=== PATIENT | male | born 1940 | race Hispanic/Latino ===

== ENCOUNTER 2017-09-27 06:56 | Day surgery (SDC) | payer MEDICARE, OTHER ==
[2017-09-20 13:17] VITALS: BMI 24.5
[2017-09-27 07:46] LABS: BASO # 0.01 K/mm3 (0.0-2.0); BASO % 0.1 % (0.0-3.0); EOS # 0.1 (0.0-0.7); EOS % 1.3 % (1.5-5.0); GRAN # 7.49 (1.4-6.5); GRAN % 78.6 % (50.0-68.0); HEMOGLOBIN 9.5 g/dL (14.0-18.0); LYMPH # 1.1 (1.2-3.4); LYMPH % 11.4 % (22.0-35.0); MEAN CELL VOLUME 82.3 fl (80.0-105.0); MEAN CORPUSCULAR HEMOGLOBIN 27.6 pg (25.0-35.0); MEAN CORPUSCULAR HGB CONC 33.6 g/dl (31.0-37.0); MEAN PLATELET VOLUME 9.2 fl (7.0-11.0); MONO # 0.8 (0.1-0.6); MONO % 8.6 % (1.0-6.0); RBC 3.44 10^6/uL (3.5-6.1); RED CELL DISTRIBUTION WIDTH 12.9 % (11.5-14.5); WHITE BLOOD COUNT 9.5 10^3/ul (4.5-11.0)
[2017-09-27 07:51] LABS: BLOOD UREA NITROGEN 24 mg/dL (7-21); CALCIUM 9.8 mg/dL (8.4-10.5); GFR AFRICAN-AMERICAN > 60; GFR NON-AFRICAN AMERICAN 58
[2017-09-27 07:54] LABS: INR 1.15 (0.93-1.08); PROTHROMBIN TIME 13.3 SECONDS (9.4-12.5)
[2017-09-27] MEDS ORDERED: Midazolam 2 MG/2 ML VIAL ONE (09:29)
[2017-09-27] MEDS ORDERED: Lidocaine 1% Inj (20ml) ONE (09:30)
[2017-09-27] MEDS ORDERED: Oxycodone/Acetaminophen 5/325 mg Tab PO PRN (10:37)
[2017-09-27] MEDS ORDERED: Sodium Chloride 0.45% 1,000 ML IV SCH (10:45)
[2017-09-27 12:28] VITALS: BP 131/75; PULSE 72; RESP 20; TEMP 97.9; O2SAT 97
--- NOTE | 2017-09-27 14:30 | CT ---
PROCEDURE: CT guided right upper lobe lung biopsy. HISTORY: 13 mm spiculated right upper lobe lung nodule. Evaluate for malignancy. Previous smoker. History prostate CA PHYSICIAN(S): Fito Sylvester MD. TECHNIQUE: The relative risks and indications of the procedure were explained to the patient's daughter and consent obtained. The patient was placed prone on the CT scanner and preliminary images through the upper lobes obtained. Conscious sedation and monitoring were provided throughout the procedure by a nurse. This spiculated 13 millimeter nodule in the right upper lobe posteriorly.. A right posterior oblique approach was selected and the area prepped and draped in the usual sterile fashion. 1% Xylocaine was used to anesthetize the skin and soft tissues. A in gauge guiding needle was advanced into the 13 mm right upper lobe lung nodule.. Its position was confirmed with CT. Using coaxial technique, multiple core biopsies were obtained. The postprocedure images show no evidence of large pneumothorax or significant hemorrhage. A small pneumothorax was seen and follow-up chest x-ray has been ordered. The patient is asymptomatic. IMPRESSION: 1. CT-guided right upper lobe lung biopsy as described above.
--- NOTE | 2017-09-27 14:43 | RAD ---
HISTORY: rt lung bx COMPARISON: CT-guided lung biopsy 09/27/2017. FINDINGS: LUNGS: Trace right pneumothorax is identified at the right apex correspond to minimal pneumothorax seen in CT from CT-guided lung biopsy procedure 09/27/2017 earlier in the same morning. Small lesion and post biopsy apical parenchymal changes are seen in the right upper lobe as well with the left lung clear. PLEURA: No significant pleural effusion identified, no pneumothorax apparent. CARDIOVASCULAR: Normal. OSSEOUS STRUCTURES: No significant abnormalities. VISUALIZED UPPER ABDOMEN: Normal. OTHER FINDINGS: None. IMPRESSION: Trace right apical pneumothorax. Consider follow-up radiography as clinically warranted. Patient is apparently asymptomatic. Findings and discussed with Dr. Sylvester 09/27/2017 2:35 p.m..
== END 2017-09-27 15:25 | disposition home or self-care (01) ==
LOC: SDS 06:56
PROVIDERS: ATTEND Radiology Vascular & Interventional Radiology
DX: C34.11 Malignant neoplasm of upper lobe, right bronchus or lung (principal); Z87.891 Personal history of nicotine dependence; Z85.46 Personal history of malignant neoplasm of prostate
CPT/HCPCS: 32405; 36415; 71045; 77012; 80048; 85025; 85610; 85730; 88305; J2250; J2405; J3010; J7030

== ENCOUNTER 2017-09-28 09:08 | Inpatient (IN) | payer MEDICARE ==
[2017-09-28] MEDS ORDERED: Morphine 4 mg/ml ISec IVP STA (09:23)
[2017-09-28] MEDS ORDERED: Sodium Chloride 0.9% 1,000 ML IV SCH (09:30)
--- NOTE | 2017-09-28 09:32 | ED PDOC ---
Arrival/HPI - General Chief Complaint: Shortness Of Breath Time Seen by Provider: 09/28/17 09:15 Historian: Patient, Family (daughter - translating (speaks Samoan)), Healthcare Account Manager - History of Present Illness Narrative History of Present Illness (Text): 09/28/17 09:25 Pt p/w + persistent pleuritic chest pain, right sided; + sob; pt received an elective procedure for lung biopsy yesterday performed by Dr Sylvester and repeat chest xray today indicated worsening PTX on the right side; Dr Sylvester will be expecting patient in the ED and will place a chest tube in the patient; pt states no other complaints; pt denied fever/chills/sweats, no palpitations, no abd pain, no n/v, no numbness/tingling, no urinary/bowel changes, no gross bleeding, no rashes, no fall/trauma/sick contact, no travel assistant arrived to ED for further eval/exam/mgt PCP: Dr Attila Riddle Time/Duration: 24 hours Symptom Onset: Sudden Symptom Course: Unchanged Quality: Tightness, Other (sharp pain) Severity Level: Severe Activities at Onset: Rest Context: Home, Other (deep breathing) Past Medical History - Provider Review Nursing Documentation Reviewed: Yes - Travel History Have you recently traveled outside [place] w/in the past 3 mons?: No - Past History Past History: No Previous - Infectious Disease Hx of Infectious Diseases: None - Reproductive Currently Lactating: No - Cardiac Hx Cardiac Disorders: No - Pulmonary Hx Respiratory Disorders: No - Neurological Hx Neurological Disorder: No - HEENT Hx HEENT Disorder: No - Renal Hx Renal Disorder: No - Endocrine/Metabolic Hx Endocrine Disorders: No - Hematological/Oncological Hx Blood Disorders: No - Integumentary Hx Dermatological Disorder: No - Musculoskeletal/Rheumatological Hx Musculoskeletal Disorders: No - Genitourinary/Gynecological Hx Prostate Cancer: Yes - Psychiatric Hx Psychophysiologic Disorder: No Hx Substance Use: No - Anesthesia Hx Anesthesia Reactions: No Hx Malignant Hyperthermia: No - Suicidal Assessment Feels Threatened In Home Enviroment: No Family/Social History - Physician Review Nursing Documentation Reviewed: Yes Family/Social History: No Known Family HX Smoking Status: Never Smoked Hx Alcohol Use: Yes (OCCASIONAL) Frequency of alcohol use: Socially Hx Substance Use: No Hx Substance Use Treatment: No Allergies/Home Meds Allergies/Adverse Reactions: Allergies No Known Allergies Allergy (Verified 09/28/17 09:20) Home Medications: Home Meds Medication Instructions Recorded Confirmed No Known Home Med 09/20/17 09/28/17 Review of Systems - Review of Systems Constitutional: Normal Eyes: Normal ENT: Normal Respiratory: SOB Cardiovascular: Chest Pain Gastrointestinal: Normal Genitourinary Male: Normal Musculoskeletal: Normal Skin: Normal Neurological: Normal Endocrine: Normal Hemo/Lymphatic: Normal Psychiatric: Normal Physical Exam Vital Signs Reviewed: Yes Vital Signs Temp Pulse Resp BP Pulse Ox 09/28/17 09:58 16 98 09/28/17 09:22 97.5 F L 104 H 16 149/69 97 Temperature: Afebrile Blood Pressure: Hypertensive Pulse: Tachycardic Respiratory Rate: Other (slightly tachypenic) Appearance: Positive for: Well-Appearing, Non-Toxic, Uncomfortable, Other (alert /awake, GCS = 15, cooperative, NAD, uncomfortable, resting in bed) Pain Distress: None Mental Status: Positive for: Alert and Oriented X 3 - Systems Exam Head: Present: Atraumatic, Normocephalic Pupils: Present: PERRL, Other (no nystagmus, no photophobia, sclera anicteric, visual field intact b/l) Extroacular Muscles: Present: EOMI Conjunctiva: Present: Normal Ears: Present: Normal Mouth: Present: Moist Mucous Membranes, Normal Teeth, Other (no drooling/stridor , no exudate/lesions, no dysphonia, intact dentitions) Pharnyx: Present: Normal Nose (External): Present: Atraumatic Nose (Internal): Present: Normal Inspection Neck: Present: Normal Range of Motion, Trachea Midline. No: Meningeal Signs, MIDLINE TENDERNESS Respiratory/Chest: Present: Clear to Auscultation, Respiratory Distress, Decreased Breath Sounds (noted decr breath sounds to right lung; + slight tachypenia, no w/r/r, no accessory muscle use noted). No: Accessory Muscle Use Cardiovascular: Present: Normal S1, S2, Tachycardic. No: Murmurs Abdomen: Present: Normal Bowel Sounds, Other (well nourished/thin male, no focal tenderness, no escoto's sign, no mcburney's point tenderness, no masses/ rebound/guarding/rigidity) Back: Present: Normal Inspection, Other (no midline tenderness, no step off). No: CVA Tenderness, Midline Tenderness Upper Extremity: Present: Normal Inspection, Normal ROM, NORMAL PULSES, Neurovascularly Intact, Capillary Refill < 2s. No: Deformity Lower Extremity: Present: Normal Inspection, NORMAL PULSES, Normal ROM, Neurovascularly Intact, Capillary Refill < 2 s, Other (+ ambulatory, strength 5/ 5 grossly intact in all limbs). No: Edema, Deformity Neurological: Present: GCS=15, CN II-XII Intact, Speech Normal Skin: Present: Warm, Dry, Other (slight pallor noted, cap refill < 1sec, no ulcerations, no petechiae, no rashes noted) Psychiatric: Present: Alert, Oriented x 3 Medical Decision Making ED Course and Treatment: 09/28/17 09:30 Impression: chest pain, right PTX i have consider all the differential diagnosis regarding pt's chief medical complaints/clinical findings, including but are not limited to: right PTX A/P: right PTX - labs - ekg - observe - supportive care 09/28/17 09:[address] Demetrius Riddle, who is aware and agrees with plan for patient admission. Will contact/consult Dr. Sylvester as well 09/28/17 09:33 Dr. Sylvester is contacted, made aware and will place chest tube; will f/u with patient 09/28/17 10:01 PACU is at bedside, will take patient to place a chest tube pt/family are made aware of pt's medical results agrees with admission Re-evaluation Time: 09:59 Reassessment Condition: Unchanged - Lab Interpretations I have reviewed the lab results: Yes Interpretation: Abnormal lab values (decr H/H and elevated GLUC) - RAD Interpretation Narrative RAD Interpretations (Text): 09/28/17 09:55 HISTORY: HX.OF SMALL PTX COMPARISON: 09/27/2017 TECHNIQUE: Chest PA and lateral FINDINGS: LUNGS: Expected findings/ collapse of the right lung. PLEURA: Large right pneumothorax approximately 50% of right lung volume. No evidence of tension pneumothorax. CARDIOVASCULAR: Normal. OSSEOUS STRUCTURES: No significant abnormalities. VISUALIZED UPPER ABDOMEN: Normal. OTHER FINDINGS: None. IMPRESSION: Substantial increase in right pneumothorax approximately 50% of right lung volume on the present study. Communication of results: I discussed this with individuals involved in the care and management of the patient (Marcy Birmingham) at 08:50. Study completed 08:34. Driver/Sales Workers: Radiologist - EKG Interpretation EKG Interpretation (Text): 09/28/17 09:55 NSR at 90 bpm, normal axis, no ectopy, RBBB, inverted T in leads V1, V3, non- specific st changes, ABNL EKG; no old ekg to compare with Interpreted by ED Physician: Yes Type: 12 lead EKG Comparison: No previous EKG avail. - Medication Orders Current Medication Orders: Sodium Chloride (Sodium Chloride 0.9%) 1,000 mls @ 100 mls/hr IV .Q10H KAYLA Last Admin: 09/28/17 09:33 Dose: 100 mls/hr eMAR Start Stop Document 09/28/17 09:33 OCS (Rec: 09/28/17 09:33 OCS [id number]) Intravenous Solution Start Date 09/28/17 Start Time 09:33 Discontinued Medications Morphine Sulfate (Morphine) 2 mg IVP STAT STA Stop: 09/28/17 09:24 Last Admin: 09/28/17 09:33 Dose: 2 mg MAR Pain Assessment Document 09/28/17 09:33 OCS (Rec: 09/28/17 09:34 [id number] Pain Reassessment Is this a pain reassessment? No Sleep Is patient sleeping during reassessment? No Presence of Pain Presence of Pain Yes Pain Scale Used Pain Scale Used Numeric Location Left, Right or Bilateral Right Pain Location Body Site Chest Back Description Description Constant Intensity of Pain at present 5 Aggravating Factors ADL's IVP Administration Document 09/28/17 09:33 OCS (Rec: 09/28/17 09:34 [id number]) Charges for Administration # of IVP Administrations 1 Disposition/Present on Arrival - Present on Arrival Any Indicators Present on Arrival: No History of DVT/PE: No History of Uncontrolled Diabetes: No Urinary Catheter: No History of Decub. Ulcer: No History Surgical Site Infection Following: None - Disposition Have Diagnosis and Disposition been Completed?: Yes Diagnosis: Pneumothorax, right, Lung mass, Elevated glucose level Disposition: HOSPITALIZED Disposition Time: 09:45 Patient Plan: Admission Patient Problems: Current Active Problems Problem Status Onset Pneumothorax, right Acute Lung mass Acute Condition: STABLE
[2017-09-28 09:39] LABS: BASO # 0.01 K/mm3 (0.0-2.0); BASO % 0.1 % (0.0-3.0); EOS # 0.1 (0.0-0.7); EOS % 1.2 % (1.5-5.0); GRAN # 8.19 (1.4-6.5); GRAN % 83.4 % (50.0-68.0); HEMOGLOBIN 9.3 g/dL (14.0-18.0); LYMPH % 9.7 % (22.0-35.0); MEAN CELL VOLUME 82.3 fl (80.0-105.0); MEAN CORPUSCULAR HEMOGLOBIN 27.9 pg (25.0-35.0); MEAN CORPUSCULAR HGB CONC 33.9 g/dl (31.0-37.0); MONO # 0.6 (0.1-0.6); MONO % 5.6 % (1.0-6.0); RBC 3.33 10^6/uL (3.5-6.1); WHITE BLOOD COUNT 9.8 10^3/ul (4.5-11.0)
[2017-09-28] MEDS ORDERED: Lidocaine 1% Inj (20ml) ONE (09:44)
[2017-09-28 09:46] LABS: ALBUMIN 3.3 g/dL (3.0-4.8); ALT/SGPT 22 U/L (7-56); AST/SGOT 19 U/L (17-59); BLOOD UREA NITROGEN 27 mg/dL (7-21); CALCIUM 9.7 mg/dL (8.4-10.5); GFR AFRICAN-AMERICAN > 60; GFR NON-AFRICAN AMERICAN > 60
[2017-09-28 09:51] LABS: INR 1.14 (0.93-1.08); PARTIAL THROMBOPLASTIN TIME 25.9 Seconds (25.1-36.5); PROTHROMBIN TIME 13.2 SECONDS (9.4-12.5)
[2017-09-28 09:59] LABS: TROPONIN I < 0.01 ng/mL
[2017-09-28 10:06] VITALS: BMI 23.7
[2017-09-28] MEDS: Oxycodone/Acetaminophen 5/325 mg Tab PO PRN ×2 (12:42→19:42)
--- NOTE | 2017-09-28 13:07 | CT ---
PROCEDURE: CT-guided right chest tube placement HISTORY: Recent right upper lobe lung biopsy. Enlarging right pneumothorax with shortness of breath. Needs chest tube. PHYSICIAN(S): Fito Sylvester MD. TECHNIQUE: The relative risks and indications for the procedure were explained to the patient's daughter and informed consent obtained. The patient was placed in a supine position on the CT scanner and preliminary images through the upper chest performed. This revealed a moderate to large right pneumothorax with some shift. A right anterior approach was selected and the area prepped/draped in the usual sterile fashion. Conscious sedation and monitoring were provided throughout the procedure by nurse. An 18-gauge needle was advanced into right pleural cavity and air aspirated. 0.035 guidewire was coiled in the right pleural cavity. Dilatation was performed with placement of a 10 [place] right pigtail chest tube. The chest tube was retracted against the anterior abdominal wall. The chest tube was placed to 20 cm H2O low continuous suction. The patient tolerated the procedure well. The pneumothorax was resolved on the final images. IMPRESSION: 1. CT-guided right chest tube placement.
[2017-09-28 17:46] VITALS: BP 105/60; RESP 19; TEMP 97.2; O2SAT 100
--- NOTE | 2017-09-28 20:23 | CARD ---
APPROVED REPORT EKG Measurement Heart [id number] <Conclusion> Normal sinus rhythm Right bundle branch block Abnormal ECG
[2017-09-28] MEDS ORDERED: Magnesium Hydroxide Susp 30 ml UD PO STA (20:27)
--- NOTE | 2017-09-28 21:55 | HP ---
ADMITTING HISTORY AND PHYSICAL I would like the admitting history and physical to be read as follows, if you would be so kind. HISTORY OF PRESENT ILLNESS: The patient is a 77-year-old male who was admitted to [facility] (Formerly [facility]) with a right-sided pneumothorax. The patient underwent percutaneous biopsy of a right upper lung mass, which was found on CAT scan. Postprocedure, he had a small 10% pneumothorax; however, followup chest x-ray was done this morning after yesterday's procedure and it showed a 50% pneumothorax. Therefore, the patient was admitted through the emergency room. PAST MEDICAL HISTORY: He has apparently no other past medical history except for carcinoma of the prostate, which he is receiving treatments for and responding well. SOCIAL HISTORY: He never smoked. He is a social alcohol drinker. ALLERGIES: HAS NO KNOWN MEDICAL ALLERGIES. MEDICATIONS: Could not recall what medications he was taking at home. PHYSICAL EXAMINATION: HEAD, EYES, EARS, NOSE AND THROAT: Unremarkable. NECK: Supple with no lymphadenopathy and no goiter. LUNGS: Have decreased breath sounds on the right, clear breath sounds on the left. HEART: Regular. No murmurs are appreciated. ABDOMEN: Soft and nontender. EXTREMITIES: Free of cyanosis, clubbing or edema. NEUROLOGIC: The patient is awake, alert and oriented with no focal neurological signs. LABORATORY STUDIES: Show the white blood cell count to be 9.8, hemoglobin and hematocrit are 9.3 and 27.4 respectively, platelet count is 294. Sodium is 137, potassium 3.7, blood urea nitrogen 27, creatinine 1.1, glucose is 217. So the patient was seen by Dr. Fito Sylvester earlier today. A chest tube was placed. We will follow the patient over the next 24 to 48 hours. He is to be reevaluated in the morning. Shashank Riddle MD
[2017-09-29] MEDS: Oxycodone/Acetaminophen 5/325 mg Tab PO PRN (10:24)
--- NOTE | 2017-09-29 10:35 | RAD ---
HISTORY: h20 seal ? PTX COMPARISON: September 28, 2017. FINDINGS: LUNGS: Re-expansion right lung following chest tube placement PLEURA: Near complete resolution of previously identified pneumothorax. Pigtail catheter in the right pleural space satisfactorily positioned. CARDIOVASCULAR: Normal. OSSEOUS STRUCTURES: No significant abnormalities. VISUALIZED UPPER ABDOMEN: Normal. OTHER FINDINGS: None. IMPRESSION: Status post right chest tube placement with complete re-expansion of the right lung.
--- NOTE | 2017-09-29 12:43 | RAD ---
HISTORY: chest tube on 4hrs water seal- plan removal COMPARISON: Multiple serial examinations preceding the most recent study: September 29, 2017. Time of the most recent examination: 08:05 FINDINGS: LUNGS: No active pulmonary disease. PLEURA: Stable position, configuration pigtail catheter in the right pleural space. No pneumothorax identified. CARDIOVASCULAR: No radiographic findings to suggest acute or significant cardiovascular disease. OSSEOUS STRUCTURES: No significant abnormalities. VISUALIZED UPPER ABDOMEN: Normal. OTHER FINDINGS: None. IMPRESSION: No pneumothorax. No change compared to the most recent study.
--- NOTE | 2017-09-29 17:11 | PN ---
DATE: 09/29/2017 SUBJECTIVE: The patient is a 77-year-old male. His only past medical history is positive for carcinoma of the prostate. He was found to have a right upper lobe lung mass on chest x-ray, underwent percutaneous biopsy and unfortunately suffered a right-sided pneumothorax. He was, therefore, admitted. Chest tube was placed by Dr. Fito Sylvester. When seen today, the patient is comfortable. He does complain of some right-sided rib pain. The patient states it was similar to a rib fracture he had years ago. PHYSICAL EXAMINATION: VITAL SIGNS: His temperature is 97.2 degrees Fahrenheit, blood pressure is 105/60, heart rate is 70. LUNGS: Clear. THORAX: Nontender on palpation. CERVICAL AND THORACIC SPINE: Nontender on palpation. HEART: Regular. ABDOMEN: Soft and nontender. LABORATORY DATA: Followup chest x-ray shows complete re-expansion of the right lung, the pigtail catheter is in place. ASSESSMENT AND PLAN: The patient's and daughter are at bedside today when visited. Situation was explained to them. From a medical point of view, the patient is certainly cleared for discharge, to be discussed with Dr. Sylvester as far as when the pleural catheter can be removed. Shashank Riddle MD
--- NOTE | 2017-09-29 17:41 | RAD ---
HISTORY: Status post chest tube removal COMPARISON: No prior. FINDINGS: LUNGS: No active pulmonary disease. PLEURA: No significant pleural effusion identified, no pneumothorax apparent. No pneumothorax following chest tube removal CARDIOVASCULAR: Normal. OSSEOUS STRUCTURES: No significant abnormalities. VISUALIZED UPPER ABDOMEN: Normal. OTHER FINDINGS: None. IMPRESSION: Status post chest tube removal right pleural space. No pneumothorax identified.
[2017-09-29 18:28] VITALS: PULSE 77
== END 2017-09-29 19:30 | disposition home or self-care (01) | DRG 201 ==
LOC: ED 09:08 → ERH 09:26 → 3RNO 12:11
PROVIDERS: ADMIT Internal Medicine; ATTEND Internal Medicine
PROC: 0W993ZZ Drainage of Right Pleural Cavity, Percutaneous Approach (ICD-10-PCS; principal; 2017-09-28 10:00)
DX: J95.811 Postprocedural pneumothorax (principal); Y84.8 Other medical procedures as the cause of abnormal reaction of the patient, or of later complication, without mention of misadventure at the time of the procedure; R91.8 Other nonspecific abnormal finding of lung field; Z85.46 Personal history of malignant neoplasm of prostate

== ENCOUNTER 2017-10-01 19:03 | Inpatient (IN) | payer MEDICARE, OTHER ==
[2017-10-01] MEDS ORDERED: Sodium Chloride 0.9% 500 ML IV ONE (19:20)
[2017-10-01 19:32] LABS: BASO # 0.01 K/mm3 (0.0-2.0); BASO % 0.1 % (0.0-3.0); EOS # 0.2 (0.0-0.7); EOS % 2.2 % (1.5-5.0); GRAN # 7.51 (1.4-6.5); HEMOGLOBIN 9.1 g/dL (14.0-18.0); LYMPH # 1.2 (1.2-3.4); LYMPH % 12.5 % (22.0-35.0); MEAN CELL VOLUME 83.3 fl (80.0-105.0); MEAN CORPUSCULAR HEMOGLOBIN 28.1 pg (25.0-35.0); MEAN CORPUSCULAR HGB CONC 33.7 g/dl (31.0-37.0); MONO # 0.9 (0.1-0.6); MONO % 9.2 % (1.0-6.0); RBC 3.24 10^6/uL (3.5-6.1); RED CELL DISTRIBUTION WIDTH 13.3 % (11.5-14.5); WHITE BLOOD COUNT 9.9 10^3/ul (4.5-11.0)
[2017-10-01 19:44] LABS: INR 1.2 (0.93-1.08); PARTIAL THROMBOPLASTIN TIME 25.8 Seconds (25.1-36.5); PROTHROMBIN TIME 13.7 SECONDS (9.4-12.5)
--- NOTE | 2017-10-01 19:56 | ED PDOC ---
Arrival/HPI - General Chief Complaint: Weakness/Neurological Deficit Time Seen by Provider: 10/01/17 19:14 EM Caveat: Acuity of Condition - Critical Care Critical Care Minutes: 30 minutes - History of Present Illness Narrative History of Present Illness (Text): 10/01/17 19:20 John Ospina is a 77 year old male who presents to the emergency department complaining of an acute onset of lightheadedness, shortness of breath, and palpitation while walking outside prior to arrival. History taken from daughter , who is acting as automatic developer. Daughter notes that patient was just discharged from the hospital. Patient denies any chest pain, nausea, vomiting, or any other complaints at this time. Time/Duration: Prior to Arrival Symptom Course: Unchanged Context: Walking Associated Symptoms (Text): 10/01/17 20:09 Acute onset of lightheadedness with palpitations and dizziness and near syncope. Found in rapid SVT and broken with 1 dose of adenosine Past Medical History - Provider Review Nursing Documentation Reviewed: Yes - Past History Past History: No Previous - Infectious Disease Hx of Infectious Diseases: None - Reproductive Currently Lactating: No - Cardiac Hx Cardiac Disorders: No - Pulmonary Hx Respiratory Disorders: No - Neurological Hx Neurological Disorder: No - HEENT Hx HEENT Disorder: No - Renal Hx Renal Disorder: No - Endocrine/Metabolic Hx Endocrine Disorders: No - Hematological/Oncological Hx Blood Disorders: No - Integumentary Hx Dermatological Disorder: No - Musculoskeletal/Rheumatological Hx Falls: No - Genitourinary/Gynecological Hx Prostate Cancer: Yes - Psychiatric Hx Psychophysiologic Disorder: No Hx Substance Use: No - Anesthesia Hx Anesthesia Reactions: No Hx Malignant Hyperthermia: No - Suicidal Assessment Feels Threatened In Home Enviroment: No Family/Social History - Physician Review Nursing Documentation Reviewed: Yes Family/Social History: No Known Family HX Smoking Status: Former Smoker Hx Alcohol Use: Yes (OCCASIONAL) Hx Substance Use: No Hx Substance Use Treatment: No Allergies/Home Meds Allergies/Adverse Reactions: Allergies No Known Allergies Allergy (Verified 09/28/17 09:20) Home Medications: Home Meds Medication Instructions Recorded Confirmed No Known Home Med 09/20/17 09/28/17 Review of Systems - Physician Review All systems were reviewed & negative as marked: Yes - Review of Systems Systems not reviewed;Unavailable: Acuity of Condition Constitutional: Other (Lightheadedness) Eyes: absent: Vision Changes ENT: absent: Hearing Changes Respiratory: SOB Cardiovascular: Palpitations Gastrointestinal: absent: Abdominal Pain Genitourinary Male: absent: Dysuria, Frequency Musculoskeletal: absent: Arthralgias, Back Pain Skin: absent: Rash, Pruritis Neurological: absent: Headache Endocrine: absent: Diaphoresis Hemo/Lymphatic: absent: Adenopathy Psychiatric: absent: Anxiety, Depression Physical Exam Vital Signs Reviewed: Yes Vital Signs Pulse Resp BP Pulse Ox 10/01/17 19:46 102 H 16 137/77 95 Blood Pressure: Hypotensive Pulse: Tachycardic Respiratory Rate: Normal Appearance: Positive for: Uncomfortable, Other (Pale, diaphoretic) Mental Status: Positive for: Lethargic - Systems Exam Head: Present: Atraumatic, Normocephalic Pupils: Present: PERRL Extroacular Muscles: Present: EOMI Conjunctiva: Present: Normal Mouth: Present: Moist Mucous Membranes Neck: Present: Normal Range of Motion Respiratory/Chest: Present: Decreased Breath Sounds (Lungs markedly diminished) Cardiovascular: Present: Irregular Rhythm, Tachycardic Abdomen: No: Tenderness, Distention, Peritoneal Signs Back: Present: Normal Inspection Upper Extremity: Present: Normal Inspection. No: Cyanosis, Edema Lower Extremity: Present: Normal Inspection. No: Edema Neurological: Present: GCS=15, CN II-XII Intact, Speech Normal Skin: Present: Diaphoretic, Pale Psychiatric: Present: Alert, Oriented x 3, Normal Insight, Normal Concentration Medical Decision Making ED Course and Treatment: 10/01/17 19:58 Impression: 77 year old male complaining of an acute onset of lightheadedness, shortness of breath, and palpitation while walking outside prior to arrival. Plan: -- EKG -- Chest X-ray -- Labs -- Adenosine and IV fluids -- Reassess and disposition Prior Visits: Notes and results from previous visits were reviewed. Patient was last seen in the emergency department on 09/28/17 for persistent right sided pleuritic chest pain and shortness of breath. Patient was admitted to hospitalist care for further evaluation. Progress Notes: 10/01/17 20:10 Initial EKG shows rapid SVT rate approximately 200. Patient was treated with adenosine IV push. Repeat EKG shows normal sinus rhythm rate approximately 105 with a right bundle branch block and no acute ST or T-wave changes. Consultation was obtained with Dr.E Riddle who will place on telemetry observation. 10/01/17 20:14 Dr Riddle here. - Lab Interpretations Lab Results: 10/01/17 19:20 10/01/17 19:20 Lab Results 10/01/17 19:20: Sodium 138, Potassium 4.2, Chloride 106, Carbon Dioxide 21, Anion Gap 15, BUN 20, Creatinine 1.1, Est GFR ( Amer) > 60, Est GFR (Non- Af Amer) > 60, Random Glucose 174 H, Calcium 9.4, Total Bilirubin 0.3, AST 41, ALT 39, Alkaline Phosphatase 82, Lactate Dehydrogenase 342, Total Creatine Kinase 27 L, Troponin I < 0.01, NT-Pro-B Natriuret Pep 493 H, Total Protein 6.8 , Albumin 3.5, Globulin 3.3, Albumin/Globulin Ratio 1.1 10/01/17 19:20: PT 13.7 H, INR 1.20 H, APTT 25.8 10/01/17 19:20: WBC 9.9, RBC 3.24 L, Hgb 9.1 L, Hct 27.0 L, MCV 83.3, MCH 28.1, MCHC 33.7, RDW 13.3, Plt Count 287, MPV 9.0, Gran % 76.0 H, Lymph % (Auto) 12.5 L, [place] % (Auto) 9.2 H, Eos % (Auto) 2.2, Baso % (Auto) 0.1, Gran # 7.51 H, Lymph # (Auto) 1.2, [place] # (Auto) 0.9 H, Eos # (Auto) 0.2, Baso # (Auto) 0.01 I have reviewed the lab results: Yes - RAD Interpretation Radiology Orders: 10/01/17 19:20 CHEST PORTABLE [RAD] Stat Chest 1 view patient still has a large right-sided pneumothorax. Switchboard Operator: ED Physician - Medication Orders Current Medication Orders: Discontinued Medications Adenosine (Adenosine 6 Mg/2 Ml Inj) 6 mg IVP STAT STA Stop: 10/01/17 19:21 Last Admin: 10/01/17 19:42 Dose: 6 mg IVP Administration Document 10/01/17 19:42 MS (Rec: 10/01/17 19:43 MS [facility] [id number]) Charges for Administration # of IVP Administrations 1 Sodium Chloride (Sodium Chloride 0.9%) 500 mls @ 500 mls/hr IV ONCE ONE Stop: 10/01/17 20:19 Last Admin: 10/01/17 19:43 Dose: 500 mls/hr eMAR Start Stop Document 10/01/17 19:43 MS (Rec: 10/01/17 19:44 MS [facility] [id number]) Intravenous Solution Start Date 10/01/17 Start Time 19:43 End Date 10/01/17 End time 20:43 Total Infusion Time 60 - Scribe Statement The provider has reviewed the documentation as recorded by the Ramboibpaul Borrero Provider Scribe Attestation: All medical record entries made by the Scribe were at my direction and personally dictated by me. I have reviewed the chart and agree that the record accurately reflects my personal performance of the history, physical exam, medical decision making, and the department course for this patient. I have also personally directed, reviewed, and agree with the discharge instructions and disposition. Disposition/Present on Arrival - Present on Arrival Any Indicators Present on Arrival: No History of DVT/PE: No History of Uncontrolled Diabetes: No Urinary Catheter: No History of Decub. Ulcer: No History Surgical Site Infection Following: None - Disposition Have Diagnosis and Disposition been Completed?: Yes Diagnosis: Supraventricular tachycardia, Pneumothorax, right Disposition: HOSPITALIZED Disposition Time: 20:11 Patient Plan: Observation, Telemetry Patient Problems: Current Active Problems Problem Status Onset Pneumothorax, right Acute Supraventricular tachycardia Acute Condition: IMPROVED Referrals: Shashank Riddle MD [Primary Care Provider] - Follow up with primary Forms: [employer] (Georgian)
[2017-10-01 20:02] LABS: ALB/GLOB RATIO 1.1 (1.1-1.8); ALBUMIN 3.5 g/dL (3.0-4.8); ALT/SGPT 39 U/L (7-56); AST/SGOT 41 U/L (17-59); BLOOD UREA NITROGEN 20 mg/dL (7-21); CALCIUM 9.4 mg/dL (8.4-10.5); GFR AFRICAN-AMERICAN > 60; GFR NON-AFRICAN AMERICAN > 60
[2017-10-01 20:05] LABS: B-TYPE NATRIURETIC PEPTIDE 493 pg/mL (0-450); TROPONIN I < 0.01 ng/mL
[2017-10-02 01:02] VITALS: BMI 24.1
--- NOTE | 2017-10-02 07:52 | RAD ---
HISTORY: palp COMPARISON: Portable chest radiograph 09/29/2017 5:11 p.m.. FINDINGS: LUNGS: There is a large right pneumothorax with none identified the left. No pleural effusion bilaterally. No definite infiltrate bilaterally either. Mediastinum remains midline. Cardiac size normal. No pulmonary vascular derangement appreciable. PLEURA: As above. CARDIOVASCULAR: As above. OSSEOUS STRUCTURES: No significant abnormalities. VISUALIZED UPPER ABDOMEN: Normal. OTHER FINDINGS: None. IMPRESSION: Large right pneumothorax identified. No acute infiltrate or pleural effusion bilaterally.
[2017-10-02 08:14] LABS: ALBUMIN 3.2 g/dL (3.0-4.8); ALT/SGPT 38 U/L (7-56); AST/SGOT 25 U/L (17-59); BLOOD UREA NITROGEN 16 mg/dL (7-21); CALCIUM 9.5 mg/dL (8.4-10.5); GFR AFRICAN-AMERICAN > 60; GFR NON-AFRICAN AMERICAN > 60; HDL CHOLESTEROL 42 mg/dL (29-60)
[2017-10-02 08:22] LABS: LDL CHOLESTEROL 72 mg/dL (0-129)
[2017-10-02] MEDS ORDERED: Aminophylline 25 mg/ml Inj ONE (09:55)
[2017-10-02] MEDS ORDERED: Lidocaine 1% Inj (20ml) ONE (15:52)
[2017-10-02] MEDS ORDERED: Morphine 2 mg/ml ISec IVP PRN (16:36)
[2017-10-02] MEDS ORDERED: Morphine 2 mg/2 mL syringe IVP PRN (16:50)
[2017-10-02] MEDS: Oxycodone/Acetaminophen 5/325 mg Tab PO PRN (17:35)
[2017-10-02] MEDS ORDERED: Oxycodone/Acetaminophen 5/325 mg Tab ONE (17:38)
--- NOTE | 2017-10-02 18:03 | HP ---
HISTORY OF PRESENT ILLNESS: The patient is a 77-year-old male who was recently diagnosed with a right upper lung mass. This was found on CAT scan. He underwent percutaneous biopsy and suffered a pneumothorax. He was hospitalized on 09/28/2017, had chest tube placement by Dr. Fito Sylvester. Followup x-ray showed complete resolution of the pneumothorax. On Sunday morning, the chest tube was removed and the patient was discharged to home. Earlier today, the patient was walking on [address]; it was a slow walk; it was not especially exertional. The patient had sudden onset of lightheadedness, dizziness, and near syncope. He sat down and was brought to the emergency room and was found to be in SVT; therefore, the patient is admitted. PAST MEDICAL HISTORY: His only past medical history is positive for carcinoma of the prostate for which he is receiving treatments. REVIEW OF SYSTEMS: Otherwise unremarkable. He denies any cough, any shortness of breath, breathing difficulties. SOCIAL HISTORY: He is a former smoker. Drinks alcohol only rarely socially. ALLERGIES: HE HAS NO KNOWN MEDICAL ALLERGIES. MEDICATIONS: The patient cannot remember the medications he was taking at home. PHYSICAL EXAMINATION: GENERAL: The patient is awake, alert, and oriented. HEAD, EYES, EARS, NOSE, AND THROAT: Unremarkable. NECK: Supple with no lymphadenopathy. No goiter. HEART: Regular at 102 beats per minute. His blood pressure is 137/77. LUNGS: Clear but there are decreased breath sounds on the right. ABDOMEN: Soft and nontender with no organomegaly. EXTREMITIES: Free of cyanosis, clubbing, or edema. NEUROLOGIC: The patient is awake, alert, and oriented. DIAGNOSTICS: EKG showed rapid SVT at around 200 beats per minute earlier, he was treated with IV adenosine which slowed the heart rate to about 100 beats per minute at the time of my examination. Laboratory studies showed the white blood cell count to be 9.9, hemoglobin and hematocrit are 9.1 and 27, platelet count is 287. Sodium is 138, potassium 4.2, blood urea nitrogen is 20, creatinine is 1.1. Troponins are less than 0.01. Total creatine kinase is 27. BNP is 493. A chest x-ray showed a large right-sided pneumothorax. ASSESSMENT AND PLAN: The patient is admitted with supraventricular tachycardia, recurring right-sided pneumothorax. We are asking Dr. Fito Sylvester to consult the patient. We are asking Dr. Littlejohn and Dr. Fraga to consult as cardiologists. The patient will be reevaluated in the morning. Shashank Riddle MD
--- NOTE | 2017-10-02 19:26 | CARD ---
APPROVED REPORT EKG Measurement Heart [id number] <Conclusion> Supraventricular tachycardia Incomplete right bundle branch block ST depression, consider subendocardial injury or digitalis effect Abnormal ECG
--- NOTE | 2017-10-02 20:59 | CON ---
DATE: 10/02/2017 SERVICE: Cardiology. REASON FOR THE CONSULTATION: SVT, cardiac evaluation during Holter monitor. BRIEF CLINICAL HISTORY: This is a 77-year-old male who was recently admitted here with a right-sided pneumothorax, underwent percutaneous biopsy of the right lung mass, which was found on CT scan. Postprocedure, patient had a 10% pneumothorax, requiring a chest tube. Recently discharged, came in yesterday to the ER with SVT, responded to adenosine. Patient also went to the [facility] where the patient was monitored on Holter monitor. I spoke to the daughter, Devon, telephone number was [phone], got the information from her as the patient speaks mostly Chadian and does not speak that much Uzbek, but denies any chest pain, denies any shortness of breath, denies any palpitations. PAST MEDICAL HISTORY: Significant for carcinoma of the prostate, did treatment in the past, responded well. Recently found to be lung mass biopsy and then complicated by pneumothorax, is status post chest tube, also complained of palpitations, wearing the Holter monitor. SOCIAL HISTORY: Never smoke. Socially drinks. ALLERGIES: NO KNOWN DRUG ALLERGIES. MEDICATIONS: Currently, patient denies taking any medications. REVIEW OF SYSTEMS: As per HPI. PHYSICAL EXAMINATION: VITAL SIGNS: Temperature afebrile, heart rate 83, blood pressure 145/82. HEENT: PERRLA. Extraocular muscles intact. NECK: Supple. No carotid bruit and no thyromegaly. CHEST: Clear to auscultation. HEART: S1 and S2, regular. ABDOMEN: Soft. EXTREMITIES: Clubbing and cyanosis negative. LABORATORY DATA: Blood workup as follows: WBC 9.9, hemoglobin 9.1, hematocrit 27, platelet count 287. Chemistry shows sodium , potassium 4, chloride 106, carbon dioxide 27, anion gap of 11, BUN 16, creatinine 1. EKG shows normal sinus, right bundle branch, left anterior hemiblock, post SVT conversion. Chest x-ray reviewed unofficially, official reading pending, unofficial looks like persistent right-sided pneumothorax. IMPRESSION: Recurrent supraventricular tachycardia, most likely could be secondary to recent intervention and biopsy lung mass and pneumothorax. RECOMMENDATIONS: Discussed with the daughter Devon, telephone number [phone]. Patient is in the process of getting a stress test and echo outside. So, we will schedule a stress test and echo to assess LV function and we will start low dose of beta-brenna because of SVT. Also followup chest x-ray. Get lipid profile, TSH, hemoglobin A1c. We will start low-dose of beta-brenna and if needed, we will add on DESEAN inhibitors. Further recommendation after the initial workup and hospital course, we will follow with you. I will keep him n.p.o. for the stress test. Thank you, Dr. Riddle, for providing us the opportunity in taking care of the patient. Dougie Fraga MD
--- NOTE | 2017-10-02 21:20 | CARD ---
APPROVED REPORT Protocol: LEXISCAN Test Type: Lexiscan Sestamibi Stress Test Attending Physician: Dr. Dougie Fraga Referring Physician: Dr. Demetrius Riddle Test Indications: Chest Pain Height:5 ft 1 in Weight:133lbs Medications: None Medical History: 77 y/o male with a history of shortness of breath, palpitations, SVT, prostate cancer Target HR: 141 bpm Resting ECG: NSR RBBB and LAHB Resting Heart Rate: 79 bpm Resting Blood Pressure: 144/70mmHg Submaximum (85%): 120 bpm PROCEDURE Pharmacologic stress testing was performed using 0.4mg per 5ml of regadenoson given intravenously over 7-10 seconds. Reversal agent aminophyline 100 mg, given intravenously for Other. POST EXERCISE Reason for Termination: Protocol completed Target HR: No Max HR: 94 bpm 73% of Maximum Predicted HR: 141 bpm Exercise duration: 01:01 min:sec, 0 Stage Exercise capacity: 1.0METs Max Blood Pressure: 144/70mmHg Blood Pressure response to exercise: normal resting BP - appropriate response Heart Rate response to exercise: appropriate Chest Pain: No, none Angina index: 0 Arrhythmia: No, none ST Change: No, none Deviation: 0 mm INTERPRETATION Stress EKG Conclusion: Negative for chest pain and for angina, Nuclear scan to follow. Signed by Dougie Fraga Electronically Approved: 10/02/2017 11:34:01 EXAM: Myocardial Perfusion REST/STRESS Stress Test Type: Pharmacologic Imaging Protocol Rest Spect myocardial perfusion imaging was performed in supine position 50 minutes following the injection of 10.3 mCi of Tc-99 Myoview. At peak stress, the patient was injected intravenously with 30.8mCi of Tc-99 tetrofosmin after an infusion time of 0 minutes and 10 seconds. Gated Stress Spect was performed 65 minutes after intravenous Tc-99 Myoview injection. The images were gated to evaluate regional wall motion and calculate ventricular ejection fraction.Images were reconstructed using backfilter projection method in short horizontal and verticle long axis. Spect slices were generated. LV Perfusion The quality of the study is good. The left ventricle is within normal limits in size. The right ventricle is unremarkable. The lung uptake is within normal limits. The distribution of tracer reveals normal uptake pattern throughout the LV myocardium on the stress study. The rest myocardial perfusion study shows no significant change. Wall Motion Wall motion study shows good contractility of the left ventricle. LVEF = 70%. Conclusion 1. Normal SPECT myocardial perfusion study. 2. Normal gated wall motion of the left ventricle.
[2017-10-03] MEDS: Oxycodone/Acetaminophen 5/325 mg Tab PO PRN ×4 (00:16→22:45)
--- NOTE | 2017-10-03 07:57 | RAD ---
HISTORY: rt chest tube COMPARISON: Portable chest 10/01/2017. FINDINGS: LUNGS: No active pulmonary disease. PLEURA: Trace right pleural effusion is now identified with none on the left. Prior large right pneumothorax is grossly reduced with trace residual of the right apex treated by a right pleural catheter terminating at the superior right pleural space. No left pneumothorax. CARDIOVASCULAR: Normal. OSSEOUS STRUCTURES: No significant abnormalities. VISUALIZED UPPER ABDOMEN: Normal. OTHER FINDINGS: None. IMPRESSION: Near complete resolution right pneumothorax treated by a right pleural catheter with trace pneumothorax remaining at the right apex. Minimal right pleural effusion identified. No infiltrates bilaterally.
--- NOTE | 2017-10-03 08:44 | PN ---
DATE: 10/02/2017 The patient was seen this Sunday afternoon in room 372, bed 2 with his and daughter at the bedside. He is a politeful 77-year-old man, who was recently found to have a pulmonary nodule, underwent biopsy with pneumothorax, treated with chest tube, was discharged and doing quite well. While walking on [address], suddenly felt his heart raced, short of breath, forcing him to sit down and come to the emergency room where he was found in SVT. The patient is now being seen in telemetry monitored bed. He is comfortable, in no acute distress. Chest x-ray showed pneumothorax. Case was discussed Dr. Fito Sylvester, who will be placing a chest tube later today. Case was discussed with project consultant, Dr. Fraga. He is on a beta-brenna. A stress test and echocardiogram were done and workup for probable upcoming surgery. The pathology on the biopsy is positive for malignancy; wedge resection may be the best option for him. Since we do not have the services here, he will go to a tertiary referral facility that has thoracic surgery services for wedge resection of the pulmonary nodule in an attempt to cure. This is yet to be discussed with patient and family. Demetrius Riddle MD MTDD
--- NOTE | 2017-10-03 09:10 | CT ---
PROCEDURE: CT-guided right chest tube placement HISTORY: Recent right lung biopsy. Recurrent iatrogenic pneumothorax with shortness of breath. Needs 2nd chest tube PHYSICIAN(S): Fito Sylvester MD. TECHNIQUE: The relative risks and indications for the procedure were explained to the patient and his daughter and informed consent obtained. The patient was placed in a supine position on the CT scanner and preliminary images through the chest performed. This revealed a large right pneumothorax with displacement of the trachea slightly. A right anterior approach was selected and the area prepped/draped in the usual sterile fashion. Conscious sedation and monitoring were provided throughout the procedure by nurse. An 18-gauge needle was advanced into the right pleural cavity and air aspirated. A 0.035 guidewire was coiled within the right pleural space. Sequential dilatation was performed with subsequent placement of 12 Cypriot pigtail chest tube. Tube was retracted anteriorly and placed to 20 cm H2O low suction. Completion images demonstrate resolution of the pneumothorax. IMPRESSION: 1. CT-guided right chest tube placement as described above.
--- NOTE | 2017-10-03 10:07 | CARD ---
APPROVED REPORT EXAM: Two-dimensional and M-mode echocardiogram with Doppler and color Doppler. INDICATION Chest Pain 2D DIMENSIONS Left Atrium (2D)4.0 (1.6-4.0cm)IVSd0.9 (0.7-1.1cm) LVDd4.9 (3.9-5.9cm)PWd1.0 (0.7-1.1cm) LVDs3.2 (2.5-4.0cm)FS (%) 35.3 % LVEF (%)64.4 (>50%) M-Mode DIMENSIONS Aortic Root3.80 (2.2-3.7cm)Aortic Cusp Exc.2.10 (1.5-2.0cm) Aortic Valve AoV Peak Xcmbrbwj633.0cm/Fatou Peak GR.13mmHgLVOT Peak Cshgqoyy744.0cm/s LVOT VTI22.80cmAI P 1/2 [id number] Mitral Valve MV E Dlgjjotm01.3cm/sMV A Plisuvdi38.5cm/sE/A ratio0.7 TDI Lateral E' Peak V8.68cm/sMedial E' Peak V7.02cm/sE/Lateral E'6.7 E/Medial E'8.3 Pulmonary Valve PV Peak Rjfecosv71.4cm/sPV Peak Grad.3mmHg Tricuspid Valve TR Peak Tcatbnlk659yb/sRAP OYERZPOE73krAcIC Peak Gr.37mmHg [id number] LEFT VENTRICLE The left ventricle is normal size. There is normal left ventricular wall thickness. The left ventricular function is normal.EF-55-60% There is normal LV segmental wall motion. Transmitral Doppler flow pattern is Grade III-reversible restrictive diastolic dysfunction. No left ventricle thrombus noted on this study. There is no ventricular septal defect visualized. There is no left ventricular aneurysm. There is no mass noted in the left ventricle. RIGHT VENTRICLE The right ventricle is normal size. There is normal right ventricular wall thickness. The right ventricular systolic function is normal. ATRIA The left atrium is borderline dilated. The right atrium size is normal. The interatrial septum is intact with no evidence for an atrial septal defect. AORTIC VALVE The aortic valve is thickened but opens well. There is moderate aortic regurgitation. There is no aortic valvular stenosis. There is no aortic valvular vegetation. MITRAL VALVE The mitral valve is thickened but opens well. Mitral regurgitation is moderate. There is no mitral valve stenosis. There is no evidence of mitral valve prolapse. TRICUSPID VALVE The tricuspid valve leaflets are thickened , but open well. There is mild tricuspid regurgitation.RVSP-47 mmmof Hg. There is no tricuspid valve stenosis. There is no tricuspid valve prolapse or vegetation. PULMONIC VALVE The pulmonic valve is mildly thickened. There is mild to moderate pulmonic valvular regurgitation. There is no pulmonic valvular stenosis. GREAT VESSELS The aortic root is normal in size. The ascending aorta is normal in size. The pulmonary artery is normal. The IVC is normal in size and collapses >50% with inspiration. PERICARDIAL EFFUSION There is no pericardial effusion. <Conclusion> The left ventricle is normal size. The left ventricular function is normal.EF-55-60% There is moderate aortic regurgitation. Mitral regurgitation is moderate. There is mild tricuspid regurgitation.RVSP-47 mmmof Hg. There is mild to moderate pulmonic valvular regurgitation. The IVC is normal in size and collapses >50% with inspiration. There is no pericardial effusion.
--- NOTE | 2017-10-03 14:54 | PN ---
DATE: REASON FOR THE CONSULTATION AND FOLLOWUP: SVT, cardiac evaluation, wearing 30 days Holter monitor event recorder from D. SUBJECTIVE: The patient denies any chest pain, shortness of breath or any palpitation. OBJECTIVE: GENERAL: Not in apparent distress, status post chest tube placed because of the pneumothorax. VITAL SIGNS: Temperature afebrile, heart rate 61, blood pressure 123/69. HEENT: PERRLA, intact. NECK: Supple. No carotid bruit or thyromegaly. CHEST: Clear to auscultation. HEART: S1 and S2 regular. Chest tube placed in the right side. ABDOMEN: Soft. EXTREMITIES: Clubbing and cyanosis negative. The patient had a stress test done yesterday that essentially shows normal myocardial perfusion study. History of SVT adenosine on admission, since then patient in normal sinus, started low-dose beta-brenna and since then the patient is fairly stable. No further episode of arrhythmia noted. RECOMMENDATION: Continue chest tube, continue low-dose beta-brenna, repeat EKG, continue lisinopril, continue event recorder the patient is wearing, we will follow with you. Thank you, Dr. Riddle, for providing us the opportunity in taking care of John Ospina. Dougie Fraga MD
--- NOTE | 2017-10-03 20:56 | CARD ---
APPROVED REPORT EKG Measurement Heart [id number] <Conclusion> Normal sinus rhythm Right bundle branch block Abnormal ECG
[2017-10-04] MEDS: Oxycodone/Acetaminophen 5/325 mg Tab PO PRN ×3 (06:29→21:19)
--- NOTE | 2017-10-04 08:29 | RAD ---
HISTORY: rt chest tube COMPARISON: 10/03/2017 FINDINGS: LUNGS: Right-sided pigtail chest tube unchanged in position. No evidence of pneumothorax PLEURA: No significant pleural effusion identified, no pneumothorax apparent. CARDIOVASCULAR: Normal. OSSEOUS STRUCTURES: No significant abnormalities. VISUALIZED UPPER ABDOMEN: Normal. OTHER FINDINGS: None. IMPRESSION: No evidence of pneumothorax
--- NOTE | 2017-10-04 08:36 | PN ---
DATE: 10/03/2017 SUBJECTIVE: The patient is a 72-year-old male who was recently diagnosed with right upper lobe lung mass, who underwent percutaneous biopsy complicated by a pneumothorax. He did well with tube placements and was discharged to home and 3 days post discharge was near syncopal while walking down the main [facility] of [facility]. So the patient was brought to the emergency room where he was diagnosed with supraventricular tachycardia and chest x-ray also showed recurring pneumothorax. The patient is admitted. He was seen by Dr. Fito Sylvester and a chest tube was placed. Followup chest x-ray once again shows complete resolution of the pneumothorax. He was evaluated by Dr. Littlejohn, the insurance claims supervisor, underwent stress testing which was normal and showed a 70% ejection fraction. Of note, I have not seen the official report yet in the chart; however, the word is that the biopsy of the lung mass was positive for adenocarcinoma and the pathologies now undergoing special testing. When seen today, the patient was sleeping comfortably, his was at bedside. He had no complaints. The chest was not hurting. Respirations were easy. We are continuing to follow the patient with this chest tube. Once the diagnosis of his lung mass is known, we will ask the Oncology to consult and possibly arrange for a thoracotomy for right upper lobe lung resection. Shashank Riddle MD GUNJAN
--- NOTE | 2017-10-04 13:27 | RAD ---
HISTORY: h2O seal r/o PTX COMPARISON: Earlier same day FINDINGS: LUNGS: Right pigtail chest tube remains in place. There is no pneumothorax PLEURA: No significant pleural effusion identified, no pneumothorax apparent. CARDIOVASCULAR: Normal. OSSEOUS STRUCTURES: No significant abnormalities. VISUALIZED UPPER ABDOMEN: Normal. OTHER FINDINGS: None. IMPRESSION: No pneumothorax
--- NOTE | 2017-10-04 15:43 | PN ---
DATE: REASON FOR THE CONSULTATION AND FOLLOWUP: SVT, cardiac evaluation, wearing 30 days Holter monitor event recorder from [facility], status post chest tube for pneumothorax. SUBJECTIVE: Patient denies any chest pain, shortness of breath, or any palpitation. OBJECTIVE: GENERAL: Not in apparent distress, concerned about getting out the chest tube. No further episode of arrhythmia noted. VITAL SIGNS: Temperature afebrile, heart rate 60, blood pressure 116/62. HEENT: PERRLA. Extraocular muscles intact. NECK: Supple. No carotid bruit or thyromegaly. CHEST: Clear to auscultation. HEART: S1 and S2, regular. ABDOMEN: Soft. EXTREMITIES: Clubbing and cyanosis negative. LABORATORY DATA: Blood workup as follows: WBC 9.8, hemoglobin 9.2, hematocrit 27, platelet count 287. Chemistry shows sodium 139, potassium 4, chloride 106, carbon dioxide 27, anion gap of 11. BUN 16, creatinine 1. Hemoglobin A1c is 6.9. TSH 1.74. Stress test is negative for ischemia. Normal myocardial perfusion study, ejection fraction 70%, no evidence of ischemia. Patient dated stress test on 10/02/2017. Patient also had echocardiography done on 10/02/2017, that revealed ejection fraction 55% to 60%, moderate aortic regurgitation, moderate mitral regurgitation, moderate tricuspid regurgitation, right ventricular systolic pressure 47, [id number] pulmonary insufficiency. No pericardial effusion noted. IMPRESSION: A 77-year-old male with past medical history of palpitation, admitted with supraventricular tachycardia, responded to adenosine. Patient started on p.o. Lopressor since the patient is stable, status post chest tube because of a recurrent pneumothorax. Biopsy of the lung is pending. Status post biopsy of the lung mass, developed pneumothorax. At this time, found to be still pneumothorax, a chest tube was placed. Biopsy of the lung mass is positive for adenocarcinoma, pathology doing a special testing. RECOMMENDATION: Continue beta-brenna. Should the patient need surgery, patient is cleared from Cardiology point to view to go with surgery. We discussed with the daughter. Patient cleared from Cardiology point of view to go for surgery of the tumor resectable. Dougie Fraga MD
--- NOTE | 2017-10-05 00:20 | PN ---
DATE: 10/04/2017 SUBJECTIVE: The patient was seen this afternoon in room 372, bed 1, with his present. I also spoke to his daughter on the telephone. Chest tube is in place, there is minimal air leakage, has been managed by Dr. Fito Sylvester. The patient is in good spirits, little pain. PHYSICAL EXAMINATION: Essentially unremarkable, breath sounds are good bilaterally. ASSESSMENT AND PLAN: I spoke with the patient's daughter. She is aware of diagnosis of adenocarcinoma of the lung and the need for PET scan, Oncology evaluation and possible VAT for detection of the lesion and cure. She asked that the father not be briefed in great detail about this as it would worry him while here at the hospital. She will talk to him . Hopefully the chest tube will be removed tomorrow and he may be ready for discharge to home on Sunday or Sunday when cleared by Interventional Radiology. Demetrius Riddle MD
[2017-10-05 05:58] VITALS: RESP 20; O2SAT 98
[2017-10-05] MEDS: Oxycodone/Acetaminophen 5/325 mg Tab PO PRN (06:06)
--- NOTE | 2017-10-05 09:54 | RAD ---
HISTORY: comparison COMPARISON: 10/04/2017 FINDINGS: LUNGS: Right-sided chest tube. No evidence of pneumothorax PLEURA: No significant pleural effusion identified, no pneumothorax apparent. CARDIOVASCULAR: Normal. OSSEOUS STRUCTURES: No significant abnormalities. VISUALIZED UPPER ABDOMEN: Normal. OTHER FINDINGS: None. IMPRESSION: No active disease.
[2017-10-05] MEDS ORDERED: Bisacodyl 5mg EC Tab PO ONE (10:33)
[2017-10-05] MEDS: POLYETHYLENE GLYCOL 3350 17 GM/Dose PACKET PO SCH ×2 (11:08→17:41)
--- NOTE | 2017-10-05 12:56 | RAD ---
HISTORY: s/p chest tube removal COMPARISON: Earlier same day FINDINGS: LUNGS: The chest tube has been removed. There is no evidence of recurrent pneumothorax PLEURA: No significant pleural effusion identified, no pneumothorax apparent. CARDIOVASCULAR: Normal. OSSEOUS STRUCTURES: No significant abnormalities. VISUALIZED UPPER ABDOMEN: Normal. OTHER FINDINGS: None. IMPRESSION: The chest tube has been removed. There is no evidence of recurrent pneumothorax
--- NOTE | 2017-10-05 13:02 | PN ---
DATE: 10/05/2017 REASON FOR THE CONSULTATION AND FOLLOWUP: Arrhythmia, preop evaluation for possible resection of the lung mass turned out to be adenocarcinoma, SVT on admission, pneumothorax. BRIEF CLINICAL HISTORY: Patient denies any chest pain, shortness of breath, or any palpitation. OBJECTIVE: GENERAL: Not in apparent distress. Examination as follows: VITAL SIGNS: Temperature afebrile, heart rate 60, blood pressure 120/62. HEENT: PERRLA. Extraocular muscles intact. NECK: Supple. No carotid bruit or thyromegaly. CHEST: Clear to auscultation. HEART: S1 and S2, regular. ABDOMEN: Soft. EXTREMITIES: Clubbing and cyanosis negative. LABORATORY DATA: Blood workup as follows: WBC 9.9, hemoglobin , hematocrit 27, platelet count 287. Chemistry shows sodium 130, potassium 4, chloride 106, carbon dioxide 27, anion gap of 11. BUN 16, creatinine 1. IMPRESSION: Supraventricular tachycardia, now on beta-blockers, stable, noninvasive cardiac workup is negative, stress test is negative for ischemia, patient is wearing the loop event recorder for 30 days from the [facility]; history of lung mass, status post biopsy, complicated by pneumothorax, status post chest tube; lung mass turned out to be adenocarcinoma of the lung. Preop, patient had a stress test that shows ejection fraction 70%, no evidence of ischemia dated 10/02/2017. Patient also has echocardiogram on 10/02/2017 that revealed ejection fraction 55% to 60%, moderate aortic regurgitation, moderate mitral regurgitation, moderate tricuspid regurgitation. Right ventricular systolic pressure is 47, mild to moderate pulmonary insufficiency. RECOMMENDATION: Continue low-dose Lopressor, possible removal of the chest tube. Biopsy of the lung revels adenocarcinoma. If possible, patient to be discharged and follow up outpatient for video assisted thoracoscopy. Patient is cleared from Cardiology point to view for VAT and resection of the tumor if needed. Thank you, Dr. Riddle, for providing us the opportunity in taking care of the patient John Ospina. We will follow with you. Dougie Fraga MD cc: Dr. Riddle [facility] # [id number]
[2017-10-05 17:42] VITALS: BP 106/55; PULSE 63
[2017-10-05 18:01] VITALS: TEMP 98
--- NOTE | 2017-10-06 05:47 | DS ---
HISTORY OF PRESENT ILLNESS: This is a 77-year-old man who was recently diagnosed with pulmonary nodule, came to the hospital for biopsy, which was complicated by pneumothorax. Chest tube was placed and did well and he went home. While walking on [address], he developed a sudden chest pain, buckled to his knees with rapid palpitations, shortness of breath and came to the emergency room. He was SVT with pneumothorax once again, treated in the ER to slow his heart rate and admitted. Chest tube was placed by Dr. Fito Sylvester. Serial chest x-ray showed resolution of the pneumothorax. There was no marcos to remove the tube, as this was a recurrent event. However, the patient did well. His rate was well controlled on metoprolol and lisinopril. He was followed by Cardiology as well. The chest tube was removed on , and today Sunday with normal followup chest x-ray, he was ready for discharge to home. FINAL DISCHARGE DIAGNOSES: 1. Pneumothorax. 2. Supraventricular tachycardia. 3. Adenocarcinoma of the lungs. PLAN: Lisinopril 10 mg every day and metoprolol 25 mg b.i.d. were called in to [facility]. Patient will follow up with us in the office in less than a week. I already spoke with the patient and his and his daughter about the followup need for PET CT and then possible Oncology opinion versus surgical referral for segmental resection of the lung for primary cure of the adenocarcinoma. Demetrius Riddle MD GUNJAN
== END 2017-10-05 20:59 | disposition home or self-care (01) | DRG 309 ==
LOC: ED 19:03 → ERH 21:01 → 3RSO 23:14 → OBSVTOIN 10-02 16:25
PROVIDERS: ADMIT Internal Medicine; ATTEND Internal Medicine
PROC: 0W9930Z Drainage of Right Pleural Cavity with Drainage Device, Percutaneous Approach (ICD-10-PCS; principal; 2017-10-03)
DX: I47.1 Supraventricular tachycardia (principal); J95.811 Postprocedural pneumothorax; C34.11 Malignant neoplasm of upper lobe, right bronchus or lung; I08.3 Combined rheumatic disorders of mitral, aortic and tricuspid valves; Y84.8 Other medical procedures as the cause of abnormal reaction of the patient, or of later complication, without mention of misadventure at the time of the procedure; Z85.46 Personal history of malignant neoplasm of prostate; Z87.891 Personal history of nicotine dependence

== ENCOUNTER 2017-10-06 16:45 | Observation (INO) | payer MEDICARE ==
--- NOTE | 2017-10-06 16:54 | ED PDOC ---
Arrival/HPI - General Time Seen by Provider: 10/06/17 16:46 Historian: Patient - History of Present Illness Narrative History of Present Illness (Text): 10/06/17 16:53 77 y/o male, pmh including prostate carcinoma/lung mass which biopsy complicated by the pneumothorax/modeerate aortic regurgitation/moderate mitral regurgitation/SVT but newly started on the beta brenna recently/anemia, nkda, biba c/o generalized weakness and syncope episode at home x 2 hours. Pt. is here with the daughter, Devon, stated that the patient was in the shower by himself and feel dizzy with the hot water. Pt. sat on the floor without fall, calling for the daughter Devon which the daughter came inside the bathroom with a lot of steam air and foggy mirror, holding the patient and the patient passed out for couple seconds but return back to the normal state. Pt. is here at the ER with no specific medical complaints, able to recall the whole event, no chest pain or shortness of breath, no night sweat. Old charts reviewed from the technical assistance consultant Dr. Fraga from early 09/2017 admission for SVT which newly started on the beta brenna, EF >50 percent with negative stress test for ischemia Past Medical History - Provider Review Nursing Documentation Reviewed: Yes - Past History Past History: No Previous - Infectious Disease Hx of Infectious Diseases: None - Reproductive Currently Lactating: No - Cardiac Hx Cardiac Disorders: Yes Hx Cardiac Arrhythmia: Yes Other/Comment: Patient has a remote heart monitor - Pulmonary Hx Respiratory Disorders: No Other/Comment: history of air in the lungs - Neurological Hx Neurological Disorder: No - HEENT Hx HEENT Disorder: No - Renal Hx Renal Disorder: No - Endocrine/Metabolic Hx Endocrine Disorders: No - Hematological/Oncological Hx Blood Disorders: No - Integumentary Hx Dermatological Disorder: No - Musculoskeletal/Rheumatological Hx Falls: No - Genitourinary/Gynecological Other/Comment: patient has a prostate problem - Psychiatric Hx Psychophysiologic Disorder: No Hx Substance Use: No - Anesthesia Hx Anesthesia Reactions: No Hx Malignant Hyperthermia: No - Suicidal Assessment Feels Threatened In Home Enviroment: No Family/Social History - Physician Review Nursing Documentation Reviewed: Yes Family/Social History: Unknown Family HX Smoking Status: Former Smoker Hx Alcohol Use: Yes (former smker) Hx Substance Use: No Hx Substance Use Treatment: No Allergies/Home Meds Allergies/Adverse Reactions: Allergies No Known Allergies Allergy (Verified 09/28/17 09:20) Review of Systems - Review of Systems Constitutional: Fatigue. absent: Fevers Eyes: absent: Vision Changes ENT: absent: Hearing Changes Respiratory: absent: SOB, Cough Cardiovascular: absent: Chest Pain Gastrointestinal: absent: Abdominal Pain, Nausea, Vomiting Skin: absent: Rash, Pruritis Neurological: Other (sycope). absent: Headache, Dizziness Psychiatric: absent: Anxiety, Depression, Suicidal Ideation Physical Exam Vital Signs Reviewed: Yes Vital Signs Temp Pulse Resp BP Pulse Ox 10/06/17 20:00 56 L 20 106/67 98 10/06/17 18:44 56 L 18 101/47 L 98 10/06/17 18:32 58 L 18 101/47 L 100 10/06/17 17:58 50 L 18 95/59 L 100 10/06/17 17:02 97.7 F 52 L 18 118/51 L 98 Temperature: Afebrile Blood Pressure: Hypotensive Pulse: Bradycardic Respiratory Rate: Normal Appearance: Positive for: Ill-Appearing Pain Distress: None Mental Status: Positive for: Alert and Oriented X 3 - Systems Exam Head: Present: Atraumatic, Normocephalic. No: Tenderness, Contusion, Swelling, Ecchymosis, Abrasion, Laceration, Other Pupils: Present: PERRL Extroacular Muscles: Present: EOMI Conjunctiva: Present: Normal Mouth: Present: Moist Mucous Membranes Nose (External): Present: Atraumatic. No: Abrasion, Contusion, Laceration Nose (Internal): Present: Normal Inspection, No Active Bleeding. No: Rhinorrhea , Septal Hematoma, Epistaxis Neck: Present: Normal Range of Motion, Trachea Midline. No: MIDLINE TENDERNESS , Paraspinal Tenderness, Lymphadenopathy Respiratory/Chest: Present: Clear to Auscultation, Good Air Exchange. No: Respiratory Distress, Accessory Muscle Use, Wheezes, Tachypneic, Tender to Palpation Cardiovascular: Present: Regular Rate and Rhythm, Normal S1, S2. No: Murmurs Abdomen: Present: Other (no signs of trauma). No: Tenderness, Distention, Peritoneal Signs, Rebound, Guarding Rectal: Present: Normal Rectal Tone, Other (Female Wind Projects Supervisor: THRESHING DEPARTMENT SUPERVISORKANDICE Ryan Quinolones, guaiac is negative). No: Occult Blood, Rectal Tenderness, Gross Blood, Melena, Hemorrhoids, Fissures, Nodule/Mass/Lesions Back: Present: Normal Inspection. No: CVA Tenderness, Midline Tenderness, Pain with Leg Raise Upper Extremity: Present: Normal Inspection, Normal ROM, Neurovascularly Intact. No: Cyanosis, Edema, Deformity Lower Extremity: Present: Normal Inspection, Neurovascularly Intact, Capillary Refill < 2 s. No: Edema, Tenderness, Swelling Neurological: Present: GCS=15, Motor Func Grossly Intact, Memory Normal Skin: Present: Warm, Dry, Pale. No: Rashes Psychiatric: Present: Alert, Oriented x 3, Normal Insight, Normal Concentration Medical Decision Making ED Course and Treatment: 10/06/17 17:06 -labs/cardiac enzyme/bnp/type and screen -ekg -ct head -cxr -IVF@100cc/hr -Pt. unable to perform orthostatic v/s due to he is feeling fatigue and too tired to get up. 10/06/17 18:02 -Pt. is bradycardia around low 50s to 50, BP is hypotensive from 118/51 to 95/59 , pt. appears fatigue and tire, received 500ml bolus and still remain bradyacardia and hypotensive, IVF maintenance @100/hr due to the BP and he has no cardiopulmonary complaints, atropine 0.5mg IV ordered and confirmed with Dr. Morris. -Pt. will need to have ICU evaluation for possible ICU admission. 10/06/17 18:32 -Guaiac: negative -EKG: Sinus Bradycardia @ 48 BPM, no acute St or T wave changes compared with previous ekg. -CT head No definite acute intracranial abnormality. Ischemic change in the basal ganglia is age indeterminate. -Chest xray wet read in the ER show no active disease -Labs show no acute findings except hgb 8.6 (been anemic), BUN 31 with creatine 1.5 -Rapid flu is negative -BNP is 1010 from 493 -1st set of troponin is -Pt. is bradycardia around mid 50s BPM with hypotension. -Pt. will need admission at least telemetry with ICU consult to see if he is eligable. 10/06/17 18:33 -I spoke to DR. Demetrius Riddle, discussed about the case/labs/radiology result /vital signs, agreed to admit the patient to telemetry vs. ICU -I spoke to Dr. Tierney, discussed about the case/labs/radiology result/vital signs , will come down to the ER department to have ICU consult but request the technical assistance consultant DR. Fraga to be consulted about this case. -I spoke to , discussed about the case/labs/radiology result/vital signs/ fluids and medications given in the ER, suggest dopamine 2.5mcg prn if the BP is persistently low. 10/06/17 18:40 -BP repeated in the ER with systolic 100 and HR 57 at this time, discussed with Dr. Morris and advised to hold dopamine at this time until evaluated by the ICU Dr. Tierney 10/06/17 18:47 -Dr. Tierney came down to the ER, evaluated the patient in person and discussed the case with Dr. Fraga (technical assistance consultant) which they both stated that the patient doesn' t need ICU and declined the ICU admission and advised to hold the dopamine which the patient doesn't need the dopamine at this time. -I reviewed all labs/radiology results and vital signs discussed with the family member and the patient and the ER attending Dr. Morris, they all agreed on the treatment and admission plan, Dr. Morris will put in the admission order. -Pt. currently comfortable resting on the bed with the paleness resolved, talking to the family member. - Critical Care Critical Care Minutes: 30 minutes Critical Care Time: Unstable Narrative Critical Care (Text): 10/06/17 18:36 Pt. 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 and close observation - Lab Interpretations Lab Results: 10/06/17 17:10 10/06/17 17:10 Lab Results 10/06/17 17:10: Influenza Typ A,B (EIA) Negative for flu a/b 10/06/17 17:10: Blood Type AB POSITIVE, Antibody Screen Negative, BBK History Checked No verified bt 10/06/17 17:10: WBC 8.7, RBC 3.03 L, Hgb 8.6 L, Hct 25.6 L, MCV 84.5, MCH 28.4, MCHC 33.6, RDW 13.5, Plt Count 240, MPV 9.4, Gran % 79.7 H, Lymph % (Auto) 8.2 L , Gulf % (Auto) 10.8 H, Eos % (Auto) 1.3 L, Baso % (Auto) 0.0, Gran # 6.97 H, Lymph # (Auto) 0.7 L, Gulf # (Auto) 0.9 H, Eos # (Auto) 0.1, Baso # (Auto) 0.00 10/06/17 17:10: Sodium 134, Potassium 4.3, Chloride 99, Carbon Dioxide 26, Anion Gap 14, BUN 31 H, Creatinine 1.5, Est GFR ( Amer) 55, Est GFR (Non- Af Amer) 45, Random Glucose 160 H, Calcium 9.2, Magnesium 2.0, Total Bilirubin 0.3, AST 17 D, ALT 27, Alkaline Phosphatase 58, Lactate Dehydrogenase 304 L, Total Creatine Kinase < 20 L, Troponin I < 0.01, NT-Pro-B Natriuret Pep 1010 H, Total Protein 6.3, Albumin 3.1, Globulin 3.2, Albumin/Globulin Ratio 1.0 L I have reviewed the lab results: Yes - RAD Interpretation Radiology Orders: 10/06/17 17:00 HEAD W/O CONTRAST [CT] Stat CHEST PORTABLE [RAD] Stat CT Head: Brain: There is volume loss and chronic white matter ischemic changes with compensatory ventricular dilation. Ischemic change in the basal ganglia is age indeterminate. No hemorrhage. Ventricles: See above. Bones/joints: Unremarkable. No acute fracture. Soft tissues: Unremarkable. Sinuses: Unremarkable as visualized. No acute sinusitis. Mastoid air cells: Unremarkable as visualized. No mastoid effusion. IMPRESSION: No definite acute intracranial abnormality. Ischemic change in the basal ganglia is age indeterminate. Thank you for allowing us to participate in the care of your patient. Dictated and Authenticated by: Fermín Kennedy MD 10/06/2017 5:56 PM Eastern Time ([place] & [place]) ----- Chest xray: no active disease Psych Assistant: Radiologist - EKG Interpretation EKG Interpretation (Text): 10/06/17 17:07 -EKG: Sinus Bradycardia @ 48 BPM, no acute St or T wave changes compared with previous ekg. Interpreted by ED Physician: Yes Type: 12 lead EKG Comparison: Com.w/previous EKG - Medication Orders Current Medication Orders: Aspirin (Aspirin Chewable) 81 mg PO DAILY KAYLA Metoprolol Tartrate (Lopressor) 12.5 mg PO BID KAYLA Discontinued Medications Aspirin (Aspirin) 325 mg PO STAT STA Stop: 10/06/17 18:00 Last Admin: 10/06/17 18:22 Dose: 325 mg Atropine Sulfate (Atropine) 0.5 mg IVP STAT STA Stop: 10/06/17 18:02 Last Admin: 10/06/17 18:22 Dose: 0.5 mg IVP Administration Document 10/06/17 18:22 EQ (Rec: 10/06/17 18:[address] [id number]) Charges for Administration # of IVP Administrations 1 Sodium Chloride (Sodium Chloride 0.9%) 1,000 mls @ 100 mls/hr IV .Q10H KAYLA Last Admin: 10/07/17 05:13 Dose: Sodium Chloride (Sodium Chloride 0.9%) 500 mls @ 999 mls/hr IV .Q31M STA Stop: 10/06/17 18:38 Last Admin: 10/06/17 18:20 Dose: 999 mls/hr eMAR Start Stop Document 10/06/17 18:20 EQ (Rec: 10/06/17 18:[address] [id number]) Intravenous Solution Start Date 10/06/17 Start Time 18:20 - PA / HIGHWAY CONSTRUCTION INSPECTOR / Resident Statement MD/DO has reviewed & agrees with the documentation as recorded. Disposition/Present on Arrival - Present on Arrival Any Indicators Present on Arrival: No History of DVT/PE: No History of Uncontrolled Diabetes: No Urinary Catheter: No History of Decub. Ulcer: No History Surgical Site Infection Following: None - Disposition Have Diagnosis and Disposition been Completed?: Yes Diagnosis: Syncope, Anemia, Hypotension, Dehydration Disposition: HOSPITALIZED Disposition Time: 17:15 Patient Plan: Observation, Telemetry Patient Problems: Current Active Problems Problem Status Onset Syncope Acute Anemia Acute Hypotension Acute Dehydration Acute Condition: GUARDED
[2017-10-06] MEDS: Sodium Chloride 0.9% 1,000 ML IV SCH ×2 (17:06→21:43)
[2017-10-06 17:42] LABS: EOS # 0.1 (0.0-0.7); EOS % 1.3 % (1.5-5.0); GRAN # 6.97 (1.4-6.5); GRAN % 79.7 % (50.0-68.0); HEMOGLOBIN 8.6 g/dL (14.0-18.0); LYMPH # 0.7 (1.2-3.4); LYMPH % 8.2 % (22.0-35.0); MEAN CELL VOLUME 84.5 fl (80.0-105.0); MEAN CORPUSCULAR HEMOGLOBIN 28.4 pg (25.0-35.0); MEAN CORPUSCULAR HGB CONC 33.6 g/dl (31.0-37.0); MEAN PLATELET VOLUME 9.4 fl (7.0-11.0); MONO # 0.9 (0.1-0.6); MONO % 10.8 % (1.0-6.0); RBC 3.03 10^6/uL (3.5-6.1); RED CELL DISTRIBUTION WIDTH 13.5 % (11.5-14.5); WHITE BLOOD COUNT 8.7 10^3/ul (4.5-11.0)
[2017-10-06 18:03] LABS: B-TYPE NATRIURETIC PEPTIDE 1010 pg/mL (0-450); TROPONIN I < 0.01 ng/mL
[2017-10-06] MEDS ORDERED: Sodium Chloride 0.9% 1,000 ML IV STA (18:04)
[2017-10-06] MEDS ORDERED: Sodium Chloride 0.9% 500 ML IV STA ×2 (18:07→18:08)
[2017-10-06 19:10] LABS: ALBUMIN 3.1 g/dL (3.0-4.8); ALT/SGPT 27 U/L (7-56); AST/SGOT 17 U/L (17-59); BLOOD UREA NITROGEN 31 mg/dL (7-21); CALCIUM 9.2 mg/dL (8.4-10.5); GFR AFRICAN-AMERICAN 55; GFR NON-AFRICAN AMERICAN 45
[2017-10-06 23:48] VITALS: BMI 23.3
[2017-10-07 02:18] LABS: URINE BILIRUBIN NEGATIVE (NEGATIVE); URINE BLOOD LARGE (NEGATIVE); URINE GLUCOSE (UA) NEGATIVE (NEGATIVE); URINE LEUKOCYTE ESTERASE MODERATE Leu/uL (NEGATIVE); URINE PROTEIN 100 mg/dL (<30 mg/dL); URINE UROBILINOGEN 0.2 E.U./dL (<1 E.U./dL)
[2017-10-07 02:19] LABS: URINE APPEARANCE CLOUDY (CLEAR); URINE COLOR YELLOW (YELLOW)
[2017-10-07 02:26] LABS: URINE EPITHELIAL CELLS 0 - 2 /hpf (0-5); URINE RBC 15 - 20 /hpf (0-2)
[2017-10-07 02:27] LABS: URINE BACTERIA MANY (NEG)
[2017-10-07] MEDS: Sodium Chloride 0.9% 1,000 ML IV SCH (05:13)
--- NOTE | 2017-10-07 07:35 | CT ---
PROCEDURE: CT HEAD WITHOUT CONTRAST. HISTORY: syncope COMPARISON: None available. TECHNIQUE: Axial computed tomography images were obtained through the head/brain without intravenous contrast. Radiation dose: Total exam DLP = 1032 mGy-cm. This CT exam was performed using one or more of the following dose reduction techniques: Automated exposure control, adjustment of the mA and/or kV according to patient size, and/or use of iterative reconstruction technique. FINDINGS: HEMORRHAGE: No intracranial hemorrhage. BRAIN: Scattered focal lucencies in the subcortical and periventricular white matter suggestive for chronic microvascular ischemic change. Focal hypodensity in the left basal ganglia suggestive for age-indeterminate ischemic change. Correlation with MRI may be helpful if clinically indicated. Small lacunar infarct in the left cerebellum. VENTRICLES: Volume loss with compensatory ventricular dilatation. CALVARIUM: Unremarkable. PARANASAL SINUSES: Unremarkable as visualized. No significant inflammatory changes. MASTOID AIR CELLS: Partial opacification of the left mastoid air cells. OTHER FINDINGS: None. IMPRESSION: Confluent low attenuation in the region of the left basal ganglia suggestive for age-indeterminate ischemic change. Correlation with MRI may be helpful if clinically indicated to better determine chronicity and or exclude additional etiology. Volume loss with compensatory ventricular dilatation. Small left cerebellar lacunar infarct. Chronic white matter ischemic changes. These findings were preliminarily reported by Dr. Fermín Kennedy at 5:56 p.m. on 10/06/2017 from [facility].
--- NOTE | 2017-10-07 08:47 | RAD ---
HISTORY: medical clearance COMPARISON: 10/05/2017 FINDINGS: LUNGS: No active pulmonary disease. PLEURA: No significant pleural effusion identified, no pneumothorax apparent. CARDIOVASCULAR: Normal. OSSEOUS STRUCTURES: No significant abnormalities. VISUALIZED UPPER ABDOMEN: Normal. OTHER FINDINGS: None. IMPRESSION: No active disease.
--- NOTE | 2017-10-07 14:14 | CARD ---
APPROVED REPORT EKG Measurement Heart [id number] <Conclusion> Normal sinus rhythm Incomplete right bundle branch block Borderline ECG
--- NOTE | 2017-10-07 14:25 | CARD ---
APPROVED REPORT EKG Measurement Heart [id number] NC [id number] <Conclusion> Marked sinus bradycardia Right bundle branch block Abnormal ECG
[2017-10-07] MEDS ORDERED: Magnesium Hydroxide Susp 30 ml UD PO PRN (19:56)
--- NOTE | 2017-10-08 05:18 | HP ---
CHIEF COMPLAINT: Near syncope at home, witnessed by daughter. HISTORY OF PRESENT ILLNESS: This is a 77-year-old man recently admitted with pneumothorax after percutaneous biopsy of right upper lung mass which turned out to be adenocarcinoma. The patient was released to home two days after the chest tubes were removed. He was home today, was taking a shower. The patient said it was a very hot shower. The bathroom was all steamed up. He came out of the shower, felt weak and sat on the floor, and called his daughter. When his daughter came in, the patient was pale, diaphoretic, the room was steamy and hot. He did not lose consciousness, did not lose pulse. Ambulance was called. In the ambulance, he was profoundly bradycardic as he was in the emergency room. His pressure was low, he was resuscitated with IV fluids. Heart rate remained low with low blood pressure, so atropine was given with little effect. The patient was on beta brenna because there was a history of SVT. He was stable, but bradycardic with a low pressure. He was evaluated by the hospital vp publisher development that he was stable and able to be admitted to telemetry floor. PAST MEDICAL HISTORY: Significant for the adenocarcinoma diagnosed in the right upper lung. He underwent needle biopsy under CAT scan guidance with Dr. Fito Sylvester earlier this month. That procedure was complicated by a pneumothorax. Chest tube was placed for a few days. The patient did well and was discharged to home. Walking on [place] 2 days later, he developed spontaneous pneumothorax and was readmitted with a heart rate of 160, treated in the ER, the rate slowed down, chest tube went in again, and he only went home from that admission some 2 days prior to this syncopal episode. Past medical history is only positive for carcinoma of the prostate for which he is receiving treatments and doing well. CURRENT MEDICATIONS AT HOME: Include metoprolol 25 mg b.i.d. and lisinopril 10 mg daily. ALLERGIES: HE HAS NO KNOWN ALLERGIES. SOCIAL HISTORY: He does not smoke and never did. He occasionally drinks alcohol. PHYSICAL EXAMINATION GENERAL: The patient was seen this Sunday morning in room 361, bed 1, with his daughter at the bedside. He was awake, alert, clear, in good spirits, feels better and hoping to go home. HEENT: Head and neck are unremarkable. Conjunctivae is pink. Mucous membranes are moist. NECK: Supple without masses. Thyroid is not palpable. LUNGS: Clear. HEART: Regular, not tachycardic. ABDOMEN: Soft, nontender. EXTREMITIES: Show no edema. IMPRESSION: 1. Near syncope at home in a man on beta-blockers for a history of supraventricular tachycardia, who received atropine intravenously in the emergency room on presentation. 2. Status post recent pneumothorax x2. 3. Adenocarcinoma of the lungs. 4. Prostate cancer. PLAN: Case was discussed with drum builder, Dr. Fraga; both of us are feeling that it is probably because of the atropine given and because of the continued bradycardia, the patient will be watched a little bit longer. He came in late in the evening, approximately 6 p.m., so we are not even 18 hours into observation. Therefore, we will probably keep him overnight tonight, Sunday, for this. his blood pressure run a little high, consider small doses of beta blockers if needed because of the SVT although the major contributing factors for the past episode of SVT was being pneumothorax. We will follow. Demetrius Riddle MD
[2017-10-08 06:24] VITALS: O2SAT 96
[2017-10-08 09:39] LABS: BLOOD UREA NITROGEN 23 mg/dL (7-21); CALCIUM 9.7 mg/dL (8.4-10.5); GFR AFRICAN-AMERICAN > 60; GFR NON-AFRICAN AMERICAN > 60
[2017-10-08 09:50] LABS: BASO # 0.01 K/mm3 (0.0-2.0); BASO % 0.1 % (0.0-3.0); EOS # 0.1 (0.0-0.7); EOS % 1.4 % (1.5-5.0); GRAN # 5.93 (1.4-6.5); GRAN % 80.5 % (50.0-68.0); HEMOGLOBIN 8.1 g/dL (14.0-18.0); LYMPH # 0.7 (1.2-3.4); LYMPH % 9.8 % (22.0-35.0); MEAN CELL VOLUME 84.3 fl (80.0-105.0); MEAN CORPUSCULAR HEMOGLOBIN 28.2 pg (25.0-35.0); MEAN CORPUSCULAR HGB CONC 33.5 g/dl (31.0-37.0); MEAN PLATELET VOLUME 9.5 fl (7.0-11.0); MONO # 0.6 (0.1-0.6); MONO % 8.2 % (1.0-6.0); PLATELET COUNT 238 10^3/uL (120.0-450.0); RBC 2.87 10^6/uL (3.5-6.1); RED CELL DISTRIBUTION WIDTH 13.4 % (11.5-14.5); WHITE BLOOD COUNT 7.4 10^3/ul (4.5-11.0)
--- NOTE | 2017-10-08 11:29 | CON ---
DATE: 10/07/2017 REASON FOR CONSULTATION: Followup cardiac evaluation, admitted with hypotension, bradycardia, SVT, history of pneumothorax, history of lung mass, possible adenocarcinoma. BRIEF CLINICAL HISTORY: This is a 77-year-old male with past medical history significant for prostate carcinoma, lung mass recently diagnosed, biopsy showed adenocarcinoma, complicated by pneumothorax, moderate aortic regurgitation, moderate mitral regurgitation, SVT, started on beta-brenna, was recently discharged, complained of generalized weakness, and he was taking shower, felt that he is going to pass out, brought here, found to be with hypotension, bradycardia, responded to IV fluid. Initial plan was to admit to ICU, but after the fluid, patient remained stable and moved to ICU. Denies any chest pain, shortness of breath, or any palpitations. He was getting IV fluids 100 mL an hour, wanted to discontinue IV fluid. During the night, the patient remained hemodynamically stable. PAST MEDICAL HISTORY: Past history is significant for SVT, lung mass on last admission, status post biopsy, complicated by pneumothorax, status post chest tube twice, history of palpitation, wearing an event recorder from [facility] for 30 days. Recent cardiac workup as follows: Patient had a stress test dated 10/02/2017, shows normal myocardial perfusion study, ejection fraction 70%. Patient had an echocardiography done on 10/02/2017 that revealed normal chamber size with ejection fraction of 55% to 60%, moderate aortic regurgitation, moderate mitral regurgitation, mild tricuspid regurgitation, systolic pressure 47, moderate pulmonary insufficiency. REVIEW OF SYSTEMS: As per HPI. CURRENT MEDICATIONS AT HOME: Patient was discharged on metoprolol 25 p.o. b.i.d. and lisinopril 10 mg p.o. daily because of the high blood pressure and SVT. PHYSICAL EXAMINATION: As follows: VITAL SIGNS: Temperature afebrile, heart rate 102, blood pressure . HEENT: PERRLA. Extraocular muscles intact. NECK: Supple. No carotid bruit or thyromegaly. CHEST: Clear to auscultation. HEART: S1 and S2 regular. ABDOMEN: Soft. EXTREMITIES: Clubbing and cyanosis negative. LABORATORY DATA: Blood workup as follows: WBC 8.7, hemoglobin 8.3, hematocrit 25.6, platelet count 240. Chemistry showed sodium 134, potassium chloride 98, carbon dioxide , anion gap of 14, BUN 31, creatinine 1.5. IMPRESSION: Hypotension, atrial fibrillation, acute kidney injury, near syncope, history of supraventricular tachycardia, history of adenocarcinoma, status post biopsy. RECOMMENDATIONS: Discussed with Dr. Riddle. If the patient remains stable, possibly discharge home tomorrow. Discontinue IV fluid. we will start low dose of beta brenna as long as the blood pressure goes above 120. We will follow with you. For now, we will hold lisinopril and possibly discontinue lisinopril, see if the blood pressure remains stable, start low dose at 12.5 p.o. b.i.d. Monitor and check for orthostatics. On last admission, discussed with his daughter named Alee. Dougie Fraga MD
[2017-10-08 12:17] VITALS: BP 131/65; PULSE 66; RESP 18; TEMP 97.9
--- NOTE | 2017-10-08 16:32 | PN ---
DATE: REASON FOR THE CONSULTATION AND FOLLOWUP: Near syncopal episode, possibly vasovagal. SUBJECTIVE: The patient denies any chest pain, shortness of breath, or any palpitation. OBJECTIVE: GENERAL: Not in apparent distress. VITAL SIGNS: Temperature afebrile, heart rate 66, blood pressure 131/65. HEENT: PERRLA. Extraocular muscles intact. NECK: Supple. No carotid bruit or thyromegaly. CHEST: Clear to auscultation. HEART: S1 and S2, regular. ABDOMEN: Soft. EXTREMITIES: Clubbing and cyanosis negative. LABORATORY DATA: Blood workup as follows: WBC 7.4, hemoglobin 8.3, hematocrit 24.2, platelet count 238. Chemistry shows sodium 139, potassium 4.1, chloride 104, carbon dioxide 27, anion gap of 11. BUN 23, creatinine 1.1. IMPRESSION: Status post hypotension, status post vagal. The patient was taking shower, felt that he was going to pass out. In the ER, the patient had low blood pressure, heart rate responded to IV fluid. The patient came in with elevated BUN and creatinine. Given the fluid, BUN and creatinine improved. The patient was sent home on metoprolol 25 b.i.d. as well as Vasotec which was held as the patient improved. History of lung cancer turned out to be adenocarcinoma of the mass. He is status post biopsy, status post pneumothorax. Repeat chest x-ray at this time improved. History of supraventricular tachycardia on last admission most likely secondary to pneumothorax. RECOMMENDATION: We will start low dose of beta-brenna. Discussed with daughter, Alee. Discussed with Dr. Riddle. We will hold Vasotec for now. We will discontinue telemetry. The patient is okay to be discharged on current medication that is metoprolol 12.5 p.o. b.i.d. We will follow with you. Thank you, Dr. Riddle, for providing us the opportunity in taking care of the patient. Bhavesh Lopez. Dougie Fraga MD
== END 2017-10-08 13:59 | disposition home or self-care (01) ==
LOC: ED 16:45 → ERH 18:47 → 2RNO 20:56
PROVIDERS: ADMIT Internal Medicine; ATTEND Internal Medicine
DX: R00.1 Bradycardia, unspecified (principal); C34.11 Malignant neoplasm of upper lobe, right bronchus or lung; C61 Malignant neoplasm of prostate; E86.0 Dehydration; I47.1 Supraventricular tachycardia; I95.9 Hypotension, unspecified; I08.0 Rheumatic disorders of both mitral and aortic valves; I48.91 Unspecified atrial fibrillation; D64.9 Anemia, unspecified
CPT/HCPCS: 36415; 70450; 71045; 80048; 80053; 81001; 82550; 83615; 83735; 83880; 84484; 85025; 85044; 86850; 86900; 87804; 93005; 96374; 99285; G0378; J7040

== ENCOUNTER 2017-10-16 19:16 | Observation (INO) | payer MEDICARE, OTHER ==
[2017-10-16] MEDS ORDERED: diltiaZEM IVPB 100mg in NS 100 ML IV PRN (19:53)
[2017-10-16 20:09] LABS: HEMOGLOBIN 9.6 g/dL (14.0-18.0); MEAN CELL VOLUME 84.3 fl (80.0-105.0); MEAN CORPUSCULAR HEMOGLOBIN 27.8 pg (25.0-35.0); MEAN PLATELET VOLUME 9.1 fl (7.0-11.0); RBC 3.45 10^6/uL (3.5-6.1); RED CELL DISTRIBUTION WIDTH 13.5 % (11.5-14.5); WHITE BLOOD COUNT 15.4 10^3/ul (4.5-11.0)
[2017-10-16 20:15] LABS: INR 1.18 (0.93-1.08); PARTIAL THROMBOPLASTIN TIME 26.7 Seconds (25.1-36.5); PROTHROMBIN TIME 13.5 SECONDS (9.4-12.5)
[2017-10-16 20:26] LABS: ALB/GLOB RATIO 1.2 (1.1-1.8); ALT/SGPT 49 U/L (7-56); AST/SGOT 68 U/L (17-59); BLOOD UREA NITROGEN 45 mg/dL (7-21); GFR AFRICAN-AMERICAN 59; GFR NON-AFRICAN AMERICAN 49
[2017-10-16 20:29] LABS: B-TYPE NATRIURETIC PEPTIDE 283 pg/mL (0-450); TROPONIN I < 0.01 ng/mL
[2017-10-16 20:32] LABS: CALCIUM 9.5 mg/dL (8.4-10.5)
--- NOTE | 2017-10-16 20:43 | ED PDOC ---
Arrival/HPI - General Chief Complaint: Trauma Time Seen by Provider: 10/16/17 19:25 Historian: Patient - History of Present Illness Narrative History of Present Illness (Text): 10/16/17 20:39 A 77 year old male, whose past medical history includes SVT/atrial fibrillation , lung mass, pneumothorax post biopsy, presents to the emergency department complaining of palpitations since earlier this evening. Patient notes associated shortness of breath and vague chest discomfort earlier today but currently asymptomatic. Daughter reports giving patient an extra dose of Metropolol, with no significant relief. Patient denies any fever, chills, cough , nausea, vomiting, abdominal pain, back pain, leg pain or any other complaints. Time/Duration: Other (earlier today) Symptom Course: Unchanged Activities at Onset: Light Context: Home Past Medical History - Provider Review Nursing Documentation Reviewed: Yes - Past History Past History: No Previous - Infectious Disease Hx of Infectious Diseases: None - Reproductive Currently Lactating: No - Cardiac Hx Cardiac Disorders: Yes Hx Cardiac Arrhythmia: Yes Other/Comment: Patient has a remote heart monitor - Pulmonary Hx Respiratory Disorders: No Other/Comment: history of air in the lungs - Neurological Hx Neurological Disorder: No - HEENT Hx HEENT Disorder: No - Renal Hx Renal Disorder: No - Endocrine/Metabolic Hx Endocrine Disorders: No - Hematological/Oncological Hx Blood Disorders: No - Integumentary Hx Dermatological Disorder: No - Musculoskeletal/Rheumatological Hx Falls: No - Gastrointestinal Hx Gastrointestinal Disorders: No - Genitourinary/Gynecological Other/Comment: patient has a prostate problem - Psychiatric Hx Psychophysiologic Disorder: No Hx Substance Use: No - Anesthesia Hx Anesthesia Reactions: No Hx Malignant Hyperthermia: No - Suicidal Assessment Feels Threatened In Home Enviroment: No Family/Social History - Physician Review Nursing Documentation Reviewed: Yes Family/Social History: No Known Family HX Smoking Status: Former Smoker Hx Alcohol Use: Yes (former smker) Hx Substance Use: No Hx Substance Use Treatment: No Allergies/Home Meds Allergies/Adverse Reactions: Allergies No Known Allergies Allergy (Verified 09/28/17 09:20) Home Medications: Home Meds Medication Instructions Recorded Confirmed Metoprolol Tartrate [Lopressor] 12.5 mg PO PRN 10/16/17 10/16/17 Review of Systems - Physician Review All systems were reviewed & negative as marked: Yes - Review of Systems Constitutional: absent: Fevers, Night Sweats Respiratory: SOB. absent: Cough Cardiovascular: Chest Pain (currently asymptomatic), Palpitations. absent: Calf Pain Gastrointestinal: absent: Abdominal Pain, Nausea, Vomiting Musculoskeletal: absent: Back Pain Physical Exam Vital Signs Reviewed: Yes Vital Signs Temp Pulse Resp BP Pulse Ox 10/16/17 22:09 71 18 115/61 100 10/16/17 20:13 75 18 117/61 98 10/16/17 20:10 178 H 109/78 10/16/17 19:25 98.3 F 88 20 123/69 98 Temperature: Afebrile Blood Pressure: Normal Pulse: Regular Respiratory Rate: Normal Appearance: Positive for: Well-Appearing, Non-Toxic, Comfortable Pain Distress: None Mental Status: Positive for: Alert and Oriented X 3 - Systems Exam Head: Present: Atraumatic, Normocephalic Pupils: Present: PERRL Extroacular Muscles: Present: EOMI Conjunctiva: Present: Normal Ears: Present: Normal, NORMAL TM, Normal Canal. No: Erythema, TM Bulging, Fluid , TM Perf Mouth: Present: Moist Mucous Membranes Pharnyx: Present: Normal. No: ERYTHEMA, EXUDATE, TONSILS ENLARGED Nose (Internal): Present: Normal Inspection Neck: Present: Normal Range of Motion Respiratory/Chest: Present: Clear to Auscultation, Good Air Exchange. No: Respiratory Distress, Accessory Muscle Use Cardiovascular: Present: Normal S1, S2, Tachycardic. No: Murmurs Abdomen: No: Tenderness, Distention, Peritoneal Signs Back: Present: Normal Inspection Upper Extremity: Present: Normal Inspection. No: Cyanosis, Edema Lower Extremity: Present: Normal Inspection. No: Edema Neurological: Present: GCS=15, CN II-XII Intact, Speech Normal Skin: Present: Warm, Dry, Normal Color. No: Rashes Psychiatric: Present: Alert, Oriented x 3, Normal Insight, Normal Concentration Medical Decision Making ED Course and Treatment: 10/16/17 20:39 Impression: A 77 year old male with palpitations. Patient notes shortness of breath and chest discomfort, currently asymptomatic. Plan: -- Chest xray -- EKG -- Labs -- Cardizem -- Reassess and disposition Progress Notes: EKG shows SVT/a-fib at 178 BPM with incomplete RBBB, nonspecific ST/T changes. Interpreted by me. Repeat EKG shows NSR at 79 BPM with incomplete RBBB, nonspecific ST/T changes. Interpreted by me. Chest xray read and interpreted by me, which shows no acute process. 10/16/17 20:47 Upon further questioning, family report patient had a syncopal episode earlier this afternoon. Family state patient felt dizzy and passed out briefly hitting his head. At the time, patient felt fine and they did not seek medical help. Patient began to have palpitations, shortness of breath and chest discomfort after syncopal episode. Will order head CT. 10/16/17 22:[address] Riddle, who is aware and agrees with plan. Accepts pt in to his service. Pt will go to Telemetry observation syncope, chest pain, and SVT. Requests Dr. Fraga on consult. 10/16/17 22:58 CT Head shows: Brain: Small stable hypodense chronic lacunar infarcts are identified within the left cerebellar lobe. Stable hypodense lacunar infarcts are also visualized within the basal ganglia. There are periventricular foci of hypodensity, likely representing small vessel ischemic disease in a patient this age. The acuity of the white matter disease is indeterminate. The white-cisneros differentiation is preserved demonstrating no acute territorial type infarct. No acute intracranial hemorrhage is seen. Midline shift: There is no midline shift. Ventricles: There is stable prominence of the ventricles and sulci, compatible with atrophy. Bones/joints: The calvarium demonstrates no evidence for a depressed fracture. Soft tissues: No acute abnormality. Vasculature: There is atherosclerotic calcification of the intracranial internal carotid arteries. Sinuses: There is mucosal thickening of a left posterior ethmoid air cell, with opacification of a left anterior ethmoid air cell. Mastoid air cells: Mild effusions are visualized within the left mastoid air cells. IMPRESSION: 1. No acute intracranial hemorrhage or acute territorial type infarct. 2. Small stable chronic lacunar infarcts are identified within the left cerebellar lobe. Stable hypodense lacunar infarcts are again visualized within the basal ganglia. 3. There are periventricular foci of hypodensity, likely representing small vessel ischemic disease in a patient this age. 4. Stable atrophy. 5. Mild effusions are visualized within the left mastoid air cells. 6. Incidental/non-acute findings are described above. - Lab Interpretations Lab Results: 10/16/17 19:55 10/16/17 19:55 Lab Results 10/16/17 19:55: WBC 15.4 H D, RBC 3.45 L, Hgb 9.6 L, Hct 29.1 L, MCV 84.3, MCH 27.8, MCHC 33.0, RDW 13.5, Plt Count 390, MPV 9.1 10/16/17 19:55: Sodium 137, Potassium 4.7, Chloride 105, Carbon Dioxide 19 L, Anion Gap 18, BUN 45 H, Creatinine 1.4, Est GFR ( Amer) 59, Est GFR (Non- Af Amer) 49, Random Glucose 220 H, Calcium 9.5, Total Bilirubin 0.3, AST 68 H D , ALT 49, Alkaline Phosphatase 173 H D, Lactate Dehydrogenase 473, Total Creatine Kinase 29 L, Troponin I < 0.01, NT-Pro-B Natriuret Pep 283, Total Protein 7.2, Albumin 4.0, Globulin 3.2, Albumin/Globulin Ratio 1.2 10/16/17 19:55: PT 13.5 H, INR 1.18 H, APTT 26.7 I have reviewed the lab results: Yes - RAD Interpretation Radiology Orders: 10/16/17 19:51 CHEST PORTABLE [RAD] Stat 10/16/17 20:46 HEAD W/O CONTRAST [CT] Stat Program Control Analyst: ED Physician - EKG Interpretation Interpreted by ED Physician: Yes Type: 12 lead EKG - Medication Orders Current Medication Orders: diltiaZEM IVPB 100mg in NS (Cardizem 100mg In Ns) 100 mls @ 5 mls/hr IV .Q20H PRN; Protocol; 5 MG/HR PRN Reason: TITRATE PER MD ORDER Discontinued Medications Diltiazem HCl (Cardizem) 15 mg IVP ONCE ONE Stop: 10/16/17 19:54 Last Admin: 10/16/17 20:10 Dose: 15 mg IVP Administration Document 10/16/17 20:10 AD (Rec: 10/16/17 20:10 AD [id number]) Charges for Administration # of IVP Administrations 1 AUG Pulse and Blood Pressure Document 10/16/17 20:10 AD (Rec: 10/16/17 20:10 AD [id number]) Pulse Pulse Rate (60-90 beats/min) 178 Blood Pressure Blood Pressure (100/60-150/90 mm Hg) 109/78 - Scribe Statement The provider has reviewed the documentation as recorded by the Audrey Sun Provider Audrey Attestation: All medical record entries made by the Scribe were at my direction and personally dictated by me. I have reviewed the chart and agree that the record accurately reflects my personal performance of the history, physical exam, medical decision making, and the department course for this patient. I have also personally directed, reviewed, and agree with the discharge instructions and disposition. Disposition/Present on Arrival - Present on Arrival Any Indicators Present on Arrival: No History of DVT/PE: No History of Uncontrolled Diabetes: No Urinary Catheter: No History of Decub. Ulcer: No History Surgical Site Infection Following: None - Disposition Have Diagnosis and Disposition been Completed?: Yes Diagnosis: Syncope, Supraventricular tachycardia, Chest pain Disposition: HOSPITALIZED Disposition Time: 22:19 Patient Plan: Observation Patient Problems: Current Active Problems Problem Status Onset Chest pain Acute Supraventricular tachycardia Acute Syncope Acute Condition: STABLE
--- NOTE | 2017-10-16 22:57 | CT ---
EXAM: CT Head Without Intravenous Contrast EXAM DATE/TIME: 10/16/2017 8:46 PM CLINICAL HISTORY: The patient age is 77 years old and is male; Pain; Headache; Headache not specified; Additional info: Dizzy/fall/loc Facility exam id and description: Ct heads head w/o contrast TECHNIQUE: Axial computed tomography images of the head/brain without intravenous contrast. All CT scans at this facility use one or more dose reduction techniques, viz.: automated exposure control; ma/kV adjustment per patient size (including targeted exams where dose is matched to indication; i.e. head); or iterative reconstruction technique. Coronal and sagittal reformatted images were created and reviewed. COMPARISON: CT - HEAD W/O CONTRAST 2017-10-06 17:25 FINDINGS: Brain: Small stable hypodense chronic lacunar infarcts are identified within the left cerebellar lobe. Stable hypodense lacunar infarcts are also visualized within the basal ganglia. There are periventricular foci of hypodensity, likely representing small vessel ischemic disease in a patient this age. The acuity of the white matter disease is indeterminate. The white-cisneros differentiation is preserved demonstrating no acute territorial type infarct. No acute intracranial hemorrhage is seen. Midline shift: There is no midline shift. Ventricles: There is stable prominence of the ventricles and sulci, compatible with atrophy. Bones/joints: The calvarium demonstrates no evidence for a depressed fracture. Soft tissues: No acute abnormality. Vasculature: There is atherosclerotic calcification of the intracranial internal carotid arteries. Sinuses: There is mucosal thickening of a left posterior ethmoid air cell, with opacification of a left anterior ethmoid air cell. Mastoid air cells: Mild effusions are visualized within the left mastoid air cells. IMPRESSION: 1. No acute intracranial hemorrhage or acute territorial type infarct. 2. Small stable chronic lacunar infarcts are identified within the left cerebellar lobe. Stable hypodense lacunar infarcts are again visualized within the basal ganglia. 3. There are periventricular foci of hypodensity, likely representing small vessel ischemic disease in a patient this age. 4. Stable atrophy. 5. Mild effusions are visualized within the left mastoid air cells. 6. Incidental/non-acute findings are described above.
--- NOTE | 2017-10-17 10:43 | RAD ---
HISTORY: Shortness of breath. COMPARISON: 10/06/2017 FINDINGS: LUNGS: No active pulmonary disease. PLEURA: No significant pleural effusion identified, no pneumothorax apparent. CARDIOVASCULAR: No radiographic findings to suggest acute or significant cardiovascular disease. OSSEOUS STRUCTURES: No significant abnormalities. VISUALIZED UPPER ABDOMEN: Normal. OTHER FINDINGS: None. IMPRESSION: No active disease. No significant interval change compared to the prior examination(s).
[2017-10-17] MEDS: Sodium Chloride 0.9% 1,000 ML IV SCH (11:41)
[2017-10-17 13:57] VITALS: BMI 23.8
[2017-10-17] MEDS ORDERED: Pneumococcal 23-Valent Vaccine IM ONE (13:57)
--- NOTE | 2017-10-17 21:26 | CON ---
DATE: 10/17/2017 REASON FOR CONSULTATION AND FOLLOWUP: SVT, atrial flutter, 2:1 conduction, rate of 170, converted to normal sinus. BRIEF CLINICAL HISTORY: This is a 77-year-old male with past medical history significant for recently diagnosed lung mass, turned out to be adenocarcinoma, status post biopsy leading to the pneumothorax, history of SVT, who admitted here, brought by the daughter. The patient says that he became mild short of breath and palpitation, took extra dose of metaterol, did not get better. Came to the emergency room and found to be in atrial flutter and SVT, 15 mg IV Cardizem given and the patient converted to normal sinus. Repeat EKG shows normal sinus. First EKG shows SVT, atrial flutter with 2:1 conduction. Currently, the patient is in ER,bed 19. Denies any chest pain, shortness of breath, or any palpitations, wanted to go home. PAST MEDICAL HISTORY: Significant for SVT; lung mass on last admission, status post biopsy, complicated by pneumothorax, status post chest tube; history of palpitation; and wearing an event recorder from the [facility] for 30 days, on the last admission. RECENT CARDIAC WORKUP: As follows; the patient had a stress test dated 10/02/2017, shows a normal myocardial perfusion study, ejection fraction of 70%. The patient's echocardiography done on 10/02/2017 that revealed normal chamber size with ejection fraction of 55% to 60%, moderate aortic regurgitation, moderate mitral regurgitation, mild tricuspid regurgitation, right ventricular systolic pressure of 47, moderate pulmonary insufficiency. CURRENT MEDICATIONS: The patient at home, was taking metoprolol 12.5 mg b.i.d. and they started lisinopril, but the patient became hypotensive in the last admission, so only 12.5 mg, patient is taking p.r.n. REVIEW OF SYSTEMS: As per HPI. PHYSICAL EXAMINATION: VITAL SIGNS: Temperature afebrile, heart rate 68, blood pressure 110/69. HEENT: PERRLA. Extraocular muscles intact. NECK: Supple. No carotid bruit or thyromegaly. CHEST: Clear to auscultation. HEART: S1 and S2 regular. ABDOMEN: Soft. EXTREMITIES: Clubbing and cyanosis negative. LABORATORY DATA: EKG #1 shows SVT, possible atrial flutter with 2:1 conduction. Repeat EKG after 15 mg of IV Cardizem, converted to normal sinus. No acute ST-T changes noted. Normal sinus EKG, second EKG. Blood workup as follows: WBC 15.4, hemoglobin 9. , hematocrit 29.1, platelet count 390. Chemistry shows sodium 137, potassium 4.7, chloride 105, carbon dioxide 19, anion gap of 15, BUN 45, creatinine 1.4. Troponin 0.01, negative. IMPRESSION: History of supraventricular tachycardia, prior to lung mass diagnosis. The patient was seen by the [facility] and was wearing since last admission an event recorder for 30 days. Recent stress test is normal. Recent echocardiogram, no significant structural heart disease, dated 10/02/2017 that revealed an ejection fraction of 55% to 60%, moderate aortic regurgitation, moderate mitral regurgitation, mild tricuspid regurgitation and right ventricular systolic pressure of 47, and moderate pulmonary insufficiency. A stress test negative dated 10/02/2017, ejection fraction of 70%, possible prerenal azotemia, mild dehydration. RECOMMENDATION: We will give IV fluid gentle hydration and start Cardizem p.o. first dose stat and then 30 mg every 6 hours. We will follow with you. We will add a TSH in the blood stat. We will also send blood culture because the patient had elevated WBC to rule out any occult infection. Chest x-ray looks okay, no evidence of pneumothorax, read by me. We will start gentle hydration. Thank you, Dr. Riddle, for providing us the opportunity in taking care of the patient, John Ospina. Dougie Fraga MD
--- NOTE | 2017-10-17 22:27 | CARD ---
APPROVED REPORT EKG Measurement Heart [id number] <Conclusion> Normal sinus rhythm Incomplete right bundle branch block Borderline ECG
--- NOTE | 2017-10-17 22:28 | CARD ---
APPROVED REPORT EKG Measurement Heart [id number] <Conclusion> SVT Incomplete right bundle branch block Nonspecific ST and T wave abnormality Abnormal ECG
[2017-10-18 06:13] LABS: BASO # 0.01 K/mm3 (0.0-2.0); BASO % 0.1 % (0.0-3.0); EOS # 0.1 (0.0-0.7); EOS % 0.9 % (1.5-5.0); GRAN # 9.62 (1.4-6.5); GRAN % 86.2 % (50.0-68.0); HEMOGLOBIN 8.5 g/dL (14.0-18.0); LYMPH # 0.6 (1.2-3.4); LYMPH % 5.7 % (22.0-35.0); MEAN CELL VOLUME 83.1 fl (80.0-105.0); MEAN CORPUSCULAR HEMOGLOBIN 28.2 pg (25.0-35.0); MEAN PLATELET VOLUME 9.1 fl (7.0-11.0); MONO # 0.8 (0.1-0.6); MONO % 7.1 % (1.0-6.0); RBC 3.01 10^6/uL (3.5-6.1); RED CELL DISTRIBUTION WIDTH 13.5 % (11.5-14.5); WHITE BLOOD COUNT 11.2 10^3/ul (4.5-11.0)
[2017-10-18 06:26] VITALS: O2SAT 96
[2017-10-18] MEDS: Sodium Chloride 0.9% 1,000 ML IV SCH ×2 (06:38→09:49)
[2017-10-18 07:35] LABS: ALB/GLOB RATIO 1.1 (1.1-1.8); ALBUMIN 3.2 g/dL (3.0-4.8); ALT/SGPT 38 U/L (7-56); AST/SGOT 21 U/L (17-59); BLOOD UREA NITROGEN 33 mg/dL (7-21); CALCIUM 9.1 mg/dL (8.4-10.5); GFR AFRICAN-AMERICAN > 60; GFR NON-AFRICAN AMERICAN > 60
--- NOTE | 2017-10-18 07:51 | HP ---
ADMITTING HISTORY AND PHYSICAL I would like the admitting history and physical to be read as follows, if you would be so kind. HISTORY OF PRESENT ILLNESS: The patient is a 77-year-old male who presents to the emergency room complaining of weakness and palpitations. This is the fourth hospitalization for this patient over the past month. One month ago, he was diagnosed with a newly discovered right upper lobe lung mass. He underwent percutaneous biopsy and suffered a postprocedure pneumothorax. This was treated with a chest tube. The patient did well. A few days later, he was walking on the street, became dizzy. Once again, he presented to the emergency room. He was in SVT with a recurring pneumothorax. Once again, the pneumothorax was resolved with a chest tube and the patient went home. A few days after that, after a hot shower, he was felt dizzy, presyncopal and again was admitted with severe bradycardia. The patient was found to be severely sensitive to beta-blockers. However, the patient was discharged from that hospitalization without any medications. Today, the patient again developed palpitations and shortness of breath, again presented to the emergency room, was found to be in SVT with a heart rate of 170 beats per minute and therefore is admitted. PAST MEDICAL HISTORY: His only past medical history is that for prostate cancer. We are aware of the lung mass, which was positive for adenocarcinoma of the lung. MEDICATIONS: At this time, the patient is taking no medications with this admission. ALLERGIES: HE HAS NO KNOWN MEDICAL ALLERGIES. SOCIAL HISTORY: He never did smoke, occasionally drinks alcohol. PHYSICAL EXAMINATION: VITAL SIGNS: His blood pressure is 123/69. His heart rate was 178, it is now down to 75 beats per minute. HEAD, EYES, EARS, NOSE AND THROAT: Unremarkable. LUNGS: Clear to auscultation and percussion. NECK: Supple with no lymphadenopathy. No goiter. HEART: At this time, the heart is regular. No murmurs are appreciated. ABDOMEN: Flat, soft, nontender with no organomegaly. EXTREMITIES: Free of cyanosis, clubbing or edema. LABORATORY DATA: CAT scan of the head shows lacunar infarcts. The CAT scan is to be reviewed with Radiology as the lacunar infarct left cerebellar lobe and basal ganglia. His previous CAT scan of 10/06 mentions the left cerebellar lobe lacuna, but does not mention the basal ganglia. So the question is if these are new. His white blood cell count is 15.4, hemoglobin and hematocrit are 9.6 and 29.1 respectively, platelet count is 390. Blood urea nitrogen is 45, creatinine is 1.4, nonfasting glucose is 220. Sodium is 137, potassium is 4.7. Troponins are less than 0.01. BNP is 283. The patient received diltiazem intravenously in the emergency room. So consultation is requested from Dr. Fraga, his survey researcher. The patient is currently treated with Cardizem 30 mg every 6 hours and seems to be tolerating it well. When seen today, his spirits are good. I spoke to his daughter from the bedside on the patient's cell phone. We are hopeful of a possible discharge to home in the morning, continuing Cardizem 30 mg every 6. Patient will be followed as an outpatient with plans for further treatment of his adenocarcinoma of the lung. Shashank Riddle MD
--- NOTE | 2017-10-18 08:08 | CP.PCM.PN ---
Subjective - Date & Time of Evaluation Date of Evaluation: 10/18/17 Time of Evaluation: 06:45 - Subjective Subjective: Seen and examined by me and Dr. Fraga Reason for consult and follow up: Supraventricular Tachycardia, Atrial flutter 2 :1 conduction converted to normal sinus rythm after giving Cardizem Subjective: denies chest pain, denies shortness of breath,denies palpitation, feels good Objective - Vital Signs/Intake and Output Vital Signs (last 24 hours): Temp Pulse Resp BP Pulse Ox 99 F 65 19 117/70 96 10/18/17 06:00 10/18/17 06:00 10/18/17 06:00 10/18/17 06:00 10/18/17 06:00 Intake and Output: 10/18/17 10/18/17 06:59 18:59 Intake Total 950 Output Total 500 Balance 450 - Medications Medications: Current Medications Diltiazem HCl (Cardizem) 30 mg PO Q6H KAYLA Last Admin: 10/18/17 04:16 Dose: 30 mg Sodium Chloride (Sodium Chloride 0.9%) 1,000 mls @ 50 mls/hr IV .Q20H KAYLA Stop: 10/18/17 23:59 Last Admin: 10/18/17 06:38 Dose: Not Given - Labs Labs: 10/18/17 05:15 10/18/17 05:15 PT 13.5 SECONDS (9.4-12.5) H 10/16/17 19:55 INR 1.18 (0.93-1.08) H 10/16/17 19:55 APTT 26.7 Seconds (25.1-36.5) 10/16/17 19:55 - Constitutional Appears: No Acute Distress - Head Exam Head Exam: NORMOCEPHALIC - Eye Exam Eye Exam: Normal appearance - ENT Exam ENT Exam: Mucous Membranes Moist, Normal Exam - Respiratory Exam Respiratory Exam: Clear to Ausculation Bilateral, NORMAL BREATHING PATTERN - Cardiovascular Exam Cardiovascular Exam: REGULAR RHYTHM, +S1, +S2 Additional comments: normal sinus rythm - GI/Abdominal Exam GI & Abdominal Exam: Soft, Normal Bowel Sounds - Extremities Exam Extremities Exam: Full ROM, Normal Capillary Refill - Neurological Exam Neurological Exam: Alert, Awake, Oriented x3 - Psychiatric Exam Psychiatric exam: Normal Affect, Normal Mood - Skin Skin Exam: Intact, Normal Color, Warm Assessment and Plan - Assessment and Plan (Free Text) Assessment: IMPRESSION: Came to the ER due to mild shortness of breath and palpitation. On environmental monitoring specialist showed SVT, atrial flutter at 170/min. IV cardizem given and started on oral cardizem. Converted to NSR at 60's-70's. History of lung adenocarcinoma,historyof pnuemothorax post lung biopsy history of SVT prior to lung mass diagnosis.Denies chest pain. Plan: Continue Cardizem 30 mg every 6 hours Well controlled heart, NSR 60's to 70's. Stable blood pressure Recent 10/02/17 ECHO = EF 55%-60% moderate aortic and mitral regurgitation Recent Stress test 10/02/17- negative for ischemia Patient wanted to go home. Stable cardiac status May discharge from cardiac standpoint and will follow up in the office in 1-2 weeks. Plan and treatment discussed with Dr. Fraga
--- NOTE | 2017-10-18 14:24 | CARD ---
APPROVED REPORT EKG Measurement Heart [id number] <Conclusion> Normal sinus rhythm Right bundle branch block Abnormal ECG
[2017-10-18] MEDS ORDERED: diltiaZEM 120 mg/24 Hours CD Cap PO SCH ×2 (14:30)
[2017-10-18 15:04] VITALS: BP 121/64; PULSE 65
[2017-10-18 15:26] VITALS: RESP 18; TEMP 98
--- NOTE | 2017-10-19 21:00 | DS ---
HISTORY OF PRESENT ILLNESS: This is a delightful, but unfortunate 77-year-old man who was in excellent health up until just one month ago when a solitary nodule was found on his chest x-ray. He came to the hospital for this admission because of palpitations, near syncopal episode and found to be in SVT. His story begins approximately a month ago, when after a lung biopsy of a pulmonary nodule, he developed pneumothorax and was hospitalized. Chest tube was placed and he improved, then was discharged. Two days later while walking on [address], he dropped to his knees with palpitations and shortness of breath. He was found in SVT. This was his first cardiac arrhythmia ever in his lifetime with a pneumothorax. Again treated with chest tube, the pneumothorax disappeared, SVT had been treated in the emergency room. He did well and went home. Two days later, while taking an excessively hot shower, he stepped out of the shower and went to the floor on his knees with lightheadedness. This vagal near syncope was related to heat. He was bradycardic so his medications were adjusted. He was on beta blockers and now, a week later, comes to the emergency room with palpitations and found in SVT. His rapid heart rate was corrected swiftly. He was followed by and he was admitted and seen by his squirrel man Dr. Fraga. Medications were adjusted. He seemed to respond to calcium channel blockers, beta blockers were held because of the sensitivity that he had to them in the past. His rate seemed rather well controlled on 30 mg of Cardizem every 6 hours. So today when I saw him, he was asking for discharge to home. He has already been cleared by Cardiology. A dose of Cardizem CD 120 mg was given and the patient was discharged a few hours later. I called the prescription to his local drug store for Cardizem CD 120 mg. He was instructed to discontinue the metoprolol and follow up in the office within 1 week. He will also follow up with Dr. Fraga, his squirrel man. FINAL DISCHARGE DIAGNOSES: 1. Supraventricular tachycardia. 2. Adenocarcinoma of the lung. 3. Status post recent hospitalizations for pneumothorax, post lung biopsy. Demetrius Riddle MD [facility] # [id number]
== END 2017-10-18 17:02 | disposition home or self-care (01) ==
LOC: ED 19:16 → ERH 22:16 → 2RNO 10-17 13:28
PROVIDERS: ADMIT Internal Medicine; ATTEND Internal Medicine
DX: I47.1 Supraventricular tachycardia (principal); C34.11 Malignant neoplasm of upper lobe, right bronchus or lung; I48.92 Unspecified atrial flutter; I48.91 Unspecified atrial fibrillation; I08.3 Combined rheumatic disorders of mitral, aortic and tricuspid valves; I45.89 Other specified conduction disorders; Z85.46 Personal history of malignant neoplasm of prostate; I45.10 Unspecified right bundle-branch block; R40.2412 Glasgow coma scale score 13-15, at arrival to emergency department
CPT/HCPCS: 36415; 70450; 71045; 80053; 82550; 83615; 83735; 83880; 84100; 84443; 84484; 85025; 85027; 85610; 85730; 87040; 93005; 96374; 99285; G0378; J7040

== ENCOUNTER 2017-11-22 16:39 | Inpatient (IN) | payer MEDICARE, OTHER ==
--- NOTE | 2017-11-22 18:32 | ED PDOC ---
Arrival/HPI - General Time Seen by Provider: 11/22/17 16:40 Historian: Patient - History of Present Illness Narrative History of Present Illness (Text): 11/22/17 18:29 77 year old male presents to the Emergency department status post being referred to the Emergency department by catering staff member for low hemoglobin. Patient 's hemoglobin in office today was measured to be 7.4. Patient was recently diagnosed with adenocarcinoma of the lung. Patient also complains of generalized weakness. Patient denies any fever, chills, chest pain, shortness of breath, nausea, vomiting, diarrhea, blood in urine, blood in stool, back pain , neck pain, headache, dizziness, or any other complaints. Time/Duration: 1-3 hours Symptom Onset: Gradual Symptom Course: Unchanged Activities at Onset: Rest Context: Other (referred to Emergency department from catering staff member's office today) Past Medical History - Provider Review Nursing Documentation Reviewed: Yes - Past History Past History: No Previous - Infectious Disease Hx of Infectious Diseases: None - Reproductive Currently Lactating: No - Cardiac Hx Cardiac Disorders: Yes Hx Cardiac Arrhythmia: Yes Hx Peripheral Vascular Disease: Yes Other/Comment: Patient has a remote heart monitor - Pulmonary Hx Respiratory Disorders: No (PNEUMOTHORAX-BX DONE 09-27-17-LUNG MASS) Other/Comment: history of air in the lungs - Neurological Hx Neurological Disorder: Yes Hx Dizziness: Yes (SYNCOPE 10-17-17) - HEENT Hx HEENT Disorder: No - Renal Hx Renal Disorder: No - Endocrine/Metabolic Hx Endocrine Disorders: No - Hematological/Oncological Hx Blood Disorders: Yes Hx Anemia: Yes - Integumentary Hx Dermatological Disorder: No - Musculoskeletal/Rheumatological Hx Falls: No - Gastrointestinal Hx Gastrointestinal Disorders: No - Genitourinary/Gynecological Other/Comment: patient has a prostate problem - Psychiatric Hx Psychophysiologic Disorder: No Hx Substance Use: No - Anesthesia Hx Anesthesia Reactions: No Hx Malignant Hyperthermia: No - Suicidal Assessment Feels Threatened In Home Enviroment: No Family/Social History - Physician Review Nursing Documentation Reviewed: Yes Family/Social History: Unknown Family HX Smoking Status: Former Smoker Hx Alcohol Use: No Hx Substance Use: No Hx Substance Use Treatment: No Allergies/Home Meds Allergies/Adverse Reactions: Allergies No Known Allergies Allergy (Verified 11/22/17 17:20) Home Medications: Home Meds Medication Instructions Recorded Confirmed Diclofenac Sodium [Diclofenac 100 mg PO DAILY 11/22/17 11/22/17 Sodium ER] Tamsulosin HCl [Flomax] 0.4 mg PO DAILY 11/22/17 11/22/17 diltiaZEM CD [Cardizem CD] 60 mg PO TID 11/22/17 11/22/17 Review of Systems - Physician Review All systems were reviewed & negative as marked: Yes - Review of Systems Constitutional: absent: Fevers, Night Sweats Respiratory: absent: SOB Cardiovascular: absent: Chest Pain Gastrointestinal: absent: Stool Changes, Diarrhea, Nausea, Vomiting Genitourinary Male: absent: Hematuria Musculoskeletal: Other (generalized weakness). absent: Back Pain, Neck Pain Neurological: absent: Headache, Dizziness Physical Exam Vital Signs Reviewed: Yes Vital Signs Temp Pulse Resp BP Pulse Ox 11/22/17 21:41 98.9 F 71 18 127/64 11/22/17 21:20 99.3 F 81 18 130/57 L 11/22/17 20:02 99.3 F 94 H 18 148/62 98 - Systems Exam Head: Present: Atraumatic, Normocephalic Pupils: Present: PERRL Extroacular Muscles: Present: EOMI Conjunctiva: Present: Other (pale) Mouth: Present: Moist Mucous Membranes Neck: Present: Normal Range of Motion Respiratory/Chest: Present: Clear to Auscultation, Good Air Exchange. No: Respiratory Distress, Accessory Muscle Use Cardiovascular: Present: Regular Rate and Rhythm, Normal S1, S2. No: Murmurs Abdomen: No: Tenderness, Distention, Peritoneal Signs Back: Present: Normal Inspection Upper Extremity: Present: Normal Inspection. No: Cyanosis, Edema Lower Extremity: Present: Normal Inspection. No: Edema Neurological: Present: GCS=15, CN II-XII Intact, Speech Normal Skin: Present: Warm, Dry, Normal Color. No: Rashes Psychiatric: Present: Alert, Oriented x 3, Normal Insight, Normal Concentration Medical Decision Making ED Course and Treatment: 11/22/17 18:34 Impression: 77 year old male presents to the Emergency department due to low hemoglobin levels. Plan: -- EKG -- Urine culture -- Urinalysis -- Labs -- Reassess and disposition Prior Visits: Notes and results from previous visits were reviewed. Patient was last seen in the emergency department on 10/16/17, diagnosed with Syncope, Supraventricular tachycardia, Chest pain, and was admitted to the hospital. Progress Notes: - Lab Interpretations Lab Results: 11/22/17 17:30 11/22/17 17:30 Lab Results 11/22/17 18:10: Blood Type AB POSITIVE, Antibody Screen Negative, Crossmatch See Detail, BBK History Checked Patient has bt 11/22/17 17:30: Sodium 143, Potassium 4.4, Chloride 111 H, Carbon Dioxide 20 L, Anion Gap 17, BUN 38 H, Creatinine 1.5, Est GFR ( Amer) 55, Est GFR (Non- Af Amer) 45, Random Glucose 109, Calcium 9.3, Total Bilirubin 0.3, AST 17, ALT 30, Alkaline Phosphatase 122, Lactate Dehydrogenase 341, Total Creatine Kinase 28 L, Troponin I < 0.01, Total Protein 6.8, Albumin 3.4, Globulin 3.4, Albumin/ Globulin Ratio 1.0 L 11/22/17 17:30: PT 13.9 H, INR 1.21 H, APTT 27.3 11/22/17 17:30: WBC 10.5, RBC 2.61 L, Hgb 7.3 L, Hct 21.9 L, MCV 83.9, MCH 28.0 , MCHC 33.3, RDW 14.4, Plt Count 232, MPV 10.3, Gran % 85.7 H, Lymph % (Auto) 4.7 L, [place] % (Auto) 7.8 H, Eos % (Auto) 1.7, Baso % (Auto) 0.1, Gran # 9.02 H, Lymph # (Auto) 0.5 L, [place] # (Auto) 0.8 H, Eos # (Auto) 0.2, Baso # (Auto) 0.01 , Neutrophils % (Manual) 88 H, Lymphocytes % (Manual) 5 L, Monocytes % (Manual) 6, Basophils % (Manual) 1, Platelet Evaluation Normal - EKG Interpretation EKG Interpretation (Text): 11/22/17 18:36 EKG: Ordered, reviewed, and independently interpreted the EKG. Rate : 108 BPM Rhythm : Sinus Tachycardia Interpretation : RBBB. LAD. Interpreted by ED Physician: Yes Type: 12 lead EKG - Medication Orders Current Medication Orders: Acetaminophen (Tylenol 325mg Tab) 650 mg PO Q4 PRN PRN Reason: Pain, Mild (1-3) Discontinued Medications Acetaminophen (Tylenol 325mg Tab) 650 mg PO ONCE ONE Stop: 11/22/17 20:11 Last Admin: 11/22/17 20:30 Dose: 650 mg Diphenhydramine HCl (Benadryl) 25 mg PO ONCE ONE Stop: 11/22/17 20:11 Last Admin: 11/22/17 20:31 Dose: 25 mg Hydrocortisone Sodium Succinate (Solu-Cortef) 100 mg IV ONCE ONE Stop: 11/22/17 20:11 Last Admin: 11/22/17 20:31 Dose: 100 mg eMAR Start Stop Document 11/22/17 20:31 LA (Rec: 11/22/17 20:31 LA [id number]) Intravenous Solution Start Date 11/22/17 Start Time 20:31 - Scribe Statement The provider has reviewed the documentation as recorded by the Audrey Gates Provider Scribe Attestation: All medical record entries made by the Ramboibpaul were at my direction and personally dictated by me. I have reviewed the chart and agree that the record accurately reflects my personal performance of the history, physical exam, medical decision making, and the department course for this patient. I have also personally directed, reviewed, and agree with the discharge instructions and disposition. Disposition/Present on Arrival - Present on Arrival Any Indicators Present on Arrival: No History of DVT/PE: No History of Uncontrolled Diabetes: No Urinary Catheter: No History Surgical Site Infection Following: None - Disposition Have Diagnosis and Disposition been Completed?: Yes Diagnosis: Anemia, Lung mass Disposition: HOSPITALIZED Disposition Time: 19:00 Condition: FAIR
[2017-11-22 18:44] LABS: BASO # 0.01 K/mm3 (0.0-2.0); BASO % 0.1 % (0.0-3.0); EOS # 0.2 (0.0-0.7); EOS % 1.7 % (1.5-5.0); GRAN # 9.02 (1.4-6.5); GRAN % 85.7 % (50.0-68.0); HEMOGLOBIN 7.3 g/dL (14.0-18.0); LYMPH # 0.5 (1.2-3.4); LYMPH % 4.7 % (22.0-35.0); MEAN CELL VOLUME 83.9 fl (80.0-105.0); MEAN CORPUSCULAR HGB CONC 33.3 g/dl (31.0-37.0); MEAN PLATELET VOLUME 10.3 fl (7.0-11.0); MONO # 0.8 (0.1-0.6); MONO % 7.8 % (1.0-6.0); PLATELET COUNT 232 10^3/uL (120.0-450.0); RBC 2.61 10^6/uL (3.5-6.1); RED CELL DISTRIBUTION WIDTH 14.4 % (11.5-14.5); WHITE BLOOD COUNT 10.5 10^3/ul (4.5-11.0)
[2017-11-22 18:57] LABS: ALBUMIN 3.4 g/dL (3.0-4.8); ALT/SGPT 30 U/L (7-56); AST/SGOT 17 U/L (17-59); BLOOD UREA NITROGEN 38 mg/dL (7-21); CALCIUM 9.3 mg/dL (8.4-10.5); GFR AFRICAN-AMERICAN 55; GFR NON-AFRICAN AMERICAN 45
[2017-11-22 19:06] LABS: INR 1.21 (0.93-1.08); PARTIAL THROMBOPLASTIN TIME 27.3 Seconds (25.1-36.5); PROTHROMBIN TIME 13.9 SECONDS (9.4-12.5)
[2017-11-22 19:07] LABS: TROPONIN I < 0.01 ng/mL
[2017-11-22 19:18] LABS: BASOPHIL 1 % (0.0-1.0); LYMPHOCYTE 5 % (22.0-35.0); MONOCYTE 6 % (1.0-6.0); NEUTROPHIL 88 % (50.0-70.0)
[2017-11-22 19:19] LABS: PLATELET ESTIMATE NORMAL (NORMAL)
[2017-11-22 20:35] LABS: URINE BILIRUBIN NEGATIVE (NEGATIVE); URINE BLOOD MODERATE (NEGATIVE); URINE GLUCOSE (UA) NEGATIVE (NEGATIVE); URINE LEUKOCYTE ESTERASE LARGE Leu/uL (NEGATIVE); URINE PROTEIN 100 mg/dL (<30 mg/dL); URINE UROBILINOGEN 0.2 E.U./dL (<1 E.U./dL)
[2017-11-22 20:37] LABS: URINE APPEARANCE TURBID (CLEAR); URINE COLOR YELLOW (YELLOW)
[2017-11-22 20:38] LABS: URINE BACTERIA MANY (NEG); URINE WBC TNTC /hpf (0-6)
[2017-11-22 22:27] VITALS: BMI 20.5
[2017-11-23 02:49] VITALS: TEMP 97.6
[2017-11-23 06:36] LABS: EOS % 0.1 % (1.5-5.0); GRAN # 8.86 (1.4-6.5); GRAN % 88.4 % (50.0-68.0); HEMOGLOBIN 8.9 g/dL (14.0-18.0); LYMPH # 0.6 (1.2-3.4); LYMPH % 6.2 % (22.0-35.0); MEAN CELL VOLUME 83.9 fl (80.0-105.0); MEAN CORPUSCULAR HEMOGLOBIN 28.6 pg (25.0-35.0); MEAN CORPUSCULAR HGB CONC 34.1 g/dl (31.0-37.0); MEAN PLATELET VOLUME 10.4 fl (7.0-11.0); MONO # 0.5 (0.1-0.6); MONO % 5.3 % (1.0-6.0); RBC 3.11 10^6/uL (3.5-6.1); RED CELL DISTRIBUTION WIDTH 14.1 % (11.5-14.5)
[2017-11-23 06:56] LABS: ALBUMIN 2.9 g/dL (3.0-4.8); ALT/SGPT 24 U/L (7-56); AST/SGOT 15 U/L (17-59); BLOOD UREA NITROGEN 33 mg/dL (7-21); CALCIUM 9.1 mg/dL (8.4-10.5); GFR AFRICAN-AMERICAN > 60; GFR NON-AFRICAN AMERICAN 53
--- NOTE | 2017-11-23 07:48 | CARD ---
APPROVED REPORT EKG Measurement Heart [id number] 174P [id number] <Conclusion> Sinus tachycardia Right bundle branch block Abnormal ECG
[2017-11-23 08:21] VITALS: BP 139/68; RESP 20; O2SAT 98
--- NOTE | 2017-11-23 09:41 | CON ---
DATE: 11/22/2017 This is [facility] consult on the telemetry floor. For Dr. Be, CHIEF COMPLAINT: Severe anemia, symptomatic. HISTORY OF PRESENT ILLNESS: The patient is a 77-year-old male, seen in Dr. Be's office earlier today for evaluation of recently diagnosed adenocarcinoma of the lung with the patient feeling significantly weak, accompanied by his daughter. With labs drawn at Dr. Be's office with a hemoglobin noted to be 7.4. Upon review of the patient's previous labs done on 10/18/2017, he had a hemoglobin of 8.5 at that time with a value noted in the emergency room earlier today of a hemoglobin of 7.3. For this, he will be admitted for transfusion of blood for his significant severe anemia, which is symptomatic with the patient feeling significantly weak and compromised. The patient is otherwise also reporting that he feels cold with a cough prompting him to have a regional evaluation by Dr. Riddle in 08/[address] scan showing significant change of the PET scan done afterwards showing a positive finding in the lung and the kidney. This will be reviewed. He does report hip pain for which diclofenac was recently prescribed. ALLERGIES: HE DENIES ANY ALLERGIES. MEDICATIONS: Include diltiazem 60 mg, tamsulosin 0.5 and Voltaren. PAST MEDICAL HISTORY: Significant for prostate cancer with recently diagnosed adenocarcinoma of the lung on tissue biopsy for which he had developed pneumothorax x2. He then developed rapid atrial fibrillation for which he was given medications, which developed bradycardic syndrome, and his medications were cut back. His prostate cancer was diagnosed in 2001 with radiation treatments done at that time. 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 FAMILY HISTORY AND SOCIAL HISTORY: He reports a significant smoking history of 1-1/2 packs per day for 40 years, having quit 20 years ago. Denies alcohol use. He has 1 son, 1 daughter, alive and well. Two sisters and one brother alive and well. 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 REVIEW OF SYSTEMS: Twelve-point review of systems was done, which was negative to questioning except for items mentioned in history of present illness. OBJECTIVE AND PHYSICAL EXAMINATION: VITAL SIGNS: Temperature 98.9, pulse 71, respirations 18, blood pressure 127/64 with a pulse ox 98%. HEENT: Unremarkable. NECK: Supple. HEART: Regular rate. Occasional ectopic beat. LUNGS: Clear. ABDOMEN: Soft, nontender. EXTREMITIES: +1 edema of the left foot of a chronic nature. NEUROLOGIC: Awake and alert; however, he is significantly weak with weakness to the cvicu rn and weakness to ambulation with assistance. Patient reports he is feeling cold. SKIN: Otherwise warm, dry and clear. LABORATORY DATA: Patient's labs were done. White blood cell count via the emergency room 10.5, hemoglobin 7.3, hematocrit 21.9, platelet count 232,000 with a chem metabolic panel showing a BUN of 38, otherwise normal chem metabolic panel. He had an INR today of 1.21. Urinalysis showed moderate amount of blood with large amount of leukocyte esterase. Patient did have an EKG done earlier today via the emergency room, which showed sinus tachycardia, right bundle branch block, left axis deviation. The patient did have a PET CT scan done on 10/29/2017, with PET scan reading impression small proximal 0.2 round elliptical shaped right apical nodular mass density demonstrated with no significant FDG activity; however, the left renal parenchyma demonstrates very minimal FDG activity suggesting chronic unilateral renal failure with no FDG excretion in the left renal pelvis, left ureter, which are markedly dilated consistent with longstanding obstruction. The dilatation extends to the level of the left UVJ, where there is abnormal FDG activity, asymmetrical wall thickening in the urinary bladder, more so on the left side. Evaluation reveals ____ in urine within the lumen of the bladder. There is semilunar shaped peripheral ring area in the FDG activity along the left lateral margin of the bladder of uncertain etiology, however, the possibility of a lesion at the level of the distal left ureter at the UVJ region and bladder, such as a urothelial carcinoma must be considered. Followup of Urology consultation recommended. Enlargement of prostate with focal infused FDG the left anterolateral and inferolateral margin, correlation with PSA to exclude prostate carcinoma recommended. Elliptical shaped FDG activity in the region of the thyroid gland, nonspecific. ASSESSMENT: The assessment for this patient is that of: 1. Recently diagnosed adenocarcinoma of the lungs status post biopsy with pneumothorax x2 post biopsy, supraventricular tachycardia, hypertension, hypotension with correction as per Dr. Fraga. History of prostate cancer, history of radiation treatment for that; degenerative disk disease of the hips; symptomatic anemia; left pedal edema and tremor at rest. 2. Smoking history. PLAN: After conversation with Dr. Be is to admit via the emergency room for observation and treatment of his severe anemic indices with transfusion with urologic consult with Dr. Mcdowell as per Dr. Riddle's recommendation, also consideration for a thoracic surgeon evaluation for possible resection of his adenocarcinoma with workup for his renal and bladder and prostate pathology as per scan as above. We will order for a PSA for the morning along with his repeat labs posttransfusion for his severe anemia with further workup as an outpatient as indicated as once the patient is stable. The prognosis for this patient is guarded. This is a complex patient with a comprehensive medically necessary and appropriate visit carried out in excess of 90 minutes of [id number] time with the patient's previous history gleaned, conversations held with Dr. Riddle and patient's daughter with prognosis for this patient guarded. Mike Schmitt MD
[2017-11-23 10:26] VITALS: PULSE 82
--- NOTE | 2017-11-23 14:30 | CP.PCM.CON ---
History of Present Illness - History of Present Illness History of Present Illness: Cardiothoracic Surgery Consult Note. Dr. Braden [facility] [employer] device used for [employer]. 77yo M with PMHx of Prostate CA s/p Radiation 2001, DJD, and A.Fib here for evaluation of symptomatic anemia. Patient states that he was feeling worsening fatigue over the past 4 months. He was evaluated by Dr. Be in office yesterday, found to have Hb of 7.3 and wss referred for admission. He has received 2U PRBC and responded appropriately. He has recently been diagnosed with Right apical 1.2cm adenocarcinoma as per biopsy. Biopsy complicated by pneumothorax, s/p 2 CT guided chest tube placements with improvement. He currently denies any chest pain, no Shortness of breath. No F/C. No N/V/D. No Abd pain. Recent PET scan with positive uptake in prostate, kidney and lung. Possible left kidney failure due to chronic obstructive uropathy. Oncology: Dr. Be PMHx: Prostate CA s/p radiation and resection 2001, DJD, AFib (rate controlled) PSHx: Prostate surgery Family Hx: non-contributory Social Hx: Previous 30-40 pack year tobacco use, quit 20 years ago. Occasional ETOH use (red wine). Denies illicit drugs NKDA Review of Systems - Review of Systems All systems: reviewed and no additional remarkable complaints except - Constitutional Constitutional: Fatigue, Malaise. absent: Chills, Fever - Cardiovascular Cardiovascular: absent: Chest Pain, Dyspnea - Respiratory Respiratory: absent: Cough, Dyspnea - Gastrointestinal Gastrointestinal: absent: Abdominal Pain, Diarrhea, Hematemesis, Hematochezia, Loose Stools, Melena, Nausea, Vomiting - Genitourinary Genitourinary: absent: Difficulty Urinating, Dysuria - Musculoskeletal Musculoskeletal: absent: Back Pain Past Patient History - Infectious Disease Hx of Infectious Diseases: None - Past Medical History & Family History Past Medical History?: Yes Past Family History: Reviewed and not pertinent - Past Social History Smoking Status: Former Smoker Alcohol: None Drugs: Denies - CARDIAC Hx Cardiac Disorders: Yes Hx Cardia Arrhythmia: Yes Hx Hypertension: Yes Hx Peripheral Vascular Disease: Yes - PULMONARY Hx Respiratory Disorders: Yes (PNEUMOTHORAX-BX DONE 09-27-17-LUNG MASS) Other/Comment: history of air in the lungs - NEUROLOGICAL Hx Neurological Disorder: Yes Hx Dizziness: Yes (SYNCOPE 10-17-17) - HEENT Hx HEENT Problems: Yes Hx Macular Degeneration: Yes - RENAL Hx Chronic Kidney Disease: No - ENDOCRINE/METABOLIC Hx Endocrine Disorders: No - HEMATOLOGICAL/ONCOLOGICAL Hx Blood Disorders: Yes Hx Anemia: Yes Hx Cancer: Yes (prostate) Hx Metastesis: Yes (lung) - INTEGUMENTARY Hx Dermatological Problems: No - MUSCULOSKELETAL/RHEUMATOLOGICAL Hx Falls: No - GASTROINTESTINAL Hx Gastrointestinal Disorders: No - GENITOURINARY/GYNECOLOGICAL Other/Comment: patient has a prostate problem - PSYCHIATRIC Hx Psychophysiologic Disorder: No - SURGICAL HISTORY Hx Surgeries: Yes (lung biopsy) - ANESTHESIA Hx Anesthesia Reactions: No Hx Malignant Hyperthermia: No Meds Allergies/Adverse Reactions: Allergies Allergy/AdvReac Type Severity Reaction Status Date / Time No Known Allergies Allergy Verified 11/22/17 17:20 - Medications Medications: Current Medications Acetaminophen (Tylenol 325mg Tab) 650 mg PO Q4 PRN PRN Reason: Pain, Mild (1-3) Physical Exam - Constitutional Appears: Well, Non-toxic, No Acute Distress - Head Exam Head Exam: ATRAUMATIC, NORMAL INSPECTION, NORMOCEPHALIC - Eye Exam Eye Exam: EOMI, Normal appearance - ENT Exam ENT Exam: Mucous Membranes Moist - Respiratory Exam Respiratory Exam: NORMAL BREATHING PATTERN. absent: Accessory Muscle Use, Respiratory Distress - Cardiovascular Exam Cardiovascular Exam: RRR. absent: JVD - GI/Abdominal Exam GI & Abdominal Exam: Soft. absent: Distended, Firm, Guarding, Rebound, Rigid, Tenderness - Extremities Exam Extremities exam: Positive for: normal inspection. Negative for: calf tenderness - Neurological Exam Neurological exam: Alert, Oriented x3 - Skin Skin Exam: Dry, Intact, Normal Color, Warm Results - Vital Signs Recent Vital Signs: Last Vital Signs Temp 97.6 F 11/23/17 08:20 Pulse 82 11/23/17 10:00 Resp 20 11/23/17 08:20 BP 139/68 11/23/17 08:20 Pulse Ox 98 11/23/17 08:20 - Labs Result Diagrams: 11/23/17 06:00 11/23/17 06:00 Labs: Laboratory Results - last 24 hr 11/22/17 11/23/17 11/23/17 19:50 06:00 06:00 WBC 10.0 RBC 3.11 L Hgb 8.9 L Hct 26.1 L MCV 83.9 MCH 28.6 MCHC 34.1 RDW 14.1 Plt Count 229 MPV 10.4 Gran % 88.4 H Lymph % (Auto) 6.2 L Andrew % (Auto) 5.3 Eos % (Auto) 0.1 L Baso % (Auto) 0.0 Gran # 8.86 H Lymph # (Auto) 0.6 L Andrew # (Auto) 0.5 Eos # (Auto) 0.0 Baso # (Auto) 0.00 Sodium 142 Potassium 4.0 Chloride 112 H Carbon Dioxide 19 L Anion Gap 16 BUN 33 H Creatinine 1.3 Est GFR ( Amer) > 60 Est GFR (Non-Af Amer) 53 Random Glucose 180 H Calcium 9.1 Total Bilirubin 0.6 AST 15 L ALT 24 Alkaline Phosphatase 105 Total Protein 5.9 Albumin 2.9 L Globulin 3.0 Albumin/Globulin Ratio 1.0 L Carcinoembryonic Ag Prostate Specific Ag Urine Color Yellow Urine Appearance Turbid Urine pH 6.0 Ur Specific [place] 1.015 Urine Protein 100 H Urine Glucose (UA) Negative Urine Ketones Negative Urine Blood Moderate H Urine Nitrate Negative Urine Bilirubin Negative Urine Urobilinogen 0.2 Ur Leukocyte Esterase Large H Urine RBC 2 - 5 Urine WBC Tntc Urine Bacteria Many Stool Occult Blood 11/23/17 11/23/17 06:00 14:15 WBC RBC Hgb Hct MCV MCH MCHC RDW Plt Count MPV Gran % Lymph % (Auto) Andrew % (Auto) Eos % (Auto) Baso % (Auto) Gran # Lymph # (Auto) Andrew # (Auto) Eos # (Auto) Baso # (Auto) Sodium Potassium Chloride Carbon Dioxide Anion Gap BUN Creatinine Est GFR ( Amer) Est GFR (Non-Af Amer) Random Glucose Calcium Total Bilirubin AST ALT Alkaline Phosphatase Total Protein Albumin Globulin Albumin/Globulin Ratio Carcinoembryonic Ag 1.1 Prostate Specific Ag 0.5 Urine Color Urine Appearance Urine pH Ur Specific [place] Urine Protein Urine Glucose (UA) Urine Ketones Urine Blood Urine Nitrate Urine Bilirubin Urine Urobilinogen Ur Leukocyte Esterase Urine RBC Urine WBC Urine Bacteria Stool Occult Blood Negative Assessment & Plan - Assessment and Plan (Free Text) Assessment: 77yo M with recently diagnosed right apical lung 1.2cm mass. - Biopsy 09/27/17: Lung Adenocarcinoma, acinar predominant - possible left renal failure - Anemia Plan: - May follow up with Dr. Braden in office to plan for possible surgical resection of lung mass. - Patient would need to be optimized from Urology, Renal and Hematology standpoint prior to resection - Patient may call office for appointment. - F/u Heme/Onc recs Further recs as per Dr. Asiya Guillaume PGY1 surgery pager: [phone]
--- NOTE | 2017-11-23 15:56 | CP.PCM.PN ---
Subjective - Date & Time of Evaluation Date of Evaluation: 11/23/17 Time of Evaluation: 11:00 - Subjective Subjective: Heme Onc Progress Note for Dr. Be Patient was seen and examined at bedside. Pt speaks Samoan. He offered no complaints at this time. No acute or adverse events as per nursing staff. Patient denied fever, chills, shortness of breath , chest pains, abdominal pains , nausea, vomiting, diarrhea, constipation, dysuria or active bleeding. Objective - Vital Signs/Intake and Output Vital Signs (last 24 hours): Temp Pulse Resp BP Pulse Ox 97.6 F 82 20 139/68 98 11/23/17 08:20 11/23/17 10:00 11/23/17 08:20 11/23/17 08:20 11/23/17 08:20 Intake and Output: 11/23/17 11/23/17 06:59 18:59 Intake Total 640 845 Balance 640 845 - Medications Medications: Current Medications Acetaminophen (Tylenol 325mg Tab) 650 mg PO Q4 PRN PRN Reason: Pain, Mild (1-3) - Labs Labs: 11/23/17 06:00 11/23/17 06:00 PT 13.9 SECONDS (9.4-12.5) H 11/22/17 17:30 INR 1.21 (0.93-1.08) H 11/22/17 17:30 APTT 27.3 Seconds (25.1-36.5) 11/22/17 17:30 - Constitutional Appears: No Acute Distress - Head Exam Head Exam: ATRAUMATIC, NORMAL INSPECTION, NORMOCEPHALIC - Eye Exam Eye Exam: EOMI, Normal appearance, PERRL Pupil Exam: NORMAL ACCOMODATION, PERRL - Respiratory Exam Respiratory Exam: Clear to Ausculation Bilateral, NORMAL BREATHING PATTERN - Cardiovascular Exam Cardiovascular Exam: REGULAR RHYTHM, +S1, +S2. absent: Murmur - GI/Abdominal Exam GI & Abdominal Exam: Soft, Normal Bowel Sounds. absent: Tenderness - Neurological Exam Neurological Exam: Alert, Awake, CN II-XII Intact, Normal Gait, Oriented x3 - Psychiatric Exam Psychiatric exam: Normal Affect, Normal Mood - Skin Skin Exam: Dry, Intact, Normal Color, Warm Assessment and Plan - Assessment and Plan (Free Text) Assessment: 77 M with a PMHx of lung adenocarcinoma, PVD, HTN, prostate ca s/p radiation, pneumothorax s/p lung bx, DJD, and tobacco abuse found to be symptomatically anemic with a hgb of 7.3 admitted for pRBC transfusions and evaluation by thoracic surgeon Dr. Matamoros for possible resectable lung mass. PSA. Transfuse and monitor CBC, and any signs of bleeding. PET scan reviewed.
--- NOTE | 2017-11-24 19:34 | HP ---
HISTORY OF PRESENT ILLNESS: The patient is a 77-year-old Kuwaiti-speaking male who was admitted with symptomatic anemia. The patient is known to have lung carcinoma in the right upper lobe. He was being evaluated by Dr. Be, the oncologist and was found to be anemic with a hemoglobin of 7.3; therefore, presentation to the emergency room and hospitalization was suggested. PAST MEDICAL HISTORY: The patient is only past medical history is positive for prostate carcinoma years in the past. His PSA has been normal since then. His lung mass was discovered within the past 6 months. It was biopsied and found to be adenocarcinoma. Unfortunately, in the past, his lung biopsy was complicated with pneumothorax x2. He also had bouts of tachy arrhythmias as well as magdalene arrhythmias; however, this has been stabilized and the patient had been doing well over the past several weeks. The patient denies any chest pain, nausea, vomiting, diarrhea, or melena; however, he does admit to feeling slightly lightheaded and short of breath at times. SOCIAL HISTORY: He is a former smoker and nonalcoholic drinker. ALLERGIES: HE HAS NO KNOWN MEDICAL ALLERGIES. MEDICATIONS: Included diltiazem 60 mg three times a day and tamsulosin 0.4 mg once a day. REVIEW OF SYSTEMS: Otherwise unremarkable. PHYSICAL EXAMINATION: VITAL SIGNS: Showed blood pressure is 148/62, heart rate of 94, temperature of 99.3 degrees Fahrenheit. HEAD, EYES, EARS, NOSE, AND THROAT: Unremarkable. NECK: Supple with no lymphadenopathy. LUNGS: Clear to auscultation and percussion. HEART: Regular. No murmurs appreciated. ABDOMEN: Soft, nontender with no organomegaly. EXTREMITIES: Free of cyanosis, clubbing, or edema. NEUROLOGIC: The patient is awake, alert, and oriented with no focal neurological signs. So, the patient is to be received 1 unit of packed red blood cells in transfusion. We are requesting consultation from Dr. Mcdowell as to the patient's history of prostate carcinoma and also as to a suspicious lesion of the bladder noted on PET scan, to be evaluated. We will also be asking Dr. Braden, the thoracic surgeon, to evaluate the patient in anticipation of a possible lobectomy of the right upper lung and hoping this would be a surgical cure for his adenocarcinoma of the lung. Shashank Riddle MD [facility] # [id number]
--- NOTE | 2017-11-25 03:03 | DS ---
HISTORY OF PRESENT ILLNESS: The patient is a 77-year-old Luxembourger-speaking male, who has a history of prostate carcinoma, recently diagnosed with a mass in the right upper lobe of his lung. It was biopsied and showed to be adenocarcinoma. The procedure was complicated by pneumothorax x2. The patient also had episodes of bradyarrhythmias and tachyarrhythmias since the pneumothoraces. However, the patient had been doing quite well over the past several weeks. He was being evaluated by Dr. Be, his oncologist and found to be anemic, was therefore sent to the emergency room for treatment. The patient was symptomatic of his anemia and that he was slightly short of breath and complained of weakness and lightheadedness. The hemoglobin was 7.3, hematocrit was 21.9 on admission. The patient was transfused and his hemoglobin improved to 8.9 this morning. Sodium is 143, potassium is 4.4, blood urea nitrogen is 33, creatinine 1.3. During the hospital stay, the patient was evaluated by Dr. Mcdowell, the urologist because of a suspicious lesion found near the bladder on PET scan. The patient also was evaluated by Dr. Braden, the thoracic surgeon in anticipation of a surgical cure of his lung carcinoma via lobectomy. The patient was feeling well, doing well when seen 1 day after admission. He was improved after receiving his blood transfusion. His is at bedside. His daughter was moments away coming to visit him. It was decided to discharge the patient to home to follow up as an outpatient for GI workup as to the etiology of his anemia. We will also follow up with Dr. Mcdowell as to his impression of the abnormal PET scan. DIAGNOSES ON DISCHARGE: 1. Anemia. 2. Adenocarcinoma of the right upper lobe of the lung. 3. History of prostate carcinoma. 4. Abnormal PET scan. Shashank Riddle MD
== END 2017-11-23 17:00 | disposition home or self-care (01) | DRG 812 ==
LOC: ED 16:39 → ERH 19:27 → 3RSO 21:54
PROVIDERS: ADMIT Internal Medicine; ATTEND Internal Medicine
PROC: 30233N1 Transfusion of Nonautologous Red Blood Cells into Peripheral Vein, Percutaneous Approach (ICD-10-PCS; principal; 2017-11-22)
DX: D64.9 Anemia, unspecified (principal); C34.91 Malignant neoplasm of unspecified part of right bronchus or lung; I10 Essential (primary) hypertension; H35.30 Unspecified macular degeneration; I48.91 Unspecified atrial fibrillation; I73.9 Peripheral vascular disease, unspecified; M16.0 Bilateral primary osteoarthritis of hip; Z85.46 Personal history of malignant neoplasm of prostate; Z87.891 Personal history of nicotine dependence; Z92.3 Personal history of irradiation

== ENCOUNTER 2018-01-17 14:11 | Inpatient (IN) | payer MEDICARE, OTHER ==
[2018-01-17] MEDS ORDERED: Sodium Chloride 0.9% 1,000 ML IV STA (14:27)
[2018-01-17 14:52] LABS: EOS # 0.1 (0.0-0.7); EOS % 1.2 % (1.5-5.0); GRAN # 9.28 (1.4-6.5); GRAN % 86.7 % (50.0-68.0); HEMOGLOBIN 8.9 g/dL (14.0-18.0); LYMPH # 0.7 (1.2-3.4); LYMPH % 6.6 % (22.0-35.0); MEAN CELL VOLUME 83.3 fl (80.0-105.0); MEAN CORPUSCULAR HEMOGLOBIN 28.5 pg (25.0-35.0); MEAN CORPUSCULAR HGB CONC 34.2 g/dl (31.0-37.0); MEAN PLATELET VOLUME 9.5 fl (7.0-11.0); MONO # 0.6 (0.1-0.6); MONO % 5.5 % (1.0-6.0); RBC 3.12 10^6/uL (3.5-6.1); RED CELL DISTRIBUTION WIDTH 13.8 % (11.5-14.5); WHITE BLOOD COUNT 10.7 10^3/ul (4.5-11.0)
--- NOTE | 2018-01-17 14:57 | RAD ---
Date of service: 01/17/2018 HISTORY: r/o infiltrate COMPARISON: 10/16/2017 FINDINGS: LUNGS: No active pulmonary disease. PLEURA: No significant pleural effusion identified, no pneumothorax apparent. CARDIOVASCULAR: Normal. OSSEOUS STRUCTURES: No significant abnormalities. VISUALIZED UPPER ABDOMEN: Normal. OTHER FINDINGS: None. IMPRESSION: No active disease.
--- NOTE | 2018-01-17 14:58 | ED PDOC ---
Arrival/HPI - General Chief Complaint: Weakness/Neurological Deficit Time Seen by Provider: 01/17/18 14:18 Historian: Patient, Family (Daughter ) - History of Present Illness Narrative History of Present Illness (Text): 01/17/18 14:28 77 year old Argentine speaking male, with past medical history of arthritis, SVT/ atrial fibrillation, lung mass, pneumothorax post biopsy, referred to the emergency department by Dr. Riddle, for evaluation of leaking melvin and generalized weakness since yesterday. Daughter is at bedside translating. Daughter states that patient's appetite and physical state has been gradually depreciating for the past 4 months. Daughter states his last bag insertion was on December 25 and worries that the catheter is leaking, prompting them to present to the Emergency department for evaluation. Daughter also informs that he has been having pain in the hips and calves when standing secondary to arthritis. Patient denies any hematuria, hematochezia, fever, vomiting, chills, abdominal pain, chest pain, shortness of breath or any other complaints. PMD: Dr. Riddle Time/Duration: 24 hours Symptom Onset: Gradual Symptom Course: Unchanged Context: Other (referred by PMD) Past Medical History - Provider Review Nursing Documentation Reviewed: Yes - Past History Past History: No Previous - Infectious Disease Hx of Infectious Diseases: None - Reproductive Currently Lactating: No - Cardiac Hx Cardiac Disorders: Yes Hx Cardiac Arrhythmia: Yes Hx Hypertension: Yes Hx Peripheral Vascular Disease: Yes - Pulmonary Hx Respiratory Disorders: Yes (PNEUMOTHORAX-BX DONE 09-27-17-LUNG MASS) Other/Comment: history of air in the lungs - Neurological Hx Neurological Disorder: Yes Hx Dizziness: Yes (SYNCOPE 10-17-17) - HEENT Hx HEENT Disorder: Yes Hx Macular Degeneration: Yes - Renal Hx Renal Disorder: No - Endocrine/Metabolic Hx Endocrine Disorders: No - Hematological/Oncological Hx Blood Disorders: Yes Hx Anemia: Yes Hx Cancer: Yes (prostate) Hx Metastasis: Yes (lung) - Integumentary Hx Dermatological Disorder: No - Musculoskeletal/Rheumatological Hx Falls: No - Gastrointestinal Hx Gastrointestinal Disorders: No - Genitourinary/Gynecological Other/Comment: patient has a prostate problem - Psychiatric Hx Psychophysiologic Disorder: No Hx Substance Use: No - Anesthesia Hx Anesthesia Reactions: No Hx Malignant Hyperthermia: No - Suicidal Assessment Feels Threatened In Home Enviroment: No Family/Social History - Physician Review Nursing Documentation Reviewed: Yes Family/Social History: No Known Family HX Smoking Status: Former Smoker Hx Alcohol Use: Yes (occasional) Hx Substance Use: No Hx Substance Use Treatment: No Allergies/Home Meds Allergies/Adverse Reactions: Allergies No Known Allergies Allergy (Verified 01/17/18 14:23) Home Medications: Home Meds Medication Instructions Recorded Confirmed Diclofenac Sodium [Diclofenac 100 mg PO DAILY 11/22/17 01/17/18 Sodium ER] Tamsulosin HCl [Flomax] 0.4 mg PO DAILY 11/22/17 01/17/18 [id number] CD [Cardizem CD] 60 mg PO TID 11/22/17 01/17/18 Review of Systems - Physician Review All systems were reviewed & negative as marked: Yes - Review of Systems Constitutional: Normal Eyes: Normal ENT: Normal Respiratory: Cough. absent: SOB Cardiovascular: Normal. absent: Chest Pain Gastrointestinal: Appetite Changes. absent: Abdominal Pain, Diarrhea, Nausea, Vomiting, Hematochezia Genitourinary Male: Normal. absent: Hematuria Musculoskeletal: Normal Skin: Normal Neurological: Normal. absent: Headache Endocrine: Normal Hemo/Lymphatic: Normal Psychiatric: Normal Physical Exam Vital Signs Reviewed: Yes Vital Signs Temp Pulse Resp BP Pulse Ox 01/17/18 17:58 98 F 73 18 116/59 L 100 01/17/18 16:11 76 18 102/58 L 99 01/17/18 14:19 97.6 F 82 18 139/71 98 Temperature: Afebrile Blood Pressure: Normal Pulse: Regular Respiratory Rate: Normal Appearance: Positive for: Non-Toxic, Comfortable, Cachectic Pain Distress: None Mental Status: Positive for: Alert and Oriented X 3 - Systems Exam Head: Present: Atraumatic, Normocephalic Pupils: Present: PERRL Extroacular Muscles: Present: EOMI Conjunctiva: Present: Other (Pale) Mouth: Present: Dry. No: Moist Mucous Membranes Neck: Present: Normal Range of Motion Respiratory/Chest: Present: Clear to Auscultation, Good Air Exchange. No: Respiratory Distress, Accessory Muscle Use Cardiovascular: Present: Regular Rate and Rhythm, Normal S1, S2. No: Murmurs Abdomen: No: Tenderness, Distention, Normal Bowel Sounds (hyperactive bowel sounds), Peritoneal Signs Genitourinary Male: Present: Other (Melvin in place, no discharge, no blood). No : Erythema Back: Present: Normal Inspection Upper Extremity: Present: Normal Inspection. No: Cyanosis, Edema Lower Extremity: Present: Normal Inspection. No: Edema Neurological: Present: GCS=15, CN II-XII Intact, Speech Normal Skin: Present: Warm, Dry, Pale. No: Rashes Psychiatric: Present: Alert, Oriented x 3, Normal Insight, Normal Concentration Medical Decision Making ED Course and Treatment: 01/17/18 14:28 Impression: 77 year old male referred to the emergency department by PMD for a leakey melvin and generalized weakness. Plan: --EKG --Chest CT --Abdominal CT --Pelvic CT --Urinalysis --Chest X-ray -- Reassess and disposition Prior Visits: Notes and results from previous visits were reviewed. Progress Notes: 01/17/18 16:11 EKG: Ordered, reviewed, and independently interpreted the EKG. Rate : 74 BPM Rhythm : NSR Interpretation : RBBB. Normal axis. Normal intervals. 01/17/18 16:[address] Schmitt, who is aware and agreed with Emergency department management plan to admit patient for further treatment for abnormal CT results and possible UTI. Requests Dr. Franks on consult. 01/17/18 16:[address] Riddle, who is aware and agrees with Emergency department management plan, requests administration of vanco zosyn and requests Dr. Osborn on consult. As requested by Dr. Riddle, patient will be admitted to remote Telemetry. - Lab Interpretations Lab Results: 01/17/18 14:35 01/17/18 14:35 Lab Results 01/17/18 14:50: Urine Color Yellow, Urine Appearance Cloudy, Urine pH 7.0, Ur Specific [place] 1.025, Urine Protein >=300 H, Urine Glucose (UA) Negative, Urine Ketones Negative, Urine Blood Large H, Urine Nitrate Negative, Urine Bilirubin Negative, Urine Urobilinogen 0.2, Ur Leukocyte Esterase Large H, Urine RBC 5 - 10, Urine WBC Tntc, Ur Epithelial Cells 3 - 4, Urine Bacteria Many 01/17/18 14:45: Blood Type AB POSITIVE, Antibody Screen Negative, BBK History Checked Patient has bt 01/17/18 14:35: Total T3 0.85 L, TSH 3rd Generation 2.00 01/17/18 14:35: Sodium 137, Potassium 4.3, Chloride 107, Carbon Dioxide 14 L, Anion Gap 20, BUN 57 H, Creatinine 1.7 H, Est GFR ( Amer) 47, Est GFR ( Non-Af Amer) 39, Random Glucose 164 H, Calcium 10.1, Magnesium 1.7, Total Bilirubin 0.4, AST 15 L, ALT 24, Alkaline Phosphatase 103, Lactate Dehydrogenase 301 L, Total Creatine Kinase < 20 L, Troponin I < 0.01, Total Protein 7.9, Albumin 3.6, Globulin 4.3, Albumin/Globulin Ratio 0.8 L, Amylase 65 , Lipase 67 01/17/18 14:35: PT 14.5 H, INR 1.27 H, APTT 24.4 L 01/17/18 14:35: WBC 10.7, RBC 3.12 L, Hgb 8.9 L, Hct 26.0 L, MCV 83.3, MCH 28.5 , MCHC 34.2, RDW 13.8, Plt Count 303, MPV 9.5, Gran % 86.7 H, Lymph % (Auto) 6.6 L, [place] % (Auto) 5.5, Eos % (Auto) 1.2 L, Baso % (Auto) 0.0, Gran # 9.28 H, Lymph # (Auto) 0.7 L, [place] # (Auto) 0.6, Eos # (Auto) 0.1, Baso # (Auto) 0.00 - RAD Interpretation Narrative RAD Interpretations (Text): 01/17/18 15:36 Chest X-ray reviewed by radiologist, shows: No active disease. CT CHEST WITHOUT CONTRAST reviewed by radiologist, shows: LUNGS: 12 mm nodule in the posterior right lung apex. MEDIASTINUM: Unremarkable. Normal caliber aorta and pulmonary arterial trunk. Normal size heart. LYMPH NODES: Unremarkable. PLEURA: Unremarkable. No pneumothorax. No pleural fluid. BONES: Unremarkable. OTHER FINDINGS: None. CT ABDOMEN AND PELVIS reviewed by radiologist, shows: LIVER: Unremarkable. No gross lesion or ductal dilatation. GALLBLADDER AND BILE DUCTS: Unremarkable. PANCREAS: Unremarkable. No gross lesion or ductal dilatation. SPLEEN: Unremarkable. ADRENALS: Unremarkable. No mass. KIDNEYS AND URETERS: There is left-sided hydronephrosis and hydroureter. The obstruction appears to be at the level of a left pelvic fluid collection which measures 6.3 cm AP x 5.1 cm wide by 3.5 cm in height. Small droplets of air are seen within this collection making a consistent with an abscess. This is difficult to separate from the adjacent bladder. A Melvin catheter is seen in the bladder and there is a small amount of air in the bladder. VASCULATURE: Unremarkable. No aortic aneurysm. BOWEL: Unremarkable. No obstruction. No gross mural thickening. APPENDIX: Normal appendix. PERITONEUM: Unremarkable. No free fluid. No free air. LYMPH NODES: Unremarkable. No enlarged lymph nodes. BLADDER: Unremarkable. REPRODUCTIVE: Unremarkable. BONES: No acute fracture. OTHER FINDINGS: None. IMPRESSION: Left-sided hydronephrosis and hydroureter. Left-sided pelvic fluid collection containing droplets of air. The finding is suspicious for a pelvic abscess. This collection is difficult to separate from the adjacent bladder. Clinical correlation is suggested 12 mm irregular nodule in the right upper lobe Radiology Orders: 01/17/18 14:29 CHEST,ABDOMEN, PELVIS W/O CONT [CT] Stat CHEST PORTABLE [RAD] Stat Diversional Therapist: Radiologist - EKG Interpretation Interpreted by ED Physician: Yes Type: 12 lead EKG - Medication Orders Current Medication Orders: Acetaminophen (Tylenol 325mg Tab) 650 mg PO Q4H PRN PRN Reason: Pain, Mild (1-3) Diltiazem HCl (Cardizem) 60 mg PO TID KAYLA Sodium Chloride (Sodium Chloride 0.9%) 1,000 mls @ 100 mls/hr IV .Q10H STA Stop: 01/18/18 00:26 Last Admin: 01/17/18 14:55 Dose: 100 mls/hr eMAR Start Stop Document 01/17/18 14:55 [facility] (Rec: 01/17/18 14:55 [facility] [id number]) Intravenous Solution Start Date 01/17/18 Start Time 14:55 Morphine Sulfate (Morphine) 2 mg IVP Q4H PRN PRN Reason: Pain, severe (8-10) Non-Formulary Medication (Diclofenac Sodium [Diclofenac Sodium Er]) 100 mg PO DAILY KAYLA Tamsulosin HCl (Flomax) 0.4 mg PO DAILY KAYLA Tramadol HCl (Ultram) 50 mg PO TID PRN PRN Reason: Pain, moderate (4-7) Discontinued Medications Vancomycin HCl (Vancomycin 1gm) 1 gm in 250 mls @ 167 mls/hr IVPB STAT STA PRN Reason: Protocol Stop: 01/17/18 18:30 Piperacillin Sod/Tazobactam Sod (Zosyn 3.375 In Ns 100ml) 100 mls @ 200 mls/hr IVPB STAT STA PRN Reason: Protocol Stop: 01/17/18 17:30 Last Admin: 01/17/18 17:47 Dose: 200 mls/hr eMAR Start Stop Document 01/17/18 17:47 [facility] (Rec: 01/17/18 17:48 [facility] [id number]) Intravenous Solution Start Date 01/17/18 Start Time 17:47 End Date 01/17/18 End time 18:18 Total Infusion Time 31 - Scribe Statement The provider has reviewed the documentation as recorded by the Scribe Fito Ji, [facility] All medical record entries made by the Scribe were at my direction and personally dictated by me. I have reviewed the chart and agree that the record accurately reflects my personal performance of the history, physical exam, medical decision making, and the department course for this patient. I have also personally directed, reviewed, and agree with the discharge instructions and disposition. Disposition/Present on Arrival - Present on Arrival Any Indicators Present on Arrival: Yes History of DVT/PE: No History of Uncontrolled Diabetes: No Urinary Catheter: Yes History of Decub. Ulcer: No History Surgical Site Infection Following: None - Disposition Have Diagnosis and Disposition been Completed?: Yes Diagnosis: Bladder tumor, Failure to thrive, Dehydration, Pelvic abscess Disposition: HOSPITALIZED Disposition Time: 16:30 Condition: GUARDED
[2018-01-17 15:03] LABS: INR 1.27 (0.93-1.08); PARTIAL THROMBOPLASTIN TIME 24.4 Seconds (25.1-36.5); PROTHROMBIN TIME 14.5 SECONDS (9.4-12.5)
[2018-01-17 15:05] LABS: ALB/GLOB RATIO 0.8 (1.1-1.8); ALBUMIN 3.6 g/dL (3.0-4.8); ALT/SGPT 24 U/L (7-56); AMYLASE 65 U/L (35-125); AST/SGOT 15 U/L (17-59); BLOOD UREA NITROGEN 57 mg/dL (7-21); CALCIUM 10.1 mg/dL (8.4-10.5); GFR AFRICAN-AMERICAN 47; GFR NON-AFRICAN AMERICAN 39; LIPASE 67 U/L (23-300)
[2018-01-17 15:15] LABS: TROPONIN I < 0.01 ng/mL
[2018-01-17 15:28] LABS: URINE APPEARANCE CLOUDY (CLEAR); URINE BILIRUBIN NEGATIVE (NEGATIVE); URINE BLOOD LARGE (NEGATIVE); URINE COLOR YELLOW (YELLOW); URINE GLUCOSE (UA) NEGATIVE (NEGATIVE); URINE LEUKOCYTE ESTERASE LARGE Leu/uL (NEGATIVE); URINE PROTEIN >=300 mg/dL (<30 mg/dL); URINE UROBILINOGEN 0.2 E.U./dL (<1 E.U./dL)
[2018-01-17 15:31] LABS: URINE BACTERIA MANY (NEG); URINE WBC TNTC /hpf (0-6)
[2018-01-17 15:35] LABS: T3 0.85 ng/mL (0.97-1.69)
--- NOTE | 2018-01-17 16:18 | CT ---
Date of service: 01/17/2018 PROCEDURE: CT Chest, Abdomen and Pelvis without intravenous contrast HISTORY: h/o prostate CA to bladder. increasing weakness COMPARISON: None. TECHNIQUE: Radiation dose: Total exam DLP = 339 mGy-cm. This CT exam was performed using one or more of the following dose reduction techniques: Automated exposure control, adjustment of the mA and/or kV according to patient size, and/or use of iterative reconstruction technique. FINDINGS: CT CHEST WITHOUT CONTRAST: LUNGS: 12 mm nodule in the posterior right lung apex. MEDIASTINUM: Unremarkable. Normal caliber aorta and pulmonary arterial trunk. Normal size heart. LYMPH NODES: Unremarkable. PLEURA: Unremarkable. No pneumothorax. No pleural fluid. BONES: Unremarkable. OTHER FINDINGS: None. CT ABDOMEN AND PELVIS: LIVER: Unremarkable. No gross lesion or ductal dilatation. GALLBLADDER AND BILE DUCTS: Unremarkable. PANCREAS: Unremarkable. No gross lesion or ductal dilatation. SPLEEN: Unremarkable. ADRENALS: Unremarkable. No mass. KIDNEYS AND URETERS: There is left-sided hydronephrosis and hydroureter. The obstruction appears to be at the level of a left pelvic fluid collection which measures 6.3 cm AP x 5.1 cm wide by 3.5 cm in height. Small droplets of air are seen within this collection making a consistent with an abscess. This is difficult to separate from the adjacent bladder. A Nava catheter is seen in the bladder and there is a small amount of air in the bladder. VASCULATURE: Unremarkable. No aortic aneurysm. BOWEL: Unremarkable. No obstruction. No gross mural thickening. APPENDIX: Normal appendix. PERITONEUM: Unremarkable. No free fluid. No free air. LYMPH NODES: Unremarkable. No enlarged lymph nodes. BLADDER: Unremarkable. REPRODUCTIVE: Unremarkable. BONES: No acute fracture. OTHER FINDINGS: None. IMPRESSION: Left-sided hydronephrosis and hydroureter. Left-sided pelvic fluid collection containing droplets of air. The finding is suspicious for a pelvic abscess. This collection is difficult to separate from the adjacent bladder. Clinical correlation is suggested 12 mm irregular nodule in the right upper lobe
[2018-01-17] MEDS ORDERED: Vancomycin 1gm in NS 250ml 1 GM/250 ML BAG IVPB STA (17:01)
[2018-01-17] MEDS ORDERED: Piperacillin/Tazobact 3.375 gm 100 ML IVPB STA (17:01)
--- NOTE | 2018-01-17 17:52 | CARD ---
APPROVED REPORT Date of service: 01/17/2018 EKG Measurement Heart [id number] <Conclusion> Normal sinus rhythm Right bundle branch block Abnormal ECG
[2018-01-17] MEDS ORDERED: Morphine 2 mg/ml ISec IVP PRN (21:29)
[2018-01-17 22:08] VITALS: BMI 19.7
[2018-01-17] MEDS ORDERED: Pneumococcal 23-Valent Vaccine IM ONE (22:09)
[2018-01-18 06:31] LABS: BASO # 0.01 K/mm3 (0.0-2.0); BASO % 0.1 % (0.0-3.0); EOS # 0.3 (0.0-0.7); EOS % 1.9 % (1.5-5.0); GRAN # 11.5 (1.4-6.5); GRAN % 84.9 % (50.0-68.0); HEMOGLOBIN 7.7 g/dL (14.0-18.0); LYMPH # 0.9 (1.2-3.4); LYMPH % 6.9 % (22.0-35.0); MEAN CELL VOLUME 83.7 fl (80.0-105.0); MEAN CORPUSCULAR HEMOGLOBIN 29.3 pg (25.0-35.0); MEAN PLATELET VOLUME 9.8 fl (7.0-11.0); MONO # 0.8 (0.1-0.6); MONO % 6.2 % (1.0-6.0); RBC 2.63 10^6/uL (3.5-6.1); RED CELL DISTRIBUTION WIDTH 13.9 % (11.5-14.5); WHITE BLOOD COUNT 13.5 10^3/ul (4.5-11.0)
[2018-01-18] MEDS: Meropenem IV 1 gm in NS 50 ML IVPB SCH ×2 (07:00→20:59)
[2018-01-18 07:14] LABS: ALB/GLOB RATIO 0.9 (1.1-1.8); CALCIUM 9.6 mg/dL (8.4-10.5)
--- NOTE | 2018-01-18 08:37 | CP.PCM.CON ---
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 He was in Dr. Be's office yesterday and was sent to ED given the patient was found to be anemic and given his current symptoms. The patient's daughter was called in order to provide his current and past medical history. He underwent a biospy of his bladder a week ago by a urologist that revealed . CT of the chest abdomen and pelvis show a left-sided fluid collection that contains droplets of air-findings consistent with an abscess and a 1.2 cm irregular nodule. He is being admitted for Past Patient History - Infectious Disease Hx of Infectious Diseases: None - Past Medical History & Family History Past Medical History?: Yes - Past Social History Smoking Status: Former Smoker - CARDIAC Hx Cardiac Disorders: Yes Hx Cardia Arrhythmia: Yes Hx Hypertension: Yes Hx Peripheral Vascular Disease: Yes - PULMONARY Hx Respiratory Disorders: Yes (PNEUMOTHORAX-BX DONE 09-27-17-LUNG MASS) Other/Comment: history of air in the lungs - NEUROLOGICAL Hx Neurological Disorder: Yes Hx Dizziness: Yes (SYNCOPE 10-17-17) - HEENT Hx HEENT Problems: Yes Hx Macular Degeneration: Yes - RENAL Hx Chronic Kidney Disease: No - ENDOCRINE/METABOLIC Hx Endocrine Disorders: No - HEMATOLOGICAL/ONCOLOGICAL Hx Blood Disorders: Yes Hx Anemia: Yes Hx Cancer: Yes (prostate) Hx Metastesis: Yes (lung) - INTEGUMENTARY Hx Dermatological Problems: No - MUSCULOSKELETAL/RHEUMATOLOGICAL Hx Falls: No - GASTROINTESTINAL Hx Gastrointestinal Disorders: No - GENITOURINARY/GYNECOLOGICAL Other/Comment: patient has a prostate problem - PSYCHIATRIC Hx Psychophysiologic Disorder: No Hx Substance Use: No - SURGICAL HISTORY Hx Surgeries: Yes (lung biopsy, prostate bx) - ANESTHESIA Hx Anesthesia Reactions: No Hx Malignant Hyperthermia: No Meds Allergies/Adverse Reactions: Allergies Allergy/AdvReac Type Severity Reaction Status Date / Time No Known Allergies Allergy Verified 01/17/18 14:23 - Medications Medications: Current Medications Acetaminophen (Tylenol 325mg Tab) 650 mg PO Q4H PRN PRN Reason: Pain, Mild (1-3) Diltiazem HCl (Cardizem) 60 mg PO TID KAYLA Meropenem (Merrem Iv 1 Gm Premix) 50 mls @ 100 mls/hr IVPB Q12 KAYLA PRN Reason: Protocol Last Admin: 01/18/18 07:00 Dose: 100 mls/hr Morphine Sulfate (Morphine) 2 mg IVP Q4H PRN PRN Reason: Pain, severe (8-10) Non-Formulary Medication (Diclofenac Sodium [Diclofenac Sodium Er]) 100 mg PO DAILY KAYLA Tamsulosin HCl (Flomax) 0.4 mg PO DAILY KAYLA Tramadol HCl (Ultram) 50 mg PO TID PRN PRN Reason: Pain, moderate (4-7) Last Admin: 01/17/18 23:27 Dose: 50 mg Results - Vital Signs Recent Vital Signs: Last Vital Signs Temp 99 F 01/18/18 07:36 Pulse 102 H 01/18/18 07:36 Resp 20 01/18/18 07:36 BP 111/68 01/18/18 07:36 Pulse Ox 98 01/18/18 07:36 - Labs Result Diagrams: 01/18/18 05:45 01/18/18 05:45 Labs: Laboratory Results - last 24 hr 01/18/18 01/18/18 05:45 05:45 WBC 13.5 H D RBC 2.63 L Hgb 7.7 L Hct 22.0 L MCV 83.7 MCH 29.3 MCHC 35.0 RDW 13.9 Plt Count 273 MPV 9.8 Gran % 84.9 H Lymph % (Auto) 6.9 L [place] % (Auto) 6.2 H Eos % (Auto) 1.9 Baso % (Auto) 0.1 Gran # 11.50 H Lymph # (Auto) 0.9 L [place] # (Auto) 0.8 H Eos # (Auto) 0.3 Baso # (Auto) 0.01 Sodium 138 Potassium 4.4 Chloride 110 H Carbon Dioxide 17 L Anion Gap 15 BUN 45 H Creatinine 1.6 H Est GFR ( Amer) 51 Est GFR (Non-Af Amer) 42 Random Glucose 107 Calcium 9.6 Total Bilirubin 0.4 AST 21 ALT 25 Alkaline Phosphatase 89 Total Protein 6.5 Albumin 3.0 Globulin 3.4 Albumin/Globulin Ratio 0.9 L
--- NOTE | 2018-01-18 09:25 | CON ---
DATE: 01/17/2018 This is John Ospina's consult for Dr. Be on the Oncology floor. CHIEF COMPLAINT: Severe weakness, dehydration. HISTORY OF PRESENT ILLNESS: The patient is a Ethiopian speaking 77-year-old male, seen in Dr. Be's office earlier today and brought to the emergency room due to the patient's debilitated state with the patient appearing ill. Upon evaluation, the patient's daughter who acts as [employer] assistant manager reports that the patient was transfused here in [facility] (Former[facility] on 11/22/2017 with further followup for tissue diagnosis of his known prostate CA evaluated by two different urologists with recommendations for evaluation by a third urologist with the patient known to have severe left-sided hydronephrosis, which a stent was attempted to be placed with manipulation there with no success. This documentation is on the chart to be reviewed. With this, the patient is denying nausea or vomiting; however, severe loss of appetite with physical decline with the patient appearing in moderate distress at this visit. The patient also has a Nava catheter which is leaking with the leg bag. He was also advised that there will be consideration for a surgical procedure involving removal of his bladder. For this, he was requesting a second opinion with Dr. Be and also with Dr. Franks, Urology. One is referred to the records that are now to be downloaded on to the computer. ALLERGIES: NO KNOWN ALLERGIES. MEDICATIONS: The patient's medicines include diltiazem 60, tamsulosin 0.5 daily, Voltaren and ibuprofen. PAST MEDICAL HISTORY: Significant for prostate cancer was diagnosed in 2001 with radiation treatments done, with recent biopsy of his lung which pathology report showing adenocarcinoma of the lung with pneumothorax x2 post-procedure. He had an episode of rapid atrial fibrillation at that time of which he became bradycardic with which medicines were eventually cut back and stopped. He also has severe DJD of the hips and left pedal edema with a nonintention tremor. FAMILY AND SOCIAL HISTORY: He smoked one and a half pack a day for 40 years, quit 20 years ago. Denies alcohol use. One son, one daughter, alive and well. Two sisters and one brother, alive and well. 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 REVIEW OF SYSTEMS: Twelve-point review of systems was done, which was negative to questioning except for items mentioned in history of present illness above. PHYSICAL EXAMINATION: VITAL SIGNS: Temperature 98, pulse 72, respirations 18, blood pressure 116/59, pulse ox 100%. Height 5 foot 4 inches tall, weight 115 pounds. GENERAL: He appears cachectic. HEENT: Unremarkable. Tongue is dry. Neck is supple. HEART: Regular rate. Occasional ectopic beat. LUNGS: Clear. ABDOMEN: Soft, nontender. EXTREMITIES: Faint +1 edema of the left foot of a chronic nature. GENITALIA: Has a Nava catheter with leg bag with minimal tenderness to the suprapubic area. NEUROLOGIC: Awake and alert; however, he appears quite weak with weakness to tap builder. Ambulation only with assist. SKIN: Warm and dry. LABORATORY DATA: The patient's labs were done, white blood cell count of 10.7, hemoglobin of 8.9, hematocrit of 26, platelet count 303,000, with an INR of 1.27, PTT of 24.4. Chem metabolic panel shows a BUN of 57, creatinine of 1.7. AST of 15, LDH of 301. Troponin less than 0.01. TSH of 2. His urinalysis showed large amount of blood, large amount of leukocyte esterase, protein greater than 300 mcg/dL. The patient did have an EKG done, it was read as normal sinus rhythm, right bundle branch block, abnormal EKG. His chest x-ray was done earlier today, it was read as no active disease. He had a CAT scan of his chest, abdomen and pelvis, which was done with no contrast due to his compromised kidney function, possibly due to dehydration. The impression of the CT scan was left-sided hydronephrosis and hydroureter, left-sided pelvic fluid collection containing droplets of air, the finding is suspicious for pelvic abscess; this collection is difficult to separate from the adjacent bladder. Clinical correlation is suggested. A 12 mm irregular nodule in the right upper lobe. The patient's previous testing included a PSA done on 11/23/2017 showing a value of 0.5 with a CEA value of 1.1. He was transfused on 11/22/2017 for a hemoglobin of 7.3, this is presently 8.9, that is heme concentrated. His creatinine was within normal range on 11/23/2017 of 1.3, it is now 1.7, with a BUN then of 33, and is now 57. His stool for occult blood is negative in October. ASSESSMENT: The assessment for this patient is that of hydronephrosis on the left side with hydroureter with obstruction there, possibly secondary to CA of the prostate with bladder involvement, with possible abscess after instrumentation, unsuccessful placement of a stent. Known recently diagnosed adenocarcinoma of the lung, history of pneumothorax, hypertension, severe degenerative joint disease of the hip, symptomatic anemia, chronic left pedal edema, tremor at rest, smoking history, history of pneumothorax post biopsy. PLAN: The plan for this patient after conversation with Dr. Be, Dr. Riddle, the emergency room doctor and Dr. Franks is to admit to the med-surg floor with continuation of his present medical regimen including Cardizem and Flomax, with Tramadol as a choice for his moderate pain with nonsteroidal Mobic to be considered as per Dr. Riddle and Dr. Gabriel as the patient has renal compromise at this point. The patient is also to be seen by Dr. Osborn, Infectious Disease, with antibiotics started, with low-dose morphine for severe pain as needed. We will also request evaluation by Dr. Franks for recommendations for further care with treatment for his two primary tumors of lung and prostate/bladder as per Dr. Be's recommendations. The prognosis for this patient is guarded. This is a complex patient with a comprehensive medically necessary and appropriate visit carried out in excess of 90 minutes in [id number] time with the patient, translation by his daughter from Ethiopian to Setswana, conversation held with Dr. Riddle, Dr. Franks, emergency room doctor, and Dr. Gabriel, Renal, with prognosis guarded. Mike Schmitt MD
--- NOTE | 2018-01-18 09:41 | CP.PCM.PN ---
Subjective - Date & Time of Evaluation Date of Evaluation: 01/18/18 Time of Evaluation: 08:30 - Subjective Subjective: Dalia Quinteros DO, PGY-2, IM Resident: Hematology and Oncology Progress Note for Dr. Be Patient was seen and examined at bedside. Patient is a Ecuadorean speaking male. His daughter was spoken to on speaker who acted as a inspector penetrant. The patient denies any fever, chills, nausea, vomiting, or abdominal pain. He states that his pain is well controlled and mainly in the bilateral hips. Patient will be receiving two units of PRBCs and will be pre-medicated. Chart review indicates no adverse events overnight. Objective - Vital Signs/Intake and Output Vital Signs (last 24 hours): Temp Pulse Resp BP Pulse Ox 99 F 102 H 20 111/68 98 01/18/18 07:36 01/18/18 07:36 01/18/18 07:36 01/18/18 07:36 01/18/18 07:36 Intake and Output: 01/18/18 01/18/18 06:59 18:59 Intake Total 180 Output Total 300 Balance -120 - Medications Medications: Current Medications Acetaminophen (Tylenol 325mg Tab) 650 mg PO Q4H PRN PRN Reason: Pain, Mild (1-3) Diltiazem HCl (Cardizem) 60 mg PO TID KAYLA Meropenem (Merrem Iv 1 Gm Premix) 50 mls @ 100 mls/hr IVPB Q12 KAYLA PRN Reason: Protocol Last Admin: 01/18/18 07:00 Dose: 100 mls/hr Morphine Sulfate (Morphine) 2 mg IVP Q4H PRN PRN Reason: Pain, severe (8-10) Non-Formulary Medication (Diclofenac Sodium [Diclofenac Sodium Er]) 100 mg PO DAILY KAYLA Tamsulosin HCl (Flomax) 0.4 mg PO DAILY KAYLA Tramadol HCl (Ultram) 50 mg PO TID PRN PRN Reason: Pain, moderate (4-7) Last Admin: 01/17/18 23:27 Dose: 50 mg - Labs Labs: 01/18/18 05:45 01/18/18 05:45 PT 14.5 SECONDS (9.4-12.5) H 01/17/18 14:35 INR 1.27 (0.93-1.08) H 01/17/18 14:35 APTT 24.4 Seconds (25.1-36.5) L 01/17/18 14:35 - Constitutional Appears: Well, Non-toxic - Head Exam Head Exam: ATRAUMATIC, NORMOCEPHALIC - Eye Exam Eye Exam: EOMI, Normal appearance - ENT Exam ENT Exam: Mucous Membranes Moist, Normal Oropharynx - Neck Exam Neck Exam: Normal Inspection - Respiratory Exam Respiratory Exam: Clear to Ausculation Bilateral, NORMAL BREATHING PATTERN. absent: Accessory Muscle Use - Cardiovascular Exam Cardiovascular Exam: RRR, +S1, +S2 - GI/Abdominal Exam GI & Abdominal Exam: Soft, Normal Bowel Sounds - Extremities Exam Extremities Exam: Normal Inspection. absent: Calf Tenderness - Back Exam Back Exam: NORMAL INSPECTION. absent: CVA tenderness (L), CVA tenderness (R), paraspinal tenderness - Neurological Exam Neurological Exam: Alert, Awake, Oriented x3 - Psychiatric Exam Psychiatric exam: Normal Affect, Normal Mood - Skin Skin Exam: Dry, Intact, Normal Color, Warm Assessment and Plan - Assessment and Plan (Free Text) Assessment: 77 year old Ecuadorean speaking male with a past medical history notable for atrial fibrillation, PAD, prostate cancer diagnosed in 2002 and treated with radiation therapy, recently diagnosed bladder cancer with a Nava catheter who presents with 5 weeks of gradually worsening dyspnea on exertion, generalized weakness, and malaise. He was found to have a left-sided fluid collection with air present on CT of the chest, abdomen, and pelvis and a hemoglobin of 7.7 today after being fluid resuscitated overnight. Given his symptomatic anemia we will transfuse 2 units of PRBCs along with pre-medicating him with Solucortef, Benadryl, and Acetaminophen. We will monitor the patient's response and treat along with the other consultants. Case was reviewed and discussed with attending physician, Dr. Be
--- NOTE | 2018-01-18 14:35 | CP.PCM.CON ---
History of Present Illness - History of Present Illness History of Present Illness: 77 year old male with PMH of atrial fibrillation, history of lung mass S/P biopsy, history of arthritis was just recently diagnosed with urinary bladder cancer (biopsy done late November 2017) has been using a Nava catheter for urinary incontinence. The patient is having leakage from the Nava catheter and is having generalized weakness and vague abdominal pain. He denies fever or chills , no nausea or vomiting, no chest pain, no SOB, no cough or rhinorrhea, no sore throat, no diarrhea, no hematuria, no dysuria. CT scan of the abdomen and pelvis shows pelvic abscess with left sided hydronephrosis. Infectious diseases consult is requested to further evaluate and manage. Review of Systems - Review of Systems All systems: reviewed and no additional remarkable complaints except (as per HPI ) Past Patient History - Infectious Disease Hx of Infectious Diseases: None - Past Medical History & Family History Past Medical History?: Yes - Past Social History Smoking Status: Former Smoker - CARDIAC Hx Cardiac Disorders: Yes Hx Cardia Arrhythmia: Yes Hx Hypertension: Yes Hx Peripheral Vascular Disease: Yes - PULMONARY Hx Respiratory Disorders: Yes (PNEUMOTHORAX-BX DONE 09-27-17-LUNG MASS) Other/Comment: history of air in the lungs - NEUROLOGICAL Hx Neurological Disorder: Yes Hx Dizziness: Yes (SYNCOPE 10-17-17) - HEENT Hx HEENT Problems: Yes Hx Macular Degeneration: Yes - RENAL Hx Chronic Kidney Disease: No - ENDOCRINE/METABOLIC Hx Endocrine Disorders: No - HEMATOLOGICAL/ONCOLOGICAL Hx Blood Disorders: Yes Hx Anemia: Yes Hx Cancer: Yes (prostate) Hx Metastesis: Yes (lung) - INTEGUMENTARY Hx Dermatological Problems: No - MUSCULOSKELETAL/RHEUMATOLOGICAL Hx Falls: No - GASTROINTESTINAL Hx Gastrointestinal Disorders: No - GENITOURINARY/GYNECOLOGICAL Other/Comment: patient has a prostate problem - PSYCHIATRIC Hx Psychophysiologic Disorder: No Hx Substance Use: No - SURGICAL HISTORY Hx Surgeries: Yes (lung biopsy, prostate bx) - ANESTHESIA Hx Anesthesia Reactions: No Hx Malignant Hyperthermia: No Meds Allergies/Adverse Reactions: Allergies Allergy/AdvReac Type Severity Reaction Status Date / Time No Known Allergies Allergy Verified 01/17/18 14:23 - Medications Medications: Current Medications Acetaminophen (Tylenol 325mg Tab) 650 mg PO Q4H PRN PRN Reason: Pain, Mild (1-3) Diltiazem HCl (Cardizem) 60 mg PO TID KAYLA Meropenem (Merrem Iv 1 Gm Premix) 50 mls @ 100 mls/hr IVPB Q12 KAYLA PRN Reason: Protocol Morphine Sulfate (Morphine) 2 mg IVP Q4H PRN PRN Reason: Pain, severe (8-10) Non-Formulary Medication (Diclofenac Sodium [Diclofenac Sodium Er]) 100 mg PO DAILY KAYLA Tamsulosin HCl (Flomax) 0.4 mg PO DAILY KAYLA Tramadol HCl (Ultram) 50 mg PO TID PRN PRN Reason: Pain, moderate (4-7) Last Admin: 01/17/18 23:27 Dose: 50 mg Physical Exam - Constitutional Appears: Chronically Ill - Head Exam Head Exam: NORMAL INSPECTION - ENT Exam ENT Exam: Mucous Membranes Moist - Neck Exam Neck exam: Negative for: Meningismus - Respiratory Exam Respiratory Exam: Decreased Breath Sounds - Cardiovascular Exam Cardiovascular Exam: +S1, +S2 - GI/Abdominal Exam GI & Abdominal Exam: Soft. absent: Tenderness Results - Vital Signs Recent Vital Signs: Last Vital Signs Temp 98 F 01/17/18 21:47 Pulse 73 01/17/18 21:47 Resp 18 01/17/18 21:47 BP 116/59 L 01/17/18 21:47 Pulse Ox 100 01/17/18 18:37 - Labs Result Diagrams: 01/18/18 05:45 01/18/18 05:45 Assessment & Plan - Assessment and Plan (Free Text) Plan: Assessment Severe sepsis with acute renal failure due to pelvic abscess associated with probable left sided pyelonephritis with hydronephrosis and urinary bladder cancer atrial fibrillation history of lung mass S/P biopsy history of arthritis Plan gave a dose of IV Vancomycin and started Merrem pending blood and urine cx; reviewed CT A/P will follow up plans of Urology for the drainage of the pelvic abscess patient has not started therapy yet for the bladder cancer will monitor clinically overall prognosis is guarded at best
[2018-01-18] MEDS: Dextrose 5%/0.9% NS 1,000 ML IV SCH (17:51)
--- NOTE | 2018-01-19 04:27 | CON ---
DATE: 01/18/2018 REASON FOR CONSULTATION: Acute kidney injury, Gram-negative urinary tract infection, history of bladder cancer, left hydronephrosis. HISTORY OF PRESENT ILLNESS: A 77-year-old male previously unknown to me. The patient was admitted yesterday. He was sent to the emergency room by PMD because of leaking around the Nava. The patient reported that his appetite has been decreasing and he has been failing to thrive for the past 4 months. As per the ER note, the patient reported that his Nava was inserted on 12/25. Also, he reported pain in his hips and calves. The patient has a history of bladder cancer, left hydronephrosis, left hydroureter. In the emergency room, he was found to be hypotensive. Blood pressure was 102/58, heart rate was 76. He was found to be afebrile. His blood work revealed a BUN of 57 and a creatinine of 1.7. His baseline appears to be a creatinine of between 1.1 to 1.3. He was also found to be acidotic with a CO2 of 14. Hence, consultation is requested. PAST MEDICAL AND SURGICAL HISTORY: Prostate cancer diagnosed in 2001, radiation treatments, adenocarcinoma of the lungs with pneumothorax, bladder cancer, left hydronephrosis, left hydroureter, severe DJD, and chronic kidney disease stage III. FAMILY HISTORY: Noncontributory. SOCIAL HISTORY: No smoking, no alcohol use, no IV drug abuse. ALLERGIES: NO KNOWN DRUG ALLERGIES. MEDICATIONS AT HOME: Flomax 0.4, diclofenac 100, and Cardizem CD 60 t.i.d. REVIEW OF SYSTEMS: Systems review is limited because patient speaks only Qatari, he complains of pain, he complains of being tired, he complains of being weak. PHYSICAL EXAMINATION: GENERAL: Elderly male, thinly built, lying in bed. VITAL SIGNS: Blood pressure 110/65, heart rate 58, respiratory rate 20, temperature 98.5. HEENT: Normocephalic, atraumatic, positive pallor. NECK: Supple, no JVD. LUNGS: Bilateral equal air entry, bilateral equal expansion, no rales. CARDIAC: S1 and S2 , regular rate and rhythm, no murmur, no rub. ABDOMEN: Soft, nondistended, nontender, bowel sounds present. EXTREMITIES: No lower extremity edema. INTAKE AND OUTPUT: 180/300 LABORATORY DATA: WBC 13.5, hemoglobin 7.7, hematocrit 22, and platelets 273. Sodium 138, potassium 4.4, chloride 110, CO2 of 17. BUN 45, creatinine 1.6. Glucose 107. Calcium 9.6. AST 21, ALT 25. Albumin 3, globulin 3.4. Urine culture, Gram-negative angeles. CT of the abdomen and pelvis shows pelvic abscess, left hydronephrosis, left hydroureter. CURRENT MEDICATIONS: Cardizem 60 t.i.d., Flomax 0.4, Merrem 1 g every 12 hours, morphine 2 mg, Tylenol, and tramadol 50 t.i.d. ASSESSMENT: 1. Acute kidney injury superimposed on chronic kidney disease stage III. 2. Dehydration. 3. Intraabdominal/pelvic abscess. 4. Prostate cancer with metastases. 5. Left hydronephrosis. 6. Anemia. PLAN: 1. Continue IV fluids, change to D5 normal saline at 60 mL per hour. 2. Avoid nephrotoxins. 3. antibiotics for creatinine clearance 30 to 50 mL per minute. 4. Follow up cultures. 5. Urology evaluation. Thank you for the courtesy of this consultation. We will follow this patient closely with you. Mary Gabriel MD
[2018-01-19 08:02] LABS: BASO # 0.01 K/mm3 (0.0-2.0); BASO % 0.1 % (0.0-3.0); EOS # 0.1 (0.0-0.7); EOS % 1.2 % (1.5-5.0); GRAN # 9.79 (1.4-6.5); GRAN % 81.8 % (50.0-68.0); HEMOGLOBIN 9.8 g/dL (14.0-18.0); LYMPH # 1.1 (1.2-3.4); LYMPH % 9.5 % (22.0-35.0); MEAN CELL VOLUME 82.8 fl (80.0-105.0); MEAN CORPUSCULAR HEMOGLOBIN 28.6 pg (25.0-35.0); MEAN CORPUSCULAR HGB CONC 34.5 g/dl (31.0-37.0); MEAN PLATELET VOLUME 9.7 fl (7.0-11.0); MONO # 0.9 (0.1-0.6); MONO % 7.4 % (1.0-6.0); RBC 3.43 10^6/uL (3.5-6.1); RED CELL DISTRIBUTION WIDTH 15.2 % (11.5-14.5)
[2018-01-19 08:25] LABS: ALB/GLOB RATIO 0.9 (1.1-1.8); ALBUMIN 2.9 g/dL (3.0-4.8); CALCIUM 9.1 mg/dL (8.4-10.5)
[2018-01-19] MEDS: Meropenem IV 1 gm in NS 50 ML IVPB SCH ×2 (09:21→21:30)
--- NOTE | 2018-01-19 10:13 | PN ---
DATE: 01/19/2018 SUBJECTIVE: The patient is in bed, in no acute distress, nontoxic. OBJECTIVE: VITAL SIGNS: On exam, temperature is 98, blood pressure is 128/60, respiratory rate of 18. HEENT: Examination is unremarkable. NECK: Supple. LUNGS: Have decreased breath sounds. HEART: Normal S1, S2. ABDOMEN: Soft, nontender. DATA: Laboratory examination reveals a white count of 12,000, hemoglobin of 9, platelets of 287. Coagulation is noted and chemistry reveals a BUN of 38, creatinine of 1.4, procalcitonin 0.12. Urinalysis, there is gram negative angeles in the urine. The blood cultures are negative. ASSESSMENT AND PLAN: This is a 77-year-old male with severe sepsis with acute renal failure due to pelvic abscess associated with probable left-sided pyelonephritis with hydronephrosis, urinary bladder cancer, atrial fibrillation, history of lung mass and biopsy, history of arthritis, currently on meropenem with gram-negative angeles in the urine as a source of the pyelonephritis, pending the identification sensitivity of the gram-negative angeles. Blood cultures are negative thus far. Ernst Osborn MD
[2018-01-19] MEDS: POLYETHYLENE GLYCOL 3350 17 GM/Dose PACKET PO PRN (11:59)
[2018-01-19] MEDS: Dextrose 5%/0.9% NS 1,000 ML IV SCH (12:00)
--- NOTE | 2018-01-19 12:50 | PN ---
DATE: 01/19/2018 SUBJECTIVE: The patient is currently seen lying comfortable in bed, IV fluids are infusing. His BUN and creatinine have somewhat improved with IV fluid hydration. The patient does have left-sided hydronephrosis in the setting of a pelvic abscess in the setting of metastatic prostate cancer and bladder cancer. MEDICATIONS: Medication list reviewed. The patient is on Cardizem, IV fluid hydration, Flomax, meropenem, morphine, Tylenol, and Ultram. PHYSICAL EXAMINATION: INTAKE AND OUTPUT: Intake is 1850, output is 1250. VITAL SIGNS: Blood pressure 128/62, pulse of 60. Temperature 97.9 with a respiratory rate of 20. HEENT: Shows him to be normocephalic, atraumatic. Conjunctivae are pale. Sclerae are nonicteric. NECK: Supple. No neck vein distention. CHEST: Clear to auscultation and percussion. No rales, rhonchi, or wheezing. CARDIOVASCULAR: Shows a regular rate and rhythm without murmurs, rubs, or gallops. ABDOMEN: Soft. Bowel sounds normal. Nondistended. No pelvic tenderness. No rebound, guarding, or masses. EXTREMITIES: Show no lower extremity cyanosis, clubbing, or edema. LABORATORY DATA AND IMAGING: Abdominal CT scan on admission showed left-sided hydronephrosis with hydroureter and a likely pelvic abscess. CBC: White blood cell count is 12 with a hemoglobin of 9.8 and a platelet count of 287,000. Chemistries show sodium of 140, potassium 3.9, chloride 110 with a CO2 of 18, improved. BUN is down to 38 from a high of 57. His baseline is around 20. Creatinine is down from 1.7 down to 1.4, his baseline is around 1. Calcium is 9.1. Magnesium level previously was 1.7. Liver enzymes are normal. Albumin is 2.9. Urines are positive for white blood cells, protein, and red blood cells. Microbiology. Urines are positive for gram-negative rods. Blood cultures are negative at 24 hours. ASSESSMENT: 1. Acute renal failure superimposed on chronic kidney disease, perhaps stage 1/2. This is in the setting of left-sided hydronephrosis, hydroureter with a pelvic abscess. The patient is on appropriate IV antibiotic therapy and IV fluid hydration. 2. Metabolic acidosis. CO2 level is improved with IV fluid hydration and correction of acute renal failure. I will start the patient on oral sodium bicarbonate supplements. 3. History of metastatic prostate cancer with likely bladder cancer and also history of adenocarcinoma of the lung. 4. History of anemia. Hemoglobin is actually improved at 9.8. 5. Likely urinary tract infection. The patient is on empiric antibiotic therapy. PLAN: 1. Continue IV fluid hydration. 2. Will supplement the patient with oral sodium bicarbonate supplements as CO2 level is rising from 14 to 18. 3. Urology followup pending. 4. Continued close Oncology followup. 5. ID followup in progress. 6. Agree with consult for palliative care. 7. Follow accurate I's and O's and daily labs. Crispin Keller MD
--- NOTE | 2018-01-19 18:17 | PN ---
DATE: 01/19/2018 This is [facility]'s hospital visit on the medical floor. For Dr. 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 He is also on antibiotics as per Dr. Osborn for his suspected abscess, possibly related to manipulation while placement of a renal stent was attempted without success recently with a Nava catheter that continues to leak around his penis. Except for that discomfort and his hip discomfort of chronic nature from arthritis, he is otherwise feeling better. However, he does report that he feels constipated with MiraLax to be offered for this. Otherwise, the patient is in no acute distress this visit. The patient is known to have two primary suspected neoplastic changes with hydronephrosis of the ureter with obstruction with CA of the prostate/bladder involved with abscess along with recent diagnosis of adenocarcinoma of the lungs, status post pneumothorax x2. PHYSICAL EXAMINATION: GENERAL: He appears cachectic. VITAL SIGNS: Temperature 97.9, pulse 60, respirations 20, blood pressure 120/62, pulse ox 99%. The patient's height is 5 feet 4 inches tall, weight of 115 pounds. HEENT: Tongue is dry. NECK: Supple. HEART: Regular rate. LUNGS: Clear. ABDOMEN: Soft with minimal suprapubic tenderness with a Nava in situ. EXTREMITIES: +1 edema on the left foot only as this is of chronic nature. GENITALIA: Nava in situ. SKIN: Warm and dry. NEUROLOGIC: Awake and alert this visit. LABORATORY DATA: The patient's labs were done, whit blood cell count of 12, hemoglobin of 9.8 and after 2 units of packed red blood cells were transfused, his hemoglobin was 7.7 yesterday, hematocrit of 28.9, platelet count 287,000. Chemistry metabolic panel was done showing a procalcitonin value of 0.12 with a BUN of 38; creatinine of 1.4, improved from an admission BUN of 57 and creatinine of 1.7, thanks to Dr. Gabriel and Dr. Keller's care. His urinalysis showed a large amount of blood. His blood cultures were negative with the urine culture being positive for morganii species, which is now been treated by Dr. Osborn and Dr. Moura with good effect. ASSESSMENT: For this patient is that of severe sepsis with acute renal failure secondary to pelvic abscess with left-sided hydronephrosis, questionable pyelonephritis, prostate cancer/urinary cancer, biopsy not done, history of atrial fibrillation, history of recently diagnosed adenocarcinoma of the lung, history of pneumothorax x2, hypertension, severe degenerative joint disease, symptomatic anemia, chronic left pedal edema, tremor at rest, smoking history, dehydration, acute kidney injury. PLAN: For this patient after conversation with Dr. Be, spoke with Dr. Franks and Dr. Fito Sylvester along with Dr. Osborn and Dr. Riddle. The plan is to continue his present medical regimen with IV antibiotics. Considerations for a percutaneous stent to be placed for his hydronephrosis and also to drain any abscess that is suspected on recent CT scan testing. Also, we will re-hydrate him. The patient is now status post transfusion for his symptomatic anemia, possibly secondary to hematuria with the prognosis for this patient guarded. This is a complex patient with a comprehensive medically necessary and appropriate visit carried out in excess of 30 minutes with the patient's testing reviewed with discussions held with the doctors listed as above, also family member's translation through Ivorian. The prognosis for this patient is guarded. We will monitor clinically and with labs. Also for constipation, we will be giving MiraLax on daily basis, p.r.n. constipation. Mike Schmitt MD
[2018-01-20] MEDS: Dextrose 5%/0.9% NS 1,000 ML IV SCH ×2 (01:56→20:50)
[2018-01-20] MEDS ORDERED: POLYETHYLENE GLYCOL 3350 17 GM/Dose PACKET PO STA (06:10)
[2018-01-20 06:42] LABS: MEAN CELL VOLUME 83.6 fl (80.0-105.0); MEAN CORPUSCULAR HEMOGLOBIN 28.8 pg (25.0-35.0); MEAN CORPUSCULAR HGB CONC 34.5 g/dl (31.0-37.0); MEAN PLATELET VOLUME 9.6 fl (7.0-11.0); RBC 3.47 10^6/uL (3.5-6.1); WHITE BLOOD COUNT 10.3 10^3/ul (4.5-11.0)
[2018-01-20 07:43] LABS: ALB/GLOB RATIO 0.9 (1.1-1.8); ALBUMIN 3.1 g/dL (3.0-4.8); ALT/SGPT 32 U/L (7-56); AST/SGOT 33 U/L (17-59); BLOOD UREA NITROGEN 27 mg/dL (7-21); CALCIUM 9.4 mg/dL (8.4-10.5); GFR AFRICAN-AMERICAN > 60; GFR NON-AFRICAN AMERICAN 58
[2018-01-20] MEDS: Meropenem IV 1 gm in NS 50 ML IVPB SCH ×2 (09:23→21:26)
[2018-01-20] MEDS ORDERED: Magnesium Hydroxide Susp 30 ml UD PO ONE (12:46)
[2018-01-20] MEDS: Nystatin 100,000 Units/ml Oral Susp 5 ml UD PO SCH ×3 (14:07→21:28)
--- NOTE | 2018-01-20 15:35 | PN ---
DATE: 01/20/2018 SUBJECTIVE: The patient is in bed, in no acute distress, nontoxic. PHYSICAL EXAMINATION: VITAL SIGNS: The patient was seen early this morning with a temperature of 97, blood pressure is 130/70, respiratory rate of 18, heart rate of 63. HEENT: Unremarkable. NECK: Supple. LUNGS: Have decreased breath sounds. HEART: Normal S1, S2. ABDOMINAL: Soft, nontender. LABORATORY EXAMINATION: Reveals a white count of 10,000, hemoglobin of 10, platelets of 293. Chemistries reveals a BUN of 27, creatinine of 1.2. Urinalysis is noted. Microbiology is noted. The patient has Morganella morganii in the urine. The sensitivity of this organism is sensitive to ceftriaxone, sensitive to Bactrim, ertapenem, sensitive to Cipro, cefepime. Review of orders reveals the patient to be on meropenem and the blood cultures are reported to be negative. ASSESSMENT AND PLAN: A 77-year-old male with severe sepsis with acute renal failure and pelvic abscess with associated probable left-sided pyelonephritis, hydronephrosis, urinary bladder cancer, atrial fibrillation, history of lung mass biopsy with a history of arthritis, currently with meropenem with Morganella morganii, urine as the source and pyelonephritis and pansensitive organism. We will continue the meropenem at this time and now maybe able to switch to the escalating therapy. We will follow with you. Ernst Osborn MD
--- NOTE | 2018-01-20 17:39 | PN ---
DATE: 01/20/2018 SUBJECTIVE: The patient is a 77-year-old Wallisian-speaking male, seen standing at the bedside with and daughter at the bedside also acting as translators with the patient reporting stronger after 2 units of packed red blood cells were transfused with good effect. He is also now with a Nava catheter with good urine output as yesterday's Nava was leaking, possibly due to tumor burden at the site of the balloon. The patient is known to have 2 suspected primary neoplastic changes including the prostate with mets to the bladder with abscess after recent manipulation for a stent placement with known adenocarcinoma, recently diagnosed and status post pneumothorax x2 as complications of that procedure. He also has hydronephrosis of the kidney. However, at this point, he appears in no acute distress with low back discomfort from chronic hip degenerative arthritis complaint along with possible metastatic changes there of recent onset. The patient did have a PET CT scan done on 10/29/2017 with the PET scan showing increased FDG activity of musculature adjacent to the right humeral head, but nothing specific for the sacral area. He did have abnormal FDG activity with a marked asymmetric wall thickening of the bladder on the left side with intense FDG urine within the lumen of the urinary bladder with a semilunar shaped peripheral ring along the left lateral margin of the bladder. Consideration for urothelial carcinoma with enlargement of the prostate gland. The patient's most recent PSA on 11/23/2017 was 0.5 that is in the chart with a CEA value of 1.1 from 11/23/2017. OBJECTIVE PHYSICAL EXAMINATION: VITAL SIGNS: Temperature 97.9, pulse 79, respirations 16, blood pressure 137/70, pulse ox of 100%. GENERAL: He appears cachectic. HEENT: Tongue is dry with a blackish coating. Suspected oropharyngeal candidiasis as the patient is now on antibiotics. NECK: Supple. HEART: Regular rate. Occasional ectopic beat. LUNGS: Otherwise clear. ABDOMEN: Soft. Minimal suprapubic tenderness with Nava in situ draining pink-tinged urine. EXTREMITIES: +1 edema of the left foot of chronic nature. SKIN: Warm and dry. NEUROLOGIC: Awake, alert and oriented, otherwise. LABORATORY DATA: The patient's labs were done. White blood cell count of 10.3, hemoglobin 10, status post transfusion of 2 units of packed cells 2 days prior for hemoglobin of 7.7, hematocrit of 29, platelet count of 293,000 with a chem metabolic panel showing a BUN of 27, down from 57 on admission three days prior with a creatinine now of 1.2, down from 1.7 three days prior, magnesium of 1.6, otherwise normal chem metabolic panel with a procalcitonin of 0.1 and TSH of 2. His INR 2 days prior was 1.27. We will repeat it in the morning in anticipation of procedure will be listed below. The patient's urine cultures from 01/17/2018 grew out Morganella morganii organisms, greater than 100,000 colonies for which the patient is being treated by Dr. Osborn, Infectious Disease absence management consultant with meropenem and vancomycin. ASSESSMENT: The assessment for this patient is that of severe sepsis with acute renal failure, now is improving; pelvic abscess with left-sided hydronephrosis; pyelonephritis; prostate cancer with metastasis to the bladder ?; history of atrial fibrillation; history of degenerative joint disease; recently diagnosed adenocarcinoma of the lung with probable urothelial malignancy; history of pneumothorax; hypertension; symptomatic anemia; chronic left pedal edema; dehydration; acute kidney injury, improving; oropharyngeal candidiasis. PLAN: The plan for this patient after conversation with Dr. Be and Dr. Osborn is to continue his present medical regimen. There are plans for a possible cystoscopy with stent placement tomorrow afternoon as per Dr. Franks as possible with then consideration for percutaneous nephrostomy tube placement with drainage of his abscess as per Dr. Fito Sylvester should it be indicated. The patient will continue on his present medical regimen with labs to be monitored and the patient monitored clinically. His coagulation factors will be monitored in the morning due to possible procedures later in the afternoon. The patient also complained of constipation, for which MiraLax was offered. We will also offer for Fleet Enema as the patient has used these in the past. I will attempt the enema first with consideration for further evacuation as indicated. This is a complex patient with a comprehensive medically necessary and appropriate visit carried out in excess of 45 minutes with the patient's questions answered to his satisfaction in Wallisian as per family members translating with conversations held with consultants as above including Dr. Osborn and Dr. Be with prognosis for this patient guarded. Mike MD [facility] # [id number]
--- NOTE | 2018-01-21 03:27 | CON ---
DATE: 01/18/2018 UROLOGY CONSULTATION REASON FOR CONSULTATION: Hematuria. Very complicated history, history from Dr. Be, history from the patient, history from the daughter. HISTORY OF PRESENT ILLNESS: He is a very pleasant 77-year-old gentleman, he has a history of prostate cancer treated years back. Most recently, he has had recent recurrence of some kind of poorly differentiated carcinoma . Either way, he saw another urologist recently and , urologist the question is what the tissue is, it is right at the bladder neck, whether it is prostate cancer, whether poorly differentiated bladder cancer, is yet to be determined. Urology is consulted now for a nonworking catheter. He also has hydronephrosis and the previous urologist was not able to get a stent in and the question is whether to do percutaneous treatment. In the interim, patient also seemed to have developed a lung lesion. That is not prostate cancer and not bladder cancer. This is being evaluated and treated by Dr. Be and Urology is consulted. See the plan as listed below. PAST MEDICAL AND SURGICAL HISTORY: As all listed on the chart, 77-year-old gentleman. Patient is under the care of Dr. Demetrius Riddle. MEDICATIONS: See chart. ALLERGIES: None. SOCIAL HISTORY: He lives with his . Again as mentioned, I spoke to his daughter. REVIEW OF SYSTEMS: Listed above, noncontributory. In terms of weight loss, chest pain , shortness of breath, constitutional complaints, night sweats etc, all noted. PHYSICAL EXAMINATION: GENERAL: Well-nourished male. He is currently resting comfortably in no apparent distress. VITAL SIGNS: Within normal limits. ABDOMEN: Overall soft, difficult to evaluate for distension secondary to body habitus. He does not have any real major CVA tenderness. GENITOURINARY: He has a normal phallus with discharge. Nava catheter appears to be in reasonable location. RECTAL: Deferred at this point. LABORATORY DATA: See chart. DIAGNOSES: 1. Hydronephrosis. 2. 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 3. Also primarily in the lung apparently. 4. Difficulty with the catheter working properly. At this point, we need to discuss options and consider different thoughts. From the Nava catheter standpoint, perhaps we can remove this Nava, recommended to do it on Sunday afternoon, but bring him to the OR may be Sunday and under anesthesia we will do a cystoscope. We will evacuate any clot, even do a minor TUR of the bladder neck, one is to get more tissue pathology, but the other is may be to make the catheter work well. Admitting with the Nava, regarding the hydronephrosis may be we will see an orifice perhaps after a while it will be more visible. If we can see an orifice, we will put the stent and we will do that, if we cannot then we will consider percutaneous nephrostomy tube insertion. So at this point, the plan is to; 1. Maintain his current catheter. 2. Make arrangements for Sunday for cystoscopy and then further plans will follow. The plan during the cystoscopy was cysto, evacuate clots, resect bladder neck, possibly insert a stent and then further plans will follow regarding the possibility for nephrostomy tube. Thank you for the urology consultation. Eulogio Franks MD
[2018-01-21 06:39] LABS: HEMOGLOBIN 9.1 g/dL (14.0-18.0); MEAN CORPUSCULAR HEMOGLOBIN 28.6 pg (25.0-35.0); MEAN CORPUSCULAR HGB CONC 34.1 g/dl (31.0-37.0); MEAN PLATELET VOLUME 9.4 fl (7.0-11.0); RBC 3.18 10^6/uL (3.5-6.1); RED CELL DISTRIBUTION WIDTH 14.5 % (11.5-14.5); WHITE BLOOD COUNT 9.6 10^3/ul (4.5-11.0)
--- NOTE | 2018-01-21 06:44 | CP.PCM.PN ---
Subjective - Date & Time of Evaluation Date of Evaluation: 01/21/18 Time of Evaluation: 06:44 - Subjective Subjective: Dalia Quinteros DO, PGY-2: Hematology and Oncology Progress Note for Dr. Be Patient seen and examined at bedside. His daughter was called on speaker phone in order to translate. The patient was in no acute distress. He reports feeling normal after the blood transfusion. He denies any fever, chills, nausea, vomiting, or diarrhea. He is aware that he will be going for cystocopy sometime today. He was made NPO after breakfast. Nurse overnight reports no adverse events. Objective - Vital Signs/Intake and Output Vital Signs (last 24 hours): Temp Pulse Resp BP Pulse Ox 98.5 F 69 20 140/67 100 01/20/18 23:25 01/21/18 06:00 01/20/18 23:25 01/20/18 23:25 01/20/18 23:25 Intake and Output: 01/20/18 01/21/18 18:59 06:59 Intake Total 1430 Output Total 1100 Balance 330 - Medications Medications: Current Medications Acetaminophen (Tylenol 325mg Tab) 650 mg PO Q4H PRN PRN Reason: Pain, Mild (1-3) Diltiazem HCl (Cardizem) 60 mg PO TID [facility] Last Admin: 01/20/18 17:43 Dose: 60 mg Meropenem (Merrem Iv 1 Gm Premix) 50 mls @ 100 mls/hr IVPB Q12 KAYLA PRN Reason: Protocol Last Admin: 01/20/18 21:26 Dose: 100 mls/hr Dextrose/Sodium Chloride (Dextrose 5%/0.9% Ns 1000 Ml) 1,000 mls @ 60 mls/hr IV .[id number] [facility] Last Admin: 01/20/18 20:50 Dose: 60 mls/hr Morphine Sulfate (Morphine) 2 mg IVP Q4H PRN PRN Reason: Pain, severe (8-10) Nystatin (Nystatin Oral Susp) 5 ml PO QID [facility] Last Admin: 01/20/18 21:28 Dose: 5 ml Polyethylene Glycol (Miralax) 17 gm PO DAILY PRN PRN Reason: Constipation Last Admin: 01/19/18 11:59 Dose: 17 gm Sodium Bicarbonate (Sodium Bicarbonate Tab) 650 mg PO BID [facility] Last Admin: 01/20/18 17:43 Dose: 650 mg Tamsulosin HCl (Flomax) 0.4 mg PO DAILY [facility] Last Admin: 01/20/18 09:22 Dose: 0.4 mg Tramadol HCl (Ultram) 50 mg PO TID PRN PRN Reason: Pain, moderate (4-7) Last Admin: 01/20/18 23:27 Dose: 50 mg - Labs Labs: 01/20/18 06:00 01/20/18 06:00 PT 14.5 SECONDS (9.4-12.5) H 01/17/18 14:35 INR 1.27 (0.93-1.08) H 01/17/18 14:35 APTT 24.4 Seconds (25.1-36.5) L 01/17/18 14:35 - Constitutional Appears: Well, Non-toxic - Head Exam Head Exam: ATRAUMATIC, NORMOCEPHALIC - Eye Exam Eye Exam: EOMI, Normal appearance - ENT Exam ENT Exam: Mucous Membranes Moist - Neck Exam Neck Exam: Normal Inspection - Respiratory Exam Respiratory Exam: Clear to Ausculation Bilateral, NORMAL BREATHING PATTERN. absent: Accessory Muscle Use - Cardiovascular Exam Cardiovascular Exam: RRR, +S1, +S2 - GI/Abdominal Exam GI & Abdominal Exam: Soft, Normal Bowel Sounds - Extremities Exam Extremities Exam: Normal Inspection. absent: Calf Tenderness - Back Exam Back Exam: NORMAL INSPECTION. absent: CVA tenderness (L), CVA tenderness (R) - Neurological Exam Neurological Exam: Alert, Awake, Oriented x3 - Psychiatric Exam Psychiatric exam: Normal Affect, Normal Mood - Skin Skin Exam: Dry, Intact, Normal Color, Warm Assessment and Plan - Assessment and Plan (Free Text) Assessment: 77 year old Nigerien speaking male with a past medical history notable for atrial fibrillation, PAD, prostate cancer diagnosed in 2002 and treated with radiation therapy, recently diagnosed bladder cancer with a Nava catheter who presents with 5 weeks of gradually worsening dyspnea on exertion, generalized weakness, and malaise. He was found to have a left-sided fluid collection with air present on CT of the chest, abdomen, and pelvis and a hemoglobin of 7.7 today after being fluid resuscitated on the night of admission. Given his symptomatic anemia we will transfuse 2 units of PRBCs along with pre-medicating him with Solucortef, Benadryl, and Acetaminophen. Currently, the patient has a hemoglobin of 9.1 and an INR of 1.24. He will be going for a urologic procedure today. There is a discussion of a possible nephrostomy tube. We will continue to follow the patient closely. Case was reviewed and discussed with attending physician, Dr. Be
[2018-01-21 06:54] LABS: INR 1.23 (0.93-1.08); PARTIAL THROMBOPLASTIN TIME 21.9 Seconds (25.1-36.5); PROTHROMBIN TIME 14.2 SECONDS (9.4-12.5)
[2018-01-21 07:19] LABS: ALB/GLOB RATIO 0.9 (1.1-1.8); ALBUMIN 2.7 g/dL (3.0-4.8); ALT/SGPT 35 U/L (7-56); AST/SGOT 21 U/L (17-59); BLOOD UREA NITROGEN 16 mg/dL (7-21); CALCIUM 8.8 mg/dL (8.4-10.5); GFR AFRICAN-AMERICAN > 60; GFR NON-AFRICAN AMERICAN > 60
[2018-01-21] MEDS: Meropenem IV 1 gm in NS 50 ML IVPB SCH ×2 (09:02→21:01)
[2018-01-21] MEDS: Nystatin 100,000 Units/ml Oral Susp 5 ml UD PO SCH ×4 (09:03→21:01)
--- NOTE | 2018-01-21 09:10 | PN ---
DATE: 01/18/2018 DAILY PROGRESS NOTE SUBJECTIVE: The patient is a 77-year-old male, who was admitted to the [facility] yesterday with a diagnosis of left-sided hydronephrosis and hydroureter. He is known to have a history of adenocarcinoma of the lung. A suspected mass was found at the left junction suspicious of prostate carcinoma. 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 The patient was being evaluated by his oncologist, found to be anemic and therefore presented to the emergency room. When seen today, the patient is awake, alert and oriented. He is in good spirits. He is not suffering from any pain. His lungs are clear. Heart is regular. Abdomen is soft and nontender. He has an indwelling Nava catheter draining clear yellow urine. This morning's laboratory shows his white blood cell count to be 13.5, hemoglobin is 7.7, hematocrit is 22. Sodium is 138, potassium 4.4, blood urea nitrogen is 45, creatinine 1.6. His vital signs are stable. He was found to have AB positive type blood. We are treating him with fluids. He has received blood transfusions and we are continuing to follow the patient closely along with Dr. Osborn, the Infectious Disease specialist; Dr. Be, his oncologist and Dr. Franks, the urologist. Shashank Riddle MD
--- NOTE | 2018-01-21 11:06 | PN ---
DATE: 01/19/2018 SUBJECTIVE: The patient is a 77-year-old Burmese-speaking male with a history of adenocarcinoma of the lung, which was recently diagnosed within the past 6 months. He was also seen on CAT scan to have a mass in the right pelvis near the ureterocystic junction. This is believed to be an abscess formation in that area as well. 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 The patient was admitted with anemia with hemoglobin of 7.7. Today, he was transfused 2 units of packed red blood cells. This morning's hemoglobin is 9.3 with hematocrit of 28.4. He had been receiving IV fluids and his renal functions have improved showed BUN of 38 and creatinine of 1.4. Urine cultures grew morganii species, which is sensitive to Rocephin, Bactrim, Cipro and meropenem. The patient is being treated with meropenem. When seen today, he is awake, alert and oriented, has no pain. Denies any left lower quadrant or CVA tenderness. He is eating well. We are continuing with the current regimen. The case to be discussed with the consults involved. Shashank Riddle MD
[2018-01-21] MEDS: Dextrose 5%/0.9% NS 1,000 ML IV SCH (11:54)
--- NOTE | 2018-01-21 12:29 | PN ---
DATE: 01/20/2018 SUBJECTIVE: The patient is a 77-year-old male with a history of hypertension, peptic ulcer disease, history of prostate carcinoma which was treated with radiation many years ago who was found to have adenocarcinoma of the lung. On workup, there was another mass found at the left ureterocystic junction. 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 An attempt was made to pass a stent to the left ureter; however, this failed. The patient was complaining of weakness, found to be severely anemic, was therefore admitted to [facility] for further treatment. Today, the patient received 2 units of packed red blood cells. He is being followed by Dr. Be, his oncologist; Dr. Franks, the urologist; Dr. Osborn, the Infectious Disease specialist as well as Dr. Fraga, the dietetic aide. After blood transfusions of AB positive type blood, the patient's hemoglobin is stabilized at 10 with hematocrit of 29. The hydronephrosis on the left and the hydroureter are being followed by Urology. There is consideration of passing a transcutaneous ureteral catheter to drain or to prevent the worsening of the hydronephrosis as well as draining an abscess which I believe to be in the area. When seen today, the patient is awake, alert and oriented. Family is at bedside. A relative who speaks Namibian well was acting as a first aid director for me. The patient did complain of constipation, which he had received Miralax earlier, which had not worked, so therefore dose of milk of magnesia was ordered. PHYSICAL EXAMINATION: Essentially unremarkable. We are continuing with the current regimen. Case to be discussed with Urology and we are continuing to follow the patient closely. Shashank Riddle MD
--- NOTE | 2018-01-21 14:23 | CP.PCM.PN ---
Subjective - Date & Time of Evaluation Date of Evaluation: 01/21/18 Time of Evaluation: 10:55 - Subjective Subjective: No flank pain, no abdominal pain, no nausea, no fevers. Objective - Vital Signs/Intake and Output Vital Signs (last 24 hours): Temp Pulse Resp BP Pulse Ox 98.5 F 74 18 140/71 100 01/21/18 08:10 01/21/18 10:00 01/21/18 08:10 01/21/18 09:02 01/21/18 08:10 Intake and Output: 01/21/18 01/21/18 06:59 18:59 Intake Total 1430 Output Total 1100 Balance 330 - Medications Medications: Current Medications Acetaminophen (Tylenol 325mg Tab) 650 mg PO Q4H PRN PRN Reason: Pain, Mild (1-3) Diltiazem HCl (Cardizem) 60 mg PO TID [facility] Last Admin: 01/21/18 09:02 Dose: 60 mg Meropenem (Merrem Iv 1 Gm Premix) 50 mls @ 100 mls/hr IVPB Q12 KAYLA PRN Reason: Protocol Last Admin: 01/21/18 09:02 Dose: 100 mls/hr Dextrose/Sodium Chloride (Dextrose 5%/0.9% Ns 1000 Ml) 1,000 mls @ 60 mls/hr IV .[id number] [facility] Last Admin: 01/20/18 20:50 Dose: 60 mls/hr Morphine Sulfate (Morphine) 2 mg IVP Q4H PRN PRN Reason: Pain, severe (8-10) Nystatin (Nystatin Oral Susp) 5 ml PO QID [facility] Last Admin: 01/21/18 09:03 Dose: 5 ml Polyethylene Glycol (Miralax) 17 gm PO DAILY PRN PRN Reason: Constipation Last Admin: 01/19/18 11:59 Dose: 17 gm Sodium Bicarbonate (Sodium Bicarbonate Tab) 650 mg PO BID [facility] Last Admin: 01/21/18 09:02 Dose: 650 mg Tamsulosin HCl (Flomax) 0.4 mg PO DAILY [facility] Last Admin: 01/21/18 09:02 Dose: 0.4 mg Tramadol HCl (Ultram) 50 mg PO TID PRN PRN Reason: Pain, moderate (4-7) Last Admin: 01/20/18 23:27 Dose: 50 mg - Labs Labs: 01/21/18 06:00 01/21/18 06:00 PT 14.2 SECONDS (9.4-12.5) H 01/21/18 06:00 INR 1.23 (0.93-1.08) H 01/21/18 06:00 APTT 21.9 Seconds (25.1-36.5) L 01/21/18 06:00 - Constitutional Appears: Chronically Ill - Head Exam Head Exam: NORMAL INSPECTION - Respiratory Exam Respiratory Exam: Decreased Breath Sounds - Cardiovascular Exam Cardiovascular Exam: +S1, +S2 - GI/Abdominal Exam GI & Abdominal Exam: Soft. absent: Tenderness Assessment and Plan - Assessment and Plan (Free Text) Plan: Assessment Severe sepsis with acute renal failure due to pelvic abscess associated with probable left sided pyelonephritis with hydronephrosis and urinary bladder cancer, growing Morganella in the urine atrial fibrillation history of lung mass S/P biopsy history of arthritis Plan continue Merrem day 4 pending further plans of Urology on the pelvic abscess - may be able to switch to PO antibiotics if no further plans will monitor clinically overall prognosis is guarded at best
--- NOTE | 2018-01-21 15:48 | HP ---
HISTORY OF PRESENT ILLNESS: The patient is a 77-year-old American-speaking male who was being evaluated by his oncologist. He was complaining of generalized weakness and it was suggested he present to the Emergency Room as he was found to be anemic. The patient is known to have a history of squamous cell carcinoma of the prostate, status post radiation therapy in 2002. He was diagnosed with adenocarcinoma of the lung within the past year. He is also known to have a history of hypertension and peptic ulcer disease. He suffered a syncopal episode within the past year, pneumothorax x2 post transthoracic biopsy of his lung nodule making the diagnosis of adenocarcinoma. SOCIAL HISTORY: He is a former smoker and occasionally drinks alcohol socially. ALLERGIES: He has no known medical allergies. MEDICATIONS: At the time of admission, he was taking diclofenac 100 mg daily, Flomax 0.4 mg, and diltiazem 60 mg three times a day. REVIEW OF SYSTEMS: Otherwise unremarkable. PHYSICAL EXAMINATION: VITAL SIGNS: His blood pressure is 139/71, heart rate was 82, and he was afebrile at 97.6 degrees Fahrenheit. HEAD, EYES, EARS, NOSE, AND THROAT: Unremarkable. NECK: Supple with no lymphadenopathy. No goiter. LUNGS: Clear to auscultation and percussion. HEART: Regular. No murmurs appreciated. ABDOMEN: Soft, nontender with no organomegaly. EXTREMITIES: Free of cyanosis, clubbing, or edema. NEUROLOGIC: The patient is awake, alert, and oriented with no focal neurological signs. During his more recent workup, the patient was suspected of having a mass in the area of the left ureter. An attempt was made at another facility to pass a ureteral stent; however, this had failed, the patient had an indwelling Nava catheter, which was leaky. LABORATORY DATA: Revealed the white blood cell count to be 10.7, hemoglobin and hematocrit were 8.9 and 26 respectively, platelet count was 303. Sodium was 137, potassium was 4.3, blood urea nitrogen 57, creatinine 1.7, nonfasting glucose was 164. Chest x-ray showed no active disease. EKG showed regular sinus rhythm with right bundle-branch block, which was unchanged. CAT scan showed a 12 mm mass at the right apex of the lung. He also had hydronephrosis on the left and hydroureter with what was suspected to be an abscess, possibly connected to the bladder at the left ureteral-cystic junction. So, the patient is admitted with a diagnoses of anemia, renal failure, hydronephrosis, hydroureter. Consultation from Dr. Be, his oncologist as well as Dr. Franks, the urologist is requested. We are also asking Dr. Osborn to consult concerning this possible abscess. The patient will be reevaluated in the morning. Shashank Riddle MD
[2018-01-21] MEDS ORDERED: Propofol 10 mg/ml Inj (20 ML) ONE (16:14)
[2018-01-21] MEDS ORDERED: Lactated Ringer's 1,000 ML IV SCH (16:15)
[2018-01-21] MEDS ORDERED: Iohexol 240 (50 ml) ONE (16:31)
[2018-01-21] MEDS ORDERED: Morphine 2 mg/2 mL syringe IVP PRN (16:43)
--- NOTE | 2018-01-21 18:07 | PN ---
DATE: 01/21/2018 SUBJECTIVE: The patient is seen lying in bed. is at bedside. He is awake, he is alert, he is comfortable. He denies any pain. He denies any shortness of breath. He was scheduled for a cystoscopy tomorrow. PHYSICAL EXAMINATION: GENERAL: Elderly male lying in bed. VITAL SIGNS: Blood pressure 141/65, heart rate 62, respiratory rate 18, and temperature 98.6. HEENT: Normocephalic, atraumatic, positive pallor. NECK: Supple, no JVD. LUNGS: Bilateral equal air entry, bilateral equal expansion. CARDIAC: S1 and S2, regular rate and rhythm, no murmur, no rub. ABDOMEN: Soft, nondistended, nontender, bowel sounds present. EXTREMITIES: No lower extremity edema. INTAKE AND OUTPUT: 1190/700. LABORATORY DATA: WBC 9.6, hemoglobin 9.1, hematocrit 27, and platelets 270. Sodium 139, potassium 3.9, chloride 109, CO2 of 23. BUN 16, creatinine 1. Glucose 131. Calcium 8.8, phosphorus 3, and magnesium 1.6. Urine culture, Morganella morganii. Blood culture, no growth. CURRENT MEDICATIONS: Cardizem CD 60 t.i.d., D5 normal saline at 60, Flomax 0.4, Merrem 1 g every 12 hours, MiraLax, morphine sulfate, nystatin, sodium bicarbonate 650 b.i.d., Tylenol, Ultram, and Fleet enema yesterday. ASSESSMENT: 1. Acute kidney injury, resolved. 2. Pyuria/urinary tract infection. 3. History of prostate cancer. 4. Left hydroureter/hydronephrosis. 5. Anemia. 6. Metabolic acidosis. 7. Hypertension. PLAN: 1. Continue IV fluids. 2. Continue oral bicarbonate. 3. Follow up cystoscopy result. 4. Oncology followup. 5. Continue antibiotics as per ID recommendations. 6. The patient is stable from the renal standpoint Mary Gabriel MD
[2018-01-21] MEDS: Lidocaine 5% Patch TD SCH (18:12)
[2018-01-22] MEDS: Dextrose 5%/0.9% NS 1,000 ML IV SCH (04:53)
[2018-01-22 06:40] LABS: HEMOGLOBIN 8.9 g/dL (14.0-18.0); MEAN CELL VOLUME 84.5 fl (80.0-105.0); MEAN CORPUSCULAR HEMOGLOBIN 29.4 pg (25.0-35.0); MEAN CORPUSCULAR HGB CONC 34.8 g/dl (31.0-37.0); MEAN PLATELET VOLUME 9.5 fl (7.0-11.0); RBC 3.03 10^6/uL (3.5-6.1); RED CELL DISTRIBUTION WIDTH 14.3 % (11.5-14.5); WHITE BLOOD COUNT 11.1 10^3/ul (4.5-11.0)
[2018-01-22 06:52] LABS: ALB/GLOB RATIO 0.8 (1.1-1.8); ALBUMIN 2.5 g/dL (3.0-4.8); ALT/SGPT 26 U/L (7-56); AST/SGOT 17 U/L (17-59); BLOOD UREA NITROGEN 16 mg/dL (7-21); CALCIUM 8.5 mg/dL (8.4-10.5); GFR AFRICAN-AMERICAN > 60; GFR NON-AFRICAN AMERICAN > 60
[2018-01-22] MEDS: Lidocaine 5% Patch TD SCH (09:46)
[2018-01-22] MEDS: Nystatin 100,000 Units/ml Oral Susp 5 ml UD PO SCH ×4 (09:46→21:19)
[2018-01-22] MEDS: Meropenem IV 1 gm in NS 50 ML IVPB SCH ×2 (09:46→21:18)
--- NOTE | 2018-01-22 10:37 | CP.PCM.PN ---
Subjective - Date & Time of Evaluation Date of Evaluation: 01/22/18 Time of Evaluation: 10:34 - Subjective Subjective: Dalia Quinteros DO PGY-2: Hematology and Oncology Progress Note for Dr. Be Patient was seen and examined at [facility]. Patient denies any nausea, vomiting, diarrhea, or abdominal discomfort. His daughter was on the speaker phone who acted as a spooler operator. Patient is tolerating a regular diet. Patient is aware that the biopsy of the bladder lesion was performed and urethral stent was unable to be placed. He denies any weakness, dizziness, or lightheadedness. Nurse reports no adverse events overnight. Objective - Vital Signs/Intake and Output Vital Signs (last 24 hours): Temp Pulse Resp BP Pulse Ox 99 F 71 18 118/70 97 01/22/18 07:30 01/22/18 09:46 01/22/18 07:30 01/22/18 09:46 01/22/18 07:30 Intake and Output: 01/22/18 01/22/18 06:59 18:59 Intake Total 720 Output Total 300 Balance 420 - Medications Medications: Current Medications Acetaminophen (Tylenol 325mg Tab) 650 mg PO Q4H PRN PRN Reason: Pain, Mild (1-3) Diltiazem HCl (Cardizem) 60 mg PO TID [facility] Last Admin: 01/22/18 09:46 Dose: 60 mg Meropenem (Merrem Iv 1 Gm Premix) 50 mls @ 100 mls/hr IVPB Q12 KAYLA PRN Reason: Protocol Last Admin: 01/22/18 09:46 Dose: 100 mls/hr Dextrose/Sodium Chloride (Dextrose 5%/0.9% Ns 1000 Ml) 1,000 mls @ 60 mls/hr IV .[id number] [facility] Last Admin: 01/22/18 04:53 Dose: 60 mls/hr Lidocaine (Lidoderm) 2 ea TD DAILY [facility] Last Admin: 01/22/18 09:46 Dose: 2 ea Morphine Sulfate (Morphine) 2 mg IVP Q4H PRN PRN Reason: Pain, severe (8-10) Nystatin (Nystatin Oral Susp) 5 ml PO QID [facility] Last Admin: 01/22/18 09:46 Dose: 5 ml Polyethylene Glycol (Miralax) 17 gm PO DAILY PRN PRN Reason: Constipation Last Admin: 01/19/18 11:59 Dose: 17 gm Sodium Bicarbonate (Sodium Bicarbonate Tab) 650 mg PO BID [facility] Last Admin: 01/22/18 09:46 Dose: 650 mg Tamsulosin HCl (Flomax) 0.4 mg PO DAILY [facility] Last Admin: 01/22/18 09:46 Dose: 0.4 mg Tramadol HCl (Ultram) 50 mg PO TID PRN PRN Reason: Pain, moderate (4-7) Last Admin: 01/20/18 23:27 Dose: 50 mg - Labs Labs: 01/22/18 05:45 01/22/18 05:45 PT 14.2 SECONDS (9.4-12.5) H 01/21/18 06:00 INR 1.23 (0.93-1.08) H 01/21/18 06:00 APTT 21.9 Seconds (25.1-36.5) L 01/21/18 06:00 - Constitutional Appears: Well, Non-toxic - Head Exam Head Exam: ATRAUMATIC, NORMOCEPHALIC - Eye Exam Eye Exam: EOMI, Normal appearance - ENT Exam ENT Exam: Mucous Membranes Moist - Neck Exam Neck Exam: Normal Inspection - Respiratory Exam Respiratory Exam: Clear to Ausculation Bilateral, NORMAL BREATHING PATTERN. absent: Accessory Muscle Use - GI/Abdominal Exam GI & Abdominal Exam: Soft, Normal Bowel Sounds - Exam Additional comments: melvin intact and functioning - Extremities Exam Extremities Exam: Normal Inspection. absent: Calf Tenderness - Back Exam Back Exam: NORMAL INSPECTION. absent: CVA tenderness (L), CVA tenderness (R) - Neurological Exam Neurological Exam: Alert, Awake, Oriented x3 - Psychiatric Exam Psychiatric exam: Normal Affect, Normal Mood - Skin Skin Exam: Dry, Intact, Normal Color, Warm Assessment and Plan - Assessment and Plan (Free Text) Assessment: 77 year old [place] speaking male with a past medical history notable for atrial fibrillation, PAD, prostate cancer diagnosed in 2002 and treated with radiation therapy, recently diagnosed bladder cancer with a Melvin catheter who presents with 5 weeks of gradually worsening dyspnea on exertion, generalized weakness, and malaise. He was found to have a left-sided fluid collection with air present on CT of the chest, abdomen, and pelvis and a hemoglobin of 7.7 today after being fluid resuscitated on the night of admission. Given his symptomatic anemia he was transfused 2 units of PRBCs. Infectious disease is following the patient and have him on Meropenem. Currently, the patient has a hemoglobin of 8.9 and is hemodynamically stable. Dr. Fito Sylvester is consulted for placement of nephrostomy tube in the left kidney. He is s/p biopsy of the bladder lesion. We will continue to follow the patient and treat accordingly. Case was reviewed and discussed with attending physician, Dr. Be
--- NOTE | 2018-01-22 11:27 | RAD ---
Date of service: 01/21/2018 PROCEDURE: Cystogram HISTORY: CYSTOGRAM COMPARISON: TECHNIQUE: 13.2 seconds of fluoro time. Cumulative dose 2.21 mGy. Twelve images submitted FINDINGS: Study shows a placement of a balloon tipped catheter in the bladder. There is irregular contour of the bladder wall especially on the left side. IMPRESSION: As above
--- NOTE | 2018-01-22 14:23 | PN ---
DATE: 01/21/2018 SUBJECTIVE: The patient is a 77-year-old male with a history of hypertension, peptic ulcer disease, history of prostate carcinoma which was treated with radiation about 15 years ago. He was found to have adenocarcinoma of the lung within the past year. During this workup, a mass was found in the left ureteral-cystic junction. This was biopsied at another facility and the diagnosis of a second primary squamous cell carcinoma of the prostate was made. At that time, an attempt was made to pass a stent into the left ureter; however, this failed. At home, the patient was complaining of weakness, found to be severely anemic and was admitted to [facility]. He was transfused 2 units of packed red blood cells. He is being followed by Dr. Be, Dr. Franks, Dr. Osborn, and Dr. Fraga. His H and H stabilized after transfusion of AB positive type blood, here with hydronephrosis and hydroureter on the left. Earlier today, the patient underwent cystoscopy with Dr. Franks, biopsies of the prostate and the bladder were taken. An attempt to pass a pigtail catheter into the left ureter had failed. When seen, the patient is awake, alert, and oriented. His family is at bedside. He offers no complaints. Physical exam is essentially negative. His white blood cell count is 9.6, hemoglobin and hematocrit is 9.1 and 26.7 respectively. Blood urea nitrogen is 16, creatinine is 1. Vital signs are stable. So, at this point, we will be reaching out to Dr. Fito Sylvester for possible passage of a percutaneous urostomy tube to relieve the hydronephrosis on the left. Shashank Riddle MD
--- NOTE | 2018-01-22 18:12 | OP ---
PROCEDURE DATE: 01/21/2018 UROLOGY OPERATIVE REPORT PREOPERATIVE DIAGNOSES: Hydronephrosis, bladder or prostate cancer, lung cancer, nonfunctioning Nava catheter. PROCEDURES PERFORMED: Cystoscopy, irrigation of bladder, bladder biopsy (see body of the report), insertion of a new Nava catheter, cystogram and an attempted bilateral retrograde pyelogram. COMPLICATIONS: None. BLOOD LOSS: Less than 10 mL FINDINGS: 1. Normal meatus. 2. Normal anterior urethra. 3. The verumontanum is moderate for visual occlusion. 4. The bladder neck is disrupted. There is abnormal whitish tissue apparent, the bladder mucosa itself again is abnormal, see those multiple pictures that are taken. It is like denuded tissue. 5. There is no visualization of the trigone per se. 6. Just going from the bladder neck to where the trigone is, I cannot identify any orifices per se and tried taking blind steps, see the body of the report, to see if we could do retrograde. The bladder mucosa that is denuded, we scraped a little bit and sent for further pathology. INDICATIONS: See history and physical for further details. Another finding is the Nava catheter is in reasonable location, sitting right on the pubic bone. A cystogram confirmed its positioning. Films were submitted to the radiologist to read but it is in good position and drains overall well. There were no complications. There is an irregular outline of the contrast material particularly on the patient's left side, the right side of the screen, but there is no extravasation. I think that is all secondary to abnormal bladder. Procedure itself, indications, see history and physical and consultations and multiple notes. Patient has multiple malignancies. He has a history of prostate cancer and is treated with radiation and then he was [place] for a while. 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 At that time, they were not able to put a stent. They did a biopsy and the pathology is under discussion on whether this is a prostate cancer or bladder cancer. That is my current understanding, see the plans and addendum below. The patient was also noted to have hydronephrosis. They were not able to get a stent in (I am taking a shot today, but we were not able to get a stent in either). My recommendation after discussing with Oncology, who is looking to give chemotherapy, is that the patient would benefit from nephrostomy tube insertion by IR. The patient also has been found to have a lung lesion. This is also under evaluation. The patient is here now for the above procedure. PROCEDURE IN DETAIL: After discussing of options with patient with the daughter translating and providing consent, the patient is placed on the table. Routine monitors were placed. Time-out was called. Patient is already on antibiotics. We removed the old Nava catheter. It seemed to be in a good location. His urine is actually clear, previously had some blood tinge. Either way, it has been leaking, nonfunctioning well over the weekend and apparently having difficulty with irrigation. So, we removed the Nava Catheter from the patient. Under sterile technique, we inserted the cystoscope via the urethra under direct vision. Meatus is normal. Entry is normal. On the verumontanum, we identified the prostate. It is not akutan anatomy, but it is not overly visually occlusive. We now identified the bladder neck. Then from the verumontanum to the bladder neck and prostate. We inspected carefully the bladder. We irrigated out just to see if we could clear things up, but it still stays like there is flaky denuded material. We actually scraped the surface and sent this for pathology. We also sent off for cytology just to see if we can get more tissue diagnosis. We now tried with a ureteral catheter gently to see if we can see bladder neck on the left and right side to see if I could get the orifices just to see and that if I can find one orifice, maybe see the other one by symmetry, but either way, no matter what we do, we could not. At this point, we inserted a Nava catheter. We used a coude-tip catheter for further insertion. We confirmed its positioning. We used a 22-Scottish hoping that a bigger size bore catheter will drain better with less leaking. Patient was fairly annoyed with the catheter leaking and not with the catheter positioning itself, just a constant leaking on the site. We also used a 30 mL balloon. We then performed a cystogram. There were no major abnormalities. Again, the initial in the catheter that observed is straightened. The cystogram showed some abnormalities in the mucosa, but there is no real extravasation or the like. It is just I think just abnormal bladder mucosa. Overall, the patient tolerated the procedure well without complications and brought to the Recovery Room in stable condition. My recommendation will be I will discuss with Oncology. There are a few separate issues, one is the primary, the lung lesion needs to be evaluated and treated. From Urology standpoint, I think Interventional Radiology should insert nephrostomy tubes and also from the Urology standpoint, I would leave the Nava in for now. Other options, including perhaps a radical cystectomy, need to be entertained, but first we would evaluate where the lung is in terms of its prognosis. I then discussed further plans from Urology standpoint. So further plans will follow. Patient tolerated the procedure well. The plan will be to maintain this Nava and then discuss other possibilities. Eulogio Franks MD
[2018-01-22] MEDS: Sodium Chloride 0.45% 1,000 ML IV SCH (18:26)
--- NOTE | 2018-01-23 01:37 | PN ---
DATE: 01/22/2018 SUBJECTIVE: The patient was seen this Sunday evening in room 361, bed 1 with his and daughter at the bedside. He is awake, alert, clear and comfortable. The patient's daughter speaks to him primarily in Syrian. He reports no pain. He is in good spirits. PHYSICAL EXAMINATION: HEAD AND NECK: Unremarkable. ABDOMEN: Soft and nontender. EXTREMITIES: Show no edema. IMPRESSION: 1. Pelvic abscess. 2. Primary prostate cancer. 3. Hydronephrosis. PLAN: The patient is scheduled for percutaneous nephrostomy tube placement tomorrow with possible later placement of ureteral stent from above. Demetrius Riddle MD
[2018-01-23 07:22] LABS: HEMOGLOBIN 9.1 g/dL (14.0-18.0); MEAN CELL VOLUME 84.5 fl (80.0-105.0); MEAN CORPUSCULAR HEMOGLOBIN 29.4 pg (25.0-35.0); MEAN CORPUSCULAR HGB CONC 34.7 g/dl (31.0-37.0); MEAN PLATELET VOLUME 9.6 fl (7.0-11.0); RBC 3.1 10^6/uL (3.5-6.1); RED CELL DISTRIBUTION WIDTH 14.1 % (11.5-14.5)
[2018-01-23 07:26] LABS: ALB/GLOB RATIO 0.8 (1.1-1.8); ALBUMIN 2.6 g/dL (3.0-4.8); ALT/SGPT 19 U/L (7-56); AST/SGOT 19 U/L (17-59); BLOOD UREA NITROGEN 16 mg/dL (7-21); CALCIUM 8.9 mg/dL (8.4-10.5); GFR AFRICAN-AMERICAN > 60; GFR NON-AFRICAN AMERICAN > 60
--- NOTE | 2018-01-23 07:46 | CP.PCM.PN ---
Subjective - Date & Time of Evaluation Date of Evaluation: 01/23/18 Time of Evaluation: 06:40 - Subjective Subjective: Dalia Quinteros DO PGY-2: Hematology and Oncology Progress Note for Dr. Be Patient was seen and examined at bedside. We spoke to his daughter who acts as the senior director creative services on speaker phone and informed them about the purpose of the percutaneous nephrostomy tube. The patient denied any fever, chills, nausea, vomiting, abdominal pain, or weakness. He will be going for the nephrostomy tube placement with Dr. Fito Sylvester at approximately 13:00 today. Otherwise, nurse reports no adverse events overnight. Objective - Vital Signs/Intake and Output Vital Signs (last 24 hours): Temp Pulse Resp BP Pulse Ox 98.0 F 66 20 107/61 98 01/22/18 18:00 01/23/18 05:47 01/22/18 18:00 01/22/18 18:25 01/22/18 18:00 Intake and Output: 01/23/18 01/23/18 06:59 18:59 Intake Total 720 Output Total 700 Balance 20 - Medications Medications: Current Medications Acetaminophen (Tylenol 325mg Tab) 650 mg PO Q4H PRN PRN Reason: Pain, Mild (1-3) Diltiazem HCl (Cardizem) 60 mg PO TID [facility] Last Admin: 01/22/18 18:25 Dose: Not Given Meropenem (Merrem Iv 1 Gm Premix) 50 mls @ 100 mls/hr IVPB Q12 [facility]AY[facility] PRN Reason: Protocol Last Admin: 01/22/18 21:18 Dose: 100 mls/hr Sodium Chloride (Sodium Chloride 0.45%) 1,000 mls @ 60 mls/hr IV .[id number] [facility] Stop: 01/24/18 06:00 Last Admin: 01/22/18 18:26 Dose: 60 mls/hr Lidocaine (Lidoderm) 2 ea TD DAILY [facility] Last Admin: 01/22/18 09:46 Dose: 2 ea Morphine Sulfate (Morphine) 2 mg IVP Q4H PRN PRN Reason: Pain, severe (8-10) Nystatin (Nystatin Oral Susp) 5 ml PO QID [facility] Last Admin: 01/22/18 21:19 Dose: 5 ml Polyethylene Glycol (Miralax) 17 gm PO DAILY PRN PRN Reason: Constipation Last Admin: 01/19/18 11:59 Dose: 17 gm Tamsulosin HCl (Flomax) 0.4 mg PO DAILY [facility] Last Admin: 01/22/18 09:46 Dose: 0.4 mg Tramadol HCl (Ultram) 50 mg PO TID PRN PRN Reason: Pain, moderate (4-7) Last Admin: 01/20/18 23:27 Dose: 50 mg - Labs Labs: 01/23/18 06:20 01/23/18 06:20 PT 14.2 SECONDS (9.4-12.5) H 01/21/18 06:00 INR 1.23 (0.93-1.08) H 01/21/18 06:00 APTT 21.9 Seconds (25.1-36.5) L 01/21/18 06:00 - Constitutional Appears: Well, Non-toxic - Head Exam Head Exam: ATRAUMATIC, NORMOCEPHALIC - Eye Exam Eye Exam: EOMI, Normal appearance - ENT Exam ENT Exam: Mucous Membranes Moist - Neck Exam Neck Exam: Normal Inspection - Respiratory Exam Respiratory Exam: Clear to Ausculation Bilateral, NORMAL BREATHING PATTERN. absent: Accessory Muscle Use - Cardiovascular Exam Cardiovascular Exam: RRR, +S1, +S2 - GI/Abdominal Exam GI & Abdominal Exam: Soft, Normal Bowel Sounds - Exam Exam: NORMAL INSPECTION. absent: Scrotal Swelling, Bladder Distension - Extremities Exam Extremities Exam: Normal Inspection. absent: Calf Tenderness - Back Exam Back Exam: NORMAL INSPECTION - Neurological Exam Neurological Exam: Alert, Awake, Oriented x3 - Psychiatric Exam Psychiatric exam: Normal Affect, Normal Mood - Skin Skin Exam: Dry, Intact, Normal Color, Warm Assessment and Plan - Assessment and Plan (Free Text) Assessment: 77 year old [place]ien speaking male with a past medical history notable for atrial fibrillation, PAD, prostate cancer diagnosed in 2002 and treated with radiation therapy, recently diagnosed bladder cancer with a Nava catheter who presents with 5 weeks of gradually worsening dyspnea on exertion, generalized weakness, and malaise. CT of the abdomen and pelvis showed a left-sided hydronephrosis and hydroureter. The obstruction appears to be at the level of a left pelvic fluid collection which measures 6.3 cm AP x 5.1 cm wide by 3.5 cm in height. Small droplets of air are seen within this collection making a consistent with an abscess. This is difficult to separate from the adjacent bladder. A Nava catheter is seen in the bladder and there is a small amount of air in the bladder. Patient received two units of PRBCs on admission given his hemoglobin was 7.7 and he had symptomatic anemia - exertional dyspnea, lethargy , and weakness. He underwent cystoscopy and biopsy of the exophytic bladder lesion on 01/22 with ureteral stent unable to be placed. Infectious disease is following the patient and have him on Meropenem. Currently, the patient underwent successful placement of nephrostomy tube in the left kidney. We will follow up with the pathology and discussed the treatment options for the patient. We will continue to follow the patient and treat accordingly. Case was reviewed and discussed with attending physician, Dr. Be
[2018-01-23] MEDS ORDERED: Lidocaine 2% Inj (20ml) ONE (08:23)
[2018-01-23] MEDS ORDERED: Iodixanol 320 MG/ML 100 ML BOTTLE IV ONE ×2 (08:23→08:27)
--- NOTE | 2018-01-23 08:31 | PN ---
DATE: 01/22/2018 SUBJECTIVE: The patient is currently seen ambulating in his room. He was status post cystoscopy yesterday with a retrograde study attempted, biopsy of the bladder and a cystogram. No stents were placed for his left-sided hydronephrosis. The patient's BUN and creatinine, however, are down to 16 and 1.1. MEDICATIONS: Medication list reviewed. The patient is currently on diltiazem, D5 normal saline 60 mL an hour, Flomax, Lidoderm, meropenem, MiraLax, morphine, nystatin, sodium bicarbonate tablets, Tylenol p.r.n. and Ultram. OBJECTIVE: INTAKE/OUTPUT: Intake is 14 30, output is 1100. VITAL SIGNS: Blood pressure 118/70, pulse of 64, temperature 99, respiratory rate 18 with a pulse ox of 97%. HEENT: Exam shows him to be normocephalic, atraumatic. Conjunctivae remain pale. Sclerae are nonicteric. NECK: Supple. No neck vein distention. CHEST: Clear to auscultation and percussion with no rales, rhonchi or wheezing. CARDIOVASCULAR: Shows a regular rate and rhythm without audible murmurs, rubs or gallops. ABDOMEN: Soft. Bowel sounds normal. Nondistended. No lower quadrant tenderness. No suprapubic tenderness. No rebound or guarding. EXTREMITIES: No lower extremity cyanosis, clubbing or edema. LABORATORY DATA AND IMAGING: Cystogram done on 01/21/2018 showed placement of the balloon-tip catheter in the bladder, irregular contour of the bladder wall consistent with his known diagnosis of bladder cancer. Labs: CBC today white blood cell count 11.1, slightly higher; hemoglobin slightly lower at 8.9; platelet count is 255,000. Chemistries show a normal set of electrolytes. BUN is down to 16 with a creatinine of 1.1. BUN has dropped from a high of 57 down to 16, which is at baseline levels. Creatinine has down from a high of 1.7 down to 1.1, which is at baseline levels. Calcium is 8.5. Last phosphorus was 3 with magnesium of 1.6. Liver enzymes are normal. Albumin is 2.5. 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 Blood cultures negative at [address] scan done on admission showed left-sided hydronephrosis with hydroureter and a likely pelvic abscess. ASSESSMENT: 1. Acute renal failure superimposed on chronic kidney disease, perhaps stage 1/2. The patient had left-sided hydronephrosis with hydroureter and a pelvic abscess. The patient had a return to normal of his BUN and creatinine. BUN is now 16 with a creatinine of 1.1 despite having the hydronephrosis. The patient had been seen by Urology. The patient did have a cystoscopy with retrograde pyelogram which was attempted and a biopsy of the bladder and cystogram, it appears that a stent was not placed. 2. History of metabolic acidosis. Carbon dioxide is now normal. I can discontinue oral sodium bicarbonate supplements. 3. History of metastatic prostate cancer with likely bladder cancer. Also, had history of adenocarcinoma of the lung. 4. History of anemia. Hemoglobin is actually slightly low at 8.9. Transfusions on a p.r.n. basis. 5. 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 The patient will complete a course of IV antibiotic therapy. PLAN: 1. From my standpoint, we can discontinue IV fluid hydration. 2. Discontinue oral sodium bicarbonate therapy. 3. Continue Urology followup. 4. Continue close Oncology followup. 5. Continued ID followup. 6. Continue to try and obtain accurate Is and Os. 7. Agree with evaluation for palliative care in light of his multiple malignancies. Crispin Keller MD MTDD
[2018-01-23] MEDS ORDERED: Midazolam 2 MG/2 ML VIAL ONE (09:45)
[2018-01-23] MEDS ORDERED: Oxycodone/Acetaminophen 5/325 mg Tab PO PRN (10:07)
[2018-01-23] MEDS: Lidocaine 5% Patch TD SCH (11:20)
[2018-01-23] MEDS: Nystatin 100,000 Units/ml Oral Susp 5 ml UD PO SCH ×4 (11:21→22:15)
[2018-01-23] MEDS: Meropenem IV 1 gm in NS 50 ML IVPB SCH ×2 (11:21→22:14)
--- NOTE | 2018-01-23 13:02 | VASCULAR ---
PROCEDURE: 1. Left antegrade pyelogram. 2. Left percutaneous nephrostomy tube placement. HISTORY: Bladder CA. Left hydronephrosis. Sepsis. Needs left nephrostomy tube PHYSICIAN(S): Fito Sylvester MD. TECHNIQUE: The relative risks and indications of the procedure were explained to the patient and his daughter and consent obtained. The patient was placed prone on the arteriogram table and the left back and flank prepped and draped in the usual sterile fashion. Conscious sedation and monitoring were provided throughout the procedure by a nurse. A single pass with a 21-gauge needle was performed and the left renal pelvis was entered. Clear urine was aspirated. A microbiology specimen was sent. Contrast was injected and an antegrade pyelogram performed. A second puncture site involving a left lower polecalyx was selected for tube placement. 1% Xylocaine was used to anesthetize the skin and soft tissues. An 18-gauge needle was advanced under fluoroscopy into a left lower polecalyx. A 0.035 angled guidewire was coiled within the renal pelvis. Sequential dilatation was performed with subsequent placement of a 12French nephrostomy tube. The tube was secured and placed to gravity drainage. The patient tolerated the procedure well. FINDINGS: There is severe left hydronephrosis. There is a distal left ureteral obstruction. No contrast enters the bladder. IMPRESSION: 1.Severe left hydronephrosis. Complete obstruction in the distal left ureter is noted 2. Successful placement of a 12 [place] left nephrostomy tube.
--- NOTE | 2018-01-23 13:32 | PN ---
DATE: 01/23/2018 SUBJECTIVE: The patient is in bed, in no acute distress, nontoxic. No fevers and no chills. PHYSICAL EXAMINATION: VITAL SIGNS: Temperature is 98, blood pressure is 140/60, respiratory rate of 18, heart rate of 66. HEENT: Examination of HEENT is unremarkable. NECK: Supple. LUNGS: Have decreased breath sounds. HEART: Normal S1 and S2. ABDOMEN: Soft. LABORATORY DATA: Laboratory examination reveals a white count of 10,000, hemoglobin of 9, platelets of 243. Chemistries are noted. BUN of 16, creatinine of 1, procalcitonin is 0.12. Urinalysis is noted. Microbiology reveals Morganella morganii. note is reviewed. ASSESSMENT AND PLAN: A 77-year-old male seen earlier this morning with severe sepsis, acute renal failure, pelvic abscess associated with probable left-sided pyelonephritis with Morganella morganii in the urine. Currently on meropenem, day #6, maybe able to switch to p.o. antibiotic upon discharge. The patient's Morganella morganii is sensitive to ceftriaxone, Bactrim, ertapenem, Cipro, cefepime. The patient's EKG shows a QTc of 439, allowing Cipro to be an option as outpatient at 500 mg p.o. b.i.d. x10 days. Ernst Osborn MD
--- NOTE | 2018-01-23 17:10 | PN ---
DATE: 01/23/2018 SUBJECTIVE: The patient is seen lying in bed. He is awake. He is alert. He had a left-sided percutaneous nephrostomy done earlier today. He denies any pain. Denies any shortness of breath. PHYSICAL EXAMINATION: GENERAL: Elderly male, lying in bed. VITAL SIGNS: Blood pressure 132/68, heart rate 61, respiratory rate 18, temperature 98.5. HEENT: Normocephalic, atraumatic. NECK: Supple, no JVD. LUNGS: Bilateral equal air entry, bilateral equal expansion, no rales. CARDIAC: S1 and S2, regular rate and rhythm, no murmur, no rub. ABDOMEN: Soft, nondistended, nontender, bowel sounds present. GENITOURINARY: Left-sided Urobag from the nephrostomy. EXTREMITIES: No lower extremity edema. INTAKE AND OUTPUT: 1140/1300. LABORATORY DATA: Hemoglobin 9.1, BUN 16, creatinine 1. Urine culture from 01/17/2018: Morganella Morganii. CURRENT MEDICATIONS: Cardizem 60 t.i.d., Flomax, Lidoderm, Merrem 1 g every 12, MiraLax, morphine, nystatin, Tylenol, Zofran. ASSESSMENT: 1. Acute kidney injury, combination of prerenal azotemia and obstructive uropathy, resolved. 2. Left hydronephrosis/hydroureter. Unsuccessful stent placement, retrograde. 3. Now status post percutaneous nephrostomy, postoperative day zero. 4. Prostate cancer with metastasis. 5. Resolved metabolic acidosis. PLAN: 1. Monitor urine output. 2. Avoid dehydration. 3. Push p.o. intake. 4. Urology and oncology followup. Mary Gabriel MD
[2018-01-23] MEDS: Sodium Chloride 0.45% 1,000 ML IV SCH (22:14)
--- NOTE | 2018-01-23 22:29 | PN ---
DATE: 01/22/2018 SUBJECTIVE: The patient has no fevers, no chills. No nausea, no vomiting. PHYSICAL EXAMINATION: VITAL SIGNS: Temperature is 98, blood pressure is 120/70, respiratory rate 16. HEENT: Unremarkable. NECK: Supple. LUNGS: Have decreased breath sounds. HEART: Normal S1 and S2. ABDOMEN: Soft, nontender. LABORATORY EXAMINATION: Reviewed. ASSESSMENT AND PLAN: A 77-year-old who was seen yesterday with severe sepsis, acute renal failure, pelvic abscess associated with probable left-sided pyelonephritis and Morganella morganii, on meropenem, yesterday was day #5. We will continue present course and we will follow with you. Ernst Osborn MD
[2018-01-24] MEDS: POLYETHYLENE GLYCOL 3350 17 GM/Dose PACKET PO PRN (01:38)
--- NOTE | 2018-01-24 02:10 | PN ---
DATE: 01/23/2018 SUBJECTIVE: The patient is a 77-year-old male with a history of hypertension, peptic ulcer disease, history of prostate carcinoma which was treated with radiation about 15 years ago. He was found to have adenocarcinoma of the lung within the past year. During the workup, it was felt that the patient had a left ureteral cystic junction mass. 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 At that time, an attempt was made to pass a stent into the left ureter; however, this failed. The patient was sent home and he was complaining of weakness. He was found to be severely anemic when he presented to the emergency room and was therefore admitted. To date, he was transfused 2 units of packed red blood cells. He is being followed by Dr. Be, the oncologist and director of hotel operations; Dr. Franks, the urologist; Dr. Fraga is licensed physical therapy assistant; and Dr. Osborn, Infectious Disease specialist. It was felt that there was an abscess in the area of this mass outside the bladder on the left. There was hydronephrosis and hydroureter on the left. Dr. Franks performed a cystoscopy; biopsies of the prostate and the bladder were taken. Pathology results are pending. A pigtail stent could not be placed in the ureter at that time. Earlier this morning, the patient underwent percutaneous ureterostomy placement and the patient tolerated the procedure well. When he was seen, he was in bed in his room. He has been there for about an hour post procedure. He was feeling well. Denies any pain from the urostomy tube. The patient's family as well as Dr. Be were at bedside and the case was discussed with him and the family. The patient has plans of returning to [facility] post discharge for followup with a urologist there. After discussion with the patient, his family and with Dr. Be, we will be contacting Dr. Fraga once again to evaluate the patient as far as cardiac status prior to committing to these procedures. It is noted that in 09/2017, he had a negative thallium stress test which showed an ejection fraction of 70%. At that time, he had echocardiogram which showed moderate aortic regurgitation and moderate mitral regurgitation with an ejection fraction of 55-60%. PHYSICAL EXAMINATION: GENERAL: When seen today, the patient is comfortable. He is in good spirits. He is feeling well. Physical exam is essentially unremarkable. VITAL SIGNS: Stable. LABORATORY DATA: Morning laboratory showed the hemoglobin to be 9.1, hematocrit 26.2, blood urea nitrogen is 16, creatinine is 1. ASSESSMENT AND PLAN: So at this time, we are continuing the patient's current course, and will be following him closely, expecting discharge to home within the next few days, to follow up with his oncology urologist at [facility]. Shashank Riddle MD
--- NOTE | 2018-01-24 03:15 | CON ---
DATE: 01/23/2018 SERVICE: Cardiology. REASON FOR CONSULTATION: Preop evaluation and risk stratification for possible bladder surgery. I have been asked by Dr. Shashank Riddle to evaluate for possible bladder surgery preop clearance. BRIEF CLINICAL HISTORY: This is a 77-year-old male recently admitted with right-sided pneumothorax, underwent percutaneous biopsy of the lung mass, found to be adenocarcinoma of the lung. Now found to have also bladder tumor and possibly needs bladder resection. Patient had pelvic abscess recently and undergoing today percutaneous nephrostomy tube and later on a stent placement. Cardiology consult was called for preop evaluation and risk stratification of possible bladder surgery after being transferred to the [facility] Patient denies any chest pain, shortness of breath, or any palpitation. Patient speaks [place]. Information obtained from the daughter, Harmony, telephone number [phone]. Patient is well known to us from previous admissions in September and August, when the patient underwent noninvasive workup as well. Patient denies any chest pain, shortness of breath, or any palpitation. As mentioned, discussed with the daughter, Harmony, - getting information from the patient is not that possible - resection of the bladder tumor in 3 weeks, because it looks like prostate CA with metastasis to the bladder. Recently also diagnosed with adenocarcinoma of the lung, status post abscess and percutaneous drainage for the abscess and putting in the nephrostomy tube later with stent placement in the ureter. PAST MEDICAL HISTORY: Significant for carcinoma of the prostate, history of lung mass, on admission had biopsy, complicated by pneumothorax, found to be adenocarcinoma, history of bladder tumor, prostate cancer, and history of abscess recently, requiring nephrostomy tube and later on a stent placement, possibly going for resection of bladder tumor. RECENT CARDIAC WORKUP: As follows: Patient had a stress test dated 10/02/2017, shows a normal myocardial perfusion study, ejection fraction of 70%. The patient had an echocardiography on 10/02/2017 that revealed normal chamber size, ejection fraction of 55%-60%, moderate aortic regurgitation, moderate mitral regurgitation, mild tricuspid regurgitation, right ventricular systolic pressure of 47, mild to moderate pulmonary insufficiency, mild pulmonary hypertension. MEDICATIONS AT HOME: Patient is taking Cardizem, Flomax, and diclofenac. REVIEW OF SYSTEMS: As per HPI. PHYSICAL EXAMINATION: VITAL SIGNS: Height of the patient is 5 feet 4 inches, weight of the patient is 115 pounds, body mass index 19.7 kg/m2, temperature afebrile, heart rate 75, blood pressure 102/43. HEENT: PERRLA. Extraocular muscles intact. NECK: Supple. No carotid bruit or thyromegaly. CHEST: Clear to auscultation. HEART: S1 and S2 regular. ABDOMEN: Soft. EXTREMITIES: Clubbing and cyanosis, negative. LABORATORY DATA: Blood workup as follows. WBC 10, hemoglobin , hematocrit 26.2, platelet count 243. Chemistry shows sodium , potassium 3.9, chloride 102, carbon dioxide 28, anion gap of 11, BUN 16, creatinine 1.1, total protein 5.7, albumin 2.6, albumin-globulin ratio of 0.8. EKG showed normal sinus, right bundle branch block, rate of 74. IMPRESSION: Adenocarcinoma of the prostate with metastasis to the bladder, pelvic abscess, hydroureter - status post nephrostomy tube, probably needs stent placement and later on, patient 2 to 3 weeks' time as per daughter, bladder resection at the [facility], so preoperative clearance was called for evaluation. As mentioned, patient had a stress test essentially negative in 09/2017. Also echocardiogram showed preserved left ventricular function. RECOMMENDATIONS: Recommend continued perioperative low-dose beta-brenna to prevent going into SVT. We will discuss with Dr. Riddle. So far, no absolute contraindication for surgery from the Cardiology point of view, though patient to be moderate to high risk because of underlying malignancy of lung also; but no absolute contraindication. Risk-benefit ratio is in favor of patient. We will proceed for surgery if needed. On reviewing the last chart as mentioned, the patient becomes bradycardic with beta-brenna; so we will not use the beta-brenna, we will continue Cardizem to prevent going into SVT. As mentioned, last stress test dated 10/02/2017 was essentially negative. Echo, also 10/02/2017, showed ejection fraction of 55% to 60%, moderate aortic regurgitation. We will follow with you. Patient also has a history of atrial fibrillation, reviewing the chart; admitted on 10/16/2017, and Cardizem was given and converted to normal sinus. Since patient is on Cardizem, we will not give any beta-brenna because patient became bradycardic at one point on last admission. We will follow with you. Thank you, Dr. Riddle, for providing us the opportunity in taking care of the patient, John. Dougie Fraga MD
[2018-01-24 06:39] LABS: ALB/GLOB RATIO 0.9 (1.1-1.8); ALBUMIN 2.6 g/dL (3.0-4.8); ALT/SGPT 26 U/L (7-56); AST/SGOT 18 U/L (17-59); BLOOD UREA NITROGEN 21 mg/dL (7-21); CALCIUM 8.7 mg/dL (8.4-10.5); GFR AFRICAN-AMERICAN > 60; GFR NON-AFRICAN AMERICAN > 60; HDL CHOLESTEROL 25 mg/dL (29-60)
[2018-01-24 06:40] LABS: HEMOGLOBIN 8.5 g/dL (14.0-18.0); MEAN CELL VOLUME 83.8 fl (80.0-105.0); MEAN CORPUSCULAR HEMOGLOBIN 28.6 pg (25.0-35.0); MEAN CORPUSCULAR HGB CONC 34.1 g/dl (31.0-37.0); MEAN PLATELET VOLUME 9.6 fl (7.0-11.0); RBC 2.97 10^6/uL (3.5-6.1); RED CELL DISTRIBUTION WIDTH 13.8 % (11.5-14.5)
[2018-01-24 06:45] LABS: WHITE BLOOD COUNT 13.2 10^3/ul (4.5-11.0)
[2018-01-24 06:47] LABS: LDL CHOLESTEROL 55 mg/dL (0-129)
--- NOTE | 2018-01-24 09:16 | CP.PCM.PN ---
Subjective - Date & Time of Evaluation Date of Evaluation: 01/24/18 Time of Evaluation: 07:00 - Subjective Subjective: Solomon Hernández DO, IM Resident PGY-1 Hematology/Oncology Progress Note for Dr. Be Patient was seen and examined at bedside this morning. We spoke with his daughter over the phone who acts as a top cager as he primarily speaks [place]. He is feeling well and has no new complaints. He states that the nephrostomy bags are somewhat uncomfortable. His main complaint this AM is worsening abdominal pain and discomfort from constipation. He states that the enema he previously received helped the most. He states that the miralax he has been receiving has not helped. Objective - Vital Signs/Intake and Output Vital Signs (last 24 hours): Temp Pulse Resp BP Pulse Ox 98.4 F 76 20 127/69 100 01/24/18 08:12 01/24/18 08:12 01/24/18 08:12 01/24/18 08:12 01/24/18 08:12 Intake and Output: 01/24/18 01/24/18 06:59 18:59 Intake Total 1945 Output Total 1750 Balance 195 - Medications Medications: Current Medications Acetaminophen (Tylenol 325mg Tab) 650 mg PO Q4H PRN PRN Reason: Pain, Mild (1-3) Diltiazem HCl (Cardizem) 60 mg PO TID [facility] Last Admin: 01/23/18 17:38 Dose: Not Given Meropenem (Merrem Iv 1 Gm Premix) 50 mls @ 100 mls/hr IVPB Q12 [facility] PRN Reason: Protocol Last Admin: 01/23/18 22:14 Dose: 100 mls/hr Lidocaine (Lidoderm) 2 ea TD DAILY [facility] Last Admin: 01/23/18 11:20 Dose: 2 ea Morphine Sulfate (Morphine) 2 mg IVP Q4H PRN PRN Reason: Pain, severe (8-10) Nystatin (Nystatin Oral Susp) 5 ml PO QID [facility] Last Admin: 01/23/18 22:15 Dose: 5 ml Ondansetron HCl (Zofran Inj) 4 mg IVP Q6H PRN PRN Reason: Nausea/Vomiting Oxycodone/Acetaminophen (Percocet 5/325 Mg Tab) 1 tab PO Q4H PRN PRN Reason: Pain, moderate (4-7) Stop: 01/26/18 10:08 Polyethylene Glycol (Miralax) 17 gm PO DAILY PRN PRN Reason: Constipation Last Admin: 01/24/18 01:38 Dose: 17 gm Tamsulosin HCl (Flomax) 0.4 mg PO DAILY [facility] Last Admin: 01/23/18 11:20 Dose: 0.4 mg Tramadol HCl (Ultram) 50 mg PO TID PRN PRN Reason: Pain, moderate (4-7) Last Admin: 01/20/18 23:27 Dose: 50 mg - Labs Labs: 01/24/18 05:45 01/24/18 05:45 PT 14.2 SECONDS (9.4-12.5) H 01/21/18 06:00 INR 1.23 (0.93-1.08) H 01/21/18 06:00 APTT 21.9 Seconds (25.1-36.5) L 01/21/18 06:00 - Constitutional Appears: Non-toxic, No Acute Distress - Head Exam Head Exam: ATRAUMATIC, NORMAL INSPECTION, NORMOCEPHALIC - Eye Exam Eye Exam: Normal appearance, PERRL - ENT Exam ENT Exam: Mucous Membranes Moist - Neck Exam Neck Exam: Full ROM. absent: Lymphadenopathy, Tenderness, Thyromegaly - Respiratory Exam Respiratory Exam: Clear to Ausculation Bilateral, Rales, Rhonchi, Wheezes, NORMAL BREATHING PATTERN - Cardiovascular Exam Cardiovascular Exam: REGULAR RHYTHM, RRR, +S1, +S2. absent: Gallop, Rubs, Murmur - GI/Abdominal Exam GI & Abdominal Exam: Soft, Normal Bowel Sounds. absent: Guarding, Tenderness, Organomegaly, Rebound - Back Exam Additional comments: nephrostomy tubes intact bilaterally, appear clean - Neurological Exam Neurological Exam: Alert, Awake, Oriented x3 - Psychiatric Exam Psychiatric exam: Normal Affect, Normal Mood - Skin Skin Exam: Dry, Intact, Normal Color, Warm Assessment and Plan - Assessment and Plan (Free Text) Assessment: Mr. Ospina is a 77 year old male with PMH of AFib, PAD, prostate cancer ( diagnosed in 2002, treated with radiation), who originally presented with five weeks of weakness, fatigue, and dyspnea on exertion. He was diagnosed with squamous cell carcinoma of the bladder after additional workup and cystoscopy. Plan: Patient was found to have extensive hydronephrosis on CT abdomen/pelvis. Subsequent cystoscopy provided a tissue diagnosis of squamous cell carcinoma of the bladder. Two days ago, he underwent successful placement of nephrostomy tube by Dr. Sylvester for relief of worsening hydronephrosis. Currently, he is tolerating the nephrostomy bag well and the bag is draining properly. We will order a fleet enema for relief of his worsening constipation. He is planning on following up with a urologic outbound sales specialist for additional management. Case and plan were reviewed and discussed in detail with my attending physician Dr. Haile Hernández, IM Resident PGY-1
--- NOTE | 2018-01-24 10:51 | CP.PCM.PN ---
Subjective - Date & Time of Evaluation Date of Evaluation: 01/24/18 Time of Evaluation: 06:50 - Subjective Subjective: awake,alert,no distress,denies chest pain Reason for consultation and follow up: Cardiac evaluation and pre-op stratification for bladder surgery. History of atrial fibrillation,hypertension , lung mass,prostate cancer,bladder tumor,has nephrostomy Seen and examined by me and Dr. Fraga Objective - Vital Signs/Intake and Output Vital Signs (last 24 hours): Temp Pulse Resp BP Pulse Ox 98.4 F 76 20 127/69 100 01/24/18 08:12 01/24/18 08:12 01/24/18 08:12 01/24/18 08:12 01/24/18 08:12 Intake and Output: 01/24/18 01/24/18 06:59 18:59 Intake Total 1945 Output Total 1750 Balance 195 - Medications Medications: Current Medications Acetaminophen (Tylenol 325mg Tab) 650 mg PO Q4H PRN PRN Reason: Pain, Mild (1-3) Diltiazem HCl (Cardizem) 60 mg PO TID [facility] Last Admin: 01/23/18 17:38 Dose: Not Given Meropenem (Merrem Iv 1 Gm Premix) 50 mls @ 100 mls/hr IVPB Q8 [facility] PRN Reason: Protocol Lidocaine (Lidoderm) 2 ea TD DAILY [facility] Last Admin: 01/23/18 11:20 Dose: 2 ea Morphine Sulfate (Morphine) 2 mg IVP Q4H PRN PRN Reason: Pain, severe (8-10) Nystatin (Nystatin Oral Susp) 5 ml PO QID [facility] Last Admin: 01/23/18 22:15 Dose: 5 ml Ondansetron HCl (Zofran Inj) 4 mg IVP Q6H PRN PRN Reason: Nausea/Vomiting Oxycodone/Acetaminophen (Percocet 5/325 Mg Tab) 1 tab PO Q4H PRN PRN Reason: Pain, moderate (4-7) Stop: 01/26/18 10:08 Polyethylene Glycol (Miralax) 17 gm PO DAILY PRN PRN Reason: Constipation Last Admin: 01/24/18 01:38 Dose: 17 gm Tamsulosin HCl (Flomax) 0.4 mg PO DAILY [facility] Last Admin: 01/23/18 11:20 Dose: 0.4 mg Tramadol HCl (Ultram) 50 mg PO TID PRN PRN Reason: Pain, moderate (4-7) Last Admin: 01/20/18 23:27 Dose: 50 mg - Labs Labs: 01/24/18 05:45 01/24/18 05:45 PT 14.2 SECONDS (9.4-12.5) H 01/21/18 06:00 INR 1.23 (0.93-1.08) H 01/21/18 06:00 APTT 21.9 Seconds (25.1-36.5) L 01/21/18 06:00 - Constitutional Appears: No Acute Distress - Eye Exam Eye Exam: Normal appearance - ENT Exam ENT Exam: Mucous Membranes Moist - Cardiovascular Exam Cardiovascular Exam: REGULAR RHYTHM, +S1, +S2 Additional comments: NSR 60's - GI/Abdominal Exam GI & Abdominal Exam: Soft, Normal Bowel Sounds - Exam Additional comments: melvin catheter,nephrostomy catheter - Extremities Exam Extremities Exam: Normal Capillary Refill - Neurological Exam Neurological Exam: Alert, Awake, Oriented x3 - Psychiatric Exam Psychiatric exam: Normal Affect - Skin Skin Exam: Dry, Intact, Warm Assessment and Plan - Assessment and Plan (Free Text) Assessment: A 77 year old male who speaks [place] brought by daughter to the ER due to leaking nephrostomy tube. History of atrial fibrillation, lung mass,prostate cancer,bladder tumor,has nephrostomy.arthritis, pneumothorax post lung biopsy, hypertension,anemia,peptic ulcer disease,former smoker. Stress test last 09/2017 - normal result, no evidence of ischemia. ECHO 09/2017 essentially normal with LVEF of 60%.On Cardizem for history of atrial fibrillation, now Normal sinus rhythm. Plan: Cleared for bladder surgery from cardiac stand point Moderate to high risk for surgery Continue Cardizem No betablocker as patient goes into bradycardia On Cardizem 60 mg TID,Flomax 0.4 mg daily, Continue current treatment Continue current medications Will follow up Plan and treatment discussed with Dr. Fraga
--- NOTE | 2018-01-24 12:05 | CP.PCM.PN ---
Subjective - Date & Time of Evaluation Date of Evaluation: 01/24/18 Time of Evaluation: 09:45 - Subjective Subjective: No flank pain, no nausea, no diarrhea, no abdominal pain, no fevers. Objective - Vital Signs/Intake and Output Vital Signs (last 24 hours): Temp Pulse Resp BP Pulse Ox 98.4 F 76 20 127/69 100 01/24/18 08:12 01/24/18 08:12 01/24/18 08:12 01/24/18 08:12 01/24/18 08:12 Intake and Output: 01/24/18 01/24/18 06:59 18:59 Intake Total 1945 Output Total 1750 Balance 195 - Medications Medications: Current Medications Acetaminophen (Tylenol 325mg Tab) 650 mg PO Q4H PRN PRN Reason: Pain, Mild (1-3) Diltiazem HCl (Cardizem) 60 mg PO TID [facility] Last Admin: 01/23/18 17:38 Dose: Not Given Meropenem (Merrem Iv 1 Gm Premix) 50 mls @ 100 mls/hr IVPB Q12 [facility] PRN Reason: Protocol Last Admin: 01/23/18 22:14 Dose: 100 mls/hr Lidocaine (Lidoderm) 2 ea TD DAILY [facility] Last Admin: 01/23/18 11:20 Dose: 2 ea Morphine Sulfate (Morphine) 2 mg IVP Q4H PRN PRN Reason: Pain, severe (8-10) Nystatin (Nystatin Oral Susp) 5 ml PO QID [facility] Last Admin: 01/23/18 22:15 Dose: 5 ml Ondansetron HCl (Zofran Inj) 4 mg IVP Q6H PRN PRN Reason: Nausea/Vomiting Oxycodone/Acetaminophen (Percocet 5/325 Mg Tab) 1 tab PO Q4H PRN PRN Reason: Pain, moderate (4-7) Stop: 01/26/18 10:08 Polyethylene Glycol (Miralax) 17 gm PO DAILY PRN PRN Reason: Constipation Last Admin: 01/24/18 01:38 Dose: 17 gm Tamsulosin HCl (Flomax) 0.4 mg PO DAILY [facility] Last Admin: 01/23/18 11:20 Dose: 0.4 mg Tramadol HCl (Ultram) 50 mg PO TID PRN PRN Reason: Pain, moderate (4-7) Last Admin: 01/20/18 23:27 Dose: 50 mg - Labs Labs: 01/24/18 05:45 01/24/18 05:45 PT 14.2 SECONDS (9.4-12.5) H 01/21/18 06:00 INR 1.23 (0.93-1.08) H 01/21/18 06:00 APTT 21.9 Seconds (25.1-36.5) L 01/21/18 06:00 - Constitutional Appears: Non-toxic, Chronically Ill - Head Exam Head Exam: NORMAL INSPECTION - Respiratory Exam Respiratory Exam: Decreased Breath Sounds - Cardiovascular Exam Cardiovascular Exam: +S1, +S2 - GI/Abdominal Exam GI & Abdominal Exam: Soft. absent: Tenderness Assessment and Plan - Assessment and Plan (Free Text) Plan: Assessment Severe sepsis with acute renal failure due to pelvic abscess associated with probable left sided pyelonephritis with hydronephrosis and urinary bladder cancer, growing Morganella in the urine, clinically improving atrial fibrillation history of lung mass S/P biopsy history of arthritis Plan continue Merrem day 7 - should complete 10-14 days of antibiotics - follow up further plans of Urology - may be able to switch to PO antibiotics if no further plans will continue to monitor clinically overall prognosis is guarded at best
[2018-01-24] MEDS: Meropenem IV 1 gm in NS 50 ML IVPB SCH ×2 (13:35→21:26)
[2018-01-24] MEDS: Lidocaine 5% Patch TD SCH (13:35)
[2018-01-24] MEDS: Nystatin 100,000 Units/ml Oral Susp 5 ml UD PO SCH ×3 (13:35→21:25)
--- NOTE | 2018-01-24 18:27 | PN ---
DATE: 01/24/2018 SUBJECTIVE: The patient is seen lying in bed. He is comfortable. PHYSICAL EXAMINATION: GENERAL: Elderly male lying in bed. VITAL SIGNS: Blood pressure 127/69, heart rate 76, respiratory rate 20, temperature 98.4. HEENT: Normocephalic, atraumatic, positive pallor. NECK: Supple, no JVD. LUNGS: Bilateral equal air entry, bilateral equal expansion. CARDIAC: S1 and S2, regular rate and rhythm, no murmur, no rub. ABDOMEN: Soft, nondistended, nontender, bowel sounds present. EXTREMITIES: No extremity edema. INTAKE AND OUTPUT: 1945/1750. LABORATORY DATA: WBC 13, hemoglobin 8.5, hematocrit 25, platelets 146. Sodium 133, potassium 4.4, chloride 99, CO2 27, BUN 21, creatinine 1, glucose 137, calcium 8.7, phosphorus 2.3, magnesium 1.8, A1c 6.6, AST 18, ALT 26, albumin 2.6. Urine culture no growth. MEDICATIONS: Cardizem 60 b.i.d., Flomax, Lidoderm, Merrem 1 g every 8, MiraLax, morphine, nystatin, Tylenol, Zofran. ASSESSMENT: 1. Resolved acute kidney injury, obstructive uropathy and prerenal azotemia. 2. Resolving sepsis. 3. Status post left percutaneous cystostomy, postop day #1. 4. Prostate cancer with metastases. 5. Pelvic abscess. 6. Morganella urinary tract infection/pyelonephritis. PLAN: 1. Continue antibiotics as per ID recommendations. 2. Push p.o. fluids. 3. Monitor electrolytes. 4. Management of cancer as per Oncology team Mary Gabriel MD
[2018-01-24] MEDS: Sodium Chloride 0.45% 1,000 ML IV SCH (20:28)
[2018-01-25] MEDS: Meropenem IV 1 gm in NS 50 ML IVPB SCH ×3 (05:30→21:57)
--- NOTE | 2018-01-25 07:04 | CP.PCM.PN ---
Subjective - Date & Time of Evaluation Date of Evaluation: 01/25/18 Time of Evaluation: 06:00 - Subjective Subjective: Watching TV,awake,alert,no distress,denies chest pain Reason for consultation and follow up: Cardiac evaluation and pre-op stratification for bladder surgery. History of atrial fibrillation,hypertension , lung mass,prostate cancer,bladder tumor,has nephrostomy Seen and examined by me and Dr. Fraga Objective - Vital Signs/Intake and Output Vital Signs (last 24 hours): Temp Pulse Resp BP Pulse Ox 98.0 F 65 20 151/68 H 99 01/25/18 06:00 01/25/18 06:00 01/25/18 06:00 01/25/18 06:00 01/25/18 06:00 Intake and Output: 01/25/18 01/25/18 06:59 18:59 Intake Total 3165 Output Total 1500 Balance 1665 - Medications Medications: Current Medications Acetaminophen (Tylenol 325mg Tab) 650 mg PO Q4H PRN PRN Reason: Pain, Mild (1-3) Diltiazem HCl (Cardizem) 60 mg PO TID [facility] Last Admin: 01/24/18 17:47 Dose: 60 mg Meropenem (Merrem Iv 1 Gm Premix) 50 mls @ 100 mls/hr IVPB Q8 [facility] PRN Reason: Protocol Last Admin: 01/25/18 05:30 Dose: 100 mls/hr Lidocaine (Lidoderm) 2 ea TD DAILY [facility] Last Admin: 01/24/18 13:35 Dose: 2 ea Morphine Sulfate (Morphine) 2 mg IVP Q4H PRN PRN Reason: Pain, severe (8-10) Nystatin (Nystatin Oral Susp) 5 ml PO QID [facility] Last Admin: 01/24/18 21:25 Dose: 5 ml Ondansetron HCl (Zofran Inj) 4 mg IVP Q6H PRN PRN Reason: Nausea/Vomiting Oxycodone/Acetaminophen (Percocet 5/325 Mg Tab) 1 tab PO Q4H PRN PRN Reason: Pain, moderate (4-7) Stop: 01/26/18 10:08 Polyethylene Glycol (Miralax) 17 gm PO DAILY PRN PRN Reason: Constipation Last Admin: 01/24/18 01:38 Dose: 17 gm Tamsulosin HCl (Flomax) 0.4 mg PO DAILY [facility] Last Admin: 01/24/18 13:35 Dose: 0.4 mg Tramadol HCl (Ultram) 50 mg PO TID PRN PRN Reason: Pain, moderate (4-7) Last Admin: 01/25/18 00:01 Dose: 50 mg - Labs Labs: 01/24/18 05:45 01/24/18 05:45 PT 14.2 SECONDS (9.4-12.5) H 01/21/18 06:00 INR 1.23 (0.93-1.08) H 01/21/18 06:00 APTT 21.9 Seconds (25.1-36.5) L 01/21/18 06:00 - Constitutional Appears: No Acute Distress - Head Exam Head Exam: NORMOCEPHALIC - Eye Exam Eye Exam: Normal appearance - Respiratory Exam Respiratory Exam: Clear to Ausculation Bilateral, NORMAL BREATHING PATTERN - Cardiovascular Exam Cardiovascular Exam: +S1, +S2 Additional comments: Telemetry-NSR 60's - GI/Abdominal Exam GI & Abdominal Exam: Soft, Normal Bowel Sounds - Exam Additional comments: Nava catheter left nephrostomy tube to drain bag - Extremities Exam Extremities Exam: Normal Capillary Refill - Neurological Exam Neurological Exam: Alert, Awake, Oriented x3 - Psychiatric Exam Psychiatric exam: Normal Affect, Normal Mood - Skin Skin Exam: Dry, Warm Assessment and Plan - Assessment and Plan (Free Text) Assessment: A 77 year old male who speaks Togolese brought by daughter to the ER due to leaking nephrostomy tube. History of atrial fibrillation, lung mass,prostate cancer,bladder tumor,has nephrostomy.arthritis, pneumothorax post lung biopsy, hypertension,anemia,peptic ulcer disease,former smoker. Stress test last 09/2017 - normal result, no evidence of ischemia. ECHO 09/2017 essentially normal with LVEF of 60%.On Cardizem for history of atrial fibrillation, now Normal sinus rhythm. Plan: Remained on NSR- telemetry Continue Cardizem No distress, comfortable Cleared for bladder surgery from cardiac stand point Moderate to high risk for surgery On Cardizem 60 mg TID,Flomax 0.4 mg daily, Continue current treatment Continue current medications Will follow up Plan and treatment discussed with Dr. Fraga
--- NOTE | 2018-01-25 07:51 | CP.PCM.PN ---
Subjective - Date & Time of Evaluation Date of Evaluation: 01/25/18 Time of Evaluation: 07:15 - Subjective Subjective: Dalia Quinteros DO, PGY-2: Hematology and Oncology Progress Note for Dr. eB Patient was seen and examined at bedside. He reports passing a bowel movement after getting his enema. He reports pain in his bilateral hip and gluteal region that responded well to Lidocaine patches. This time however, for his pain he would like to try the lidocaine gel. During the entirety of the encounter with the patient, his daughter, Ashlie, acted as the approver on speaker phone. He also requested for a PRN enema for constipation. He also reports being unable to sleep secondary to his pain. Objective - Vital Signs/Intake and Output Vital Signs (last 24 hours): Temp Pulse Resp BP Pulse Ox 98.0 F 65 20 151/68 H 99 01/25/18 06:00 01/25/18 06:00 01/25/18 06:00 01/25/18 06:00 01/25/18 06:00 Intake and Output: 01/25/18 01/25/18 06:59 18:59 Intake Total 3165 Output Total 1500 Balance 1665 - Medications Medications: Current Medications Acetaminophen (Tylenol 325mg Tab) 650 mg PO Q4H PRN PRN Reason: Pain, Mild (1-3) Diltiazem HCl (Cardizem) 60 mg PO TID [facility] Last Admin: 01/24/18 17:47 Dose: 60 mg Meropenem (Merrem Iv 1 Gm Premix) 50 mls @ 100 mls/hr IVPB Q8 [facility] PRN Reason: Protocol Last Admin: 01/25/18 05:30 Dose: 100 mls/hr Lidocaine (Lidoderm) 2 ea TD DAILY [facility] Last Admin: 01/24/18 13:35 Dose: 2 ea Lidocaine (Lidocaine 5%) 0 gm TOP TID [facility] Morphine Sulfate (Morphine) 2 mg IVP Q4H PRN PRN Reason: Pain, severe (8-10) Nystatin (Nystatin Oral Susp) 5 ml PO QID [facility] Last Admin: 01/24/18 21:25 Dose: 5 ml Ondansetron HCl (Zofran Inj) 4 mg IVP Q6H PRN PRN Reason: Nausea/Vomiting Oxycodone/Acetaminophen (Percocet 5/325 Mg Tab) 1 tab PO Q4H PRN PRN Reason: Pain, moderate (4-7) Stop: 01/26/18 10:08 Polyethylene Glycol (Miralax) 17 gm PO DAILY PRN PRN Reason: Constipation Last Admin: 01/24/18 01:38 Dose: 17 gm Tamsulosin HCl (Flomax) 0.4 mg PO DAILY [facility] Last Admin: 01/24/18 13:35 Dose: 0.4 mg Tramadol HCl (Ultram) 50 mg PO TID PRN PRN Reason: Pain, moderate (4-7) Last Admin: 01/25/18 00:01 Dose: 50 mg - Labs Labs: 01/24/18 05:45 01/24/18 05:45 PT 14.2 SECONDS (9.4-12.5) H 01/21/18 06:00 INR 1.23 (0.93-1.08) H 01/21/18 06:00 APTT 21.9 Seconds (25.1-36.5) L 01/21/18 06:00 - Constitutional Appears: Well, Non-toxic - Head Exam Head Exam: ATRAUMATIC, NORMOCEPHALIC - Eye Exam Eye Exam: EOMI, Normal appearance - ENT Exam ENT Exam: Mucous Membranes Moist - Neck Exam Neck Exam: Normal Inspection - Respiratory Exam Respiratory Exam: Clear to Ausculation Bilateral, NORMAL BREATHING PATTERN. absent: Accessory Muscle Use - Cardiovascular Exam Cardiovascular Exam: RRR, +S1, +S2 - GI/Abdominal Exam GI & Abdominal Exam: Soft, Normal Bowel Sounds - Exam Exam: NORMAL INSPECTION. absent: Scrotal Swelling - Extremities Exam Extremities Exam: Normal Inspection. absent: Calf Tenderness - Back Exam Back Exam: NORMAL INSPECTION - Neurological Exam Neurological Exam: Alert, Awake - Psychiatric Exam Psychiatric exam: Normal Affect, Normal Mood - Skin Skin Exam: Dry, Intact, Normal Color, Warm Assessment and Plan - Assessment and Plan (Free Text) Assessment: 77 year old [place]ayan speaking male with a past medical history notable for atrial fibrillation, PAD, prostate cancer diagnosed in 2002 and treated with radiation therapy, recently diagnosed bladder cancer with a Nava catheter who presents with 5 weeks of gradually worsening dyspnea on exertion, generalized weakness, and malaise. CT of the abdomen and pelvis showed a left-sided hydronephrosis and hydroureter. The obstruction appears to be at the level of a left pelvic fluid collection which measures 6.3 cm AP x 5.1 cm wide by 3.5 cm in height. Small droplets of air are seen within this collection making a consistent with an abscess. This is difficult to separate from the adjacent bladder. A Nava catheter is seen in the bladder and there is a small amount of air in the bladder. Patient received two units of PRBCs on admission given his hemoglobin was 7.7 and he had symptomatic anemia - exertional dyspnea, lethargy , and weakness. He underwent cystoscopy and biopsy of the exophytic bladder lesion on 01/22 with ureteral stent unable to be placed. Infectious disease is following the patient and have him on Meropenem with urine cultures growing Morganella Morgani species. Currently, the patient underwent successful placement of nephrostomy tube in the left kidney. The pathology showed squamous cell cancer of the bladder. The plan is for the patient to see a surgical oncologist. Treatment options were discussed with the patient and his daughter. We will continue to follow the patient and treat accordingly. We added lidocaine 5% gel to be applied to the bilateral hips and buttocks. Case was reviewed and discussed with attending physician, Dr. Be
--- NOTE | 2018-01-25 09:04 | PN ---
DATE: 01/24/2018 DAILY PROGRESS NOTE SUBJECTIVE: The patient was seen this morning in room 361, bed 2. He is awake, alert, comfortable, in good spirits. Nephrostomy tube is draining on the left side. I spoke with his fire prevention inspector, Dr. Fraga today. The patient is scheduled to go to a tertiary referral center for additional prostate surgery/biopsy/drainage of the abscess that may occur seen as tomorrow. Demetrius Riddle MD
[2018-01-25] MEDS: Lidocaine 5% Oint(35 gm) TOP SCH ×3 (09:44→17:11)
[2018-01-25] MEDS: Nystatin 100,000 Units/ml Oral Susp 5 ml UD PO SCH ×4 (09:45→21:58)
[2018-01-25] MEDS: Lidocaine 5% Patch TD SCH (09:45)
--- NOTE | 2018-01-25 10:49 | PN ---
DATE: 01/25/2018 SUBJECTIVE: The patient is seen sitting in bed. He is awake, he is alert, he is comfortable. PHYSICAL EXAMINATION: GENERAL: Elderly male, sitting in bed. VITAL SIGNS: Blood pressure 151/68, heart rate 65, respiratory rate 20, temperature 98. HEENT: Normocephalic, atraumatic, positive pallor. NECK: Supple, no JVD. LUNGS: Bilateral equal air entry, bilateral equal expansion. CARDIAC: S1 and S2, regular rate and rhythm, no murmur, no rub. ABDOMEN: Soft, nondistended, nontender, bowel sounds present. EXTREMITIES: No lower extremity edema. INTAKE AND OUTPUT: 3165/1500. LABORATORY DATA: WBC 13, hemoglobin 8.5, hematocrit 25, platelets 246. No chemistry today. CURRENT MEDICATIONS: Cardizem, Flomax, Merrem 1 g every 8, MiraLax, morphine, nystatin, Tylenol, Ultram, Zofran. ASSESSMENT: 1. Resolved acute kidney injury. 2. Pelvic abscess, pyelonephritis. 3. Obstructive uropathy, status post left percutaneous nephrostomy. 4. Prostate cancer. 5. Hypertension. PLAN: 1. The patient is stable from the renal standpoint, he is urinating a lot. 2. Electrolytes are within normal limits. 3. Continue antibiotics as per ID recommendations. 4. Discharge planning. Mary Gabriel MD
--- NOTE | 2018-01-25 14:54 | CP.PCM.PN ---
Subjective - Date & Time of Evaluation Date of Evaluation: 01/25/18 Time of Evaluation: 11:35 - Subjective Subjective: Comfortable, no abdominal pain, no fevers. Objective - Vital Signs/Intake and Output Vital Signs (last 24 hours): Temp Pulse Resp BP Pulse Ox 98.0 F 65 20 151/68 H 99 01/25/18 06:00 01/25/18 09:43 01/25/18 06:00 01/25/18 09:43 01/25/18 06:00 Intake and Output: 01/25/18 01/25/18 06:59 18:59 Intake Total 3165 Output Total 1500 Balance 1665 - Medications Medications: Current Medications Acetaminophen (Tylenol 325mg Tab) 650 mg PO Q4H PRN PRN Reason: Pain, Mild (1-3) Diltiazem HCl (Cardizem) 60 mg PO TID [facility] Last Admin: 01/25/18 09:43 Dose: 60 mg Meropenem (Merrem Iv 1 Gm Premix) 50 mls @ 100 mls/hr IVPB Q8 [facility] PRN Reason: Protocol Last Admin: 01/25/18 05:30 Dose: 100 mls/hr Lidocaine (Lidoderm) 2 ea TD DAILY [facility] Last Admin: 01/25/18 09:45 Dose: 2 ea Lidocaine (Lidocaine 5%) 0 gm TOP TID [facility] Last Admin: 01/25/18 09:44 Dose: 1 applic Morphine Sulfate (Morphine) 2 mg IVP Q4H PRN PRN Reason: Pain, severe (8-10) Nystatin (Nystatin Oral Susp) 5 ml PO QID [facility] Last Admin: 01/25/18 09:45 Dose: 5 ml Ondansetron HCl (Zofran Inj) 4 mg IVP Q6H PRN PRN Reason: Nausea/Vomiting Oxycodone/Acetaminophen (Percocet 5/325 Mg Tab) 1 tab PO Q4H PRN PRN Reason: Pain, moderate (4-7) Stop: 01/26/18 10:08 Polyethylene Glycol (Miralax) 17 gm PO DAILY PRN PRN Reason: Constipation Last Admin: 01/24/18 01:38 Dose: 17 gm Tamsulosin HCl (Flomax) 0.4 mg PO DAILY [facility] Last Admin: 01/25/18 09:44 Dose: 0.4 mg Tramadol HCl (Ultram) 50 mg PO TID PRN PRN Reason: Pain, moderate (4-7) Last Admin: 01/25/18 00:01 Dose: 50 mg - Labs Labs: 01/24/18 05:45 01/24/18 05:45 PT 14.2 SECONDS (9.4-12.5) H 01/21/18 06:00 INR 1.23 (0.93-1.08) H 01/21/18 06:00 APTT 21.9 Seconds (25.1-36.5) L 01/21/18 06:00 - Constitutional Appears: Chronically Ill - Head Exam Head Exam: NORMAL INSPECTION - Respiratory Exam Respiratory Exam: Decreased Breath Sounds - Cardiovascular Exam Cardiovascular Exam: +S1, +S2 - GI/Abdominal Exam GI & Abdominal Exam: Soft. 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
[2018-01-26] MEDS: Meropenem IV 1 gm in NS 50 ML IVPB SCH ×3 (05:12→22:00)
--- NOTE | 2018-01-26 07:28 | CP.PCM.PN ---
Subjective - Date & Time of Evaluation Date of Evaluation: 01/26/18 Time of Evaluation: 07:05 - Subjective Subjective: Awake,alert,no distress,denies chest pain.pleasant, playing games with his phone Reason for consultation and follow up: Cardiac evaluation and pre-op stratification for bladder surgery. History of atrial fibrillation,hypertension , lung mass,prostate cancer,bladder tumor,has nephrostomy Seen and examined by me and Dr. Littlejohn Objective - Vital Signs/Intake and Output Vital Signs (last 24 hours): Temp Pulse Resp BP Pulse Ox 97.9 F 58 L 20 110/62 98 01/25/18 17:22 01/25/18 18:00 01/25/18 17:22 01/25/18 17:22 01/25/18 17:22 Intake and Output: 01/26/18 01/26/18 06:59 18:59 Output Total 600 Balance -600 - Medications Medications: Current Medications Acetaminophen (Tylenol 325mg Tab) 650 mg PO Q4H PRN PRN Reason: Pain, Mild (1-3) Diltiazem HCl (Cardizem) [address] [facility] Last Admin: 01/25/18 17:10 Dose: 60 mg Meropenem (Merrem Iv 1 Gm Premix) 50 mls @ 100 mls/hr IVPB Q8 [facility] PRN Reason: Protocol Last Admin: 01/26/18 05:12 Dose: 100 mls/hr Lidocaine (Lidoderm) [address] [facility] Last Admin: 01/25/18 09:45 Dose: 2 ea Lidocaine (Lidocaine 5%) [address] [facility] Last Admin: 01/25/18 17:11 Dose: 1 applic Nystatin (Nystatin Oral Susp) [address] [facility] Last Admin: 01/25/18 21:58 Dose: 5 ml Ondansetron HCl (Zofran Inj) 4 mg IVP Q6H PRN PRN Reason: Nausea/Vomiting Oxycodone/Acetaminophen (Percocet 5/325 Mg Tab) 1 tab PO Q4H PRN PRN Reason: Pain, moderate (4-7) Stop: 01/26/18 10:08 Last Admin: 01/25/18 22:01 Dose: 1 tab Polyethylene Glycol (Miralax) 17 gm PO DAILY PRN PRN Reason: Constipation Last Admin: 01/24/18 01:38 Dose: 17 gm Tamsulosin HCl (Flomax) 0.4 mg PO DAILY [facility] Last Admin: 01/25/18 09:44 Dose: 0.4 mg Tramadol HCl (Ultram) 50 mg PO TID PRN PRN Reason: Pain, moderate (4-7) Last Admin: 01/25/18 00:01 Dose: 50 mg - Labs Labs: 01/24/18 05:45 01/24/18 05:45 PT 14.2 SECONDS (9.4-12.5) H 01/21/18 06:00 INR 1.23 (0.93-1.08) H 01/21/18 06:00 APTT 21.9 Seconds (25.1-36.5) L 01/21/18 06:00 - Constitutional Appears: No Acute Distress - Eye Exam Eye Exam: Normal appearance - ENT Exam ENT Exam: Mucous Membranes Moist - Respiratory Exam Respiratory Exam: Decreased Breath Sounds, NORMAL BREATHING PATTERN - Cardiovascular Exam Cardiovascular Exam: +S1, +S2 - GI/Abdominal Exam GI & Abdominal Exam: Hyperactive Bowel Sounds, Normal Bowel Sounds - Exam Additional comments: melvin catheter left nephrostomy tube/drain - Extremities Exam Extremities Exam: Normal Capillary Refill - Neurological Exam Neurological Exam: Alert, Awake, Oriented x3 - Psychiatric Exam Psychiatric exam: Normal Affect - Skin Skin Exam: Intact, Warm Assessment and Plan - Assessment and Plan (Free Text) Assessment: A 77 year old male who speaks Icelandic brought by daughter to the ER due to leaking nephrostomy tube. History of atrial fibrillation, lung mass,prostate cancer,bladder tumor,has nephrostomy.arthritis, pneumothorax post lung biopsy, hypertension,anemia,peptic ulcer disease,former smoker. Stress test last 09/2017 - normal result, no evidence of ischemia. ECHO 09/2017 essentially normal with LVEF of 60%.On Cardizem for history of atrial fibrillation, now Normal sinus rhythm. Plan: No distress, comfortable Cardiac status stable Controlled blood pressure Heart rate NSR 60's On Cardizem 60 mg TID, Flomax 0.4 mg daily Will decrease Cardizem 30 mg TID For possible bladder surgery Continue current treatment Continue current medications Will follow up Plan and treatment discussed with Dr. Littlejohn
[2018-01-26] MEDS: Nystatin 100,000 Units/ml Oral Susp 5 ml UD PO SCH ×4 (09:43→22:05)
[2018-01-26] MEDS: Lidocaine 5% Patch TD SCH (09:43)
[2018-01-26] MEDS: Lidocaine 5% Oint(35 gm) TOP SCH ×3 (09:45→17:20)
--- NOTE | 2018-01-26 12:10 | PN ---
DATE: 01/26/2018 SUBJECTIVE: The patient is seen earlier in 361, bed 1. No fevers, no chills. Uneventful night. PHYSICAL EXAMINATION VITAL SIGNS: Temperature is 98, blood pressure is 109/60, respiratory rate of 18. HEENT: Unremarkable. NECK: Supple. LUNGS: Have decreased breath sounds. HEART: Normal S1 and S2. ABDOMEN: Soft. LABORATORY DATA: Reveals a white count of 13,200 and hemoglobin is 8.5. Chemistries are noted. Urinalysis is noted. Microbiology reveals Morganella morganii and species morganii. ASSESSMENT AND PLAN: A 77 years old with severe sepsis, acute renal failure due to pelvic abscess associated with probable left-sided pyelonephritis and hydronephrosis, urinary bladder cancer with Morganella morganii in the urine, which is improving. The patient with atrial fibrillation and lung mass status post biopsy and arthritis, today is day #9 of meropenem, would complete 10-14 days and the patient for a possible transfer after tertiary facility for drainage of the pelvic abscess. We will follow with you. Review of orders reveals the meropenem to be . Ernst Osborn MD
[2018-01-26] MEDS: POLYETHYLENE GLYCOL 3350 17 GM/Dose PACKET PO PRN (17:20)
--- NOTE | 2018-01-26 18:10 | PN ---
DATE: 01/26/2018 SUBJECTIVE: The patient is seen lying in bed. He is awake, he is alert, he is comfortable. PHYSICAL EXAMINATION: GENERAL: Elderly male lying in bed. VITAL SIGNS: Blood pressure 118/71, heart rate 18, and respiratory rate 97.8. HEENT: Normocephalic, atraumatic, positive pallor. NECK: Supple, no JVD. LUNGS: Bilateral equal air entry, bilateral equal expansion. CARDIAC: S1 and S2, regular rate and rhythm, no murmur, no rub. ABDOMEN: Soft, nondistended, nontender, bowel sounds present, left percutaneous nephrostomy. EXTREMITIES: No lower extremity edema. INTAKE AND OUTPUT: Not charted. LABORATORY DATA: No new labs. MEDICATIONS: List reviewed. ASSESSMENT: 1. Acute kidney injury, resolved. 2. Pelvic abscess. 3. Left hydronephrosis, status post left percutaneous nephrostomy. 4. Prostate cancer. 5. Hypertension. PLAN: 1. Continue current management. 2. Continue antibiotics as per ID recommendations. 3. Discharge planning. Mary Gabriel MD
[2018-01-27] MEDS: Meropenem IV 1 gm in NS 50 ML IVPB SCH ×3 (05:42→21:02)
[2018-01-27 06:56] LABS: ALB/GLOB RATIO 0.9 (1.1-1.8); ALT/SGPT 28 U/L (7-56); AST/SGOT 24 U/L (17-59); BLOOD UREA NITROGEN 21 mg/dL (7-21); CALCIUM 9.2 mg/dL (8.4-10.5); GFR AFRICAN-AMERICAN > 60; GFR NON-AFRICAN AMERICAN > 60
[2018-01-27 07:06] LABS: BASO # 0.01 K/mm3 (0.0-2.0); BASO % 0.1 % (0.0-3.0); EOS # 0.2 (0.0-0.7); GRAN # 5.74 (1.4-6.5); GRAN % 77.3 % (50.0-68.0); HEMOGLOBIN 9.7 g/dL (14.0-18.0); LYMPH # 0.9 (1.2-3.4); LYMPH % 11.7 % (22.0-35.0); MEAN CELL VOLUME 85.6 fl (80.0-105.0); MEAN CORPUSCULAR HEMOGLOBIN 28.4 pg (25.0-35.0); MEAN CORPUSCULAR HGB CONC 33.2 g/dl (31.0-37.0); MEAN PLATELET VOLUME 9.7 fl (7.0-11.0); MONO # 0.7 (0.1-0.6); MONO % 8.9 % (1.0-6.0); RBC 3.41 10^6/uL (3.5-6.1); RED CELL DISTRIBUTION WIDTH 13.6 % (11.5-14.5); WHITE BLOOD COUNT 7.4 10^3/ul (4.5-11.0)
--- NOTE | 2018-01-27 08:32 | CP.PCM.PN ---
Subjective - Date & Time of Evaluation Date of Evaluation: 01/27/18 Time of Evaluation: 06:35 - Subjective Subjective: Awake,alert,no distress,denies chest pain Reason for consultation and follow up: Cardiac evaluation and pre-op stratification for bladder surgery. History of atrial fibrillation,hypertension , lung mass,prostate cancer,bladder tumor,has nephrostomy Seen and examined by me and Dr. Littlejohn Objective - Vital Signs/Intake and Output Vital Signs (last 24 hours): Temp Pulse Resp BP Pulse Ox 98.1 F 76 20 115/62 97 01/27/18 07:55 01/27/18 07:55 01/27/18 07:55 01/27/18 07:55 01/27/18 07:55 Intake and Output: 01/27/18 01/27/18 06:59 18:59 Intake Total 520 Output Total 1700 Balance -1180 - Medications Medications: Current Medications Acetaminophen (Tylenol 325mg Tab) 650 mg PO Q4H PRN PRN Reason: Pain, Mild (1-3) Diltiazem HCl (Cardizem) 30 mg PO TID [facility] Last Admin: 01/26/18 17:19 Dose: 30 mg Meropenem (Merrem Iv 1 Gm Premix) 50 mls @ 100 mls/hr IVPB Q8 [facility] PRN Reason: Protocol Last Admin: 01/27/18 05:42 Dose: 100 mls/hr Lidocaine (Lidoderm) 2 ea TD DAILY [facility] Last Admin: 01/26/18 09:43 Dose: 2 ea Lidocaine (Lidocaine 5%) 0 gm TOP TID [facility] Last Admin: 01/26/18 17:20 Dose: 1 applic Nystatin (Nystatin Oral Susp) 5 ml PO QID [facility] Last Admin: 01/26/18 22:05 Dose: 5 ml Ondansetron HCl (Zofran Inj) 4 mg IVP Q6H PRN PRN Reason: Nausea/Vomiting Polyethylene Glycol (Miralax) 17 gm PO DAILY PRN PRN Reason: Constipation Last Admin: 01/26/18 17:20 Dose: 17 gm Tamsulosin HCl (Flomax) 0.4 mg PO DAILY [facility] Last Admin: 01/26/18 09:43 Dose: 0.4 mg Tramadol HCl (Ultram) 50 mg PO TID PRN PRN Reason: Pain, moderate (4-7) Last Admin: 01/25/18 00:01 Dose: 50 mg - Labs Labs: 01/27/18 05:30 01/27/18 05:30 PT 14.2 SECONDS (9.4-12.5) H 01/21/18 06:00 INR 1.23 (0.93-1.08) H 01/21/18 06:00 APTT 21.9 Seconds (25.1-36.5) L 01/21/18 06:00 - Constitutional Appears: No Acute Distress - Eye Exam Eye Exam: Normal appearance - ENT Exam ENT Exam: Mucous Membranes Moist - Respiratory Exam Respiratory Exam: Decreased Breath Sounds, NORMAL BREATHING PATTERN - Cardiovascular Exam Cardiovascular Exam: +S1, +S2 - GI/Abdominal Exam GI & Abdominal Exam: Soft, Normal Bowel Sounds - Exam Additional comments: left nephrostomy tube/bag melvin catheter - Extremities Exam Extremities Exam: Normal Capillary Refill - Neurological Exam Neurological Exam: Alert, Awake, Oriented x3 - Psychiatric Exam Psychiatric exam: Normal Affect - Skin Skin Exam: Dry, Warm Assessment and Plan - Assessment and Plan (Free Text) Assessment: A 77 year old male who speaks Mozambican brought by daughter to the ER due to leaking nephrostomy tube. History of atrial fibrillation, lung mass,prostate cancer,bladder tumor,has nephrostomy.arthritis, pneumothorax post lung biopsy, hypertension,anemia,peptic ulcer disease,former smoker. Stress test last 09/2017 - normal result, no evidence of ischemia. ECHO 09/2017 essentially normal with LVEF of 60%.On Cardizem for history of atrial fibrillation, now Normal sinus rhythm. Plan: Cardiac status stable Controlled blood pressure Heart rate NSR 70's On Cardizem 30 mg TID, Flomax 0.4 mg daily Continue antibiotics per ID For possible bladder surgery Continue current treatment Continue current medications Will follow up Plan and treatment discussed with Dr. Littlejohn
[2018-01-27] MEDS: Lidocaine 5% Oint(35 gm) TOP SCH ×3 (09:28→17:46)
[2018-01-27] MEDS: Lidocaine 5% Patch TD SCH (09:28)
[2018-01-27] MEDS: Nystatin 100,000 Units/ml Oral Susp 5 ml UD PO SCH ×4 (09:28→21:02)
[2018-01-27] MEDS: POLYETHYLENE GLYCOL 3350 17 GM/Dose PACKET PO PRN (09:29)
--- NOTE | 2018-01-27 13:46 | PN ---
DATE: 01/27/2018 SUBJECTIVE: The patient is seen earlier today in room 361, bed 1. No fevers, no chills. The patient is well. PHYSICAL EXAMINATION VITAL SIGNS: Temperature is 98, blood pressure is 115/60, respiratory rate of 16. HEENT: Unremarkable. NECK: Supple. LUNGS: Have decreased breath sounds. HEART: Normal S1 and S2. ABDOMEN: Soft, nontender. No organomegaly. LABORATORY DATA: Reveals a white count of 7.4, hemoglobin of 9, platelets of 276. BUN of 21, creatinine of 1.1. Urinalysis is noted. Microbiology reveals urine cultures positive. ASSESSMENT AND PLAN: A 77-year-old with severe sepsis, acute renal failure due to pelvic abscess associated with probable left-sided pyelonephritis and hydronephrosis, with bladder cancer, Morganella morganii in the urine and atrial fibrillation status post lung biopsy and today is day #10 of meropenem, would complete 10-14 days and review of the orders reveals the meropenem to be active. Ernst Osborn MD
--- NOTE | 2018-01-27 20:00 | PN ---
DATE: 01/27/2018 LOCATION: Patient is in room 361, bed 1. PROBLEMS: This is a 77-year-old male was admitted from our office via the emergency room with signs and symptoms of anemia, progressively worsening left hydronephrosis and signs and symptoms of developing pelvic abscess next to the bladder post instrumentation and cystoscopy and attempted to stent placement on the left side at another institution outside. Patient since admission has had several procedures done, he had cystoscopy, biopsy and cystogram. 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 There is an area of fluid collection without fluid level adjacent to the bladder on that side consistent with either infection or tumor perforation. Patient has hydronephrosis on the left side which could not be drained with a stent internally on cystoscopy. Patient done a percutaneous nephrostomy in the left side which was sent for analysis and cytology and the catheter has been draining clear fluid. Patient also has an indwelling Nava catheter with a leg bag as well. Patient is currently on IV antibiotics, which will be continued for period of 14 days, today is day #10. Subjectively, the patient is awake, alert and oriented in no acute distress. Vital signs are stable. No history of nausea, vomiting, fever, chills. Patient is able to eat better than before even though his appetite is decreased. He has lost weight. PHYSICAL EXAMINATION: GENERAL: The patient is examined in bed. The patient to be in no acute distress. VITAL SIGNS: Stable. T-max is 98.4, pulse is 76, respirations 20, blood pressure 115/62, pulse ox is 97% on room air. HEENT: Head: Normocephalic, atraumatic. Conjunctivae pale. Sclerae is anicteric. Pupils are equally reactive to light and accommodation. Examination of the oropharynx reveals no oropharyngeal lesions. NECK: Supple. There is no adenopathy. No jugular venous distention noted. LUNGS: Clear to percussion and auscultation with decreased breath sounds in the bases. CARDIOVASCULAR: Reveals PMI within the fifth intercostal space, inside the midclavicular line. S1 and S2 are normal. No gallops or murmurs are heard. ABDOMEN: Soft, nontender. Liver and spleen not palpable. No rebound, rigidity or guarding is noted. Patient has a nephrostomy catheter on the left side. Nava catheter with leg bag. EXTREMITIES: Reveals no cyanosis, clubbing or edema of both the upper and lower extremities. NEUROLOGIC: Reveals higher functions to be normal. No focal deficits are noted. GENITOURINARY: Deferred. RECTAL: Deferred. SKIN: Reveals skin to be warm and dry without any skin lesions. LABORATORY DATA: Revealed a white count of 7.4, hemoglobin 9.7, hematocrit 29.2, platelet count 276,000. Sodium is 136, K is 4.1, chloride is 99, CO2 is 29, BUN is 21, creatinine 1.1. Blood sugar is 159. CURRENT MEDICATIONS: Reviewed. They are unchanged. He is on Tylenol 650 every 4 hours p.r.n., diltiazem 30 mg p.o. t.i.d., meropenem 1 g IV every 8 hours. He is on lidocaine ointment and lidocaine patches for topical use for pain at the site where is his nephrostomy which is significantly improved. He is on nystatin oral suspension 5 mL q.i.d., Zofran 4 mg IV every 6 hours p.r.n., MiraLax 17 g p.o. daily, Flomax 0.4 mg daily and is on Ultram 50 mg p.o. t.i.d. p.r.n. for pain. PLAN: Patient is going to continue the IV antibiotics for now for a total of 14 days. Patient has two separate diagnoses of carcinoma of the lung, left upper lobe which has adenocarcinoma and now he has a separate tumor which appears to be localized through the bladder and appears to be a squamous cell carcinoma independent of the lung primary. Patient's family has been investigated looking into seeing a supervisor wood crew who had a urological oncology background and patient is going to be assessed by urologic oncologist for possible bladder surgery whether resection with an ileal conduit or creation of a new bladder. Patient's family has already made the appointment and I have instructed the patient to keep through with the appointment, told him and also gave the name of Dr. Gomez who is a urologic oncologist at [facility] as well. Patient had an echo on 10/01/2017 showing essentially normal with LVEF of 60%. Patient is on Cardizem for atrial fibrillation, now in sinus rhythm. We will continue current IV antibiotics. I have spoken in detail with the patient's family about our treatment and plan. We will continue to monitor the blood work and make appropriate recommendations. Plan will be to assess the patient for bladder surgery, which is feasible. If not, the patient may be assessed for additional radiation. Family is aware of all the possibilities for this patient's multiple comorbid medical issues. Tried to be fair and objective while being patient centered in decision making process and not offering anything that may not be appropriate for the patient. Time spent with the patient is greater than 45 minutes, out of which more than 50% of the time is spent in [id number] contact. Please make a note, this was medically necessary and appropriate visit for this patient with multiple comorbid medical issues. Nazia Be MD
--- NOTE | 2018-01-28 05:33 | PN ---
DATE: 01/26/2018 LOCATION: Patient is in room 361, bed 1. PROBLEMS: This is a 77-year-old male who was admitted from our office via the emergency room with symptomatic anemia, left hydronephrosis what appears to be evolving left pelvic abscess, status post instrumentation at another institution, [facility] where he had been seen by the urologist for progressive worsening left hydronephrosis,had a cystoscopy and biopsy of the left bladder lesion, which was consistent with high-grade squamous cell carcinoma, attempted placement of the left ureteral stent that was unsuccessful. Patient was then seen by us in the office with an indwelling Nava that was leaking along with anemia and patient was advised admission. Since admission, patient has had placement of the Nava again after cystoscopy and biopsy done by Dr. Franks who was also unsuccessful in turn in placing a stent, but biopsy was done for reconfirmation. Patient's CAT scan was reviewed and there was a suggestion of an accumulation of fluid level on the left side outside the bladder consistent with tumor perforation or post instrumentation that was very concerning for developing abscess along with left hydronephrosis. Patient had placement of percutaneous nephrostomy tube. Cultures have been sent. Patient is on broad-spectrum antibiotics and overall, the patient has been improving. He has been complaining of significant pain on the side of the nephrostomy and improved dramatically with the use of lidocaine topically. Subjectively, patient is seen lying in bed. He is awake, alert, and comfortable. Appetite is reasonable and overall feels better. PHYSICAL EXAMINATION: VITAL SIGNS: Patient's vital signs are stable. Blood pressure is 118/71, heart rate is 18, respiratory rate is within normal limit, T-max is 98.4. HEENT: Head is normocephalic and atraumatic. Temporal muscle wasting is noted. Conjunctivae pale. Sclerae are anicteric. Pupils are equally reactive to light and accommodation. Examination of the oropharynx reveals tongue to be moist. No ulcerations are noted. NECK: Supple. There is no adenopathy. No jugular venous distention. LUNGS: Reveal it to be clear to percussion and auscultation. HEART: Reveals PMI to be in the fifth intercostal space, inside the midclavicular line. S1 and S2 are normal. No gallop or murmur is heard. ABDOMEN: Soft and nondistended. No rebound, rigidity, or guarding is noted. Bowel sounds are present. Patient has a left-sided percutaneous nephrostomy, site appears to be intact. Previous noted pain is better after using lidocaine ointment gel. EXTREMITIES: Reveal no cyanosis, clubbing, or edema. Examination of the lower extremities reveal no cyanosis, clubbing, or edema. GENITOURINARY AND RECTAL: Deferred. Patient has an indwelling Nava catheter as well. NEUROLOGIC: Reveals higher functions to be normal. No focal deficits are noted. LABORATORY DATA: Reviewed and appeared to be stable. No new labs have been requested. MEDICATIONS: Reviewed. ASSESSMENT, NOTES AND PLAN: This is a 77-year-old male who was admitted with anemia and signs and symptoms of pelvic abscess for which he is on currently broad-spectrum antibiotics, being followed by Renal and followed by ID as well. Acute kidney injury, which he had appeared to be improved; left hydronephrosis is still improving with status post percutaneous nephrostomy; history of prostate cancer; history of hypertension. Biopsy from the bladder that was done recently is again consistent with high-grade tumor, but final path is still pending. A long discussion again with the patient's family. 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 My discussion with the family was that once he is stabilized after completing the antibiotics, I would like to let him be discharged and followed and seen by the Urologic Oncology at [facility] and the patient's family has already made an appointment for him to be seen. Apparently, by weighing the pros and cons to see if the patient is a candidate for local surgery in the form of resection of the bladder and create of an artificial bladder and ileal conduit, given the fact that patient has multiple comorbid issues, he will be best served in a tertiary center. Patient's case was reviewed in the Tumor Board, the feeling was this was locally advanced bladder carcinoma, probably a new primary and nothing to do with the prostate cancer. Since this is squamous epithelium, suspect that prior workup had not shown any distant or local regional disease, patient may be amendable for surgical excision if it is feasible allowing other factors such as comorbid cardiac issues as well. Patient may need to be seen by Cardiology prior to any planned procedures. I have discussed all of these findings with the patient's daughter who seems to be well aware of her dad's situation. All questions asked by the family were explained in great detail. Time spent with the family was again greater than 80 minutes. Please make a note, this is a comprehensive medically necessary and appropriate visit for this patient with multiple comorbid medical issues. Nazia Be MD
[2018-01-28] MEDS: Meropenem IV 1 gm in NS 50 ML IVPB SCH ×2 (06:23→15:12)
--- NOTE | 2018-01-28 06:33 | CP.PCM.PN ---
Subjective - Date & Time of Evaluation Date of Evaluation: 01/28/18 Time of Evaluation: 06:00 - Subjective Subjective: Watching TV,awake,alert,no distress,denies chest pain Reason for consultation and follow up: Cardiac evaluation and pre-op stratification for bladder surgery. History of atrial fibrillation,hypertension , lung mass,prostate cancer,bladder tumor,has nephrostomy Seen and examined by me and Dr. Fraga Objective - Vital Signs/Intake and Output Vital Signs (last 24 hours): Temp Pulse Resp BP Pulse Ox 98.3 F 84 19 116/68 95 01/27/18 17:10 01/28/18 02:00 01/27/18 17:10 01/27/18 17:46 01/27/18 17:10 Intake and Output: 01/27/18 01/28/18 18:59 06:59 Output Total 825 Balance -825 - Medications Medications: Current Medications Acetaminophen (Tylenol 325mg Tab) 650 mg PO Q4H PRN PRN Reason: Pain, Mild (1-3) Diltiazem HCl (Cardizem) 30 mg PO TID [facility] Last Admin: 01/27/18 17:46 Dose: 30 mg Meropenem (Merrem Iv 1 Gm Premix) 50 mls @ 100 mls/hr IVPB Q8 [facility] PRN Reason: Protocol Last Admin: 01/28/18 06:23 Dose: 100 mls/hr Lidocaine (Lidoderm) 2 ea TD DAILY [facility] Last Admin: 01/27/18 09:28 Dose: 2 ea Lidocaine (Lidocaine 5%) 0 gm TOP TID [facility] Last Admin: 01/27/18 17:46 Dose: 1 applic Nystatin (Nystatin Oral Susp) 5 ml PO QID [facility] Last Admin: 01/27/18 21:02 Dose: 5 ml Ondansetron HCl (Zofran Inj) 4 mg IVP Q6H PRN PRN Reason: Nausea/Vomiting Polyethylene Glycol (Miralax) 17 gm PO DAILY PRN PRN Reason: Constipation Last Admin: 01/27/18 09:29 Dose: 17 gm Tamsulosin HCl (Flomax) 0.4 mg PO DAILY [facility] Last Admin: 01/27/18 09:28 Dose: 0.4 mg Tramadol HCl (Ultram) 50 mg PO TID PRN PRN Reason: Pain, moderate (4-7) Last Admin: 01/25/18 00:01 Dose: 50 mg - Labs Labs: 01/27/18 05:30 01/27/18 05:30 PT 14.2 SECONDS (9.4-12.5) H 01/21/18 06:00 INR 1.23 (0.93-1.08) H 01/21/18 06:00 APTT 21.9 Seconds (25.1-36.5) L 01/21/18 06:00 - Constitutional Appears: No Acute Distress - Eye Exam Eye Exam: Normal appearance - ENT Exam ENT Exam: Mucous Membranes Moist - Respiratory Exam Respiratory Exam: Decreased Breath Sounds, Clear to Ausculation Bilateral, NORMAL BREATHING PATTERN - Cardiovascular Exam Cardiovascular Exam: REGULAR RHYTHM, +S1, +S2 - GI/Abdominal Exam GI & Abdominal Exam: Soft, Normal Bowel Sounds - Exam Additional comments: left nephrostomy tube Nava catheter - Extremities Exam Extremities Exam: Normal Capillary Refill - Neurological Exam Neurological Exam: Alert, Awake, Oriented x3 - Psychiatric Exam Psychiatric exam: Normal Affect - Skin Skin Exam: Dry, Warm Assessment and Plan - Assessment and Plan (Free Text) Assessment: A 77 year old male who speaks Kenyan brought by daughter to the ER due to leaking nephrostomy tube. History of atrial fibrillation, lung mass,prostate cancer,bladder tumor,has nephrostomy.arthritis, pneumothorax post lung biopsy, hypertension,anemia,peptic ulcer disease,former smoker. Stress test last 09/2017 - normal result, no evidence of ischemia. ECHO 09/2017 essentially normal with LVEF of 60%.On Cardizem for history of atrial fibrillation, now Normal sinus rhythm. Urine culture positive for Morganii, ID on consult, on IV antibiotics. Plan: Continue IV antibiotics to complete 10-14 days per ID Cardiac status stable Controlled blood pressure Maintained on NSR 70's On Cardizem 30 mg TID, Flomax 0.4 mg daily Followed up by Dr. Be (Oncology) Referred to Dr. Gomez ([facility]) out patient, for possible bladder surgery Continue current treatment Continue current medications Will follow up Plan and treatment discussed with Dr. Littlejohn
[2018-01-28 07:58] VITALS: RESP 20; TEMP 98.2; O2SAT 99
--- NOTE | 2018-01-28 08:38 | PN ---
DATE: 01/27/2018 SUBJECTIVE: The patient is seen lying in bed. She is awake, she is alert, she is comfortable. PHYSICAL EXAMINATION: GENERAL: Elderly male sitting in bed. VITAL SIGNS: Blood pressure 115/62, heart rate 76, respiratory rate 18, temperature 98.1. HEENT: Normocephalic, atraumatic. NECK: Supple, no JVD. LUNGS: Bilateral equal entry, bilateral equal expansion. CARDIAC: S1, S2. Regular rate and rhythm. No murmur, no rub. ABDOMEN: Soft, nondistended, nontender. Positive left nephrostomy. EXTREMITIES: No lower extremity edema. LABORATORY DATA: WBC 7.4, hemoglobin 9.7, hematocrit 29, platelets 276. Sodium 136, potassium 4.1, chloride 99, CO2 29, BUN 21, creatine 1.1. Glucose 159. CURRENT MEDICATIONS: List reviewed. ASSESSMENT AND PLAN: 1. Resolved acute kidney injury. 2. Left hydronephrosis, status post percutaneous nephrostomy. 3. Prostate cancer. 4. Pelvic abscess. 5. Dementia. PLAN: 1. Continue antibiotics. 2. Push p.o. fluids. 3. Avoid nephrotoxins. 4. Stable from the Renal Mary Gabriel MD
--- NOTE | 2018-01-28 08:48 | PN ---
DATE: 01/25/2018 SUBJECTIVE: The patient is a 77-year-old male who has a history of lung carcinoma, which was diagnosed within the last 3 months. He had an abnormal PET scan showing a lesion at the upper left bladder near the ureterocystic junction. 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 The patient was admitted to [facility] on 01/17/2018. He underwent cystoscopy by Dr. Franks and biopsies of the bladder and prostate were taken. Once again the stent could not be placed and finally a percutaneous urostomy tube was placed and is draining well. The patient's urine grew morganii species and the patient is currently being treated with that as per Infectious Disease specialist Dr. Pleitez. The patient should receive 10 to 14 days of antibiotics. Today is day 8 out of 10 to 14 days on Merrem and we are continuing with the current regimen. The patient so far is comfortable. He has no complaints and we will continue to follow the patient closely. Shashank Riddle MD
[2018-01-28] MEDS: Lidocaine 5% Oint(35 gm) TOP SCH ×2 (10:15→15:11)
[2018-01-28] MEDS: Lidocaine 5% Patch TD SCH (10:52)
[2018-01-28] MEDS: Nystatin 100,000 Units/ml Oral Susp 5 ml UD PO SCH ×2 (10:54→15:20)
--- NOTE | 2018-01-28 15:17 | PN ---
DATE: 01/28/2018 SUBJECTIVE: The patient is seen sitting in bed. He is awake, he is alert, he is comfortable. PHYSICAL EXAMINATION GENERAL: Elderly male sitting in bed. VITAL SIGNS: Blood pressure 119/67, heart rate 76, respiratory rate 20, temperature 98.2. HEENT: Normocephalic, atraumatic, positive pallor. NECK: Supple, no JVD. LUNGS: Bilateral equal air entry, bilateral equal expansion. CARDIAC: S1 and S2. Regular rate and rhythm. No murmur, no rub. ABDOMEN: Soft, nondistended, nontender, positive left PCN. INTAKE AND OUTPUT: 1375 and negative. LABORATORY DATA: No new chemistry or CBC. CURRENT MEDICATIONS: Cardizem 30 t.i.d., Flomax, lidocaine, Lidoderm, Merrem, MiraLax, Tylenol, Ultram, Zofran. ASSESSMENT: 1. Resolved acute kidney injury. 2. Left hydronephrosis, status post percutaneous nephrostomy. 3. Prostate cancer. 4. Pelvic abscess. 5. Dementia. PLAN: 1. Continue antibiotics as per ID recommendations. 2. Push p.o. fluids. 3. Avoid nephrotoxins. 4. The patient is stable from the renal standpoint. Mary Gabriel MD
[2018-01-28 15:21] VITALS: BP 123/66; PULSE 75
--- NOTE | 2018-01-28 16:07 | CP.PCM.PN ---
Subjective - Date & Time of Evaluation Date of Evaluation: 01/28/18 Time of Evaluation: 12:20 - Subjective Subjective: No fevers, not in distress. Objective - Vital Signs/Intake and Output Vital Signs (last 24 hours): Temp Pulse Resp BP Pulse Ox 98.2 F 76 20 119/67 99 01/28/18 07:57 01/28/18 10:52 01/28/18 07:57 01/28/18 10:52 01/28/18 07:57 Intake and Output: 01/28/18 01/28/18 06:59 18:59 Intake Total 0 Output Total 1375 Balance -1375 - Medications Medications: Current Medications Acetaminophen (Tylenol 325mg Tab) 650 mg PO Q4H PRN PRN Reason: Pain, Mild (1-3) Diltiazem HCl (Cardizem) 30 mg PO TID [facility] Last Admin: 01/28/18 10:52 Dose: 30 mg Meropenem (Merrem Iv 1 Gm Premix) 50 mls @ 100 mls/hr IVPB Q8 KAYLA PRN Reason: Protocol Last Admin: 01/28/18 06:23 Dose: 100 mls/hr Lidocaine (Lidoderm) 2 ea TD DAILY [facility] Last Admin: 01/28/18 10:52 Dose: 2 ea Lidocaine (Lidocaine 5%) 0 gm TOP TID [facility] Last Admin: 01/27/18 17:46 Dose: 1 applic Nystatin (Nystatin Oral Susp) 5 ml PO QID [facility] Last Admin: 01/28/18 10:54 Dose: 5 ml Ondansetron HCl (Zofran Inj) 4 mg IVP Q6H PRN PRN Reason: Nausea/Vomiting Polyethylene Glycol (Miralax) 17 gm PO DAILY PRN PRN Reason: Constipation Last Admin: 01/27/18 09:29 Dose: 17 gm Tamsulosin HCl (Flomax) 0.4 mg PO DAILY [facility] Last Admin: 01/28/18 10:52 Dose: 0.4 mg Tramadol HCl (Ultram) 50 mg PO TID PRN PRN Reason: Pain, moderate (4-7) Last Admin: 01/25/18 00:01 Dose: 50 mg - Labs Labs: 01/27/18 05:30 01/27/18 05:30 PT 14.2 SECONDS (9.4-12.5) H 01/21/18 06:00 INR 1.23 (0.93-1.08) H 01/21/18 06:00 APTT 21.9 Seconds (25.1-36.5) L 01/21/18 06:00 - Constitutional Appears: Chronically Ill - Head Exam Head Exam: NORMAL INSPECTION - Respiratory Exam Respiratory Exam: Decreased Breath Sounds - Cardiovascular Exam Cardiovascular Exam: +S1, +S2 - GI/Abdominal Exam GI & Abdominal Exam: Soft. absent: Tenderness Assessment and Plan - Assessment and Plan (Free Text) Plan: Assessment Severe sepsis with acute renal failure due to pelvic abscess associated with probable left sided pyelonephritis with hydronephrosis and urinary bladder cancer, growing Morganella in the urine, clinically improving atrial fibrillation history of lung mass S/P biopsy history of arthritis Plan continue Merrem day 11 - should complete 10-14 days of antibiotics - patient is supposed to be transferred to a tertiary facility for drainage of the pelvic abscess will continue to monitor clinically while the patient is in the hospital overall prognosis is guarded at best
--- NOTE | 2018-01-28 16:34 | PCM.URO ---
Urology Progress Note - Objective Lab Studies: Reviewed (ok for discharge from a gu standpoint) Intake & Output: Intake & Output 01/27/18 01/28/18 01/28/18 18:59 06:59 18:59 Intake Total 0 Output Total 1375 Balance -1375 Intake: Oral 0 Output: Urine 1375 Urethral (Nava) 1375 Other: # Voids Urine, Voided 0 Vital Signs: Vital Signs - 24 hr 01/27/18 01/27/18 01/27/18 17:10 17:46 18:00 Temperature 98.3 F Pulse Rate 81 81 41 L Respiratory 19 Rate Blood Pressure 116/68 116/68 O2 Sat by Pulse 95 Oximetry 01/28/18 01/28/18 01/28/18 02:00 07:57 10:52 Temperature 98.2 F Pulse Rate 84 76 76 Respiratory 20 Rate Blood Pressure 119/67 119/67 O2 Sat by Pulse 99 Oximetry 01/28/18 15:19 Temperature Pulse Rate 75 Respiratory Rate Blood Pressure 123/66 O2 Sat by Pulse Oximetry
--- NOTE | 2018-01-28 16:53 | CP.PCM.PN ---
Subjective - Date & Time of Evaluation Date of Evaluation: 01/28/18 Time of Evaluation: 14:00 - Subjective Subjective: Chloé Shoemaker, PGY2, Heme-Onc Progress Note for Dr Be: Patient seen and examined at bedside. No acute events overnight. Denies fevers, chills, nausea, vomiting, leg swelling, abdominal pain. Objective - Vital Signs/Intake and Output Vital Signs (last 24 hours): Temp Pulse Resp BP Pulse Ox 98.2 F 75 20 123/66 99 01/28/18 07:57 01/28/18 15:19 01/28/18 07:57 01/28/18 15:19 01/28/18 07:57 Intake and Output: 01/28/18 01/28/18 06:59 18:59 Intake Total 0 Output Total 1375 Balance -1375 - Medications Medications: Current Medications Acetaminophen (Tylenol 325mg Tab) 650 mg PO Q4H PRN PRN Reason: Pain, Mild (1-3) Diltiazem HCl (Cardizem) 30 mg PO TID [facility] Last Admin: 01/28/18 15:19 Dose: 30 mg Meropenem (Merrem Iv 1 Gm Premix) 50 mls @ 100 mls/hr IVPB Q8 KAYLA PRN Reason: Protocol Last Admin: 01/28/18 15:12 Dose: Not Given Lidocaine (Lidoderm) 2 ea TD DAILY [facility] Last Admin: 01/28/18 10:52 Dose: 2 ea Lidocaine (Lidocaine 5%) 0 gm TOP TID [facility] Last Admin: 01/28/18 15:11 Dose: Not Given Nystatin (Nystatin Oral Susp) 5 ml PO QID [facility] Last Admin: 01/28/18 15:20 Dose: 5 ml Ondansetron HCl (Zofran Inj) 4 mg IVP Q6H PRN PRN Reason: Nausea/Vomiting Polyethylene Glycol (Miralax) 17 gm PO DAILY PRN PRN Reason: Constipation Last Admin: 01/27/18 09:29 Dose: 17 gm Tamsulosin HCl (Flomax) 0.4 mg PO DAILY [facility] Last Admin: 01/28/18 10:52 Dose: 0.4 mg Tramadol HCl (Ultram) 50 mg PO TID PRN PRN Reason: Pain, moderate (4-7) Last Admin: 01/25/18 00:01 Dose: 50 mg - Labs Labs: 01/27/18 05:30 01/27/18 05:30 PT 14.2 SECONDS (9.4-12.5) H 01/21/18 06:00 INR 1.23 (0.93-1.08) H 01/21/18 06:00 APTT 21.9 Seconds (25.1-36.5) L 01/21/18 06:00 - Constitutional Appears: Non-toxic, No Acute Distress - Head Exam Head Exam: ATRAUMATIC, NORMOCEPHALIC - Eye Exam Eye Exam: EOMI, PERRL. absent: Conjunctival injection, Nystagmus, Scleral icterus Pupil Exam: NORMAL ACCOMODATION, PERRL. absent: Irregular, Miosis, Mydriatic, Unequal - ENT Exam ENT Exam: Mucous Membranes Moist - Neck Exam Neck Exam: Full ROM, Normal Inspection. absent: Lymphadenopathy, Meningismus - Respiratory Exam Respiratory Exam: Clear to Ausculation Bilateral, NORMAL BREATHING PATTERN. absent: Rales, Rhonchi, Wheezes, Respiratory Distress - Cardiovascular Exam Cardiovascular Exam: REGULAR RHYTHM, +S1, +S2. absent: Murmur - GI/Abdominal Exam GI & Abdominal Exam: Soft, Normal Bowel Sounds Additional comments: left nephrostomy tube in place - Extremities Exam Extremities Exam: Full ROM, Normal Inspection - Back Exam Back Exam: NORMAL INSPECTION - Neurological Exam Neurological Exam: Alert, Awake, Oriented x3 - Psychiatric Exam Psychiatric exam: Normal Affect, Normal Mood - Skin Skin Exam: Dry, Normal Color, Warm Assessment and Plan - Assessment and Plan (Free Text) Assessment: 77 year old Libyan speaking male with PMH atrial fibrillation, PAD, prostate cancer diagnosed in 2002 and treated with radiation therapy, recently diagnosed bladder cancer with a Nava catheter, admitted for severe sepsis, renal failure , found to have left sided hydronephrosis 2/2 bladder squamous cell carcinoma and abscess near bladder. Patient also treated with appropriate IV antibiotics for Morganella UTI. Also underwent percutaneous nephrostomy tube placement per Urology. Patient discharged today. Patient will follow up with outpatient urologist at [facility] for an ileal conduit or neobladder surgery. Patient given scripts for tramadol, amitizia, lidocaine gel and patch. Case was reviewed and discussed with attending physician, Dr. Be
== END 2018-01-28 18:04 | disposition home or self-care (01) | DRG 853 ==
LOC: ED 14:11 → ERH 17:07 → 3RNO 18:32
PROVIDERS: ADMIT Internal Medicine; ATTEND Internal Medicine
PROC: BT101ZZ Fluoroscopy of Bladder using Low Osmolar Contrast (ICD-10-PCS; 2018-01-21)
PROC: 0TBB8ZX Excision of Bladder, Via Natural or Artificial Opening Endoscopic, Diagnostic (ICD-10-PCS; principal; 2018-01-21 16:45)
PROC: 0T9430Z Drainage of Left Kidney Pelvis with Drainage Device, Percutaneous Approach (ICD-10-PCS; 2018-01-23)
DX: A41.9 Sepsis, unspecified organism (principal); K65.1 Peritoneal abscess; N17.9 Acute kidney failure, unspecified; N13.6 Pyonephrosis; C34.90 Malignant neoplasm of unspecified part of unspecified bronchus or lung; C79.11 Secondary malignant neoplasm of bladder; E87.2 Acidosis; J93.9 Pneumothorax, unspecified; I12.9 Hypertensive chronic kidney disease with stage 1 through stage 4 chronic kidney disease, or unspecified chronic kidney disease; N18.3 Chronic kidney disease, stage 3 (moderate); R62.7 Adult failure to thrive; R65.20 Severe sepsis without septic shock; D64.9 Anemia, unspecified; E86.0 Dehydration; F03.90 Unspecified dementia, unspecified severity, without behavioral disturbance, psychotic disturbance, mood disturbance, and anxiety; H35.30 Unspecified macular degeneration; I08.3 Combined rheumatic disorders of mitral, aortic and tricuspid valves; I27.20 Pulmonary hypertension, unspecified; I48.91 Unspecified atrial fibrillation; I73.9 Peripheral vascular disease, unspecified; K59.00 Constipation, unspecified; M16.0 Bilateral primary osteoarthritis of hip; T83.031A Leakage of indwelling urethral catheter, initial encounter; B96.89 Other specified bacterial agents as the cause of diseases classified elsewhere; Z85.46 Personal history of malignant neoplasm of prostate; Z87.11 Personal history of peptic ulcer disease; Z87.891 Personal history of nicotine dependence; Z92.3 Personal history of irradiation; Z93.6 Other artificial openings of urinary tract status

== ENCOUNTER 2018-03-19 19:04 | Emergency (ER) | payer MEDICARE, OTHER ==
[2018-03-19 19:30] VITALS: BP 150/69; RESP 18; TEMP 98.3; BMI 20.1
--- NOTE | 2018-03-19 19:59 | ED PDOC ---
Arrival/HPI - General Chief Complaint: Male Genitourinary Time Seen by Provider: 03/19/18 19:22 Historian: Patient - History of Present Illness Narrative History of Present Illness (Text): 03/19/18 19:56 A 77 year old male, whose past medical history includes bladder cancer, lung cancer, and in-dwelling melvin catheter, presents to the emergency department for melvin catheter replacement. Patient reports catheter was dislodged and repositioned and is now clogged. Patient denies any fever, chills, abdominal pain, chest pain, shortness of breath, nausea, vomiting, diarrhea, urinary symptoms, hematuria, back pain, neck pain, headache, dizziness, or any other complaints. Time/Duration: Other (earlier today) Symptom Onset: Gradual Activities at Onset: Light Context: Home Past Medical History - Provider Review Nursing Documentation Reviewed: Yes - Past History Past History: No Previous - Infectious Disease Hx of Infectious Diseases: None - Reproductive Currently Lactating: No - Cardiac Hx Cardiac Disorders: Yes Hx Cardiac Arrhythmia: Yes Hx Hypertension: Yes Hx Peripheral Vascular Disease: Yes - Pulmonary Hx Respiratory Disorders: Yes (PNEUMOTHORAX-BX DONE 09-27-17-LUNG MASS) - Neurological Hx Neurological Disorder: Yes Hx Dizziness: Yes (SYNCOPE 10-17-17) - HEENT Hx Macular Degeneration: Yes - Renal Hx Renal Disorder: No - Endocrine/Metabolic Hx Endocrine Disorders: No - Hematological/Oncological Hx Anemia: Yes Hx Cancer: Yes (prostate) Hx Metastasis: Yes (lung) - Integumentary Hx Dermatological Disorder: No - Musculoskeletal/Rheumatological Hx Falls: No - Gastrointestinal Hx Gastrointestinal Disorders: No - Genitourinary/Gynecological Hx Prostate Problems: Yes - Psychiatric Hx Psychophysiologic Disorder: No Hx Substance Use: No - Anesthesia Hx Anesthesia: Yes Hx Anesthesia Reactions: No Hx Malignant Hyperthermia: No - Suicidal Assessment Feels Threatened In Home Enviroment: No Family/Social History - Physician Review Nursing Documentation Reviewed: Yes Family/Social History: Unknown Family HX Smoking Status: Former Smoker Hx Alcohol Use: Yes (occasional) Hx Substance Use: No Hx Substance Use Treatment: No Allergies/Home Meds Allergies/Adverse Reactions: Allergies No Known Allergies Allergy (Verified 01/17/18 14:23) Home Medications: Home Meds Medication Instructions Recorded Confirmed Diclofenac Sodium [Diclofenac 100 mg PO DAILY 11/22/17 03/19/18 Sodium ER] Review of Systems - Physician Review All systems were reviewed & negative as marked: Yes - Review of Systems Constitutional: absent: Fevers, Night Sweats Respiratory: absent: SOB Cardiovascular: absent: Chest Pain Gastrointestinal: absent: Abdominal Pain, Diarrhea, Nausea, Vomiting Genitourinary Male: Other (+melvin catheter replacement). absent: Hematuria Musculoskeletal: absent: Back Pain, Neck Pain Neurological: absent: Headache, Dizziness Physical Exam Vital Signs Reviewed: Yes Vital Signs Temp Pulse Resp BP Pulse Ox 03/19/18 19:05 98.3 F 86 18 150/69 97 Temperature: Afebrile Blood Pressure: Normal Pulse: Regular Respiratory Rate: Normal Appearance: Positive for: Well-Appearing, Non-Toxic, Comfortable Pain Distress: None Mental Status: Positive for: Alert and Oriented X 3 - Systems Exam Head: Present: Atraumatic, Normocephalic Pupils: Present: PERRL Extroacular Muscles: Present: EOMI Conjunctiva: Present: Normal Mouth: Present: Moist Mucous Membranes Neck: Present: Normal Range of Motion Respiratory/Chest: Present: Clear to Auscultation, Good Air Exchange. No: Respiratory Distress, Accessory Muscle Use Cardiovascular: Present: Regular Rate and Rhythm, Normal S1, S2. No: Murmurs Abdomen: No: Tenderness, Distention, Peritoneal Signs Genitourinary Male: Present: Other (+melvin catheter in place; not draining). No : Normal External Genitalia, Circumcised Penis, Lesions, Penile Discharge, Testicle Tenderness, Penile Swelling, Masses, Erythema, Hernias, Testicle Swelling, Prostate Tenderness, Prostate Enlargement Back: Present: Normal Inspection Upper Extremity: Present: Normal Inspection. No: Cyanosis, Edema Lower Extremity: Present: Normal Inspection. No: Edema Neurological: Present: GCS=15, CN II-XII Intact, Speech Normal Skin: Present: Warm, Dry, Normal Color. No: Rashes Psychiatric: Present: Alert, Oriented x 3, Normal Insight, Normal Concentration Medical Decision Making ED Course and Treatment: 03/19/18 20:02 Impression: 77 year old male presenting to the emergency department for melvin catheter replacement. Plan: -- Melvin catheter insertion -- Reassess and disposition Prior Visits: Notes and results from previous visits were reviewed. Progress Notes: 03/19/18 20:23 Melvin catheter was replaced Size 16 without difficulty/draining. - Scribe Statement The provider has reviewed the documentation as recorded by the Scribe Hillary Adair All medical record entries made by the Audrey were at my direction and personally dictated by me. I have reviewed the chart and agree that the record accurately reflects my personal performance of the history, physical exam, medical decision making, and the department course for this patient. I have also personally directed, reviewed, and agree with the discharge instructions and disposition. Disposition/Present on Arrival - Present on Arrival Any Indicators Present on Arrival: No History of DVT/PE: No History of Uncontrolled Diabetes: No Urinary Catheter: Yes History of Decub. Ulcer: No History Surgical Site Infection Following: None - Disposition Have Diagnosis and Disposition been Completed?: Yes Diagnosis: Encounter for Melvin catheter replacement Disposition: HOME/ ROUTINE Disposition Time: 20:22 Patient Plan: Discharge Condition: STABLE Additional Instructions: Follow up with your doctor as needed Referrals: Demetrius Riddle MD [Primary Care Provider] - Follow up with primary Forms: [employer] (Kiswahili)
[2018-03-19 20:39] VITALS: PULSE 88; O2SAT 99
== END 2018-03-19 20:38 | disposition home or self-care (01) ==
LOC: ED 19:04
DX: Z46.6 Encounter for fitting and adjustment of urinary device (principal)

== ENCOUNTER 2018-04-27 20:27 | Inpatient (IN) | payer MEDICARE, OTHER ==
[2018-04-27 20:57] LABS: EOS # 0.3 (0.0-0.7); EOS % 1.5 % (1.5-5.0); GRAN # 14.54 (1.4-6.5); HEMOGLOBIN 9.8 g/dL (14.0-18.0); LYMPH # 1.2 (1.2-3.4); LYMPH % 6.8 % (22.0-35.0); MEAN CELL VOLUME 93.5 fl (80.0-105.0); MEAN CORPUSCULAR HEMOGLOBIN 30.4 pg (25.0-35.0); MEAN CORPUSCULAR HGB CONC 32.6 g/dl (31.0-37.0); MEAN PLATELET VOLUME 9.9 fl (7.0-11.0); MONO # 1.2 (0.1-0.6); MONO % 6.7 % (1.0-6.0); RBC 3.22 10^6/uL (3.5-6.1); RED CELL DISTRIBUTION WIDTH 13.4 % (11.5-14.5); VENOUS BLOOD GAS BASE EXCESS -1.5 mmol/L (0.0-2.0); VENOUS BLOOD GAS PO2 24 mm/Hg (30-55); VENOUS BLOOD PH 7.35 (7.32-7.43); WHITE BLOOD COUNT 17.1 10^3/uL (4.5-11.0)
--- NOTE | 2018-04-27 20:57 | ED PDOC ---
Arrival/HPI - General Chief Complaint: Dizziness/Lightheaded Time Seen by Provider: 04/27/18 20:35 Historian: Patient - Critical Care Critical Care Minutes: 30 minutes - History of Present Illness Narrative History of Present Illness (Text): 04/27/18 20:54 77 y/o M w/ h/o includes bladder cancer on immunotherapy, s/p L sided nephrostomy tube presenting to the ED complaining of dizziness & hypotension. The patient states he had a near syncopal episode at home but denies any head trauma or LOC. Patient felt dizzy and fell but was able to crawl to phone and call his daughter. When patient's daughter arrived 40 minutes later, the patient's blood pressure was 80/40 when measures. Patient states he's experiencing palpitations and SOB. Patient denies any fever, chills, cough, abdominal pain, chest pain, n/v/d, or any other complaints. *Patient speaks only [place] with daughter used as a gamma operator for this encounter* PMD: Dr. Klein Oncology: Dr. Fisher Urology: Dr. Attila Franks Time/Duration: Prior to Arrival Symptom Onset: Gradual Symptom Course: Unchanged Activities at Onset: Rest Context: Home Past Medical History - Provider Review Nursing Documentation Reviewed: Yes - Travel History Have you recently traveled outside [place] w/in the past 3 mons?: No - Past History Past History: No Previous - Infectious Disease Hx of Infectious Diseases: None - Reproductive Currently Lactating: No - Cardiac Hx Cardiac Disorders: Yes Hx Cardiac Arrhythmia: Yes Hx Hypertension: Yes Hx Peripheral Vascular Disease: Yes - Pulmonary Hx Respiratory Disorders: Yes (PNEUMOTHORAX-BX DONE 09-27-17-LUNG MASS) - Neurological Hx Neurological Disorder: Yes Hx Dizziness: Yes (SYNCOPE 10-17-17) - HEENT Hx Macular Degeneration: Yes - Renal Hx Renal Disorder: No - Endocrine/Metabolic Hx Endocrine Disorders: No - Hematological/Oncological Hx Anemia: Yes Hx Cancer: Yes (prostate) Hx Metastasis: Yes (lung) - Integumentary Hx Dermatological Disorder: No - Musculoskeletal/Rheumatological Hx Falls: No - Gastrointestinal Hx Gastrointestinal Disorders: No - Genitourinary/Gynecological Hx Prostate Problems: Yes - Psychiatric Hx Psychophysiologic Disorder: No Hx Substance Use: No - Anesthesia Hx Anesthesia: Yes Hx Anesthesia Reactions: No Hx Malignant Hyperthermia: No - Suicidal Assessment Feels Threatened In Home Enviroment: No Family/Social History - Physician Review Nursing Documentation Reviewed: Yes Family/Social History: Unknown Family HX Smoking Status: Former Smoker Hx Alcohol Use: Yes (occasional) Hx Substance Use: No Hx Substance Use Treatment: No Allergies/Home Meds Allergies/Adverse Reactions: Allergies No Known Allergies Allergy (Verified 04/27/18 20:35) Home Medications: Home Meds Medication Instructions Recorded Confirmed RX: Diclofenac Sodium [Diclofenac 100 mg PO DAILY 11/22/17 04/27/18 Sodium ER] Levocetirizine Dihydrochloride 5 mg PO DAILY 04/12/18 04/27/18 [Xyzal] RX: diltiaZEM [Cardizem] 60 mg PO TID 04/12/18 04/27/18 Tramadol HCl [Ultram] 50 mg PO Q8H PRN 04/12/18 04/27/18 Review of Systems - Physician Review All systems were reviewed & negative as marked: Yes - Review of Systems Constitutional: Normal Eyes: Normal ENT: Normal Respiratory: SOB. absent: Cough Cardiovascular: Palpitations. absent: Chest Pain Gastrointestinal: Normal. absent: Abdominal Pain, Diarrhea, Nausea, Vomiting Genitourinary Male: Normal. absent: Frequency, Hematuria Musculoskeletal: Normal. absent: Back Pain, Neck Pain Skin: Normal. absent: Rash Neurological: Normal. absent: Headache, Dizziness Endocrine: Normal Hemo/Lymphatic: Normal Psychiatric: Normal Physical Exam Temperature: Afebrile Blood Pressure: Hypotensive Pulse: Tachycardic Respiratory Rate: Normal Appearance: Positive for: Uncomfortable, Cachectic Mental Status: Positive for: Alert and Oriented X 3 - Systems Exam Head: Present: Atraumatic, Normocephalic Pupils: Present: PERRL Extroacular Muscles: Present: EOMI Conjunctiva: Present: Normal Mouth: Present: Dry Neck: Present: Normal Range of Motion Respiratory/Chest: Present: Clear to Auscultation, Decreased Breath Sounds. No: Respiratory Distress, Accessory Muscle Use Cardiovascular: Present: Regular Rate and Rhythm, Normal S1, S2, Tachycardic. No: Murmurs Abdomen: No: Tenderness, Distention, Peritoneal Signs Genitourinary Male: Present: Other (melvin with cloudy yellow urine) Back: Present: Other (left sided nephrostomy tube with yellow discharge noted surrounding entry site) Upper Extremity: Present: Normal Inspection. No: Cyanosis, Edema Lower Extremity: Present: Normal Inspection. No: Edema Neurological: Present: GCS=15, CN II-XII Intact, Speech Normal Skin: Present: Warm, Dry, Other (Grade 1 sacral ulcer). 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 Differential Diagnosis Includes But Is Not Limited To: --Sepsis secondary to UTI --PNA --CVA/TIA Plan: --Labs --IVF --Zosyn --Vancomycin --Adenosine --Tylenol --Reassess and disposition Progress Notes: 04/27/18 21:04 Patient noted to be SVT at 196 bpm. 6 adenizone given, heart rate now at 115 bpm. Leukocytosis of 17.5 noted with shift and elevated lactate. Code SEPSIS called. Zosyn & Vancomycin ordered with additional fluids. Rectal temperture 99.1 with PO Tylenol ordered. 04/27/18 21:[address] Rubalcava(covering for Dr. Fisher) who is aware of patient and would like an update when more labs have been performed. Call placed to ICU. 04/27/18 21:[address] Holley(filter machine operator) and requests medical nurse to be notified of patient's clinical condition. compensation vice president called. 04/27/18 21:[address] Riddle who is aware and agrees with the plan. Accepts patient into his service. = - RAD Interpretation Radiology Orders: 04/27/18 20:48 CHEST PORTABLE [RAD] Stat - EKG Interpretation EKG Interpretation (Text): 04/27/18 20:46 EKG shows consistent with SVT at 196 BPM with incomplete RBBB. QRS Narrow. Interpreted by me. 04/27/18 20:52 EKG shows Sinus Tachycardia at 117 BPM with incomplete RBBB. Interpreted by me. Interpreted by ED Physician: Yes Type: 12 lead EKG - Medication Orders Current Medication Orders: Adenosine (Adenosine 6 Mg/2 Ml Inj) 6 mg IVP STAT STA Stop: 04/27/18 20:47 Adenosine (Adenosine 6 Mg/2 Ml Inj) 12 mg IVP STAT STA Stop: 04/27/18 20:50 - Scribe Statement The provider has reviewed the documentation as recorded by the Scribe Rachel Guillory All medical record entries made by the Scribe were at my direction and personally dictated by me. I have reviewed the chart and agree that the record accurately reflects my personal performance of the history, physical exam, medical decision making, and the department course for this patient. I have also personally directed, reviewed, and agree with the discharge instructions and disposition. Disposition/Present on Arrival - Present on Arrival Any Indicators Present on Arrival: Yes History of DVT/PE: No History of Uncontrolled Diabetes: No Urinary Catheter: Yes History Surgical Site Infection Following: None - Disposition Have Diagnosis and Disposition been Completed?: Yes Diagnosis: Sepsis Disposition: HOSPITALIZED Disposition Time: 21:20 Patient Plan: Admission Condition: GUARDED
[2018-04-27] MEDS ORDERED: Piperacill/Tazo 4.5gm in NS 4.5 GM/100 ML BAG IVPB STA (21:06)
[2018-04-27] MEDS ORDERED: Sodium Chloride 0.9% 1,000 ML IV STA (21:09)
[2018-04-27] MEDS ORDERED: Vancomycin 1gm in NS 250ml 1 GM/250 ML BAG IVPB STA (21:09)
[2018-04-27 21:16] LABS: ALB/GLOB RATIO 0.9 (1.1-1.8); ALBUMIN 2.9 g/dL (3.0-4.8); ALT/SGPT 31 U/L (7-56); AST/SGOT 17 U/L (17-59); BLOOD UREA NITROGEN 40 mg/dL (7-21); GFR NON-AFRICAN AMERICAN 53; INR 1.36; PARTIAL THROMBOPLASTIN TIME 26.1 Seconds (25.1-36.5); PROTHROMBIN TIME 15.6 SECONDS (9.4-12.5)
[2018-04-27] MEDS ORDERED: Iohexol 350 MG/100 ML VIAL ONE (21:35)
[2018-04-27 21:43] LABS: B-TYPE NATRIURETIC PEPTIDE 1470 pg/mL (0-450)
[2018-04-27 22:04] LABS: TROPONIN I < 0.01 ng/mL
[2018-04-27 22:32] LABS: URINE BILIRUBIN NEGATIVE (NEGATIVE); URINE BLOOD LARGE (NEGATIVE); URINE GLUCOSE (UA) >=1000 mg/dL (NEGATIVE); URINE LEUKOCYTE ESTERASE MODERATE Leu/uL (NEGATIVE); URINE PROTEIN >=300 mg/dL (<30 mg/dL)
[2018-04-27 22:33] LABS: URINE APPEARANCE CLOUDY (CLEAR); URINE COLOR YELLOW (YELLOW)
[2018-04-27] MEDS ORDERED: Vitamins A & D Oint UD Foilpak TOP PRN (22:35)
[2018-04-27] MEDS: Sodium Chloride 0.9% 1,000 ML IV SCH (22:35)
[2018-04-27 22:39] LABS: URINE BACTERIA LARGE (NEG); URINE WBC TNTC /hpf (0-6)
[2018-04-27] MEDS ORDERED: Sodium Chloride 0.9% 1,000 ML IV SCH (22:45)
--- NOTE | 2018-04-27 22:54 | CP.PCM.CON ---
<Wallace Leone - Last Filed: 04/28/18 03:32> History of Present Illness - History of Present Illness History of Present Illness: ICU Consultation CC: Septic shock HPI: Mr. Ospina is a 77 year old male with a past medical history significant for metasynchronous NSCLC, lung adenocarcinoma, PVD, HTN, prostate cancer s/p radiation, pneumothorax s/p lung biopsy, DJD, tobacco abuse, unresectable bladder cancer s/p chronic indwelling melvin catheter placement and percutaneous nephrostomy tube placement who presents with two hours of generalized weakness and chest discomfort. Patient reports that he felt well all day until earlier this evening when, after eating some soup, suddenly became weak and started experiencing a non-specific non-radiating substernal chest pain. Patient told his daughter that it felt as if his "heart was turning around in his chest". He denies ever having experienced this before. He denies any alleviating/aggravating factors. He also describes an associated generalized weakness with accompanying dizziness that lasted approximately 90 minutes and was self limited. During this time, patient reports that he called his daughter and, after she had arrived, discovered that his BP was 80/40. Patient denies any further complaints at this time including recent travel, sick contacts, fevers, chills, headache, changes in his vision, dysphagia, palpitations, leg swelling, SOB, cough, wheezing, abdominal pain, N/V/D/C, changes in urine output, skin changes or any numbness/tingling of any extremity. Of note, patient was found to be in SVT at rate of 196 beats/min for which he was given Adenosine. A code sepsis was also called on the patient while in the ED as he was found to have leukocytosis of 17.5 and elevated lactate. PMH: As stated above PSH: Prostate surgery Family History: Non-Contributory Social History: Previous 30-40 pack year tobacco use, quit 20 years ago; Occasional ETOH use; Denies illicit drug use Allergies: NKDA Home Medications: As per AUG PMD: Dr. Klein Oncology: Dr. Fisher Urology: Dr. Elizabeth Franks Review of Systems - Review of Systems Review of Systems: As stated in HPI, otherwise negative Past Patient History - Infectious Disease Hx of Infectious Diseases: None - Past Medical History & Family History Past Medical History?: Yes - Past Social History Smoking Status: Former Smoker - CARDIAC Hx Cardiac Disorders: Yes Hx Cardia Arrhythmia: Yes Hx Hypertension: Yes Hx Peripheral Vascular Disease: Yes - PULMONARY Hx Respiratory Disorders: Yes (PNEUMOTHORAX-BX DONE 09-27-17-LUNG MASS) - NEUROLOGICAL Hx Neurological Disorder: Yes Hx Dizziness: Yes (SYNCOPE 10-17-17) - HEENT Hx Macular Degeneration: Yes - RENAL Hx Chronic Kidney Disease: No - ENDOCRINE/METABOLIC Hx Endocrine Disorders: No - HEMATOLOGICAL/ONCOLOGICAL Hx Anemia: Yes Hx Cancer: Yes (prostate) Hx Metastesis: Yes (lung) - INTEGUMENTARY Hx Dermatological Problems: No - MUSCULOSKELETAL/RHEUMATOLOGICAL Hx Falls: No - GASTROINTESTINAL Hx Gastrointestinal Disorders: No - GENITOURINARY/GYNECOLOGICAL Hx Prostate Problems: Yes - PSYCHIATRIC Hx Psychophysiologic Disorder: No Hx Substance Use: No - SURGICAL HISTORY Hx Surgeries: No - ANESTHESIA Hx Anesthesia: Yes Hx Anesthesia Reactions: No Hx Malignant Hyperthermia: No Meds Allergies/Adverse Reactions: Allergies Allergy/AdvReac Type Severity Reaction Status Date / Time No Known Allergies Allergy Verified 04/27/18 20:35 - Medications Medications: Current Medications Acetaminophen (Tylenol 325mg Tab) 650 mg PO Q6H PRN PRN Reason: Fever >100.4 F Heparin Sodium (Porcine) (Heparin) 5,000 units SC Q8 [facility]; Protocol Sodium Chloride (Sodium Chloride 0.9%) 1,000 mls @ 75 mls/hr IV .[id number] [facility] Last Admin: 04/27/18 22:35 Dose: 75 mls/hr Vancomycin HCl (Vancomycin 750 Mg In Ns) 750 mg in 250 mls @ 167 mls/hr IVPB Q12 [facility]; Protocol Piperacillin Sod/Tazobactam Sod (Zosyn 4.5 Gm In Ns 100ml) 4.5 gm in 100 mls @ 25 mls/hr IVPB Q8 [facility]; Protocol Stop: 04/28/18 17:59 Vitamin A (Vitamin A & D Oint Ud Foilpak) 1 ea TOP Q2 PRN PRN Reason: Dry LIPS Physical Exam - Constitutional Appears: No Acute Distress - Head Exam Head Exam: ATRAUMATIC, NORMOCEPHALIC - Eye Exam Eye Exam: EOMI, Normal appearance - ENT Exam ENT Exam: Mucous Membranes Dry - Neck Exam Neck exam: Positive for: Full Rom - Respiratory Exam Respiratory Exam: Clear to Auscultation Bilateral, NORMAL BREATHING PATTERN. absent: Accessory Muscle Use, Rales, Rhonchi, Wheezes, Respiratory Distress - Cardiovascular Exam Cardiovascular Exam: REGULAR RHYTHM, RRR, +S1, +S2. absent: Bradycardia, Tachycardia - GI/Abdominal Exam GI & Abdominal Exam: Normal Bowel Sounds, Soft. absent: Tenderness - Exam Additional comments: melvin with cloudy yellow urine - Extremities Exam Extremities exam: Positive for: full ROM, normal capillary refill, normal i nspection, pedal pulses present. Negative for: calf tenderness, joint swelling, pedal edema, tenderness - Back Exam Back exam: absent: CVA tenderness (L), CVA tenderness (R) Additional comments: left sided nephrostomy tube with yellow discharge noted surrounding entry site - Neurological Exam Neurological exam: Alert, Oriented x3 - Psychiatric Exam Psychiatric exam: Normal Affect, Normal Mood - Skin Skin Exam: Dry, Warm Results - Vital Signs Recent Vital Signs: Last Vital Signs Temp 99.1 F 04/27/18 21:45 Pulse 94 H 04/27/18 22:29 Resp 19 04/27/18 22:29 BP 98/70 L 04/27/18 22:29 Pulse Ox 98 04/27/18 22:29 - Labs Result Diagrams: 04/28/18 02:45 04/28/18 02:45 Labs: Laboratory Results - last 24 hr 04/27/18 04/27/18 04/27/18 20:45 20:45 20:45 WBC 17.1 H D RBC 3.22 L Hgb 9.8 L Hct 30.1 L MCV 93.5 D MCH 30.4 MCHC 32.6 RDW 13.4 Plt Count 313 MPV 9.9 Gran % 85.0 H Lymph % (Auto) 6.8 L [place] % (Auto) 6.7 H Eos % (Auto) 1.5 Baso % (Auto) 0.0 Gran # 14.54 H Lymph # (Auto) 1.2 [place] # (Auto) 1.2 H Eos # (Auto) 0.3 Baso # (Auto) 0.00 PT INR APTT D-Dimer, Quantitative pO2 24 L VBG pH 7.35 VBG pCO2 44.0 VBG HCO3 24.3 VBG Total CO2 25.7 VBG O2 Sat (Calc) 42.2 VBG Base Excess -1.5 L VBG Potassium 4.4 Sodium 135.0 136 Chloride 103.0 103 Glucose 225 H Lactate 2.6 H FiO2 21.0 Potassium 4.6 Carbon Dioxide 23 Anion Gap 14 BUN 40 H Creatinine 1.3 Est GFR ( Amer) > 60 Est GFR (Non-Af Amer) 53 Random Glucose 211 H Calcium 9.0 Magnesium 1.9 Total Bilirubin 0.7 AST 17 ALT 31 Alkaline Phosphatase 135 H Lactate Dehydrogenase 337 Total Creatine Kinase < 20 L Troponin I < 0.01 NT-Pro-B Natriuret Pep 1470 H Total Protein 6.3 Albumin 2.9 L Globulin 3.4 Albumin/Globulin Ratio 0.9 L Venous Blood Potassium 4.4 Urine Color Urine Appearance Urine pH Ur Specific [place] Urine Protein Urine Glucose (UA) Urine Ketones Urine Blood Urine Nitrate Urine Bilirubin Urine Urobilinogen Ur Leukocyte Esterase Urine RBC Urine WBC Ur Epithelial Cells Urine Bacteria 04/27/18 04/27/18 20:45 22:15 WBC RBC Hgb Hct MCV MCH MCHC RDW Plt Count MPV Gran % Lymph % (Auto) [place] % (Auto) Eos % (Auto) Baso % (Auto) Gran # Lymph # (Auto) [place] # (Auto) Eos # (Auto) Baso # (Auto) PT 15.6 H INR 1.36 APTT 26.1 D-Dimer, Quantitative 971 H pO2 VBG pH VBG pCO2 VBG HCO3 VBG Total CO2 VBG O2 Sat (Calc) VBG Base Excess VBG Potassium Sodium Chloride Glucose Lactate FiO2 Potassium Carbon Dioxide Anion Gap BUN Creatinine Est GFR ( Amer) Est GFR (Non-Af Amer) Random Glucose Calcium Magnesium Total Bilirubin AST ALT Alkaline Phosphatase Lactate Dehydrogenase Total Creatine Kinase Troponin I NT-Pro-B Natriuret Pep Total Protein Albumin Globulin Albumin/Globulin Ratio Venous Blood Potassium Urine Color Yellow Urine Appearance Cloudy Urine pH 7.0 Ur Specific [place] 1.025 Urine Protein >=300 H Urine Glucose (UA) >=1000 Urine Ketones Negative Urine Blood Large H Urine Nitrate Positive H Urine Bilirubin Negative Urine Urobilinogen 2.0 H Ur Leukocyte Esterase Moderate H Urine RBC 2 - 5 Urine WBC Tntc Ur Epithelial Cells 1 - 3 Urine Bacteria Large Assessment & Plan - Assessment and Plan (Free Text) Assessment: 77 year old male with a past medical history significant for metasynchronous NSCLC, lung adenocarcinoma, PVD, HTN, prostate cancer s/p radiation, pneumothorax s/p lung biopsy, DJD, tobacco abuse, unresectable bladder cancer s/p chronic indwelling melvin catheter placement and percutaneous nephrostomy tube placement who presents with two hours of generalized weakness and chest discomfort. Of note, patient was found to be in SVT at rate of 196 beats/min for which he was given Adenosine. A code sepsis was also called on the patient while in the ED as he was found to have leukocytosis of 17.5 and elevated lactate. Plan: 1. Chest Pain r/o ACS -Noted episode of SVT; Resolved after adenosine administration -Chest X-Ray pending official radiologist interpretation -Repeat EKG showed sinus tachycardia at 117 BPM with incomplete RBBB -Serial Q6H troponins pending -Cardiology consulted, all recommendations appreciated 2. Dizziness -CT Head pending official radiologist interpretation; Preliminary reading showing no acute intracranial abnormality -Moderate fall and aspiration precautions -Neurology consulted, all recommendations appreciated 3. Sepsis secondary to UTI -Chronic indwelling melvin noted -UA findings noted -Started on Vancomycin and Zosyn (renal dosage adjustments as necessary) -Normal Saline at 75mls/hr -Tylenol PRN for fever -Blood, urine and wound cultures pending -ID and Urology consulted, all recommendations appreciated 4. Elevated D-Dimer -CT Chest (PE protocol) pending official radiologist interpretation; Preliminary reading showing no PE -Bilateral LE Venous Dopppler US pending 5. Hyperglycemia -No previous history of diabetes -SSI-Low and Accuchecks ACHS -A1c pending 6. History of Multiple Malignancies -Heme/Onc consulted, all recommendations appreciated GI Prophylaxis: Protonix DVT Prophylaxis: Heparin Diet: Regular Code Status: Full code Patient seen and case discussed with attending, Dr. Holley. Wallace Leone PGY2 - Date & Time Date: 04/27/18 Time: 22:54 <Olivier Holley - Last Filed: 04/30/18 13:18> Meds - Medications Medications: Current Medications Acetaminophen (Tylenol 325mg Tab) 650 mg PO Q6H PRN PRN Reason: Fever >100.4 F Last Admin: 04/29/18 23:09 Dose: 650 mg Amoxicillin/Clavulanate Potassium (Augmentin 875 Mg-125 Mg Tab) 1 tab PO Q12 KAYLA; Protocol Stop: 05/07/18 12:46 Apixaban (Eliquis) 10 mg PO BID [facility]; Protocol Stop: 05/06/18 18:00 Apixaban (Eliquis) 5 mg PO BID [facility]; Protocol Diltiazem HCl (Cardizem) 60 mg PO TID [facility] Last Admin: 04/30/18 09:41 Dose: 60 mg Sodium Chloride (Sodium Chloride 0.9%) 1,000 mls @ 75 mls/hr IV .[id number] [facility] Last Admin: 04/29/18 21:49 Dose: 75 mls/hr Insulin Human Regular (Humulin R Low) 0 units SC ACHS [facility]; Protocol Last Admin: 04/30/18 07:30 Dose: Not Given Pantoprazole Sodium (Protonix Ec Tab) 40 mg PO 0600 [facility] Last Admin: 04/30/18 05:36 Dose: 40 mg Sodium Phosphate (Fleet Enema) 135 ml RC DAILY PRN PRN Reason: Constipation Tamsulosin HCl (Flomax) 0.4 mg PO DAILY [facility] Last Admin: 04/30/18 09:41 Dose: 0.4 mg Vitamin A (Vitamin A & D Oint Ud Foilpak) 1 ea TOP Q2 PRN PRN Reason: Dry LIPS Results - Vital Signs Recent Vital Signs: Last Vital Signs Temp 98.4 F 04/30/18 06:00 Pulse 104 H 04/30/18 09:41 Resp 20 04/30/18 06:00 BP 169/81 H 04/30/18 09:41 Pulse Ox 100 04/30/18 06:00 - Labs Result Diagrams: 04/30/18 06:30 04/30/18 06:30 Labs: Laboratory Results - last 24 hr 04/29/18 04/29/18 04/29/18 11:22 16:02 21:56 WBC RBC Hgb Hct MCV MCH MCHC RDW Plt Count MPV Gran % Lymph % (Auto) [place] % (Auto) Eos % (Auto) Baso % (Auto) Gran # Lymph # (Auto) [place] # (Auto) Eos # (Auto) Baso # (Auto) APTT Sodium Potassium Chloride Carbon Dioxide Anion Gap BUN Creatinine Est GFR ( Amer) Est GFR (Non-Af Amer) POC Glucose (mg/dL) 203 H 118 H 170 H Random Glucose Hemoglobin A1c Calcium Phosphorus Magnesium Total Bilirubin AST ALT Alkaline Phosphatase Total Protein Albumin Globulin Albumin/Globulin Ratio Triglycerides Cholesterol LDL Cholesterol Direct HDL Cholesterol TSH 3rd Generation 04/30/18 04/30/18 04/30/18 06:30 06:30 06:30 WBC 8.2 RBC 2.72 L Hgb 8.2 L Hct 25.1 L MCV 92.3 MCH 30.1 MCHC 32.7 RDW 13.3 Plt Count 235 MPV 9.5 Gran % 82.8 H Lymph % (Auto) 7.2 L [place] % (Auto) 8.4 H Eos % (Auto) 1.6 Baso % (Auto) 0.0 Gran # 6.83 H Lymph # (Auto) 0.6 L [place] # (Auto) 0.7 H Eos # (Auto) 0.1 Baso # (Auto) 0.00 APTT 28.5 Sodium 138 Potassium 3.9 Chloride 112 H Carbon Dioxide 21 Anion Gap 9 L BUN 24 H Creatinine 1.2 Est GFR ( Amer) > 60 Est GFR (Non-Af Amer) 58 POC Glucose (mg/dL) Random Glucose 92 Hemoglobin A1c Calcium 8.3 L Phosphorus 3.3 Magnesium 1.8 Total Bilirubin 0.7 AST 16 L ALT 29 Alkaline Phosphatase 84 Total Protein 5.1 L Albumin 2.2 L Globulin 3.0 Albumin/Globulin Ratio 0.7 L Triglycerides 64 Cholesterol 91 L LDL Cholesterol Direct 70 HDL Cholesterol 22 L TSH 3rd Generation 04/30/18 04/30/18 04/30/18 06:30 06:30 07:17 WBC RBC Hgb Hct MCV MCH MCHC RDW Plt Count MPV Gran % Lymph % (Auto) [place] % (Auto) Eos % (Auto) Baso % (Auto) Gran # Lymph # (Auto) [place] # (Auto) Eos # (Auto) Baso # (Auto) APTT Sodium Potassium Chloride Carbon Dioxide Anion Gap BUN Creatinine Est GFR ( Amer) Est GFR (Non-Af Amer) POC Glucose (mg/dL) 107 Random Glucose Hemoglobin A1c 6.8 H Calcium Phosphorus Magnesium Total Bilirubin AST ALT Alkaline Phosphatase Total Protein Albumin Globulin Albumin/Globulin Ratio Triglycerides Cholesterol LDL Cholesterol Direct HDL Cholesterol TSH 3rd Generation 0.79 Attending/Attestation - Attestation I have personally seen and examined this patient.: Yes I have fully participated in the care of the patient.: Yes I have reviewed all pertinent clinical information: Yes
[2018-04-28] LABS: VENOUS BLOOD GAS BASE EXCESS -4.4 mmol/L (0.0-2.0); VENOUS BLOOD GAS PO2 31 mm/Hg (30-55); VENOUS BLOOD PH 7.34 (7.32-7.43)
[2018-04-28 00:35] VITALS: BMI 19.7
[2018-04-28 02:51] LABS: EOS # 0.1 (0.0-0.7); EOS % 1.2 % (1.5-5.0); GRAN # 8.75 (1.4-6.5); GRAN % 86.9 % (50.0-68.0); LYMPH # 0.7 (1.2-3.4); MEAN CORPUSCULAR HEMOGLOBIN 30.7 pg (25.0-35.0); MEAN CORPUSCULAR HGB CONC 32.3 g/dl (31.0-37.0); MEAN PLATELET VOLUME 9.4 fl (7.0-11.0); MONO # 0.5 (0.1-0.6); MONO % 4.9 % (1.0-6.0); RBC 2.61 10^6/uL (3.5-6.1); RED CELL DISTRIBUTION WIDTH 13.6 % (11.5-14.5); WHITE BLOOD COUNT 10.1 10^3/uL (4.5-11.0)
[2018-04-28 03:26] LABS: ALB/GLOB RATIO 0.8 (1.1-1.8); ALBUMIN 2.1 g/dL (3.0-4.8); ALT/SGPT 29 U/L (7-56); AST/SGOT 13 U/L (17-59); BLOOD UREA NITROGEN 36 mg/dL (7-21); GFR NON-AFRICAN AMERICAN > 60
[2018-04-28] MEDS ORDERED: Insulin Regular 1 UNITS/0.01 ML ML SC ONE (04:29)
[2018-04-28] MEDS: Pantoprazole 40 mg EC Tab PO SCH (05:23)
[2018-04-28] MEDS ORDERED: Piperacill/Tazo 4.5gm in NS 4.5 GM/100 ML BAG IVPB SCH (06:00)
--- NOTE | 2018-04-28 06:32 | PCM.SEPTIC ---
Sepsis Progress Note - Reassessment Type Date of Evaluation: 04/28/18 Time of Evaluation: 03:00 Reassessment Type: Non-invasive reassessment - Non Invasive Reassessment Were the most recent vital sign reviewed: Yes Vital Sign (Latest): Temp Pulse Resp BP Pulse Ox 97.8 F 70 12 124/53 L 97 04/28/18 04:00 04/28/18 04:30 04/28/18 04:30 04/28/18 04:01 04/28/18 04:30 Cardiovascular: Yes: Regular Rate, Rhythm. No: Murmur, Irregularly Irregular Respiratory: No: Rales, Rhonchi, Respiratory Distress Capillary Refill: Normal (Less than 2 sec) Pulses: Normal Radial, Normal Dorsalis Pedis, Normal Posterior Tibialis Skin: Normal Color, Warm, Dry <Edwin Sun - Last Filed: 04/28/18 06:30> - Non Invasive Reassessment Vital Sign (Latest): Temp Pulse Resp BP Pulse Ox 98.4 F 104 H 20 169/81 H 100 04/30/18 06:00 04/30/18 09:41 04/30/18 06:00 04/30/18 09:41 04/30/18 06:00 <Olivier Holley - Last Filed: 04/30/18 13:21> Attending/Attestation - Attestation I have personally seen and examined this patient.: Yes I have fully participated in the care of the patient.: Yes I have reviewed all pertinent clinical information, including history, physical exam and plan: Yes <Olivier Holley - Last Filed: 04/30/18 13:21>
--- NOTE | 2018-04-28 09:44 | CARD ---
APPROVED REPORT Date of service: 04/27/2018 EKG Measurement Heart [id number] <Conclusion> Supraventricular tachycardia at 196 BPM, new RBBB
--- NOTE | 2018-04-28 09:47 | CARD ---
APPROVED REPORT Date of service: 04/27/2018 EKG Measurement Heart [id number] <Conclusion> Sinus tachycardia, new Right bundle branch block
--- NOTE | 2018-04-28 09:58 | CT ---
Date of service: 04/27/2018 PROCEDURE: CT HEAD WITHOUT CONTRAST. HISTORY: Headache COMPARISON: 10/16/2017. TECHNIQUE: Axial computed tomography images were obtained through the head/brain without intravenous contrast. Radiation dose: Total exam DLP = 981.26 mGy-cm. This CT exam was performed using one or more of the following dose reduction techniques: Automated exposure control, adjustment of the mA and/or kV according to patient size, and/or use of iterative reconstruction technique. FINDINGS: HEMORRHAGE: No intracranial hemorrhage. BRAIN: There are mild chronic microangiopathic changes. There is no mass, mass effect or abnormal extra-axial fluid collection. There is no territorial infarction. The midline sagittal structures are normal. VENTRICLES: There is mild age-related global parenchymal volume loss and proportionate enlargement of the ventricles and cortical sulci. CALVARIUM: There is no calvarial fracture or extracranial soft tissue swelling. PARANASAL SINUSES: Predominantly clear. MASTOID AIR CELLS: The right mastoid air cells are clear. There is a small left mastoid effusion. OTHER FINDINGS: None. IMPRESSION: No acute intracranial abnormality. No significant interval change. A preliminary report was provided by [facility].
[2018-04-28] MEDS: Insulin Reg-LOW-Coverage SC SCH ×4 (10:01→22:14)
--- NOTE | 2018-04-28 10:04 | RAD ---
Date of service: 04/27/2018 HISTORY: sob COMPARISON: 01/17/2018 FINDINGS: LUNGS: The lungs are well inflated and clear. PLEURA: No pleural effusions or pneumothorax. CARDIOVASCULAR: The heart is normal in size. No aortic atherosclerotic calcification present. OSSEOUS STRUCTURES: Within normal limits for the patient's age. VISUALIZED UPPER ABDOMEN: Normal. OTHER FINDINGS: None. IMPRESSION: No active pulmonary disease.
[2018-04-28] MEDS: Vancomycin 750mg 750 MG/250 ML BAG IVPB SCH ×2 (10:16→21:40)
[2018-04-28] MEDS: Meropenem IV 1 gm in NS 1 GM/50 ML BAG IVPB SCH ×2 (10:17→21:40)
--- NOTE | 2018-04-28 12:06 | CT ---
Date of service: 04/27/2018 PROCEDURE: CT Chest with contrast (Pulmonary Angiogram) HISTORY: W/ increased HR elevated D-dimer COMPARISON: None available. TECHNIQUE: Axial computed tomography images were obtained of the chest in the pulmonary arterial phase of enhancement. Coronal and sagittal reformatted images were created and reviewed. Intravenous contrast dose: Radiation dose: Total exam DLP = 258.91 mGy-cm. This CT exam was performed using one or more of the following dose reduction techniques: Automated exposure control, adjustment of the mA and/or kV according to patient size, and/or use of iterative reconstruction technique. FINDINGS: There is a multinodular thyroid gland with enlarged left thyroid lobe. PULMONARY ARTERIES: No CT evidence for acute for pulmonary embolism. AORTA: No acute findings. No thoracic aortic aneurysm. There are aortic atherosclerotic calcification present. No mural plaques. LUNGS: The lungs are well inflated. There is a 10 x 11 mm spiculated nodule in the right posterior apex. There is scattered centrilobular emphysema in the lungs. There is dependent atelectasis in the lung bases and biapical pleural parenchymal scarring.. No endobronchial lesions. PLEURAL SPACES: No effusion or pneumothorax. HEART: No cardiomegaly. No significant pericardial effusion. LYMPH NODES: There are enlarged right paratracheal, pretracheal, precarinal and subcarinal lymph nodes, the largest right pretracheal lymph node measures 10 mm in short axis. There is mild right hilar lymphadenopathy. BONES, CHEST WALL: Within normal limits for the patient's age. No fracture or destructive lesion OTHER FINDINGS: Unremarkable. IMPRESSION: No evidence for acute pulmonary embolism. 10 x 11 mm spiculated nodule in the right posterior apex. Histopathologic correlation/correlation with PET-CT is recommended for definitive evaluation and to exclude malignancy. Mediastinal lymphadenopathy as described above, the largest right pretracheal lymph node measures 10 mm. This may be reactive however metastatic nodes are consideration given suspicious right apical pulmonary nodule. A preliminary report was provided by [employer].
[2018-04-28] MEDS: Sodium Chloride 0.9% 1,000 ML IV SCH (13:14)
--- NOTE | 2018-04-28 15:02 | PN ---
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 SUBJECTIVE: The patient is resting in bed comfortably. No complaints of increased shortness of breath, cough, wheezing, chest congestion. No diarrhea at this time. The patient initially presented with near syncopal episode and hypotension and increased D-dimer but pulmonary embolus evaluation was negative. He does carry a diagnosis of bladder CA. PHYSICAL EXAMINATION: VITAL SIGNS: The patient's temperature is 97.8, his pulse is 71, respirations of 15, and BP is 107/41. SKIN: Warm and dry. HEENT: Head atraumatic, normocephalic. Eyes reactive to light. Ears, nose and throat seem to be within normal limits. NECK: Supple. No JVD. No thyroid enlargement. No lymph nodes. HEART: Has regular rate and rhythm. Normal S1, S2. LUNGS: Reveal good breath sounds bilaterally. GASTROINTESTINAL: Decreased bowel sounds. No organomegaly noted. GENITALIA: Deferred. RECTAL: Deferred. MUSCULOSKELETAL: No joint deformities. EXTREMITIES: Reveal no edema. NEUROLOGICAL: He is grossly intact. LABORATORY DATA: As far as laboratories are concerned, his white count is 10.1, hemoglobin is 8, hematocrit is 24.8 with platelets of 201,000. His sodium is 137, potassium 4.4, chloride 109, CO2 of 22 with a BUN of 36, creatinine of 1.1 and a glucose of 330. As far as his chest x-ray, no active disease and CT of the chest is pending. IMPRESSION: This patient has presented with sepsis with hypotension, possible urinary tract infection. He had a near-syncopal episode with dizziness and noted in the ER to have a supraventricular tachycardia. The patient has anemia and is noted to have an increased D-dimer, but preliminary report shows that CT of the head showed no acute intracranial abnormalities and CT of the chest final report is pending but from what was turned over there was no pulmonary embolus. The patient has history of lung cancer, bladder cancer, prostate cancer and has a history of hypertension as well as past history of pneumothorax. PLAN: As far as our plan, we will continue to observe closely. Hematology and Oncology has been consulted. The patient is getting heparin subcu at this time and meropenem as well as Protonix and IV fluids. He continues to get vancomycin as well as vitamins. We will continue to treat aggressively along with the other consultants and the primary care doctor. Nnamdi Tierney MD
--- NOTE | 2018-04-28 15:36 | CON ---
DATE: 04/28/2018 CHIEF COMPLAINT: Dizziness. HISTORY OF PRESENT ILLNESS: This is a 77-year-old male with past medical history of metastatic non-small cell lung cancer, lung edema and carcinoma, PVD, hypertension, status post radiation, pneumothorax, status post lung biopsy, , tobacco use, unresectable bladder cancer, status post chronic indwelling Nava catheter, placement of nephrostomy tube who presented for generalized weakness and dizziness and was found to have low systolic blood pressure that has been discovered by the daughter when the EMS arrived of 80/40 and had low systolic and diastolic blood pressure in the ER. He is currently in the ICU because he was found to have been in SVT. I have given a dose of adenosine and code chest was called due to hypotension as well as leukocytosis on 12/16/2017 and elevated lactate. Apparently, he is following simple commands, occasional mild . He does have hypoglycemia, blood sugar noted to be 30, as well as having A1c hemoglobin of 6.8, he is deconditioned, moves all extremities. There is no evidence of diabetic peripheral neuropathy on neuro exam: CAT scan of the head shows no acute intracranial abnormality. PAST MEDICAL HISTORY: As noted above. PAST SURGICAL HISTORY: Prostate surgery. FAMILY HISTORY: Noncontributory. SOCIAL HISTORY: Previous 15-[id number] smoker, quit 10 years ago. Occasional EtOH use. No illicit drug use. ALLERGIES: NO KNOWN DRUG ALLERGIES. MEDICATIONS: Reviewed by nurses' reconciliation sheet. REVIEW OF SYSTEMS: Fourteen-point review of systems is negative except as per the HPI. FAMILY HISTORY: Noncontributory. LABORATORY DATA: Sodium is 137, potassium 4.4, chloride 109, carbon dioxide 22, BUN 36, creatinine 1.1, random glucose 230, A1c is 6.8. PHYSICAL EXAMINATION: VITAL SIGNS: The patient is afebrile. Pulse rate of 70, blood pressure 107/41, respiratory rate 16, oxygen saturation 90% on room air. GENERAL: The patient is lying in bed. HEENT: Atraumatic, normocephalic. PERRLA. Extraocular muscles intact. NECK: Supple. No JVD. No adenopathy noted. LUNGS: Clear to auscultation. No adventitious sounds. HEART: S1 and S2, normal rate and rhythm. No murmurs, rubs, or gallops. ABDOMEN: Soft, nontender, and nondistended. Bowel sounds are present. EXTREMITIES: No clubbing. No cyanosis. Peripheral pulses 2+ felt bilaterally. NEUROLOGIC: The patient is alert and oriented to person, place, and year. Recall after 5 minutes is 0/2. Poor attention span. Slow thought process. Cranial nerves II through XII intact. Motor exam: Deconditioned. Increased tone throughout. No pronator drift seen. Sensory: Decreased light touch and pinprick up to the calves bilaterally. Decreased vibration of the toes. DTRs are 2+ throughout at both knees and ankles. Coordination: [id number]-ul-[id number] intact. No dysmetria noted. IMPRESSION: Dizziness is multifactorial secondary to underlying sepsis as well as supraventricular tachycardia with transient cerebral hypoperfusion to the brain, superimposed on hyperglycemia. He also has urinary tract infection, which is part of the sepsis. PLAN: At this time recommend: 1. Keep blood sugars between 140 and 180. 2. Continue antibiotics for underlying sepsis, urinary tract infection. 3. Monitor electrolytes and correct accordingly. 4. Avoid any sedative meds. 5. Delirium precautions. 6. PT/OT evaluation. Thank you for the consult. Galen Pozo MD (Delete this signature block when dictator is a preceptor.) cc: MD Amauri (Delete if not dictated.)
--- NOTE | 2018-04-28 17:55 | CON ---
DATE OF CONSULTATION: 04/28/2018 The patient is seen earlier today in ICU, Bed #6. CHIEF COMPLAINT: Dizziness times several days. HISTORY OF PRESENT ILLNESS: This is a 77-year-old male with a history of urinary bladder cancer with lung metastasis, who has recent hospitalization and urinary tract infection, who is admitted through the emergency room because of dizziness and he is on immunotherapy. Past medical history is significant for anemia and urinary bladder cancer with mets to the lungs, although Dr. Riddle's note says that the patient has urinary bladder cancer and has lung cancer also and history of prostate cancer also. He had a biopsy of the lung mass, which showed adenocarcinoma of the lung, complicated by pneumothorax. Dr. Be's consultation from 03/09/2018 states that the patient has adenocarcinoma of the lung based on the lung biopsy, peripheral vascular disease, hypertension, prostate cancer with radiation. The patient also with a left nephrostomy tube. 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 The patient also has left ureteral stent with attempt that one time was unsuccessful. PAST MEDICAL HISTORY: Significant for adenocarcinoma of the lung based on the lung biopsy complicated with a pneumothorax, prostate cancer, urinary bladder cancer. PAST SURGICAL HISTORY: Significant for left-sided nephrostomy tube. MEDICATIONS AT HOME: Reviewed and include immunotherapy, Cardizem, Ultram and tramadol. ALLERGIES: THE PATIENT HAS NO KNOWN ALLERGIES. REVIEW OF SYSTEMS: No fevers, no chills, and no chest pain. There is mild shortness of breath. No abdominal pain, diarrhea or constipation. No headaches or blurred vision. No nausea or vomiting at this time. A 12-point review of systems is performed. PHYSICAL EXAMINATION: The patient is in bed with a temperature of 97, T-max is 99.9, pulse rate of 73, respiratory rate of a pulse up to 24 and 22, blood pressure is 107/40 and lowest with 96/53. Examination of HEENT is unremarkable. Neck is supple. Lungs have decreased breath sounds. Heart exam is normal S1 and S2. Abdominal examination is soft and nontender. No organomegaly. No rebound or guarding or masses. LABORATORY EXAMINATION: The patient's white count is 17,100, hemoglobin of 9, and platelets of 313. BUN of 36 and creatinine of 1.1. Urinalysis is noted, wbc's too numerous to count, large bacteria. The patient had a CAT scan of the chest and the results are not available. Chest x-ray results are also not available. ER doctor's note is reviewed. Dr. Leone's note is reviewed. ASSESSMENT AND PLAN: This is a 77-year-old male with adenocarcinoma of the lung, urinary bladder cancer, prostate cancer, history of pneumothorax, history of macular degeneration, hypertension and peripheral vascular disease, who is now admitted with dizziness, found to have dyspnea and leukocytosis and positive urinalysis. #1 is sepsis with urine as the source. We will treat the patient with vancomycin and meropenem. Must also rule out healthcare-associated pneumonia, pending blood culture, urine culture, sputum culture and procalcitonin. We will adjust the meropenem based on the renal insufficiency. Urine and blood cultures are pending. MRSA screen has been placed and we will make further recommendations upon the availability of results. Ernst Osborn MD
--- NOTE | 2018-04-29 00:47 | CON ---
DATE: 04/28/2018 This is [facility] consult in the intensive care unit. For Dr. Be. SUBJECTIVE: The patient is a 77-year-old male, known to suffer from significant symptomatic anemic indices for which he was transfused almost on a monthly basis recently with a recent diagnosis of adenocarcinoma of the lung and prostate cancer with history of pelvic abscess next to the bladder secondary to instrumentation? at a different institution. 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 At present, he is being evaluated for a near-syncopal episode at home without loss of consciousness or head trauma, but dizziness. The patient speaks Dutch with a daughter acting as a gm. The patient also was evaluated by urologist in the past in anticipation of a reevaluation of his urinary pathology so that the patient's quality of life may be enhanced if possible. At present, except for weakness, the patient is in no acute distress. ALLERGIES: NO KNOWN ALLERGIES. MEDICATIONS: Include diltiazem 60 mg once a day, tamsulosin 0.5 mg once a day, Voltaren which was since discontinued in favor of Tylenol or tramadol, and Xyzal p.r.n. PAST MEDICAL HISTORY: As above. Prostate cancer; recently diagnosed adenocarcinoma of the lung, which the patient unfortunately developed pneumothorax x2 on tissue diagnosis; rapid atrial fibrillation, treated, and then developed bradycardic syndrome, medications cut back; DJD of the hip; pedal edema; non-Intention tremor; chronic indwelling Nava catheter. FAMILY HISTORY AND SOCIAL HISTORY: He reports significant history of 40 years of one and a half packs per day, quit 20 years prior. Denies alcohol use. One son and one daughter, alive and well. Two sisters and one brother, alive and well. 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 REVIEW OF SYSTEMS: Twelve-point review of systems was done, which was essentially negative to questioning except for items mentioned in the history of present illness as above. OBJECTIVE/PHYSICAL EXAMINATION: VITAL SIGNS: Temperature 97.8, pulse 71, respirations 15, blood pressure 107/41, pulse ox 98%. HEENT: Unremarkable. NECK: Supple. HEART: Regular rate, occasional ectopic beat. LUNGS: Clear. ABDOMEN: Soft, nontender with the Nava in situ with left side nephrostomy tube. EXTREMITIES: No edema. SKIN: Questionable sacral ulcer. Skin is otherwise warm and dry. NEUROLOGIC: Awake, alert, and oriented. LABORATORY DATA: The patient's labs were done. White blood cell count of 17.1 on admission, 10.1 today; hemoglobin 9.8 on admission, 8.0 today; hematocrit 30.1 on admission, 24.8 today; platelet count of 201,000 today. INR of 1.36. D-dimer of 971. Chem metabolic panel shows a BUN of 36 with creatinine of 1.1 today, non-fasting glucose of 330, hemoglobin A1c was 6.8 with AST of 13; otherwise normal chem panel. Urinalysis showed large amount of blood, positive nitrite, moderate leukocyte esterase, protein greater than 300. The patient had an EKG done yesterday, read as supraventricular tachycardia with right bundle branch block and repeat EKG was then done showing sinus tachycardia and right bundle branch block. A chest x-ray was done yesterday; it was read as no active pulmonary disease. CT of the chest was done yesterday; it was read as CT angiogram, no evidence of acute pulmonary embolism, 10 x 11 mm spiculated nodule at right posterior apex, mediastinal lymphadenopathy, metastatic nodes are considered. CAT scan of the head was done yesterday; it was read as no acute intracranial abnormality. The patient had a sepsis evaluation and antibiotics were begun. ASSESSMENT: For this patient is that of supraventricular tachycardia; adenocarcinoma of the lung, status post biopsy, status post pneumothorax; history of prostate cancer, chronic indwelling Nava, nephrostomy tube; history of atrial fibrillation; cachexia; malignancy; sepsis secondary to urinary tract infection. PLAN: The plan for this patient is to continue his present medical regimen, intensive care unit, on antibiotics as per Dr. Osborn, search engine optimization consultant doctor; see crm consultant. Dr. Galen Pozo is also asked to see the patient as is Dr. Franks, Urology. With this, the patient continues on subcutaneous heparin, antibiotics including meropenem and Zosyn with vancomycin also, now being given in favor of Zosyn as per Dr. Osborn. We will check a Doppler ultrasound of the lower extremities. The patient is a complex patient with comprehensive medically necessary and appropriate visit carried out in excess of 60 minutes with the patient's questions answered to his satisfaction as per the daughter translating on telephone. For his anemic indices, we will type and cross for 2 units of packed red blood cells with repeat labs in the morning, to be transfused as indicated. Prognosis for this patient is guarded. Mike Schmitt MD
[2018-04-29] MEDS: Sodium Chloride 0.9% 1,000 ML IV SCH ×2 (03:15→21:49)
[2018-04-29] MEDS: Pantoprazole 40 mg EC Tab PO SCH (05:21)
[2018-04-29 07:17] LABS: EOS # 0.1 (0.0-0.7); EOS % 1.3 % (1.5-5.0); GRAN # 7.69 (1.4-6.5); GRAN % 83.7 % (50.0-68.0); HEMOGLOBIN 8.4 g/dL (14.0-18.0); LYMPH # 0.6 (1.2-3.4); MEAN CELL VOLUME 93.2 fl (80.0-105.0); MEAN CORPUSCULAR HEMOGLOBIN 30.1 pg (25.0-35.0); MEAN CORPUSCULAR HGB CONC 32.3 g/dl (31.0-37.0); MEAN PLATELET VOLUME 9.6 fl (7.0-11.0); MONO # 0.7 (0.1-0.6); RBC 2.79 10^6/uL (3.5-6.1); RED CELL DISTRIBUTION WIDTH 13.3 % (11.5-14.5); WHITE BLOOD COUNT 9.2 10^3/uL (4.5-11.0)
[2018-04-29 07:29] LABS: BLOOD UREA NITROGEN 24 mg/dL (7-21); GFR NON-AFRICAN AMERICAN > 60
[2018-04-29 07:30] LABS: ALBUMIN 2.3 g/dL (3.0-4.8); CALCIUM 8.3 mg/dL (8.4-10.5)
[2018-04-29 07:31] LABS: ALB/GLOB RATIO 0.8 (1.1-1.8); ALT/SGPT 28 U/L (7-56); AST/SGOT 16 U/L (17-59)
--- NOTE | 2018-04-29 09:55 | CARD ---
APPROVED REPORT Date of service: 04/27/2018 EKG Measurement Heart [id number] <Conclusion> Supraventricular tachycardia [id number] No change from earlier ECG
[2018-04-29] MEDS: Insulin Reg-LOW-Coverage SC SCH ×3 (09:58→22:04)
[2018-04-29] MEDS: Vancomycin 750mg 750 MG/250 ML BAG IVPB SCH ×2 (10:24→21:43)
[2018-04-29] MEDS: Meropenem IV 1 gm in NS 1 GM/50 ML BAG IVPB SCH ×2 (10:24→21:42)
--- NOTE | 2018-04-29 11:41 | US ---
HISTORY: Leg pain and swelling. Evaluate for DVT PHYSICIAN(S): Fito Sylvester MD. TECHNIQUE: Duplex sonography and color-flow Doppler with graded compression were used to evaluate the deep venous systems of both lower extremities. FINDINGS: There is extensive acute, hypoechoic occlusive thrombus noted in the visualized left external iliac vein, left common femoral vein, and left femoral vein. Interestingly, the left popliteal and visualized tibial veins are patent. There is no sonographic evidence for deep venous thrombosis in the visualized segments of the right lower extremity. IMPRESSION: Extensive left iliofemoral DVT. The superior extent of the thrombus is not delineated. The patient may benefit from a CT scan of the chest abdomen pelvis with IV contrast to evaluate for pulmonary embolism and possible involvement of the IVC and left iliac veins
[2018-04-29] MEDS: Enoxaparin 60 mg Syringe SC SCH (12:10)
--- NOTE | 2018-04-29 12:26 | CP.CCUPN ---
<Edvin Bhat - Last Filed: 04/29/18 13:11> CCU Subjective - Physician Review Subjective (Free Text): CRITICAL CARE PROGRESS NOTE FOR DR. SYLIVA Bhat PGY-1 Pt seen and examined at bedside this am. Pt complains that he has been c onstipated. He also reports subjective chills. Pt underwent LE u/s revealing L iliofemoral DVT. Pt started on therapeutic lovenox. Other ROS are negative CCU Objective - Vital Signs / Intake & Output Vital Signs (Last 4 hours): Vital Signs Temp 04/29/18 11:31 99.1 F 04/29/18 10:31 100.1 F H Intake and Output (Last 8hrs): Intake & Output 04/28/18 04/29/18 04/29/18 22:59 06:59 14:59 Intake Total 1445 Output Total 1300 Balance 145 Weight 112 lb 12.8 oz Intake: IV 1165 Left Antecubital 1165 Oral 280 Output: Drainage 300 L flank 300 Urine 1000 Urethral (Melvin) 1000 Other: # Bowel Movements 0 - Physical Exam Head: Positive for: Atraumatic, Normocephalic Pupils: Positive for: PERRL Extroacular Muscles: Positive for: EOMI Conjunctiva: Positive for: Normal Mouth: Positive for: Dry Neck: Positive for: Normal Range of Motion Respiratory/Chest: Positive for: Clear to Auscultation, Decreased Breath Sounds. Negative for: Respiratory Distress, Accessory Muscle Use Cardiovascular: Positive for: Regular Rate and Rhythm, Normal S1, S2, Tachycardic. Negative for: Murmurs Abdomen: Negative for: Tenderness, Distention, Peritoneal Signs Genitourinary Male: Positive for: Other (melvin with cloudy yellow urine) Back: Positive for: Other (left sided nephrostomy tube with yellow discharge noted surrounding entry site) Upper Extremity: Positive for: Normal Inspection. Negative for: Cyanosis, Edema Lower Extremity: Positive for: Normal Inspection. Negative for: Edema Neurological: Positive for: GCS=15, CN II-XII Intact, Speech Normal Skin: Positive for: Warm, Dry, Other (Grade 1 sacral ulcer). Negative for: Rashes Psychiatric: Positive for: Alert, Oriented x 3, Normal Insight, Normal Concentration - Medications Active Medications: Active Medications Generic Name Dose Route Start Last Admin Trade Name Freq PRN Reason Stop Dose Admin Acetaminophen 650 mg 04/27/18 22:35 04/29/18 10:31 Tylenol 325mg Tab PO 650 mg Q6H PRN Administration Fever >100.4 F Enoxaparin Sodium 50 mg 04/29/18 11:45 04/29/18 12:10 Lovenox SC 50 mg Q12H KAYLA Administration Protocol Sodium Chloride 1,000 mls @ 75 mls/hr 04/27/18 22:45 04/29/18 03:15 Sodium Chloride 0.9% IV 75 mls/hr .[id number] KAYLA Administration Vancomycin HCl 750 mg in 250 mls @ 167 mls/hr 04/28/18 10:00 04/29/18 10:24 Vancomycin 750 Mg In Ns IVPB 167 mls/hr Q12 KAYLA Administration Protocol Meropenem 1 gm in 50 mls @ 100 mls/hr 04/28/18 10:00 04/29/18 10:24 Merrem Iv 1 Gm Premix IVPB 05/07/18 10:01 100 mls/hr Q12 KAYLA Administration Protocol Insulin Human Regular 0 units 04/28/18 07:30 04/29/18 12:11 Humulin R Low SC 2 units ACHS KAYLA Administration Protocol Pantoprazole Sodium 40 mg 04/28/18 06:00 04/29/18 05:21 Protonix Ec Tab PO 40 mg 0600 KAYLA Administration Sodium Phosphate 135 ml 04/29/18 00:05 Fleet Enema RC DAILY PRN Constipation Tamsulosin HCl 0.4 mg 04/29/18 12:00 04/29/18 12:11 Flomax PO 0.4 mg DAILY KAYLA Administration Vitamin A 1 ea 04/27/18 22:35 Vitamin A & D Oint Ud Foilpak TOP Q2 PRN Dry LIPS - Patient Studies Lab Studies: Microbiology Studies 04/27/18 23:30 MRSA Culture (Admit) - Final Nose MRSA NOT DETECTED 04/27/18 22:15 Urine Culture - Final Urine,Melvin No Growth (<1,000 CFU/ML) 04/27/18 20:55 Wound Culture - Preliminary Catheter Site NO GROWTH AFTER 24 HOURS 04/27/18 22:00 Blood Culture - Preliminary Blood-Venous NO GROWTH AFTER 24 HOURS 04/27/18 20:45 Blood Culture - Preliminary Blood-Venous NO GROWTH AFTER 24 HOURS Lab Studies 04/29/18 04/29/18 04/29/18 Range/Units 07:51 05:40 05:40 WBC (4.5-11.0) 10^3/uL RBC (3.5-6.1) 10^6/uL Hgb (14.0-18.0) g/dL Hct (42.0-52.0) % MCV (80.0-105.0) fl MCH (25.0-35.0) pg MCHC (31.0-37.0) g/dl RDW (11.5-14.5) % Plt Count (120.0-450.0) 10^3/uL MPV (7.0-11.0) fl Gran % (50.0-68.0) % Lymph % (Auto) (22.0-35.0) % [place] % (Auto) (1.0-6.0) % Eos % (Auto) (1.5-5.0) % Baso % (Auto) (0.0-3.0) % Gran # (1.4-6.5) Lymph # (Auto) (1.2-3.4) [place] # (Auto) (0.1-0.6) Eos # (Auto) (0.0-0.7) Baso # (Auto) (0.0-2.0) K/mm3 APTT 29.2 (25.1-36.5) Seconds Sodium 137 (132-148) mmol/L Potassium 3.9 (3.6-5.0) mmol/L Chloride 110 H (98-107) mmol/L Carbon Dioxide 23 (21-33) mmol/L Anion Gap 8 L (10-20) BUN 24 H (7-21) mg/dL Creatinine 1.1 (0.8-1.5) mg/dl Est GFR ( Amer) > 60 Est GFR (Non-Af Amer) > 60 POC Glucose (mg/dL) 73 (65-110) mg/dL Random Glucose 93 (70-110) mg/dL Calcium 8.3 L (8.4-10.5) mg/dL Phosphorus 2.9 (2.5-4.5) mg/dL Magnesium 1.8 (1.7-2.2) mg/dL Total Bilirubin 0.8 (0.2-1.3) mg/dL AST 16 L D (17-59) U/L ALT 28 (7-56) U/L Alkaline Phosphatase 91 (38-126) U/L Troponin I ng/mL Total Protein 5.1 L (5.8-8.3) g/dL Albumin 2.3 L (3.0-4.8) g/dL Globulin 2.8 gm/dL Albumin/Globulin Ratio 0.8 L (1.1-1.8) Procalcitonin (0.19-0.49) NG/ML Blood Type Antibody Screen Crossmatch BBK History Checked 04/29/18 04/29/18 04/28/18 Range/Units 05:40 00:49 23:51 WBC 9.2 (4.5-11.0) 10^3/uL RBC 2.79 L (3.5-6.1) 10^6/uL Hgb 8.4 L (14.0-18.0) g/dL Hct 26.0 L (42.0-52.0) % MCV 93.2 (80.0-105.0) fl MCH 30.1 (25.0-35.0) pg MCHC 32.3 (31.0-37.0) g/dl RDW 13.3 (11.5-14.5) % Plt Count 241 (120.0-450.0) 10^3/uL MPV 9.6 (7.0-11.0) fl Gran % 83.7 H (50.0-68.0) % Lymph % (Auto) 7.0 L (22.0-35.0) % [place] % (Auto) 8.0 H (1.0-6.0) % Eos % (Auto) 1.3 L (1.5-5.0) % Baso % (Auto) 0.0 (0.0-3.0) % Gran # 7.69 H (1.4-6.5) Lymph # (Auto) 0.6 L (1.2-3.4) [place] # (Auto) 0.7 H (0.1-0.6) Eos # (Auto) 0.1 (0.0-0.7) Baso # (Auto) 0.00 (0.0-2.0) K/mm3 APTT (25.1-36.5) Seconds Sodium (132-148) mmol/L Potassium (3.6-5.0) mmol/L Chloride (98-107) mmol/L Carbon Dioxide (21-33) mmol/L Anion Gap (10-20) BUN (7-21) mg/dL Creatinine (0.8-1.5) mg/dl Est GFR ( Amer) Est GFR (Non-Af Amer) POC Glucose (mg/dL) 86 (65-110) mg/dL Random Glucose (70-110) mg/dL Calcium (8.4-10.5) mg/dL Phosphorus (2.5-4.5) mg/dL Magnesium (1.7-2.2) mg/dL Total Bilirubin (0.2-1.3) mg/dL AST (17-59) U/L ALT (7-56) U/L Alkaline Phosphatase (38-126) U/L Troponin I ng/mL Total Protein (5.8-8.3) g/dL Albumin (3.0-4.8) g/dL Globulin gm/dL Albumin/Globulin Ratio (1.1-1.8) Procalcitonin (0.19-0.49) NG/ML Blood Type AB POSITIVE Antibody Screen Negative Crossmatch See Detail BBK History Checked Patient has bt 04/28/18 04/28/18 04/28/18 Range/Units 22:11 16:01 14:45 WBC (4.5-11.0) 10^3/uL RBC (3.5-6.1) 10^6/uL Hgb (14.0-18.0) g/dL Hct (42.0-52.0) % MCV (80.0-105.0) fl MCH (25.0-35.0) pg MCHC (31.0-37.0) g/dl RDW (11.5-14.5) % Plt Count (120.0-450.0) 10^3/uL MPV (7.0-11.0) fl Gran % (50.0-68.0) % Lymph % (Auto) (22.0-35.0) % [place] % (Auto) (1.0-6.0) % Eos % (Auto) (1.5-5.0) % Baso % (Auto) (0.0-3.0) % Gran # (1.4-6.5) Lymph # (Auto) (1.2-3.4) [place] # (Auto) (0.1-0.6) Eos # (Auto) (0.0-0.7) Baso # (Auto) (0.0-2.0) K/mm3 APTT (25.1-36.5) Seconds Sodium (132-148) mmol/L Potassium (3.6-5.0) mmol/L Chloride (98-107) mmol/L Carbon Dioxide (21-33) mmol/L Anion Gap (10-20) BUN (7-21) mg/dL Creatinine (0.8-1.5) mg/dl Est GFR ( Amer) Est GFR (Non-Af Amer) POC Glucose (mg/dL) 84 277 H (65-110) mg/dL Random Glucose (70-110) mg/dL Calcium (8.4-10.5) mg/dL Phosphorus (2.5-4.5) mg/dL Magnesium (1.7-2.2) mg/dL Total Bilirubin (0.2-1.3) mg/dL AST (17-59) U/L ALT (7-56) U/L Alkaline Phosphatase (38-126) U/L Troponin I < 0.01 ng/mL Total Protein (5.8-8.3) g/dL Albumin (3.0-4.8) g/dL Globulin gm/dL Albumin/Globulin Ratio (1.1-1.8) Procalcitonin (0.19-0.49) NG/ML Blood Type Antibody Screen Crossmatch BBK History Checked 04/28/18 04/28/18 Range/Units 09:56 08:45 WBC (4.5-11.0) 10^3/uL RBC (3.5-6.1) 10^6/uL Hgb (14.0-18.0) g/dL Hct (42.0-52.0) % MCV (80.0-105.0) fl MCH (25.0-35.0) pg MCHC (31.0-37.0) g/dl RDW (11.5-14.5) % Plt Count (120.0-450.0) 10^3/uL MPV (7.0-11.0) fl Gran % (50.0-68.0) % Lymph % (Auto) (22.0-35.0) % [place] % (Auto) (1.0-6.0) % Eos % (Auto) (1.5-5.0) % Baso % (Auto) (0.0-3.0) % Gran # (1.4-6.5) Lymph # (Auto) (1.2-3.4) [place] # (Auto) (0.1-0.6) Eos # (Auto) (0.0-0.7) Baso # (Auto) (0.0-2.0) K/mm3 APTT (25.1-36.5) Seconds Sodium (132-148) mmol/L Potassium (3.6-5.0) mmol/L Chloride (98-107) mmol/L Carbon Dioxide (21-33) mmol/L Anion Gap (10-20) BUN (7-21) mg/dL Creatinine (0.8-1.5) mg/dl Est GFR ( Amer) Est GFR (Non-Af Amer) POC Glucose (mg/dL) 171 H (65-110) mg/dL Random Glucose (70-110) mg/dL Calcium (8.4-10.5) mg/dL Phosphorus (2.5-4.5) mg/dL Magnesium (1.7-2.2) mg/dL Total Bilirubin (0.2-1.3) mg/dL AST (17-59) U/L ALT (7-56) U/L Alkaline Phosphatase (38-126) U/L Troponin I ng/mL Total Protein (5.8-8.3) g/dL Albumin (3.0-4.8) g/dL Globulin gm/dL Albumin/Globulin Ratio (1.1-1.8) Procalcitonin 0.21 (0.19-0.49) NG/ML Blood Type Antibody Screen Crossmatch BBK History Checked Laboratory Results - last 24 hr 04/28/18 04/28/18 04/28/18 08:45 09:56 14:45 WBC RBC Hgb Hct MCV MCH MCHC RDW Plt Count MPV Gran % Lymph % (Auto) [place] % (Auto) Eos % (Auto) Baso % (Auto) Gran # Lymph # (Auto) [place] # (Auto) Eos # (Auto) Baso # (Auto) APTT Sodium Potassium Chloride Carbon Dioxide Anion Gap BUN Creatinine Est GFR ( Amer) Est GFR (Non-Af Amer) POC Glucose (mg/dL) 171 H Random Glucose Calcium Phosphorus Magnesium Total Bilirubin AST ALT Alkaline Phosphatase Troponin I < 0.01 Total Protein Albumin Globulin Albumin/Globulin Ratio Procalcitonin 0.21 Blood Type Antibody Screen Crossmatch BBK History Checked 04/28/18 04/28/18 04/28/18 16:01 22:11 23:51 WBC RBC Hgb Hct MCV MCH MCHC RDW Plt Count MPV Gran % Lymph % (Auto) [place] % (Auto) Eos % (Auto) Baso % (Auto) Gran # Lymph # (Auto) [place] # (Auto) Eos # (Auto) Baso # (Auto) APTT Sodium Potassium Chloride Carbon Dioxide Anion Gap BUN Creatinine Est GFR ( Amer) Est GFR (Non-Af Amer) POC Glucose (mg/dL) 277 H 84 86 Random Glucose Calcium Phosphorus Magnesium Total Bilirubin AST ALT Alkaline Phosphatase Troponin I Total Protein Albumin Globulin Albumin/Globulin Ratio Procalcitonin Blood Type Antibody Screen Crossmatch BBK History Checked 04/29/18 04/29/18 04/29/18 00:49 05:40 05:40 WBC 9.2 RBC 2.79 L Hgb 8.4 L Hct 26.0 L MCV 93.2 MCH 30.1 MCHC 32.3 RDW 13.3 Plt Count 241 MPV 9.6 Gran % 83.7 H Lymph % (Auto) 7.0 L [place] % (Auto) 8.0 H Eos % (Auto) 1.3 L Baso % (Auto) 0.0 Gran # 7.69 H Lymph # (Auto) 0.6 L [place] # (Auto) 0.7 H Eos # (Auto) 0.1 Baso # (Auto) 0.00 APTT Sodium 137 Potassium 3.9 Chloride 110 H Carbon Dioxide 23 Anion Gap 8 L BUN 24 H Creatinine 1.1 Est GFR ( Amer) > 60 Est GFR (Non-Af Amer) > 60 POC Glucose (mg/dL) Random Glucose 93 Calcium 8.3 L Phosphorus 2.9 Magnesium 1.8 Total Bilirubin 0.8 AST 16 L D ALT 28 Alkaline Phosphatase 91 Troponin I Total Protein 5.1 L Albumin 2.3 L Globulin 2.8 Albumin/Globulin Ratio 0.8 L Procalcitonin Blood Type AB POSITIVE Antibody Screen Negative Crossmatch See Detail BBK History Checked Patient has bt 04/29/18 04/29/18 05:40 07:51 WBC RBC Hgb Hct MCV MCH MCHC RDW Plt Count MPV Gran % Lymph % (Auto) [place] % (Auto) Eos % (Auto) Baso % (Auto) Gran # Lymph # (Auto) [place] # (Auto) Eos # (Auto) Baso # (Auto) APTT 29.2 Sodium Potassium Chloride Carbon Dioxide Anion Gap BUN Creatinine Est GFR ( Amer) Est GFR (Non-Af Amer) POC Glucose (mg/dL) 73 Random Glucose Calcium Phosphorus Magnesium Total Bilirubin AST ALT Alkaline Phosphatase Troponin I Total Protein Albumin Globulin Albumin/Globulin Ratio Procalcitonin Blood Type Antibody Screen Crossmatch BBK History Checked EKG/Cardiology Studies: Cardiology / EKG Studies 04/28/18 20:50 EKG [ELECTROCARDIOGRAM] Stat Comment: Reason For Exam: HYPOTENSION Fingerstick Blood Sugar Results: 201 Review of Systems - Review of Systems Review of Systems: as per HPI Critical Care Progress Note - Nutrition Nutrition: Nutrition Category Date Time Status Regular Diet [DIET] Diets 04/28/18 Breakfast Ordered Assessment/Plan - Assessment and Plan (Free Text) Assessment: 77 year old male with a past medical history significant for metasynchronous NSCLC, lung adenocarcinoma, PVD, HTN, prostate cancer s/p radiation, pneumothorax s/p lung biopsy, DJD, tobacco abuse, unresectable bladder cancer s/p chronic indwelling melvin catheter placement and percutaneous nephrostomy tube placement who presents with two hours of generalized weakness and chest discomfort. Of note, patient was found to be in SVT at rate of 196 beats/min for which he was given Adenosine. A code sepsis was also called on the patient while in the ED as he was found to have leukocytosis of 17.5 and elevated lactate. He was found to have a UTI on u/a. He was started on vancomycin and meropenem. Plan: Neuro: GCS 15 AxO x 3 No FND Cardiovascular: Tachycardic RR R/o ACS troponin x 3 (-) EKG: Sinus tachycardia, chronic RBBB DVT RLE revealed extensive ileofemoral DVT Obtain CTA chest/abdomen/pelvis to r/o involvement of IVC, L iliac veins and PE Pulm: Elevated D-dimer Chest CT with contrast: No evidence of PE. 10 x 11mm spiculated nodule in R posterior apex. Mediastinal lymphadenopathy present (see official report) Obtain CTA chest/abdomen/pelvis to r/o involvement of IVC, L iliac veins and PE LE u/s reveals iliofemoral DVT. Start therapeutic lovenox 50mg SC q 12h Saturating well on RA GI: Constipation Water enema : U/A shows + nitrates/ moderate leukocyte esterase Treat with vancomycin/meropenem PAULINA NS @ 75mls/hr Heme: D-dimer elevated H/H, plts, coags stable ID: Leukocytosis U/a positive for leuk esterase/nitrate treat with vanc/meropenem. Adjust renally f/u blood/urine/sputum cultures f/u ID recs DVT/GI: Lovenox 50q12/protonix Case seen, examined and discussed with attending physician, Dr. Nguyễn <Bud Nguyễn - Last Filed: 04/29/18 13:41> CCU Objective - Vital Signs / Intake & Output Vital Signs (Last 4 hours): Vital Signs Temp 04/29/18 11:31 99.1 F 04/29/18 10:31 100.1 F H Intake and Output (Last 8hrs): Intake & Output 04/28/18 04/29/18 04/29/18 22:59 06:59 14:59 Intake Total 1445 Output Total 1300 Balance 145 Weight 112 lb 12.8 oz Intake: IV 1165 Left Antecubital 1165 Oral 280 Output: Drainage 300 L flank 300 Urine 1000 Urethral (Melvin) 1000 Other: # Bowel Movements 0 - Medications Active Medications: Active Medications Generic Name Dose Route Start Last Admin Trade Name Freq PRN Reason Stop Dose Admin Acetaminophen 650 mg 04/27/18 22:35 04/29/18 10:31 Tylenol 325mg Tab PO 650 mg Q6H PRN Administration Fever >100.4 F Enoxaparin Sodium 50 mg 04/29/18 11:45 04/29/18 12:10 Lovenox SC 50 mg Q12H KAYLA Administration Protocol Sodium Chloride 1,000 mls @ 75 mls/hr 04/27/18 22:45 04/29/18 03:15 Sodium Chloride 0.9% IV 75 mls/hr .[id number] KAYLA Administration Vancomycin HCl 750 mg in 250 mls @ 167 mls/hr 04/28/18 10:00 04/29/18 10:24 Vancomycin 750 Mg In Ns IVPB 167 mls/hr Q12 KAYLA Administration Protocol Meropenem 1 gm in 50 mls @ 100 mls/hr 04/28/18 10:00 04/29/18 10:24 Merrem Iv 1 Gm Premix IVPB 05/07/18 10:01 100 mls/hr Q12 KAYLA Administration Protocol Insulin Human Regular 0 units 04/28/18 07:30 04/29/18 12:11 Humulin R Low SC 2 units ACHS KAYLA Administration Protocol Pantoprazole Sodium 40 mg 04/28/18 06:00 04/29/18 05:21 Protonix Ec Tab PO 40 mg 0600 KAYLA Administration Sodium Phosphate 135 ml 04/29/18 00:05 Fleet Enema RC DAILY PRN Constipation Tamsulosin HCl 0.4 mg 04/29/18 12:00 04/29/18 12:11 Flomax PO 0.4 mg DAILY KAYLA Administration Vitamin A 1 ea 04/27/18 22:35 Vitamin A & D Oint Ud Foilpak TOP Q2 PRN Dry LIPS - Patient Studies Lab Studies: Microbiology Studies 04/27/18 23:30 MRSA Culture (Admit) - Final Nose MRSA NOT DETECTED 04/27/18 22:15 Urine Culture - Final Urine,Melvin No Growth (<1,000 CFU/ML) 04/27/18 20:55 Wound Culture - Preliminary Catheter Site NO GROWTH AFTER 24 HOURS 04/27/18 22:00 Blood Culture - Preliminary Blood-Venous NO GROWTH AFTER 24 HOURS 04/27/18 20:45 Blood Culture - Preliminary Blood-Venous NO GROWTH AFTER 24 HOURS Lab Studies 04/29/18 04/29/18 04/29/18 Range/Units 07:51 05:40 05:40 WBC (4.5-11.0) 10^3/uL RBC (3.5-6.1) 10^6/uL Hgb (14.0-18.0) g/dL Hct (42.0-52.0) % MCV (80.0-105.0) fl MCH (25.0-35.0) pg MCHC (31.0-37.0) g/dl RDW (11.5-14.5) % Plt Count (120.0-450.0) 10^3/uL MPV (7.0-11.0) fl Gran % (50.0-68.0) % Lymph % (Auto) (22.0-35.0) % [place] % (Auto) (1.0-6.0) % Eos % (Auto) (1.5-5.0) % Baso % (Auto) (0.0-3.0) % Gran # (1.4-6.5) Lymph # (Auto) (1.2-3.4) [place] # (Auto) (0.1-0.6) Eos # (Auto) (0.0-0.7) Baso # (Auto) (0.0-2.0) K/mm3 APTT 29.2 (25.1-36.5) Seconds Sodium 137 (132-148) mmol/L Potassium 3.9 (3.6-5.0) mmol/L Chloride 110 H (98-107) mmol/L Carbon Dioxide 23 (21-33) mmol/L Anion Gap 8 L (10-20) BUN 24 H (7-21) mg/dL Creatinine 1.1 (0.8-1.5) mg/dl Est GFR ( Amer) > 60 Est GFR (Non-Af Amer) > 60 POC Glucose (mg/dL) 73 (65-110) mg/dL Random Glucose 93 (70-110) mg/dL Calcium 8.3 L (8.4-10.5) mg/dL Phosphorus 2.9 (2.5-4.5) mg/dL Magnesium 1.8 (1.7-2.2) mg/dL Total Bilirubin 0.8 (0.2-1.3) mg/dL AST 16 L D (17-59) U/L ALT 28 (7-56) U/L Alkaline Phosphatase 91 (38-126) U/L Troponin I ng/mL Total Protein 5.1 L (5.8-8.3) g/dL Albumin 2.3 L (3.0-4.8) g/dL Globulin 2.8 gm/dL Albumin/Globulin Ratio 0.8 L (1.1-1.8) Procalcitonin (0.19-0.49) NG/ML Blood Type Antibody Screen Crossmatch BBK History Checked 04/29/18 04/29/18 04/28/18 Range/Units 05:40 00:49 23:51 WBC 9.2 (4.5-11.0) 10^3/uL RBC 2.79 L (3.5-6.1) 10^6/uL Hgb 8.4 L (14.0-18.0) g/dL Hct 26.0 L (42.0-52.0) % MCV 93.2 (80.0-105.0) fl MCH 30.1 (25.0-35.0) pg MCHC 32.3 (31.0-37.0) g/dl RDW 13.3 (11.5-14.5) % Plt Count 241 (120.0-450.0) 10^3/uL MPV 9.6 (7.0-11.0) fl Gran % 83.7 H (50.0-68.0) % Lymph % (Auto) 7.0 L (22.0-35.0) % [place] % (Auto) 8.0 H (1.0-6.0) % Eos % (Auto) 1.3 L (1.5-5.0) % Baso % (Auto) 0.0 (0.0-3.0) % Gran # 7.69 H (1.4-6.5) Lymph # (Auto) 0.6 L (1.2-3.4) [place] # (Auto) 0.7 H (0.1-0.6) Eos # (Auto) 0.1 (0.0-0.7) Baso # (Auto) 0.00 (0.0-2.0) K/mm3 APTT (25.1-36.5) Seconds Sodium (132-148) mmol/L Potassium (3.6-5.0) mmol/L Chloride (98-107) mmol/L Carbon Dioxide (21-33) mmol/L Anion Gap (10-20) BUN (7-21) mg/dL Creatinine (0.8-1.5) mg/dl Est GFR ( Amer) Est GFR (Non-Af Amer) POC Glucose (mg/dL) 86 (65-110) mg/dL Random Glucose (70-110) mg/dL Calcium (8.4-10.5) mg/dL Phosphorus (2.5-4.5) mg/dL Magnesium (1.7-2.2) mg/dL Total Bilirubin (0.2-1.3) mg/dL AST (17-59) U/L ALT (7-56) U/L Alkaline Phosphatase (38-126) U/L Troponin I ng/mL Total Protein (5.8-8.3) g/dL Albumin (3.0-4.8) g/dL Globulin gm/dL Albumin/Globulin Ratio (1.1-1.8) Procalcitonin (0.19-0.49) NG/ML Blood Type AB POSITIVE Antibody Screen Negative Crossmatch See Detail BBK History Checked Patient has bt 04/28/18 04/28/18 04/28/18 Range/Units 22:11 16:01 14:45 WBC (4.5-11.0) 10^3/uL RBC (3.5-6.1) 10^6/uL Hgb (14.0-18.0) g/dL Hct (42.0-52.0) % MCV (80.0-105.0) fl MCH (25.0-35.0) pg MCHC (31.0-37.0) g/dl RDW (11.5-14.5) % Plt Count (120.0-450.0) 10^3/uL MPV (7.0-11.0) fl Gran % (50.0-68.0) % Lymph % (Auto) (22.0-35.0) % [place] % (Auto) (1.0-6.0) % Eos % (Auto) (1.5-5.0) % Baso % (Auto) (0.0-3.0) % Gran # (1.4-6.5) Lymph # (Auto) (1.2-3.4) [place] # (Auto) (0.1-0.6) Eos # (Auto) (0.0-0.7) Baso # (Auto) (0.0-2.0) K/mm3 APTT (25.1-36.5) Seconds Sodium (132-148) mmol/L Potassium (3.6-5.0) mmol/L Chloride (98-107) mmol/L Carbon Dioxide (21-33) mmol/L Anion Gap (10-20) BUN (7-21) mg/dL Creatinine (0.8-1.5) mg/dl Est GFR ( Amer) Est GFR (Non-Af Amer) POC Glucose (mg/dL) 84 277 H (65-110) mg/dL Random Glucose (70-110) mg/dL Calcium (8.4-10.5) mg/dL Phosphorus (2.5-4.5) mg/dL Magnesium (1.7-2.2) mg/dL Total Bilirubin (0.2-1.3) mg/dL AST (17-59) U/L ALT (7-56) U/L Alkaline Phosphatase (38-126) U/L Troponin I < 0.01 ng/mL Total Protein (5.8-8.3) g/dL Albumin (3.0-4.8) g/dL Globulin gm/dL Albumin/Globulin Ratio (1.1-1.8) Procalcitonin (0.19-0.49) NG/ML Blood Type Antibody Screen Crossmatch BBK History Checked 04/28/18 04/28/18 Range/Units 09:56 08:45 WBC (4.5-11.0) 10^3/uL RBC (3.5-6.1) 10^6/uL Hgb (14.0-18.0) g/dL Hct (42.0-52.0) % MCV (80.0-105.0) fl MCH (25.0-35.0) pg MCHC (31.0-37.0) g/dl RDW (11.5-14.5) % Plt Count (120.0-450.0) 10^3/uL MPV (7.0-11.0) fl Gran % (50.0-68.0) % Lymph % (Auto) (22.0-35.0) % [place] % (Auto) (1.0-6.0) % Eos % (Auto) (1.5-5.0) % Baso % (Auto) (0.0-3.0) % Gran # (1.4-6.5) Lymph # (Auto) (1.2-3.4) [place] # (Auto) (0.1-0.6) Eos # (Auto) (0.0-0.7) Baso # (Auto) (0.0-2.0) K/mm3 APTT (25.1-36.5) Seconds Sodium (132-148) mmol/L Potassium (3.6-5.0) mmol/L Chloride (98-107) mmol/L Carbon Dioxide (21-33) mmol/L Anion Gap (10-20) BUN (7-21) mg/dL Creatinine (0.8-1.5) mg/dl Est GFR ( Amer) Est GFR (Non-Af Amer) POC Glucose (mg/dL) 171 H (65-110) mg/dL Random Glucose (70-110) mg/dL Calcium (8.4-10.5) mg/dL Phosphorus (2.5-4.5) mg/dL Magnesium (1.7-2.2) mg/dL Total Bilirubin (0.2-1.3) mg/dL AST (17-59) U/L ALT (7-56) U/L Alkaline Phosphatase (38-126) U/L Troponin I ng/mL Total Protein (5.8-8.3) g/dL Albumin (3.0-4.8) g/dL Globulin gm/dL Albumin/Globulin Ratio (1.1-1.8) Procalcitonin 0.21 (0.19-0.49) NG/ML Blood Type Antibody Screen Crossmatch BBK History Checked Laboratory Results - last 24 hr 04/28/18 04/28/18 04/28/18 08:45 09:56 14:45 WBC RBC Hgb Hct MCV MCH MCHC RDW Plt Count MPV Gran % Lymph % (Auto) [place] % (Auto) Eos % (Auto) Baso % (Auto) Gran # Lymph # (Auto) [place] # (Auto) Eos # (Auto) Baso # (Auto) APTT Sodium Potassium Chloride Carbon Dioxide Anion Gap BUN Creatinine Est GFR ( Amer) Est GFR (Non-Af Amer) POC Glucose (mg/dL) 171 H Random Glucose Calcium Phosphorus Magnesium Total Bilirubin AST ALT Alkaline Phosphatase Troponin I < 0.01 Total Protein Albumin Globulin Albumin/Globulin Ratio Procalcitonin 0.21 Blood Type Antibody Screen Crossmatch BBK History Checked 04/28/18 04/28/18 04/28/18 16:01 22:11 23:51 WBC RBC Hgb Hct MCV MCH MCHC RDW Plt Count MPV Gran % Lymph % (Auto) [place] % (Auto) Eos % (Auto) Baso % (Auto) Gran # Lymph # (Auto) [place] # (Auto) Eos # (Auto) Baso # (Auto) APTT Sodium Potassium Chloride Carbon Dioxide Anion Gap BUN Creatinine Est GFR ( Amer) Est GFR (Non-Af Amer) POC Glucose (mg/dL) 277 H 84 86 Random Glucose Calcium Phosphorus Magnesium Total Bilirubin AST ALT Alkaline Phosphatase Troponin I Total Protein Albumin Globulin Albumin/Globulin Ratio Procalcitonin Blood Type Antibody Screen Crossmatch BBK History Checked 04/29/18 04/29/18 04/29/18 00:49 05:40 05:40 WBC 9.2 RBC 2.79 L Hgb 8.4 L Hct 26.0 L MCV 93.2 MCH 30.1 MCHC 32.3 RDW 13.3 Plt Count 241 MPV 9.6 Gran % 83.7 H Lymph % (Auto) 7.0 L [place] % (Auto) 8.0 H Eos % (Auto) 1.3 L Baso % (Auto) 0.0 Gran # 7.69 H Lymph # (Auto) 0.6 L [place] # (Auto) 0.7 H Eos # (Auto) 0.1 Baso # (Auto) 0.00 APTT Sodium 137 Potassium 3.9 Chloride 110 H Carbon Dioxide 23 Anion Gap 8 L BUN 24 H Creatinine 1.1 Est GFR ( Amer) > 60 Est GFR (Non-Af Amer) > 60 POC Glucose (mg/dL) Random Glucose 93 Calcium 8.3 L Phosphorus 2.9 Magnesium 1.8 Total Bilirubin 0.8 AST 16 L D ALT 28 Alkaline Phosphatase 91 Troponin I Total Protein 5.1 L Albumin 2.3 L Globulin 2.8 Albumin/Globulin Ratio 0.8 L Procalcitonin Blood Type AB POSITIVE Antibody Screen Negative Crossmatch See Detail BBK History Checked Patient has bt 04/29/18 04/29/18 05:40 07:51 WBC RBC Hgb Hct MCV MCH MCHC RDW Plt Count MPV Gran % Lymph % (Auto) [place] % (Auto) Eos % (Auto) Baso % (Auto) Gran # Lymph # (Auto) [place] # (Auto) Eos # (Auto) Baso # (Auto) APTT 29.2 Sodium Potassium Chloride Carbon Dioxide Anion Gap BUN Creatinine Est GFR ( Amer) Est GFR (Non-Af Amer) POC Glucose (mg/dL) 73 Random Glucose Calcium Phosphorus Magnesium Total Bilirubin AST ALT Alkaline Phosphatase Troponin I Total Protein Albumin Globulin Albumin/Globulin Ratio Procalcitonin Blood Type Antibody Screen Crossmatch BBK History Checked EKG/Cardiology Studies: Cardiology / EKG Studies 04/28/18 20:50 EKG [ELECTROCARDIOGRAM] Stat Comment: Reason For Exam: HYPOTENSION Critical Care Progress Note - Nutrition Nutrition: Nutrition Category Date Time Status Regular Diet [DIET] Diets 04/28/18 Breakfast Ordered Assessment/Plan - Assessment and Plan (Free Text) Plan: Patient seen and examined, on rounds, with resident agree with note with following additions/exceptions: Patient is 77yo male with a past medical history significant for metasynchronous NSCLC, lung adenocarcinoma, PVD, HTN, prostate cancer s/p radiation, pneumothorax s/p lung biopsy, DJD, tobacco abuse, unresectable bladder cancer s/p chronic indwelling melvin catheter placement and percutaneous nephrostomy tube placement admitted with SVT, Urosepsis, dehydration Currently afebrile, BP stable, comfortable in NAD, doing well, OOB to chair, HR 90s, sinus lab,s imaging, chart reviewed Severe sepsis UTI NSCLC PVD HTN DVT Bladder CA Recommend: - supp o2 as needed, duonebs PRN, IS, OOB to chair - Broad spectrum abx as per ID - follow up Cultures, UCx, BCx, Procal - BP control - IVF - Start Lvoenox for DVT - Fs control - GI ppx - DVT ppx - STABLE, transfer to telemetry
--- NOTE | 2018-04-29 13:05 | PN ---
DATE: 04/29/2018 SUBJECTIVE: The patient seen in bed, in no acute distress, nontoxic. Seen earlier today in room 128, bed 6. PHYSICAL EXAMINATION: VITAL SIGNS: Temperature of 98, blood pressure is 150/60, respiratory rate 18, heart rate is 85. HEENT: Unremarkable. NECK: Supple. LUNGS: Have decreased breath sounds. HEART: Normal S1 and S2. ABDOMINAL: Soft and nontender. LABORATORY EXAMINATION: Revealed a white count of 17,000 and white count has come down to 9000, hemoglobin is 8. Chemistries revealed BUN of 24, creatinine of 1.1. Urinalysis is noted. Microbiology reveals blood culture have no growth. ASSESSMENT AND PLAN: A 77-year-old male with adenocarcinoma of the lung with urinary bladder cancer, prostate cancer, history of pneumothorax, macular degeneration, hypertension, peripheral vascular disease, admitted with dizziness, and found to have leukocytosis. 1. The patient has sepsis with urinary source, currently on vancomycin and meropenem. Must also rule out health care-associated pneumonia. 2. Vancomycin and meropenem. The patient's CAT scan of the chest with no evidence of pulmonary emboli and atelectasis, no infiltrates are noted, and the patient's procalcitonin is 0.21. I am waiting for urine cultures. We will follow closely with you. Ernst Osborn MD
--- NOTE | 2018-04-29 14:40 | CP.PCM.PN ---
Subjective - Date & Time of Evaluation Date of Evaluation: 04/29/18 Time of Evaluation: 14:36 - Subjective Subjective: Hematology/Oncology Progress Note (Dr. Be's Service) Patient seen and assessed at bedside in ICU. No acute events noted overnight. Patient denies any complaints at this time including fevers, chills, headache, chest pain, SOB, abdominal pain, N/V/D/C, changes in urine output, skin changes or any numbness/tingling of any extremity. Objective - Vital Signs/Intake and Output Vital Signs (last 24 hours): Temp Pulse Resp BP Pulse Ox 99.1 F 96 H 18 136/58 L 99 04/29/18 11:31 04/29/18 14:19 04/29/18 06:20 04/29/18 14:19 04/29/18 06:20 Intake and Output: 04/29/18 04/29/18 06:59 18:59 Intake Total 1445 Output Total 1300 Balance 145 - Medications Medications: Current Medications Acetaminophen (Tylenol 325mg Tab) 650 mg PO Q6H PRN PRN Reason: Fever >100.4 F Last Admin: 04/29/18 10:31 Dose: 650 mg Diltiazem HCl (Cardizem) 60 mg PO TID KAYLA Last Admin: 04/29/18 14:20 Dose: Not Given Enoxaparin Sodium (Lovenox) 50 mg SC Q12H KAYLA; Protocol Last Admin: 04/29/18 12:10 Dose: 50 mg Sodium Chloride (Sodium Chloride 0.9%) 1,000 mls @ 75 mls/hr IV .[id number] KAYLA Last Admin: 04/29/18 03:15 Dose: 75 mls/hr Vancomycin HCl (Vancomycin 750 Mg In Ns) 750 mg in 250 mls @ 167 mls/hr IVPB Q12 KAYLA; Protocol Last Admin: 04/29/18 10:24 Dose: 167 mls/hr Meropenem (Merrem Iv 1 Gm Premix) 1 gm in 50 mls @ 100 mls/hr IVPB Q12 KAYLA; Protocol Stop: 05/07/18 10:01 Last Admin: 04/29/18 10:24 Dose: 100 mls/hr Insulin Human Regular (Humulin R Low) 0 units SC ACHS KAYLA; Protocol Last Admin: 04/29/18 12:11 Dose: 2 units Pantoprazole Sodium (Protonix Ec Tab) 40 mg PO 0600 [facility] Last Admin: 04/29/18 05:21 Dose: 40 mg Sodium Phosphate (Fleet Enema) 135 ml RC DAILY PRN PRN Reason: Constipation Tamsulosin HCl (Flomax) 0.4 mg PO DAILY [facility] Last Admin: 04/29/18 12:11 Dose: 0.4 mg Vitamin A (Vitamin A & D Oint Ud Foilpak) 1 ea TOP Q2 PRN PRN Reason: Dry LIPS - Labs Labs: 04/29/18 05:40 04/29/18 05:40 PT 15.6 SECONDS (9.4-12.5) H 04/27/18 20:45 INR 1.36 04/27/18 20:45 APTT 29.2 Seconds (25.1-36.5) 04/29/18 05:40 - Constitutional Appears: Non-toxic, No Acute Distress - Head Exam Head Exam: ATRAUMATIC, NORMOCEPHALIC - Eye Exam Eye Exam: EOMI - ENT Exam ENT Exam: Mucous Membranes Moist - Neck Exam Neck Exam: Full ROM - Respiratory Exam Respiratory Exam: Decreased Breath Sounds (Diffusely; Some component of poor inspiratory effort), NORMAL BREATHING PATTERN. absent: Clear to Ausculation Bilateral, Rales, Rhonchi, Wheezes, Respiratory Distress - Cardiovascular Exam Cardiovascular Exam: Tachycardia, REGULAR RHYTHM, +S1, +S2 - GI/Abdominal Exam GI & Abdominal Exam: Soft, Normal Bowel Sounds. absent: Tenderness - Exam Additional comments: Melvin catheter with cloudy yellow urine - Extremities Exam Extremities Exam: absent: Calf Tenderness - Back Exam Additional comments: Left sided nephrostomy tube with yellow discharge noted surrounding entry site; Grade I SDU - Neurological Exam Neurological Exam: Alert, Awake - Psychiatric Exam Psychiatric exam: Normal Affect, Normal Mood - Skin Skin Exam: Dry, Warm Assessment and Plan - Assessment and Plan (Free Text) Assessment: 77 year old male with a past medical history significant for metasynchronous NSCLC, lung adenocarcinoma, PVD, HTN, prostate cancer s/p radiation, pneumothorax s/p lung biopsy, DJD, tobacco abuse, unresectable bladder cancer s/p chronic indwelling melvin catheter placement and percutaneous nephrostomy tub e placement who presents with two hours of generalized weakness and chest discomfort. Patient was found to have an elevated d-dimer on admission and CT angio of the chest showed no PE. However, venous doppler US of the lower extremities found an extensive left iliofemoral DVT with the superior extent not visualized. A CT chest, abdomen and pelvis is ordered the extent of the thrombus superiorly. Patient was started on therapeutic lovenox. Plan: -Bilateral Lower Extremity Venous Doppler US findings noted; Extensive left IF DVT with superior extent not visualized -CT chest, abdomen and pelvis with IV contrast pending -CTA Chest negative for PE -Started on therapeutic Lovenox 50mg BID -H/H noted to be 8.4/26.0; Will hold transfusion of pRBC's for now -Continue to monitor with daily CBC's -Further recommendations as per Dr. Be Patient seen and case discussed with attending, Dr. Be. Wallace Leone PGY2
[2018-04-30] MEDS: Enoxaparin 60 mg Syringe SC SCH (03:23)
[2018-04-30] MEDS: Pantoprazole 40 mg EC Tab PO SCH (05:36)
--- NOTE | 2018-04-30 06:57 | CARD ---
APPROVED REPORT Date of service: 04/27/2018 EKG Measurement Heart [id number] <Conclusion> Sinus tachycardia, new Right bundle branch block
--- NOTE | 2018-04-30 06:59 | CARD ---
APPROVED REPORT Date of service: 04/27/2018 EKG Measurement Heart [id number] <Conclusion> RSR PVCs IRBBB STTW changes
[2018-04-30 07:11] LABS: EOS # 0.1 (0.0-0.7); EOS % 1.6 % (1.5-5.0); GRAN # 6.83 (1.4-6.5); GRAN % 82.8 % (50.0-68.0); HEMOGLOBIN 8.2 g/dL (14.0-18.0); LYMPH # 0.6 (1.2-3.4); LYMPH % 7.2 % (22.0-35.0); MEAN CELL VOLUME 92.3 fl (80.0-105.0); MEAN CORPUSCULAR HEMOGLOBIN 30.1 pg (25.0-35.0); MEAN CORPUSCULAR HGB CONC 32.7 g/dl (31.0-37.0); MEAN PLATELET VOLUME 9.5 fl (7.0-11.0); MONO # 0.7 (0.1-0.6); MONO % 8.4 % (1.0-6.0); RBC 2.72 10^6/uL (3.5-6.1); RED CELL DISTRIBUTION WIDTH 13.3 % (11.5-14.5); WHITE BLOOD COUNT 8.2 10^3/uL (4.5-11.0)
[2018-04-30 07:29] LABS: LDL CHOLESTEROL 70 mg/dL (0-129)
[2018-04-30] MEDS: Insulin Reg-LOW-Coverage SC SCH ×4 (07:30→22:00)
[2018-04-30 07:40] LABS: ALB/GLOB RATIO 0.7 (1.1-1.8); ALBUMIN 2.2 g/dL (3.0-4.8); ALT/SGPT 29 U/L (7-56); AST/SGOT 16 U/L (17-59); BLOOD UREA NITROGEN 24 mg/dL (7-21); CALCIUM 8.3 mg/dL (8.4-10.5); GFR NON-AFRICAN AMERICAN 58; HDL CHOLESTEROL 22 mg/dL (29-60)
--- NOTE | 2018-04-30 08:26 | CON ---
DATE: 04/29/2018 CONSULT SERVICE: Cardiology. REASON FOR THE CONSULTATION: SVT, cardiac evaluation. BRIEF CLINICAL HISTORY: A 77-year-old with past medical history significant for lung adenocarcinoma, hypertension, PAD, prostate CA, status post radiation, chemotherapy, status post lung biopsy, unresectable bladder cancer, indwelling Nava catheter, status post nephrostomy tube placement, admitted here with chest discomfort, found to be in SVT. Also had sepsis and altered mental status. Denies any chest pain, shortness of breath, or any palpitation. The patient was found to be in SVT at the rate of 196, was given adenosine, and Code Sepsis was called in ER. The patient had a leukocytosis 17,000 with elevated lactate level on admission. PAST MEDICAL HISTORY: Significant for right-sided pneumothorax, status post percutaneous biopsy of the lung, found to be adenocarcinoma in the past; history of prostate CA; history of lung mass, as mentioned status post biopsy, complicated by pneumothorax, found to be adenocarcinoma; history of bladder tumor; history of prostate cancer; history of abscess requiring instantly nephrostomy tube and later on stent placement, possibly going for bladder resection. Recent cardiac workup as follows. The patient had a stress test dated 10/02/2017 that shows normal myocardial perfusion study. Ejection 70%. The patient had echocardiogram on 10/02/2017 that revealed normal chambers and ejection fraction 55 to 60%, moderate aortic regurgitation, moderate mitral regurgitation, mild tricuspid regurgitation, and a systolic pressure of 47. Mild to moderate pulmonary insufficiency, mild pulmonary hypertension. History of SVT in the past, currently the patient is on, at home, 60 mg of Cardizem three times a day, tramadol, tamsulosin, levothyroxine, acetaminophen, and diclofenac 100 mg daily. ALLERGIES: NO KNOWN DRUG ALLERGY. REVIEW OF SYSTEMS: As per HPI. PHYSICAL EXAMINATION VITAL SIGNS: Temperature 100, heart rate 86, blood pressure 164/69. HEENT: PERRLA. Extraocular muscles intact. NECK: Supple. No thyromegaly. CHEST: Clear to auscultation. CARDIOPULMONARY: S1, S2 regular. ABDOMEN: Soft. EXTREMITIES: Clubbing, cyanosis negative. LABORATORY DATA: Blood workup as follows. WBC 9.8, hemoglobin 8.4, hematocrit 26, platelet count 241. Chemistry shows sodium 137, potassium 3.9, chloride 110, carbon dioxide 23, anion gap of 8, BUN 23, creatinine 1.1. Total protein 5.1, albumin 2.3, albumin-globulin ratio is 0.8. IMPRESSION: A 77-year-old male with a past medical history significant for supraventricular tachycardia, history of lung cancer, status post biopsy, status post pneumothorax, prostate cancer, bladder cancer, who was admitted with dizziness, headache, found to be septic, increased lactate level, hypotension, supraventricular tachycardia. Given adenosine, converted to normal sinus. Code Sepsis was activated. Elevated WBC. Status post left nephrostomy tube. RECOMMENDATION: Broad-spectrum antibiotic. We will resume Cardizem p.o., continue Lovenox, continue IV fluid, continue broad-spectrum antibiotic. History of SVT in the past we will follow with you. Thank you Dr. Riddle for providing an opportunity in taking care of the patient. We will follow with you. Dougie Fraga MD
--- NOTE | 2018-04-30 09:37 | CT ---
Date of service: 04/30/2018 PROCEDURE: CT Chest with contrast (Pulmonary Angiogram) HISTORY: r/o PE, DVT of L iliac, IVC COMPARISON: CT 04/27/2018 TECHNIQUE: Axial computed tomography images were obtained of the chest in the pulmonary arterial phase of enhancement. Coronal and sagittal reformatted images were created and reviewed. Intravenous contrast dose: 150 cc of Omni 350 Radiation dose: Total exam DLP = 247.79 mGy-cm. This CT exam was performed using one or more of the following dose reduction techniques: Automated exposure control, adjustment of the mA and/or kV according to patient size, and/or use of iterative reconstruction technique. FINDINGS: PULMONARY ARTERIES: Unremarkable. No pulmonary embolism. AORTA: No acute findings. No thoracic aortic aneurysm. Aortic calcifications LUNGS: As reported previously there is an 11 mm spiculated nodule in the right lung apex. Further evaluation is recommended to rule out malignancy PLEURAL SPACES: Unremarkable. No effusion or pneumothorax. HEART: Unremarkable. No cardiomegaly. No significant pericardial effusion. LYMPH NODES: Mildly enlarged mediastinal lymph nodes. There are some calcified left hilar nodes. BONES, CHEST WALL: Unremarkable. No fracture or destructive lesion OTHER FINDINGS: Unremarkable. IMPRESSION: No evidence of pulmonary embolus. 11 mm spiculated nodule right lung apex
[2018-04-30] MEDS: Meropenem IV 1 gm in NS 1 GM/50 ML BAG IVPB SCH (09:43)
[2018-04-30] MEDS: Vancomycin 750mg 750 MG/250 ML BAG IVPB SCH (09:43)
--- NOTE | 2018-04-30 11:26 | CT ---
Date of service: 04/30/2018 PROCEDURE: CT Abdomen and Pelvis with contrast HISTORY: DVT L ILIAC,IVC COMPARISON: 01/17/2018 CT TECHNIQUE: Contrast dose: Radiation dose: Total exam DLP = 482.74 mGy-cm. This CT exam was performed using one or more of the following dose reduction techniques: Automated exposure control, adjustment of the mA and/or kV according to patient size, and/or use of iterative reconstruction technique. FINDINGS: LOWER THORAX: Small pleural effusions LIVER: Unremarkable. No gross lesion or ductal dilatation. GALLBLADDER AND BILE DUCTS: Unremarkable. PANCREAS: Unremarkable. No gross lesion or ductal dilatation. SPLEEN: Unremarkable. ADRENALS: Unremarkable. No mass. KIDNEYS AND URETERS: There is new severe right-sided hydronephrosis and hydroureter. There is no evidence of an obstructing stone. There is severe thickening of the urinary bladder. There is a nephrostomy catheter in the left renal pelvis with no evidence of hydronephrosis. VASCULATURE: There is thrombosis of the left common femoral and left iliac vein. The right iliac is unremarkable and there is no clot in the IVC. Aortic calcifications are seen BOWEL: Unremarkable. No obstruction. No gross mural thickening. APPENDIX: Normal appendix. PERITONEUM: Unremarkable. No free fluid. No free air. LYMPH NODES: Unremarkable. No enlarged lymph nodes. BLADDER: The bladder is distended and there is mural thickening throughout the bladder most consistent with cystitis. The bladder also has an abnormal shape with a left posterior diverticulum. The urethra is dilated. A balloon tip catheter can be seen suboptimally positioned within the penile urethra. Sagittal image 63 series 602. REPRODUCTIVE: Unremarkable. BONES: No acute fracture. OTHER FINDINGS: None. IMPRESSION: The bladder is distended and there is mural thickening throughout the bladder most consistent with cystitis. The bladder also has an abnormal shape with a left posterior diverticulum. The urethra is dilated. A balloon tip catheter can be seen suboptimally positioned within the penile urethra. There is new severe right-sided hydronephrosis and hydroureter. There is no evidence of an obstructing stone. There is severe thickening of the urinary bladder. There is a nephrostomy catheter in the left renal pelvis with no evidence of hydronephrosis.
--- NOTE | 2018-04-30 11:41 | PN ---
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 For this, the patient had received a urostomy tube in his last admission. The patient was admitted with weakness, palpitations, found to be in SVT, and found also to be septic. He is being followed by Dr. Fraga, his coremaker machine; Dr. Osborn, the infectious disease specialist; Dr. Pozo, his neurologist; Dr. Be, his oncologist. He has a urinary tract infection with exudates from the urostomy tube. His SVT was treated and had been stable since admission. He is currently being treated with vancomycin and meropenem. He was found to have AB positive type blood. Today's laboratory shows his hemoglobin and hematocrit to be 8.4 and 26. His white blood cell count is down to 9.2 this morning. The patient is awake, alert, and oriented. He speaks Wallisian, but phoned his daughter to speak with me by phone. He was doing well. He complained of pain and swelling in the left lower extremity, was found to have positive DVT of the internal femoral artery, internal femoral vein. A CAT scan of the chest, abdomen, and pelvis has been ordered with intravenous contrast to further evaluate this. His lungs were clear anteriorly. Heart is regular. Abdomen is soft and nontender. This morning, laboratory showed the sodium to be 137, potassium 4.4, blood urea nitrogen 36, creatinine 1.1. His blood pressure is 107/41. His heart rate is 71 beats per minute. BNP was elevated. We are continuing with vancomycin and meropenem for his sepsis. He is now receiving Lovenox for his DVT. We are continuing to follow the patient closely. Shashank Riddle MD MTDD
--- NOTE | 2018-04-30 11:44 | HP ---
HISTORY OF PRESENT ILLNESS: The patient is a 77-year-old male who presents to the emergency room complaining of dizziness and hypotension. He had a near syncopal episode at home, but he denies any trauma or loss of consciousness. He was able to crawl to the phone and call for his daughter who arrived and brought the patient to the emergency room. She measured his blood pressure which was 80/40 at that time. The patient was also complaining of palpitations and shortness of breath. He denies any fevers, chills or shakes. The patient is known to have a past medical history positive for adenocarcinoma of the lung. He also was found to have carcinoma of the prostate, which involved the exterior wall of the bladder. For this, he received a percutaneous stent during his previous hospitalization. He apparently is scheduled, according to the patient's daughter, for surgery in early May at [facility] for placement of a ureteral stent and removal of the percutaneous set. The patient also has a past medical history for coronary artery disease, status post angioplasty and anemia. The patient did suffer pneumothoraces x2 post percutaneous biopsy of the lung mass. This, however, has completely resolved. REVIEW OF SYSTEMS: Otherwise unremarkable. ALLERGIES: HE HAS NO KNOWN MEDICAL ALLERGIES. SOCIAL HISTORY: He is a former smoker. Occasionally drinks alcohol. He is . MEDICATIONS: At the time of admission included diclofenac 100 mg daily, Xyzal 5 mg daily, tramadol 50 mg every 8 hours as needed and Cardizem 60 mg 3 times a day. PHYSICAL EXAMINATION: Examination of the head, eyes, ears, nose and throat is unremarkable. NECK: Supple with no lymphadenopathy. No goiter. LUNGS: Clear to auscultation. Breath sounds were quiet, distant. CARDIOVASCULAR: Heart sounds were present. The patient was extremely tachycardic. ABDOMEN: Nontender. No organomegaly was appreciated. There was cloudy yellow urine from a Nava catheter. There was also yellow discharge noted around the left nephrostomy site. NEUROLOGICAL: The patient was awake, alert and oriented with no focal neurological signs. The patient was found to be in SVT and 196 beats per minute. This was treated with adenosine, which the patient responded to quite nicely. ADMITTING LABORATORIES: Show the white blood cell count to be 17.1, hemoglobin and hematocrit of 9.8 and 30.1, platelet count was 313. PT/INR was 1.36. Serum chemistries showed his sodium 137, potassium 4.4, chloride was 109, blood urea nitrogen is 36 and creatinine is 1.1. His glucose was markedly elevated at 330. The urinalysis was positive for UTI with large amount of blood, positive nitrites, moderate amount of leukocyte esterase and white blood cell counts were too numerous to count. So the patient is admitted with sepsis and was started on antibiotics. Dr. Osborn is called for Infectious Disease consultation. The patient is admitted to the Intensive Care Unit, Dr. Fraga is his emergency veterinary assistant. The patient will be followed closely and reevaluated in the morning. Shashank Riddle MD MTDD
[2018-04-30] MEDS: Amoxicillin-Clav 875-125 mg Tab PO SCH ×2 (13:25→22:22)
--- NOTE | 2018-04-30 17:32 | CP.PCM.PN ---
Subjective - Date & Time of Evaluation Date of Evaluation: 04/30/18 Time of Evaluation: 09:00 - Subjective Subjective: Hematology/Oncology Progress Note (Dr. Be's Service) Patient seen and assessed at bedside. Patient was found to have DVT and was st arted on Eliquis. Patient will have further imaging studies today and he is aware of this. Patient denies any complaints at this time including fevers, chills, headache, chest pain, SOB, abdominal pain, N/V/D/C, changes in urine output, skin changes or any numbness/tingling of any extremity. Objective - Vital Signs/Intake and Output Vital Signs (last 24 hours): Temp Pulse Resp BP Pulse Ox 98.4 F 82 18 131/62 100 04/30/18 17:18 04/30/18 17:18 04/30/18 17:18 04/30/18 17:18 04/30/18 06:00 Intake and Output: 04/30/18 04/30/18 06:59 18:59 Intake Total 1350 Output Total 1675 Balance -325 - Medications Medications: Current Medications Acetaminophen (Tylenol 325mg Tab) 650 mg PO Q6H PRN PRN Reason: Fever >100.4 F Last Admin: 04/29/18 23:09 Dose: 650 mg Amoxicillin/Clavulanate Potassium (Augmentin 875 Mg-125 Mg Tab) 1 tab PO Q12 KAYLA; Protocol Stop: 05/07/18 12:46 Last Admin: 04/30/18 13:25 Dose: 1 tab Apixaban (Eliquis) 10 mg PO BID [facility]; Protocol Stop: 05/06/18 18:00 Apixaban (Eliquis) 5 mg PO BID [facility]; Protocol Diltiazem HCl (Cardizem) 60 mg PO TID [facility] Last Admin: 04/30/18 13:26 Dose: 60 mg Sodium Chloride (Sodium Chloride 0.9%) 1,000 mls @ 75 mls/hr IV .[id number] [facility] Last Admin: 04/29/18 21:49 Dose: 75 mls/hr Insulin Human Regular (Humulin R Low) 0 units SC ACHS [facility]; Protocol Last Admin: 04/30/18 13:00 Dose: 2 units Pantoprazole Sodium (Protonix Ec Tab) 40 mg PO 0600 [facility] Last Admin: 04/30/18 05:36 Dose: 40 mg Sodium Phosphate (Fleet Enema) 135 ml RC DAILY PRN PRN Reason: Constipation Tamsulosin HCl (Flomax) 0.4 mg PO DAILY [facility] Last Admin: 04/30/18 09:41 Dose: 0.4 mg Vitamin A (Vitamin A & D Oint Ud Foilpak) 1 ea TOP Q2 PRN PRN Reason: Dry LIPS - Labs Labs: 04/30/18 06:30 04/30/18 06:30 PT 15.6 SECONDS (9.4-12.5) H 04/27/18 20:45 INR 1.36 04/27/18 20:45 APTT 28.5 Seconds (25.1-36.5) 04/30/18 06:30 - Additional Findings Additional findings: - Constitutional Appears: Non-toxic, No Acute Distress - Head Exam Head Exam: ATRAUMATIC, NORMOCEPHALIC - Eye Exam Eye Exam: EOMI - ENT Exam ENT Exam: Mucous Membranes Moist - Neck Exam Neck Exam: Full ROM - Respiratory Exam Respiratory Exam: Clear to Ausculation Bilateral, NORMAL BREATHING PATTERN. absent: Rales, Rhonchi, Wheezes, Respiratory Distress, Decreased Breath Sounds - Cardiovascular Exam Cardiovascular Exam: Tachycardia, REGULAR RHYTHM, +S1, +S2 - GI/Abdominal Exam GI & Abdominal Exam: Soft, Normal Bowel Sounds. absent: Tenderness - Exam Additional comments: Melvin catheter with clear yellow urine - Extremities Exam Extremities Exam: absent: Calf Tenderness - Back Exam Additional comments: Left sided nephrostomy tube with no discharge noted surrounding entry site; Grade I SDU - Neurological Exam Neurological Exam: Alert, Awake - Psychiatric Exam Psychiatric exam: Normal Affect, Normal Mood - Skin Skin Exam: Dry, Warm Assessment and Plan - Assessment and Plan (Free Text) Assessment: 77 year old male with a past medical history significant for metasynchronous NSCLC, lung adenocarcinoma, PVD, HTN, prostate cancer s/p radiation, pneumothorax s/p lung biopsy, DJD, tobacco abuse, unresectable bladder cancer s/p chronic indwelling melvin catheter placement and percutaneous nephrostomy tube placement who presents with two hours of generalized weakness and chest discomfort. Patient was found to have an elevated d-dimer on admission and CT angio of the chest showed no PE. However, venous doppler US of the lower extremities found an extensive left iliofemoral DVT with the superior extent not visualized. A CT chest, abdomen and pelvis is ordered the extent of the thrombus superiorly. Patient was started on Eliquis. Plan: -Bilateral Lower Extremity Venous Doppler US findings noted; Extensive left IF DVT with superior extent not visualized -CT chest, abdomen and pelvis with IV contrast pending -CTA Chest negative for PE -Started on therapeutic Eliquis BID -H/H noted to be 8.2/25.1 -Continue to monitor with daily CBC's -Further recommendations as per Dr. Be Patient seen and case discussed with attending, Dr. Be. Wallace Leone PGY2
--- NOTE | 2018-04-30 18:18 | PN ---
DATE: 04/30/2018 SUBJECTIVE: The patient is in bed, in no acute distress. PHYSICAL EXAMINATION: VITAL SIGNS: Temperature is 98, blood pressure is 160/80, respiratory rate of 18. HEENT: Unremarkable. NECK: Supple. LUNGS: Have decreased breath sounds. HEART: Normal S1 and S2. ABDOMEN: Soft, nontender. LABORATORY DATA: Laboratory examination reveals the patient's white count is 8.2, hemoglobin of 8.2, platelets of 235. Chemistries reveals a BUN of 24, creatinine of 1.2 and urinalysis is noted and microbiology reveals the nasal MRSA screen is negative. Urine cultures negative. The catheter site culture is negative and blood cultures are negative and review of orders reveals the patient to be on meropenem and vancomycin. The patient had a CAT scan of the abdomen and pelvis, which reveals small pleural effusions and the bladder is distended. Urinary bladder is just a mural thickening consistent with cystitis and there is a new right-sided hydronephrosis and hydroureter and had a CAT scan of the chest also. No evidence of pulmonary emboli in the lungs or nodule is seen and no infiltrates. Microbiology reveals cultures negative. ASSESSMENT and PLAN: This is a 77-year-old male seen earlier today with a history of adenocarcinoma of the lung with urinary bladder cancer, prostate cancer, history of pneumothorax after a lung biopsy, macular degeneration, hypertension, peripheral vascular disease, admitted with dizziness, was found to have leukocytosis. Sepsis with urine as the source and CAT scan of chest is negative for pneumonia and no infiltrates noted with a procalcitonin 0.21 and urine cultures negative and the white count has normalized to 8.2. We will discontinue the meropenem. Discontinue the vancomycin and complete with p.o. Augmentin 875 b.i.d. x7-10 days. Ernst Osborn MD
--- NOTE | 2018-04-30 21:26 | PN ---
DATE: 04/30/2018 The patient is male. The patient is 77. REASON FOR CONSULTATION: Follow up SVT, cardiac evaluation. SUBJECTIVE: The patient denies any chest pain, shortness of breath, or any palpitations. This morning, the patient was in sinus tachycardia when he was in the bathroom. Admitted with SVT. Denies any chest pain, shortness of breath, or any palpitations. OBJECTIVE: GENERAL: Not in apparent distress. VITAL SIGNS: Temperature afebrile, heart rate 80, blood pressure 148/65. HEENT: PERRLA. Extraocular muscles intact. NECK: Supple. No carotid bruits or thyromegaly. CHEST: Clear to auscultation. HEART: S1 and S2 regular. ABDOMEN: Soft. EXTREMITIES: Clubbing and cyanosis negative. LABORATORY DATA: Blood workup as follows: WBC 8.2, hemoglobin 8.2, hematocrit 25.1, platelet count 235. Chemistries show sodium 130, potassium 3.9, chloride 101, carbon dioxide 21, anion gap of 9, BUN 24, and creatinine 1.2. Total protein 5.1, albumin 2.2, albumin-globulin ratio is 0.7. IMPRESSION: Severe protein-calorie malnutrition which was present on admission, anemia, history of supraventricular tachycardia in the past, history of adenocarcinoma of the lung, status post biopsy, status post pneumothorax in the past, history of prostate cancer, bladder cancer, admitted with dizziness, headache, found to be septic, increased lactate level, increased white blood cell. Supraventricular tachycardia, responded to adenosine, converted to normal sinus. Code sepsis was activated and now the patient is transferred to telemetry, history of ureteral obstruction, status post left nephrostomy tube. RECOMMENDATIONS: Continue broad-spectrum antibiotics. Resume back Cardizem 60 mg t.i.d. The patient is sensitive to beta-brenna, continue. Now the patient is in normal sinus. We will decrease the dose of Lovenox to 40 mg once a day from tomorrow. Monitor electrolytes. Continue hydration. Last echo on 10/02/2017 revealed normal chambers and ejection fraction 50%, moderate aortic regurgitation, moderate mitral regurgitation, mild tricuspid regurgitation, RV systolic pressure 47. We will follow with you. Thank you, Dr. Riddle, for providing us the opportunity in taking care of the patient, John Ospina. Dougie Fraga MD [facility] # [id number]
[2018-05-01] MEDS: Pantoprazole 40 mg EC Tab PO SCH (06:47)
[2018-05-01] MEDS: Sodium Chloride 0.9% 1,000 ML IV SCH ×2 (06:55→06:56)
--- NOTE | 2018-05-01 08:25 | PN ---
DATE: 05/01/2018 SUBJECTIVE: The patient is in bed in no acute distress, nontoxic. No fevers and chills. No nausea, no vomiting. PHYSICAL EXAMINATION: VITAL SIGNS: On exam, temperature is 98, T-max this morning is 100.4; blood pressure is 143/60; respiratory rate 20. HEENT: Examination of HEENT is unremarkable. NECK: Supple. LUNGS: Have decreased breath sounds. HEART: Normal S1, S2. ABDOMEN: Soft, nontender. LABORATORY EXAMINATION: Review of orders reveals the patient is now on p.o. Augmentin and laboratory examination reveals a white count is 8.2 and chemistries are noted. ASSESSMENT AND PLAN: A 77-year-old male seen earlier with a history of adenocarcinoma of the lung, urinary bladder cancer, prostate cancer, history of pneumothorax after a lung biopsy, history of macular degeneration, hypertension, peripheral vascular disease, admitted with dizziness, found to have leukocytosis, urine as the source. CAT scan of the chest negative for pneumonia, no infiltrates noted and the patient was on meropenem and vancomycin which was discontinued and switched to p.o. Augmentin, now has a new fever of 100.4 which he has been afebrile and since source of the new fever is not clear, we will order blood cultures, urine cultures, sputum cultures and methicillin-resistant Staphylococcus aureus screen, procalcitonin and a chest x-ray. If there is any diarrhea reported at all, we will order a Clostridium difficile. We will discontinue the Augmentin at this time and review the laboratories and this morning CBC and chemistries not ordered. We will order a new CBC and chemistries. We will make further recommendations and antibiotics based on the chest x-ray and we will order a portable x-ray and we will make further recommendations. We will hold off on antibiotics for now pending initial workup. Ernst Osborn MD
[2018-05-01] MEDS: Insulin Reg-LOW-Coverage SC SCH ×4 (08:30→21:33)
[2018-05-01 08:53] LABS: MEAN CELL VOLUME 91.4 fl (80.0-105.0); MEAN CORPUSCULAR HEMOGLOBIN 29.9 pg (25.0-35.0); MEAN CORPUSCULAR HGB CONC 32.7 g/dl (31.0-37.0); RBC 2.68 10^6/uL (3.5-6.1); RED CELL DISTRIBUTION WIDTH 13.3 % (11.5-14.5)
[2018-05-01 08:56] LABS: ALB/GLOB RATIO 0.8 (1.1-1.8); ALBUMIN 2.3 g/dL (3.0-4.8); ALT/SGPT 26 U/L (7-56); AST/SGOT 13 U/L (17-59); BLOOD UREA NITROGEN 20 mg/dL (7-21); CALCIUM 8.5 mg/dL (8.4-10.5); GFR NON-AFRICAN AMERICAN > 60
[2018-05-01] MEDS ORDERED: Potassium Chloride 20 mEq ER Tab PO ONE (09:33)
--- NOTE | 2018-05-01 11:07 | RAD ---
Date of service: 05/01/2018 PROCEDURE: CHEST RADIOGRAPH, 1 VIEW HISTORY: fever COMPARISON: 04/27/2018 FINDINGS: LUNGS: Clear. PLEURA: No pneumothorax or pleural fluid seen. CARDIOVASCULAR: No radiographic findings to suggest acute or significant cardiovascular disease. Atherosclerotic calcifications identified primarily aortic arch. OSSEOUS STRUCTURES: No significant abnormalities. VISUALIZED UPPER ABDOMEN: Normal. OTHER FINDINGS: None. IMPRESSION: No active disease.No significant interval change compared to the prior examination(s).
[2018-05-01] MEDS ORDERED: oxyCODONE 5 mg Immediate Release Tab PO PRN (14:26)
--- NOTE | 2018-05-01 14:31 | CP.PCM.PN ---
Subjective - Date & Time of Evaluation Date of Evaluation: 05/01/18 Time of Evaluation: 14:28 - Subjective Subjective: Hematology/Oncology Progress Note (Dr. Be's Service) Patient seen and assessed at bedside. No acute events overnight noted. Patient endorses that he has intermittent chronic left leg pain that he takes medications for at home. Patient denies any complaints at this time including fevers, chills, headache, chest pain, SOB, abdominal pain, N/V/D/C, changes in urine output, skin changes or any numbness/tingling of any extremity. Objective - Vital Signs/Intake and Output Vital Signs (last 24 hours): Temp Pulse Resp BP Pulse Ox 97.7 F 73 18 125/58 L 98 05/01/18 12:00 05/01/18 13:04 05/01/18 12:00 05/01/18 13:04 05/01/18 05:52 Intake and Output: 05/01/18 05/01/18 06:59 18:59 Intake Total 2280 Output Total 2100 Balance 180 - Medications Medications: Current Medications Acetaminophen (Tylenol 325mg Tab) 650 mg PO Q6H PRN PRN Reason: Fever >100.4 F Last Admin: 05/01/18 06:51 Dose: 650 mg Apixaban (Eliquis) 10 mg PO BID [facility]; Protocol Stop: 05/06/18 18:00 Last Admin: 05/01/18 09:29 Dose: 10 mg Apixaban (Eliquis) 5 mg PO BID [facility]; Protocol Diltiazem HCl (Cardizem) 60 mg PO TID [facility] Last Admin: 05/01/18 13:04 Dose: 60 mg Sodium Chloride (Sodium Chloride 0.9%) 1,000 mls @ 75 mls/hr IV .[id number] [facility] Last Admin: 05/01/18 06:56 Dose: Not Given Insulin Human Regular (Humulin R Low) 0 units SC ACHS [facility]; Protocol Last Admin: 05/01/18 12:35 Dose: 2 units Metoprolol Tartrate (Lopressor) 12.5 mg PO BID [facility] Last Admin: 05/01/18 09:38 Dose: 12.5 mg Oxycodone HCl (Oxycodone Immediate Release Tab) 5 mg PO Q6H PRN PRN Reason: Pain, moderate (4-7) Pantoprazole Sodium (Protonix Ec Tab) 40 mg PO 0600 [facility] Last Admin: 05/01/18 06:47 Dose: 40 mg Sodium Phosphate (Fleet Enema) 135 ml RC DAILY PRN PRN Reason: Constipation Tamsulosin HCl (Flomax) 0.4 mg PO DAILY [facility] Last Admin: 05/01/18 09:28 Dose: 0.4 mg Vitamin A (Vitamin A & D Oint Ud Foilpak) 1 ea TOP Q2 PRN PRN Reason: Dry LIPS - Labs Labs: 05/01/18 08:40 05/01/18 08:40 PT 15.6 SECONDS (9.4-12.5) H 04/27/18 20:45 INR 1.36 04/27/18 20:45 APTT 28.5 Seconds (25.1-36.5) 04/30/18 06:30 - Additional Findings Additional findings: - Constitutional Appears: Non-toxic, No Acute Distress - Head Exam Head Exam: ATRAUMATIC, NORMOCEPHALIC - Eye Exam Eye Exam: EOMI - ENT Exam ENT Exam: Mucous Membranes Moist - Neck Exam Neck Exam: Full ROM - Respiratory Exam Respiratory Exam: Clear to Ausculation Bilateral, NORMAL BREATHING PATTERN. absent: Rales, Rhonchi, Wheezes, Respiratory Distress, Decreased Breath Sounds - Cardiovascular Exam Cardiovascular Exam: Tachycardia, REGULAR RHYTHM, +S1, +S2 - GI/Abdominal Exam GI & Abdominal Exam: Soft, Normal Bowel Sounds. absent: Tenderness - Exam Additional comments: Melvin catheter with clear yellow urine - Extremities Exam Extremities Exam: absent: Calf Tenderness - Back Exam Additional comments: Left sided nephrostomy tube with no discharge noted surrounding entry site; Grade I SDU - Neurological Exam Neurological Exam: Alert, Awake Assessment and Plan - Assessment and Plan (Free Text) Assessment: 77 year old male with a past medical history significant for metasynchronous NSCLC, lung adenocarcinoma, PVD, HTN, prostate cancer s/p radiation, pneumothorax s/p lung biopsy, DJD, tobacco abuse, unresectable bladder cancer s/p chronic indwelling melvin catheter placement and percutaneous nephrostomy tube placement who presents with two hours of generalized weakness and chest discomfort. Patient was found to have an elevated d-dimer on admission and CT angio of the chest showed no PE. However, venous doppler US of the lower extremities found an extensive left iliofemoral DVT with the superior extent not visualized. A CT chest, abdomen and pelvis showed that the thrombus superiorly did not extend further into the IVC or right sided pelvic vasculature. Patient is on Eliquis. He will be transfused one unit of pRBC's today as his hemoglobin is 8.0 today. Plan: -Bilateral Lower Extremity Venous Doppler US findings noted; Extensive left IF DVT with superior extent not visualized -CT chest, abdomen and pelvis with IV contrast showed no extent of the thrombus into the IVC or right sided pelvic vasculature -CTA Chest negative for PE -Continue Eliquis 10mg BID -H/H noted to be 8.0/24.5 -Will transfuse one unit of pRBC's with pre-medications as ordered -Continue to monitor with daily CBC's -Will start patient on Oxycodone 5mg Q6 PRN for his chronic leg pain -Further recommendations as per Dr. Be Patient seen and case discussed with attending, Dr. Be. Wallace Leone PGY2
[2018-05-01 15:00] LABS: PH,URINE 6.5 (4.7-8.0); URINE BILIRUBIN NEGATIVE (NEGATIVE); URINE BLOOD LARGE (NEGATIVE); URINE GLUCOSE (UA) 100 mg/dL (NEGATIVE); URINE LEUKOCYTE ESTERASE LARGE Leu/uL (NEGATIVE); URINE PROTEIN 100 mg/dL (<30 mg/dL); URINE UROBILINOGEN 0.2 E.U./dL (<1 E.U./dL)
[2018-05-01 15:02] LABS: URINE APPEARANCE TURBID (CLEAR); URINE COLOR LIGHT YELLOW (YELLOW)
[2018-05-01 15:12] LABS: URINE BACTERIA LARGE (NEG); URINE RBC TNTC /hpf (0-2); URINE WBC TNTC /hpf (0-6)
--- NOTE | 2018-05-01 17:05 | PN ---
DATE: 05/01/2018 REASON FOR CONSULTATION AND FOLLOWUP: SVT, cardiac evaluation, sepsis. SUBJECTIVE: The patient denies any chest pain, shortness of breath, or any palpitations. No further episode of arrhythmia noted in last 24 hours. Mild sinus tachycardia. Heart rate 100 to 110. PHYSICAL EXAMINATION: GENERAL: Not in apparent distress. Lying flat in the bed. VITAL SIGNS: Temperature 100.4, heart rate 79, blood pressure 143/65. HEENT: PERRLA. Extraocular muscles intact. NECK: Supple. No carotid bruits or thyromegaly. CHEST: Clear to auscultation. HEART: S1 and S2 regular. ABDOMEN: Soft. EXTREMITIES: Clubbing and cyanosis negative. LABORATORY DATA: Blood workup as follows: WBC 9, hemoglobin 8, hematocrit 24.5, platelet count 240. Chemistry shows sodium 133, potassium 3.8, chloride 113, carbon dioxide 19, anion gap of 8, BUN 20, and creatinine 1.1. Total protein 5.2, albumin 2, albumin-globulin ratio is 0.8. IMPRESSION: A 77-year-old male with past medical history significant for adenocarcinoma of the lung, bladder cancer, prostate cancer, history of pneumothorax in the past after the lung biopsy, macular degeneration, hypertension, admitted with fever, sepsis, supraventricular tachycardia, anemia, admitted with dizziness, headache, found to be septic and in supraventricular tachycardia. Code sepsis was activated. Now, the patient is transferred to [facility]-surg floor. History of obstruction to the ureter, status post left nephrostomy tube. Last echocardiogram on 10/02/2017 shows normal chamber size, ejection fraction 50%, moderate aortic regurgitation, moderate mitral regurgitation, mild tricuspid regurgitation, right ventricular pressure 47. Rate is well controlled now. Continue broad-spectrum antibiotics. Continue Cardizem 60 three times a day. History of extensive deep venous thrombosis, pulmonary embolism. So, we started Eliquis 10 mg b.i.d. for one week followed by 5 mg daily. So far, the heart rate is well controlled on the Cardizem as needed. We can add low-dose beta brenna. As mentioned, ultrasound duplex scan showed very extensive iliofemoral deep venous thrombosis of the left side. CAT scan was negative for pulmonary embolism. Eliquis started 10 mg b.i.d. for one week followed by 5 mg, orders written and we will also add on very low dose of beta brenna because the heart rate when the patient goes to the bathroom goes to 110. So, we will start with 12.5 b.i.d. and monitor for any bradycardia events. Continue antibiotics. We will follow. Supplement electrolytes if needed. Increase nutritional support. We will put some Glucerna pudding for [id number] protein-calorie malnutrition, which was present on admission but was moderate. Actually, dietary supplement started by Dr. Demetrius Riddle, so we will cancel my order. Thank you, Dr. Riddle, for providing us the opportunity in taking care of the patient, John Ospina. Dougie Fraga MD
[2018-05-01] MEDS ORDERED: Lidocaine 2% Inj (20ml) ONE (17:23)
[2018-05-01] MEDS ORDERED: Iodixanol 320 MG/ML 200 ML BOTTLE IV ONE (17:24)
[2018-05-01] MEDS ORDERED: Iodixanol 320 mg/ml 150 ml Bottle IV ONE (17:24)
[2018-05-01] MEDS ORDERED: Midazolam 2 MG/2 ML VIAL ONE (18:31)
[2018-05-01] MEDS ORDERED: Sodium Chloride 0.45% 1,000 ML IV SCH (19:00)
--- NOTE | 2018-05-01 19:43 | VASCULAR ---
PROCEDURE: IVC Filter placement HISTORY: Lung carcinoma. Prostate CA. Left lower extremity DVT. Needs IVC filter before pelvic surgery. PHYSICIAN(S): Fito Sylvester MD. TECHNIQUE: The relative risks and indications of the procedure were explained to the patient and his daughter and consent obtained. The patient was placed supine on the arteriogram table the right groin prepped and draped usual sterile fashion. Conscious sedation and monitoring were provided throughout the procedure by a nurse. Under ultrasound guidance the right common femoral vein was punctured with a micropuncture set. A 5 Nepali sheath was placed. The guidewire and flush catheter were advanced over the IVC bifurcation and placed in the left iliac venous system. A PA DSA IVC gram was performed with emphasis on the renal veins. Exchange was made for a support wire placed in the right atrium. The 7 Nepali sheath was advanced to the level of the renal veins. Next a retrievable filter was deployed in the infrarenal IVC at the level of L3. A post deployment cavagram was performed through the introducer sheath. The sheath was removed and hemostasis obtained. Patient tolerated the procedure well. FINDINGS: The visualized iliac veins and IVC are normal. No evidence of IVC thrombus or anomaly is seen. The renal veins are easily identified. The retrievable filter was deployed and is in good position at the level of L3. IMPRESSION: 1. No evidence of IVC anomaly or thrombus. 2. Successful deployment of a retrievable filter in the infrarenal IVC at the level of L3.
[2018-05-02] MEDS: Pantoprazole 40 mg EC Tab PO SCH (06:07)
[2018-05-02 06:47] LABS: ALB/GLOB RATIO 0.8 (1.1-1.8); ALBUMIN 2.1 g/dL (3.0-4.8); ALT/SGPT 24 U/L (7-56); AST/SGOT 14 U/L (17-59); BLOOD UREA NITROGEN 20 mg/dL (7-21); CALCIUM 8.3 mg/dL (8.4-10.5); GFR NON-AFRICAN AMERICAN > 60
[2018-05-02 07:02] LABS: BASO # 0.01 K/mm3 (0.0-2.0); BASO % 0.1 % (0.0-3.0); EOS # 0.1 (0.0-0.7); EOS % 0.7 % (1.5-5.0); GRAN # 5.42 (1.4-6.5); GRAN % 79.1 % (50.0-68.0); HEMOGLOBIN 8.9 g/dL (14.0-18.0); LYMPH # 0.8 (1.2-3.4); LYMPH % 11.4 % (22.0-35.0); MEAN CELL VOLUME 91.3 fl (80.0-105.0); MEAN CORPUSCULAR HEMOGLOBIN 29.9 pg (25.0-35.0); MEAN CORPUSCULAR HGB CONC 32.7 g/dl (31.0-37.0); MEAN PLATELET VOLUME 9.6 fl (7.0-11.0); MONO # 0.6 (0.1-0.6); MONO % 8.7 % (1.0-6.0); RBC 2.98 10^6/uL (3.5-6.1); RED CELL DISTRIBUTION WIDTH 13.5 % (11.5-14.5); WHITE BLOOD COUNT 6.9 10^3/uL (4.5-11.0)
[2018-05-02] MEDS: Insulin Reg-LOW-Coverage SC SCH ×4 (08:56→18:05)
--- NOTE | 2018-05-02 09:08 | CP.PCM.PN ---
Subjective - Date & Time of Evaluation Date of Evaluation: 05/02/18 Time of Evaluation: 06:45 - Subjective Subjective: Awake, alert, no distress Reason for consultation and follow up: Cardiac evaluation of SVT, admitted for sepsis, history of bladder cancer Seen and examined by me and Dr. Fraga Objective - Vital Signs/Intake and Output Vital Signs (last 24 hours): Temp Pulse Resp BP Pulse Ox 97.9 F 70 20 148/65 98 05/02/18 06:00 05/02/18 06:00 05/02/18 06:00 05/02/18 06:00 05/02/18 06:00 Intake and Output: 05/02/18 05/02/18 06:59 18:59 Intake Total 1295 Output Total 1100 Balance 195 - Medications Medications: Current Medications Acetaminophen (Tylenol 325mg Tab) 650 mg PO Q6H PRN PRN Reason: Fever >100.4 F Last Admin: 05/01/18 06:51 Dose: 650 mg Apixaban (Eliquis) 10 mg PO BID [facility]; Protocol Stop: 05/06/18 18:00 Last Admin: 05/01/18 17:16 Dose: 10 mg Apixaban (Eliquis) 5 mg PO BID [facility]; Protocol Diltiazem HCl (Cardizem) 60 mg PO TID [facility]PL[facility] Last Admin: 05/01/18 17:16 Dose: 60 mg Insulin Human Regular (Humulin R Low) 0 units SC [facility] REPLACED BY [facility]; Protocol Last Admin: 05/02/18 08:58 Dose: 1 units Metoprolol Tartrate (Lopressor) 12.5 mg PO BID [facility]PL[facility]ED BY [facility] Last Admin: 05/01/18 17:16 Dose: 12.5 mg Oxycodone HCl (Oxycodone Immediate Release Tab) 5 mg PO Q6H PRN PRN Reason: Pain, moderate (4-7) Pantoprazole Sodium (Protonix Ec Tab) 40 mg PO 0600 REPLACED BY [facility] Last Admin: 05/02/18 06:07 Dose: 40 mg Sodium Phosphate (Fleet Enema) 135 ml RC DAILY PRN PRN Reason: Constipation Tamsulosin HCl (Flomax) 0.4 mg PO DAILY [facility]PLACED [facility] Last Admin: 05/01/18 09:28 Dose: 0.4 mg Vitamin A (Vitamin A & D Oint Ud Foilpak) 1 ea TOP Q2 PRN PRN Reason: Dry LIPS - Labs Labs: 05/02/18 06:00 05/02/18 06:00 PT 15.6 SECONDS (9.4-12.5) H 04/27/18 20:45 INR 1.36 04/27/18 20:45 APTT 28.5 Seconds (25.1-36.5) 04/30/18 06:30 - Constitutional Appears: Non-toxic, No Acute Distress - Eye Exam Eye Exam: Normal appearance Pupil Exam: NORMAL ACCOMODATION - ENT Exam ENT Exam: Mucous Membranes Moist - Respiratory Exam Respiratory Exam: Decreased Breath Sounds, Clear to Ausculation Bilateral, NORMAL BREATHING PATTERN - Cardiovascular Exam Cardiovascular Exam: REGULAR RHYTHM, +S1, +S2 Additional comments: telemetry NSR 70's - GI/Abdominal Exam GI & Abdominal Exam: Soft, Normal Bowel Sounds - Exam Additional comments: melvin catheter Left nephrostomy tube - Extremities Exam Extremities Exam: Full ROM, Normal Capillary Refill Additional comments: right groin no bleeding - Neurological Exam Neurological Exam: Alert, Awake, Oriented x3 - Psychiatric Exam Psychiatric exam: Normal Affect, Normal Mood - Skin Skin Exam: Dry, Normal Color, Warm Assessment and Plan - Assessment and Plan (Free Text) Assessment: A 77 year old male who was brought to the ER due to dizziness and near syncope. He felt dizzy and fell but no loss of consciousness, He was able to call daughter. History of bladder cancer, lung cancer, prostate cancer,macular degeneration, hypertension,obstruction of ureter requiring nephrostomy tube. Admitted for sepsis and he had supraventricular tachycardia rate of 190's. Adenosine was given and converted to normal sinus rhythm. Cardizem started. US of lower extremities showed extensive left iliofemoral DVT. Telemetry shows NSR with occasional APC's and PVC's. Controlled heart rate, on cardizem. Plan: Denies shortness of breath,denies chest pain No distress Post IVC filter insertion yesterday by Dr. Sylvester (DVT) Right groin no bleeding Started on Eliquis for DVT Post transfusion of 1 unit PRBC yesterday for low H/H Repeat today 8.03/28.2 Controlled heart rate Controlled blood pressure On Eliquis 10 mg BID,Cardizem 60 mg TID,Lopressor 12.5 mg BID, Flomax 0.4 mg daily Continue current treatment Continue current medications Chart reviewed Will follow up Plan and treatment discussed with Dr. Fraga
--- NOTE | 2018-05-02 12:53 | PN ---
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 The patient received a urostomy tube his last admission to stabilize the left hydronephrosis. On the 04/27/2018 he was admitted with weakness and palpitations, found to be in SVT and septic. He was followed during the hospital stay with Dr. Fraga, his supervisor malt house, Dr. Osborn, the infectious disease specialist, Dr. Pozo, his neurologist and Dr. Be, his oncologist. There were exudates from the urostomy tube on admission. SVT was treated in the emergency room with adenosine and the patient did well. He was treated during the hospital stay with vancomycin and meropenem and his white blood cell count normalized.. When seen today, he is on the telemetry floor. He is awake, alert and oriented, voices no complaints. Once again, he telephoned his daughter to act as a development coach, the patient speaks only [place]. PHYSICAL EXAMINATION: LUNGS: Clear. HEART: Regular. ABDOMEN: Soft and nontender. LABORATORY DATA: To date, blood cultures were negative. Yesterday's blood work showed the white cell count to be down to 8.2, hemoglobin and hematocrit was 8.2 and 39.3. It has been decided to transfuse 1 unit of packed red blood cells for the patient. Serum chemistries are normal. The blood pressure is 143/65 and heart rate is 79. Telemetry shows regular sinus rhythm at 73 beats per minute. ASSESSMENT AND PLAN: His intravenous meropenem and vancomycin have been discontinued and he is changed to oral Augmentin for 7 to 10-day course. We will continue to follow the patient closely. He apparently has an appointment with a urologist in [facility] for May 11 or where they will attempt to remove the urostomy tube and replace it with a ureteral stent. We will continue to follow the patient closely. Shashank Riddle MD [facility] # [id number] [place]
[2018-05-02] MEDS ORDERED: Potassium Chloride 20 mEq ER Tab PO STA (15:14)
[2018-05-02] MEDS ORDERED: Magnesium Oxide 400 mg Tab UD PO STA (15:14)
--- NOTE | 2018-05-02 16:37 | CP.PCM.PN ---
Subjective - Date & Time of Evaluation Date of Evaluation: 05/02/18 Time of Evaluation: 16:34 - Subjective Subjective: Hematology/Oncology Progress Note (Dr. Be's Service) Patient seen and assessed at bedside. No acute events overnight noted. Patient had IVC filter placed yesterday evening without complications. Patient denies any complaints at this time including fevers, chills, headache, chest pain, SOB, abdominal pain, N/V/D/C, changes in urine output, skin changes or any numbness/tingling of any extremity. Objective - Vital Signs/Intake and Output Vital Signs (last 24 hours): Temp Pulse Resp BP Pulse Ox 98.4 F 74 18 133/62 98 05/02/18 15:15 05/02/18 15:15 05/02/18 15:15 05/02/18 15:15 05/02/18 06:00 Intake and Output: 05/02/18 05/02/18 06:59 18:59 Intake Total 1295 25 Output Total 1100 Balance 195 25 - Medications Medications: Current Medications Acetaminophen (Tylenol 325mg Tab) 650 mg PO Q6H PRN PRN Reason: Fever >100.4 F Last Admin: 05/01/18 06:51 Dose: 650 mg Acetaminophen (Tylenol 325mg Tab) 650 mg PO Q8 [facility] Stop: 05/02/18 22:01 Last Admin: 05/02/18 14:53 Dose: 650 mg Apixaban (Eliquis) 10 mg PO BID [facility]; Protocol Stop: 05/06/18 18:00 Last Admin: 05/02/18 11:34 Dose: 10 mg Apixaban (Eliquis) 5 mg PO BID [facility]; Protocol Diltiazem HCl (Cardizem) 60 mg PO TID [facility] Last Admin: 05/02/18 14:53 Dose: 60 mg Diphenhydramine HCl (Benadryl) 50 mg PO Q8 PRN PRN Reason: Other Last Admin: 05/02/18 14:53 Dose: 50 mg Hydrocortisone Sodium Succinate (Solu-Cortef) 50 mg IVP Q8 PRN PRN Reason: Other Last Admin: 05/02/18 14:54 Dose: 50 mg Insulin Human Regular (Humulin R Low) 0 units SC ACHS [facility]; Protocol Last Admin: 05/02/18 12:24 Dose: Not Given Magnesium Oxide (Mag-Ox) 400 mg PO BID [facility] Stop: 05/03/18 23:59 Metoprolol Tartrate (Lopressor) 12.5 mg PO BID [facility] Last Admin: 05/02/18 11:35 Dose: 12.5 mg Oxycodone HCl (Oxycodone Immediate Release Tab) 5 mg PO Q6H PRN PRN Reason: Pain, moderate (4-7) Pantoprazole Sodium (Protonix Ec Tab) 40 mg PO 0600 [facility] Last Admin: 05/02/18 06:07 Dose: 40 mg Sodium Phosphate (Fleet Enema) 135 ml RC DAILY PRN PRN Reason: Constipation Tamsulosin HCl (Flomax) 0.4 mg PO DAILY [facility] Last Admin: 05/02/18 11:34 Dose: 0.4 mg Vitamin A (Vitamin A & D Oint Ud Foilpak) 1 ea TOP Q2 PRN PRN Reason: Dry LIPS - Labs Labs: 05/02/18 06:00 05/02/18 06:00 PT 15.6 SECONDS (9.4-12.5) H 04/27/18 20:45 INR 1.36 04/27/18 20:45 APTT 28.5 Seconds (25.1-36.5) 04/30/18 06:30 - Additional Findings Additional findings: - Constitutional Appears: Non-toxic, No Acute Distress - Head Exam Head Exam: ATRAUMATIC, NORMOCEPHALIC - Eye Exam Eye Exam: EOMI - ENT Exam ENT Exam: Mucous Membranes Moist - Neck Exam Neck Exam: Full ROM - Respiratory Exam Respiratory Exam: Clear to Ausculation Bilateral, NORMAL BREATHING PATTERN. absent: Rales, Rhonchi, Wheezes, Respiratory Distress, Decreased Breath Sounds - Cardiovascular Exam Cardiovascular Exam: REGULAR RHYTHM, +S1, +S2 - GI/Abdominal Exam GI & Abdominal Exam: Soft, Normal Bowel Sounds. absent: Tenderness - Exam Additional comments: Melvin catheter with clear yellow urine - Extremities Exam Extremities Exam: absent: Calf Tenderness Additional comments: Right groin catheter insertion site soft, non-tender, and without any hematoma or echymosis - Back Exam Additional comments: Left sided nephrostomy tube with no discharge noted surrounding entry site; Grade I SDU - Neurological Exam Neurological Exam: Alert, Awake Assessment and Plan - Assessment and Plan (Free Text) Assessment: 77 year old male with a past medical history significant for metasynchronous NSCLC, lung adenocarcinoma, PVD, HTN, prostate cancer s/p radiation, pneumothorax s/p lung biopsy, DJD, tobacco abuse, unresectable bladder cancer s/p chronic indwelling melvin catheter placement and percutaneous nephrostomy tube placement who presents with two hours of generalized weakness and chest discomfort. Patient was found to have an elevated d-dimer on admission and CT angio of the chest showed no PE. However, venous doppler US of the lower extremities found an extensive left iliofemoral DVT with the superior extent not visualized. A CT chest, abdomen and pelvis showed that the thrombus superiorly d id not extend further into the IVC or right sided pelvic vasculature. Patient is on Eliquis and had IVC filter placed without complications. He will be transfused one more unit of pRBC's today as his hemoglobin is 8.9 today and we would ideally like this to be around 10.0. Plan: -Bilateral Lower Extremity Venous Doppler US findings noted; Extensive left IF DVT with superior extent not visualized -CT chest, abdomen and pelvis with IV contrast showed no extent of the thrombus into the IVC or right sided pelvic vasculature -CTA Chest negative for PE -Continue Eliquis 10mg BID -H/H noted to be 8.9/27.2 -S/p one unit of pRBC's -Will transfuse one more unit of pRBC's with pre-medications as ordered -Continue to monitor with daily CBC's -Continue Oxycodone 5mg Q6 PRN for his chronic leg pain -IVC filter placed by IR -Further recommendations as per Dr. Be Patient seen and case discussed with attending, Dr. Be. Wallace Leone PGY2
--- NOTE | 2018-05-02 17:43 | PN ---
DATE: 05/02/2018 SUBJECTIVE: The patient is in bed, in no acute distress PHYSICAL EXAMINATION: VITAL SIGNS: Temperature is 98, blood pressure is 130/50, respiratory rate 20, heart rate of 70. HEENT: Unremarkable. NECK: Supple. LUNGS: Have decreased breath sounds. HEART: Normal S1 and S2. ABDOMEN: Soft, nontender. LABORATORY DATA: Reveals the patient's white count of 6.9, hemoglobin of 8. Chemistries reveals BUN of 20, creatinine of 1. The LFTs are essentially unremarkable and procalcitonin is 0.12 from yesterday and 0.21 from prior to that. Microbiology reveals the blood cultures are negative. Urine cultures are negative. The repeat cultures from yesterday are no growth at 24 hours and urine cultures also no growth. The patient also had a chest x-ray yesterday with the lungs are clear and Dr. Fito Sylvester's vascular intervention from yesterday is reviewed. Successful deployment of the retrievable filter and infrarenal IVC at the level of L3. No evidence of IVC thrombus. Review of orders reveals the patient to be off of antibiotics. He is on Solu-Cortef. ASSESSMENT/PLAN Is a 77-year-old male who has a history of adenocarcinoma of the lung, urinary bladder cancer, prostate cancer, history of pneumothorax after a lung biopsy, history of macular degeneration, hypertension, peripheral vascular ease, admitted with dizziness, found to have leukocytosis, urine is the source. CAT scan of the chest negative for pneumonia and the patient had a fever of 100.4 yesterday with questionable infiltration of the IV site in his left arm. Thus far, all cultures are negative. Currently off of antibiotics and afebrile with a normal white count appears to be no evidence of infection at this time. We will follow closely with you. Ernst Osborn MD
[2018-05-02] MEDS: Magnesium Oxide 400 mg Tab UD PO SCH (19:15)
--- NOTE | 2018-05-02 21:53 | PN ---
DATE: 05/02/2018 SUBJECTIVE: Patient was seen on this morning in room 275 bed 1, resting comfortably in bed. Admitted with sepsis, puss from nephrostomy tube. He has been treated with antibiotics per infectious disease. Antibiotics now on hold, pending following his temperature chart and isolation of cultures. PHYSICAL EXAMINATION GENERAL: Patient is awake, awake, and clear. In good spirits. LUNGS: Shows good aeration right and left. HEART: Regular, not tachycardic. ABDOMEN: Soft. EXTREMITIES: Left leg has +2 soft edema compared to the right. Venous Doppler showed DVT on that leg. IVC filter was placed yesterday and the patient is on Eliquis. IMPRESSION: 1. Sepsis. 2. Urinary tract infection. 3. Pyelonephritis with infected nephrostomy tube. 4. Lung cancer. 5. Prostate/ureteral cancer. 6. Deep venous thrombosis. 7. Status post recent inferior vena cava filter placement. PLAN: Initially I was planning on sending the patient home today as he was on p.o. antibiotics, but in view of the ID's note and request, we will continue to hold antibiotics. Monitor fevers. Await repeat cultures and discuss with him in the morning. In the meantime, we will get the patient out of bed, order physical therapy, arrange for visiting nurse after discharge, and followup. Demetrius Riddle MD [facility]
[2018-05-03 00:03] LABS: PH,URINE 6.5 (4.7-8.0); URINE BILIRUBIN NEGATIVE (NEGATIVE); URINE BLOOD LARGE (NEGATIVE); URINE GLUCOSE (UA) 250 mg/dL (NEGATIVE); URINE LEUKOCYTE ESTERASE LARGE Leu/uL (NEGATIVE); URINE PROTEIN 30 mg/dL (<30 mg/dL); URINE UROBILINOGEN 0.2 E.U./dL (<1 E.U./dL)
[2018-05-03 00:04] LABS: URINE APPEARANCE SL CLOUDY (CLEAR); URINE COLOR YELLOW (YELLOW)
[2018-05-03 00:15] LABS: URINE BACTERIA MOD (NEG); URINE EPITHELIAL CELLS 0 - 2 /hpf (0-5); URINE WBC TNTC /hpf (0-6)
--- NOTE | 2018-05-03 06:43 | CP.PCM.PN ---
Subjective - Date & Time of Evaluation Date of Evaluation: 05/03/18 Time of Evaluation: 06:10 - Subjective Subjective: No distress, awake, alert, Reason for consultation and follow up: Cardiac evaluation of SVT, admitted for sepsis, history of bladder cancer Seen and examined by me and Dr. Fraga Objective - Vital Signs/Intake and Output Vital Signs (last 24 hours): Temp Pulse Resp BP Pulse Ox 97.8 F 57 L 20 117/62 98 05/02/18 23:24 05/02/18 23:24 05/02/18 23:24 05/02/18 23:24 05/02/18 23:24 Intake and Output: 05/02/18 05/03/18 18:59 06:59 Intake Total 525 Output Total 800 Balance 525 -800 - Medications Medications: Current Medications Acetaminophen (Tylenol 325mg Tab) 650 mg PO Q6H PRN PRN Reason: Fever >100.4 F Last Admin: 05/01/18 06:51 Dose: 650 mg Apixaban (Eliquis) 10 mg PO BID [facility]; Protocol Stop: 05/06/18 18:00 Last Admin: 05/02/18 19:15 Dose: 10 mg Apixaban (Eliquis) 5 mg PO BID [facility]; Protocol Diltiazem HCl (Cardizem) 60 mg PO TID [facility] Last Admin: 05/02/18 19:15 Dose: 60 mg Diphenhydramine HCl (Benadryl) 50 mg PO Q8 PRN PRN Reason: Other Last Admin: 05/02/18 14:53 Dose: 50 mg Hydrocortisone Sodium Succinate (Solu-Cortef) 50 mg IVP Q8 PRN PRN Reason: Other Last Admin: 05/02/18 14:54 Dose: 50 mg Insulin Human Regular (Humulin R Low) 0 units SC [facility]; Protocol Last Admin: 05/02/18 18:05 Dose: Not Given Magnesium Oxide (Mag-Ox) 400 mg PO BID [facility] Stop: 05/03/18 23:59 Last Admin: 05/02/18 19:15 Dose: 400 mg Metoprolol Tartrate (Lopressor) 12.5 mg PO BID [facility] Last Admin: 05/02/18 19:15 Dose: 12.5 mg Oxycodone HCl (Oxycodone Immediate Release Tab) 5 mg PO Q6H PRN PRN Reason: Pain, moderate (4-7) Last Admin: 05/03/18 00:14 Dose: 5 mg Pantoprazole Sodium (Protonix Ec Tab) 40 mg PO 0600 [facility] Last Admin: 05/02/18 06:07 Dose: 40 mg Sodium Phosphate (Fleet Enema) 135 ml RC DAILY PRN PRN Reason: Constipation Tamsulosin HCl (Flomax) 0.4 mg PO DAILY [facility] Last Admin: 05/02/18 11:34 Dose: 0.4 mg Vitamin A (Vitamin A & D Oint Ud Foilpak) 1 ea TOP Q2 PRN PRN Reason: Dry LIPS - Labs Labs: 05/02/18 06:00 05/02/18 06:00 PT 15.6 SECONDS (9.4-12.5) H 04/27/18 20:45 INR 1.36 04/27/18 20:45 APTT 28.5 Seconds (25.1-36.5) 04/30/18 06:30 - Constitutional Appears: Non-toxic, No Acute Distress - Head Exam Head Exam: NORMAL INSPECTION, NORMOCEPHALIC - Eye Exam Eye Exam: Normal appearance Pupil Exam: NORMAL ACCOMODATION - ENT Exam ENT Exam: Mucous Membranes Moist - Cardiovascular Exam Cardiovascular Exam: +S1, +S2 Additional comments: No JVD - GI/Abdominal Exam GI & Abdominal Exam: Soft, Normal Bowel Sounds - Exam Additional comments: melvin catheter Nephrostomy tube - Extremities Exam Extremities Exam: Full ROM, Normal Capillary Refill - Neurological Exam Neurological Exam: Alert, Awake, Oriented x3 - Psychiatric Exam Psychiatric exam: Normal Affect, Normal Mood - Skin Skin Exam: Dry, Normal Color, Warm Assessment and Plan - Assessment and Plan (Free Text) Assessment: A 77 year old male who was brought to the ER due to dizziness and near syncope. He felt dizzy and fell but no loss of consciousness, He was able to call daughter. History of bladder cancer, lung cancer, prostate cancer,macular degeneration, hypertension,obstruction of ureter requiring nephrostomy tube. Admitted for sepsis and he had supraventricular tachycardia rate of 190's. Adenosine was given and converted to normal sinus rhythm. Cardizem started. US of lower extremities showed extensive left iliofemoral DVT. Post IVC filter done by Dr. Sylvester.transfused 1 unit PRBC for low H/H.Telemetry shows NSR with occasional APC's and PVC's. Controlled heart rate, on cardizem.Cardiac status stable. off telemetry. Transferred to 5th floor. Plan: No distress Denies shortness of breath,denies chest pain Cardiac status stable Controlled heart rate Controlled blood pressure Off telemetry On Eliquis 10 mg BID,Cardizem 60 mg TID,Lopressor 12.5 mg BID, Flomax 0.4 mg daily, Eliquis 10 mg BID till 05/06/18 then decrease to 5 mg BID Continue current treatment Continue current medications Chart reviewed Discharge planning Will follow up Plan and treatment discussed with Dr. Fraga
[2018-05-03 07:20] LABS: EOS # 0.1 (0.0-0.7); EOS % 1.6 % (1.5-5.0); GRAN # 5.37 (1.4-6.5); GRAN % 72.7 % (50.0-68.0); HEMOGLOBIN 10.5 g/dL (14.0-18.0); LYMPH % 13.6 % (22.0-35.0); MEAN CELL VOLUME 89.1 fl (80.0-105.0); MEAN CORPUSCULAR HGB CONC 33.7 g/dl (31.0-37.0); MEAN PLATELET VOLUME 9.5 fl (7.0-11.0); MONO # 0.9 (0.1-0.6); MONO % 12.1 % (1.0-6.0); RBC 3.5 10^6/uL (3.5-6.1); RED CELL DISTRIBUTION WIDTH 14.4 % (11.5-14.5); WHITE BLOOD COUNT 7.4 10^3/uL (4.5-11.0)
[2018-05-03 07:30] LABS: ALB/GLOB RATIO 0.8 (1.1-1.8); ALBUMIN 2.4 g/dL (3.0-4.8); ALT/SGPT 23 U/L (7-56); AST/SGOT 14 U/L (17-59); BLOOD UREA NITROGEN 21 mg/dL (7-21); CALCIUM 8.7 mg/dL (8.4-10.5); GFR NON-AFRICAN AMERICAN > 60
[2018-05-03] MEDS: Insulin Reg-LOW-Coverage SC SCH ×3 (08:09→16:56)
[2018-05-03 08:32] VITALS: RESP 18; TEMP 98.1; O2SAT 100
--- NOTE | 2018-05-03 09:49 | PN ---
DATE: 05/02/2018 REASON FOR CONSULTATION AND FOLLOWUP: Cardiac evaluation, SVT, admitted with sepsis, and history of bladder cancer. This note is in addition to dictated by nurse practitioner. The patient is lying comfortable, no further episode of arrhythmia noted. RECOMMENDATIONS: The patient has extensive history of DVT, so suggest continue Eliquis 10 mg b.i.d. for 1 week followed by 5 mg b.i.d., continue Lopressor, and continue Cardizem 60 three times a day. We will discontinue telemetry. is stable. We will supplement potassium and magnesium. As mentioned, 10 mg of Eliquis till 05/06/2018 and 5 mg . We will give 400 mg of magnesium oxide stat followed by 400 p.o. b.i.d. for 3 doses. We will follow mag level tomorrow. Thank you Dr. Riddle for providing us the opportunity in taking care of patient, John Ospina. We will follow with you. Dougie Fraga MD
[2018-05-03] MEDS: Magnesium Oxide 400 mg Tab UD PO SCH ×2 (09:56→17:01)
[2018-05-03 09:58] VITALS: PULSE 79
[2018-05-03] MEDS ORDERED: Benzocaine/Menthol (Cepacol) Lozenge MT PRN (14:22)
--- NOTE | 2018-05-03 14:42 | PN ---
DATE: 05/03/2018 SUBJECTIVE: The patient is in bed, in no acute distress, nontoxic. PHYSICAL EXAMINATION: VITAL SIGNS: On exam, temperature is 98, blood pressure is 160/60, respiratory rate of 18. HEENT: Examination of HEENT is unremarkable. NECK: Supple. LUNGS: Have decreased breath sounds. HEART: Normal S1, S2. ABDOMEN: Soft. LABORATORY DATA: Laboratory examination reveals the patient to have white count of 7.4, hemoglobin of 10. Coagulation is noted. Chemistries reveals a BUN of 21, creatinine of 1. Urinalysis is noted. Microbiology is noted. ASSESSMENT AND PLAN: A 77-year-old male with a history of adenocarcinoma of the lung, urinary bladder cancer, prostate cancer, history of pneumothorax after a lung biopsy, history of macular degeneration, hypertension, who was admitted with dizziness, found to have leukocytosis, urine IS the source. CAT scan of the chest is negative for pneumonia. Currently, now off of antibiotics, afebrile. White count is 7.4 with last temperature on 05/01/2018 was 100.4. Since then, the patient has been afebrile with repeat cultures negative. Procalcitonin of 0.12. All microbiology is negative. Off of antibiotics. On Solu-Cortef by Dr. Wallace Leone. I will follow with you. The patient is at risk for developing nosocomial infections. Ernst Osborn MD
--- NOTE | 2018-05-03 16:09 | PN ---
DATE: 05/03/2018 REASON FOR THE CONSULTATION AND FOLLOWUP: SVT, extensive DVT, bladder cancer. This note is an addition to dictated by the nurse practitioner. SUBJECTIVE: The patient denies any chest pain, shortness of breath or any palpitation. LABORATORY DATA: The patient's CBC, hemoglobin 10.2, potassium 4.2, BUN 21, creatinine 1. [id number] protein calorie malnutrition. RECOMMENDATIONS: Increase nutritional support as ordered. Continue Eliquis 10 mg b.i.d. till 05/06/2018, then 5 mg b.i.d. For DVT, continue low dose beta brenna, continue Cardizem. CVS status is stable. When the patient is stable from medical point of view, can be discharged home on Eliquis. Dougie Fraga MD
[2018-05-03 17:05] VITALS: BP 101/53
--- NOTE | 2018-05-03 18:29 | CP.PCM.PN ---
Subjective - Date & Time of Evaluation Date of Evaluation: 05/03/18 Time of Evaluation: 18:29 - Subjective Subjective: Hematology/Oncology Progress Note (Dr. Be's Service) Patient seen and assessed at bedside. No acute events overnight noted. Patient endorses that his voice is more hoarse than usual and his throat is "itchy". Patient denies any further complaints at this time including fevers, chills, headache, chest pain, SOB, abdominal pain, N/V/D/C, changes in urine output, skin changes or any numbness/tingling of any extremity. Objective - Vital Signs/Intake and Output Vital Signs (last 24 hours): Temp Pulse Resp BP Pulse Ox 98.1 F 79 18 101/53 L 100 05/03/18 08:31 05/03/18 09:56 05/03/18 08:31 05/03/18 17:02 05/03/18 08:31 Intake and Output: 05/03/18 05/03/18 06:59 18:59 Output Total 800 Balance -800 - Medications Medications: Current Medications Acetaminophen (Tylenol 325mg Tab) 650 mg PO Q6H PRN PRN Reason: Fever >100.4 F Last Admin: 05/01/18 06:51 Dose: 650 mg Apixaban (Eliquis) 10 mg PO BID [facility]; Protocol Stop: 05/06/18 18:00 Last Admin: 05/03/18 17:04 Dose: 10 mg Apixaban (Eliquis) 5 mg PO BID [facility]; Protocol Benzocaine/Menthol (Cepacol Sore Throat) 1 wan MT Q2H PRN PRN Reason: Sore Throat Diltiazem HCl (Cardizem) 60 mg PO TID [facility] Last Admin: 05/03/18 17:01 Dose: Not Given Diphenhydramine HCl (Benadryl) 50 mg PO Q8 PRN PRN Reason: Other Last Admin: 05/02/18 14:53 Dose: 50 mg Hydrocortisone Sodium Succinate (Solu-Cortef) 50 mg IVP Q8 PRN PRN Reason: Other Last Admin: 05/02/18 14:54 Dose: 50 mg Insulin Human Regular (Humulin R Low) 0 units SC ACHS [facility]; Protocol Last Admin: 05/03/18 16:56 Dose: 1 units Magnesium Oxide (Mag-Ox) 400 mg PO BID [facility] Stop: 05/03/18 23:59 Last Admin: 05/03/18 17:01 Dose: 400 mg Metoprolol Tartrate (Lopressor) 12.5 mg PO BID [facility] Last Admin: 05/03/18 17:02 Dose: Not Given Oxycodone HCl (Oxycodone Immediate Release Tab) 5 mg PO Q6H PRN PRN Reason: Pain, moderate (4-7) Last Admin: 05/03/18 00:14 Dose: 5 mg Pantoprazole Sodium (Protonix Ec Tab) 40 mg PO 0600 [facility] Last Admin: 05/02/18 06:07 Dose: 40 mg Sodium Phosphate (Fleet Enema) 135 ml RC DAILY PRN PRN Reason: Constipation Tamsulosin HCl (Flomax) 0.4 mg PO DAILY [facility] Last Admin: 05/03/18 09:55 Dose: 0.4 mg Vitamin A (Vitamin A & D Oint Ud Foilpak) 1 ea TOP Q2 PRN PRN Reason: Dry LIPS - Labs Labs: 05/03/18 06:20 05/03/18 06:20 PT 15.6 SECONDS (9.4-12.5) H 04/27/18 20:45 INR 1.36 04/27/18 20:45 APTT 28.5 Seconds (25.1-36.5) 04/30/18 06:30 - Additional Findings Additional findings: - Constitutional Appears: Non-toxic, No Acute Distress - Head Exam Head Exam: ATRAUMATIC, NORMOCEPHALIC - Eye Exam Eye Exam: EOMI - ENT Exam ENT Exam: Mucous Membranes Moist Additional comments: Erythematous oropharynx without purulent discharge - Neck Exam Neck Exam: Full ROM - Respiratory Exam Respiratory Exam: Clear to Ausculation Bilateral, NORMAL BREATHING PATTERN. absent: Rales, Rhonchi, Wheezes, Respiratory Distress, Decreased Breath Sounds - Cardiovascular Exam Cardiovascular Exam: REGULAR RHYTHM, +S1, +S2 - GI/Abdominal Exam GI & Abdominal Exam: Soft, Normal Bowel Sounds. absent: Tenderness - Exam Additional comments: Melvin catheter with clear yellow urine - Extremities Exam Extremities Exam: absent: Calf Tenderness Additional comments: Right groin catheter insertion site soft, non-tender, and without any hematoma or echymosis - Back Exam Additional comments: Left sided nephrostomy tube with no discharge noted surrounding entry site; Grade I SDU - Neurological Exam Neurological Exam: Alert, Awake Assessment and Plan - Assessment and Plan (Free Text) Assessment: 77 year old male with a past medical history significant for metasynchronous NSCLC, lung adenocarcinoma, PVD, HTN, prostate cancer s/p radiation, pneumothorax s/p lung biopsy, DJD, tobacco abuse, unresectable bladder cancer s/p chronic indwelling melvin catheter placement and percutaneous nephrostomy tube placement who presents with two hours of generalized weakness and chest discomfort. Patient was found to have an elevated d-dimer on admission and CT angio of the chest showed no PE. However, venous doppler US of the lower extremities found an extensive left iliofemoral DVT with the superior extent not visualized. A CT chest, abdomen and pelvis showed that the thrombus superiorly did not extend further into the IVC or right sided pelvic vasculature. Patient is on Eliquis and had IVC filter placed without complications. Plan: -Bilateral Lower Extremity Venous Doppler US findings noted; Extensive left IF DVT with superior extent not visualized -CT chest, abdomen and pelvis with IV contrast showed no extent of the thrombus into the IVC or right sided pelvic vasculature -CTA Chest negative for PE -Continue Eliquis 10mg BID until 05/07/2018 and then start taking 5mg PO BID, as provided -H/H noted to be 10.5/31.2 -S/P two units of pRBC's -Continue to monitor with daily CBC's -Rapid strep and CMV/EBV serologies ordered for sore throat -Continue Oxycodone 5mg Q6 PRN for his chronic leg pain -IVC filter placed by IR -Further recommendations as per Dr. Be Patient seen and case discussed with attending, Dr. Be. Wallace Leone PGY2
--- NOTE | 2018-05-05 07:28 | DS ---
HISTORY OF PRESENT ILLNESS: This is a 77-year-old unfortunate man with lung cancer, prostate cancer who comes to the emergency room with fevers and altered mental status, was found to be septic most likely from a draining nephrostomy tube and admitted. COURSE OF HOSPITAL STAY: The patient was treated with antibiotics, followed by Infectious Disease field service consultant, as well as his own oncologist. One day of his hospital stay, the left leg was noted be quite swollen. Venous Dopplers were done showing DVT in that leg. Because of the concern of that, I am going to anticoagulate him with upcoming procedures related to his cancers, an IVC filter was placed, patient was started on Eliquis, he did well. Repeat cultures were negative. Infectious Disease consultants felt strongly there was no evidence of infection, so antibiotics were discontinued. Patient was monitored for an additional 24 to 48 hours and did amazingly well. I spoke with Oncology and Infectious Disease prior to discharge to home this Sunday afternoon. I spoke with the patient's daughter. Prescription was called for Eliquis 10 mg b.i.d. initially then 5 mg b.i.d. He will follow up with urologist for surgical procedure on 05/11/2018. He was advised to follow up with us in the office as well as the oncologist within the next week. FINAL DISCHARGE DIAGNOSES: 1. Sepsis, urinary tract infection with right-sided nephrostomy tube. 2. Lung cancer. 3. Prostate/bladder cancer. 4. Acute deep vein thrombosis, left lower extremity. Demetrius Riddle MD
--- NOTE | 2018-05-06 12:59 | CON ---
DATE: 04/29/2018 Urology consult for, "urosepsis." HISTORY OF PRESENT ILLNESS: Mr. John Ospina is a very pleasant gentleman, 77 years old, almost 78 years old, who has the following history. He has a bladder cancer, and he has a nephrostomy tube, and he has an indwelling Nava catheter, and he became septic. He has been, "adjusting" his catheter himself. Urology was consulted for sepsis. He told me he has an indwelling working Nava catheter. PAST MEDICAL HISTORY AND PAST SURGICAL HISTORY: As listed. REVIEW OF SYSTEMS: As listed above, noncontributory. PHYSICAL EXAMINATION: GENERAL: Well-developed, well-nourished male, in no apparent distress. VITAL SIGNS: Are noted. : The nephrostomy tube is in place. The Nava catheter in place. DIAGNOSES: 1. Urosepsis. 2. Bladder cancer. 3. Retention. 4. Non-functioning catheter. ASSESSMENT AND PLAN: In summary, a very pleasant gentleman, we are going to monitor closely. From a urology standpoint, the patient is on IV antibiotics. Infectious Disease is on the case. He is scheduled for a cystectomy on 05/11/2018, assuming that we can clear him and get negative cultures. We are going to recommend that he proceed to get that procedure. As I have discussed many times with the patient, it is not per se curative. I have also discussed these thoughts with the urologist as well. I am not planning to do the procedure, but we could ask him to go get second opinion if the quality of life nephrostomy tube and stop the Nava catheter, because these seems to be causing recurrent episodes of admission to the hospital. I discussed for expectation purposes that the patient should expect further treatments. This is to be worked out chemotherapy, radiation, etc. PLAN: 1. IV antibiotics. 2. Fluids. 3. We will monitor the patient closely. Thank you for the Urology consult. Eulogio Franks MD
--- NOTE | 2018-05-06 13:21 | PN ---
DATE: 05/03/2018 See previously dictated note. REASON FOR CONSULTATION: Urosepsis and bladder cancer. SUBJECTIVE: The patient is actually currently on the 5th floor. He is ambulating, waiting to discharge home shortly. See below. Past medical and surgical and physical exam, all with no major changes. DIAGNOSES: 1. Urinary retention. 2. Bladder cancer. 3. Hydronephrosis. PLAN: if there is any interim problems while he is out, I have encouraged the patient's daughter to call me. Otherwise, he is scheduled for surgery with Dr. De Leon in [facility] on 05/11/2018. We discussed at great length the expectations and plans, and specifically, the component of some surgical procedures not being for cure, but rather than for the patient's quality of life . Further plans will follow. We will follow the patient. Eulogio Franks MD
--- NOTE | 2018-05-06 13:51 | PN ---
DAILY PROGRESS NOTE DATE: 05/02/2018 Please review his progress notes and consult notes. SUBJECTIVE: Very pleasant gentleman, I know well. He is almost 78 years old, he is scheduled for a radical prostatectomy, ileal conduit. He currently has a left nephrostomy tube. He has an indwelling Nava. He has a very irritative bladder with a large amount of cancer. The procedure is being done by another surgeon. I sent the patient to two other doctors for second opinion. results at this point, the expectation is that he will need further therapy, radiation chemotherapy, etc., it is from the patient and his daughter's standpoint a quality life issue. He is currently in hospital with sepsis, he was admitted to the ICU with sepsis. He is now back on the floor and we are monitoring him. From urology standpoint, he currently has a Nava catheter in and it is currently draining well. See the plans as below. Past medical, surgical as well as listed on the chart. PHYSICAL EXAMINATION GENERAL: Well-nourished male, he is currently actually resting comfortably. VITAL SIGNS: Within normal limits as listed on the chart. Overall, the rest of his physical exam is otherwise unremarkable. Nephrostomy tube noted and Nava catheter noted. DIAGNOSIS: Bladder cancer with widespread disease. He is admitted to the hospital now with sepsis that is now resolving. PLAN: No further changes at this point. The irrigation of the catheter. When medically and clinically stable, he will be discharged home and followup on an outpatient basis. As mentioned, he is scheduled for surgery at [facility]. Eulogio Franks MD
--- NOTE | 2018-05-06 15:50 | PN ---
DAILY PROGRESS NOTE DATE: 05/01/2018 See consult note. SUBJECTIVE: The patient is currently resting comfortably. He was admitted with urosepsis. He has a known history of bladder cancer and nephrostomy tube. Clinically improved with past medical, surgical, review of systems all no change. PHYSICAL EXAMINATION: No major changes. DIAGNOSES: Urosepsis and bladder cancer. PLAN: As follows: Antibiotics, nephrostomy tube and Nava catheter. The Nava catheter is currently draining well. There is no need change it at this point. We will monitor him closely. I do want to mention I met briefly with the daughter and she states to be careful with the catheter as the patient may be removing and reinserting the catheter, I am hoping but I did discuss this with him in previous times about the idea of intermittent catheterization that the importance of learning the technique well, to empty the bladder well and choosing soap and water, etc., to clean well. Though in the meantime resolving sepsis. We are going to leave the indwelling Nava catheter. Further plans to follow. Eulogio Franks MD
== END 2018-05-03 18:55 | disposition home health service (06) | DRG 673 ==
LOC: ED 20:27 → ERH 21:27 → ICU 23:10 → 2RSO 04-29 22:50 → 5RNO 05-02 17:10
PROVIDERS: ADMIT Internal Medicine; ATTEND Internal Medicine
PROC: 06H03DZ Insertion of Intraluminal Device into Inferior Vena Cava, Percutaneous Approach (ICD-10-PCS; principal; 2018-05-01)
PROC: 30233N1 Transfusion of Nonautologous Red Blood Cells into Peripheral Vein, Percutaneous Approach (ICD-10-PCS; 2018-05-01)
DX: T83.512A Infection and inflammatory reaction due to nephrostomy catheter, initial encounter (principal); A41.9 Sepsis, unspecified organism; R65.21 Severe sepsis with septic shock; E43 Unspecified severe protein-calorie malnutrition; I82.422 Acute embolism and thrombosis of left iliac vein; N39.0 Urinary tract infection, site not specified; C78.00 Secondary malignant neoplasm of unspecified lung; I47.1 Supraventricular tachycardia; R64 Cachexia; N13.6 Pyonephrosis; C67.9 Malignant neoplasm of bladder, unspecified; C61 Malignant neoplasm of prostate; I08.3 Combined rheumatic disorders of mitral, aortic and tricuspid valves; I10 Essential (primary) hypertension; I25.10 Atherosclerotic heart disease of native coronary artery without angina pectoris; I27.20 Pulmonary hypertension, unspecified; I73.9 Peripheral vascular disease, unspecified; I48.91 Unspecified atrial fibrillation; M16.10 Unilateral primary osteoarthritis, unspecified hip; H35.30 Unspecified macular degeneration; D64.9 Anemia, unspecified; R73.9 Hyperglycemia, unspecified; E16.2 Hypoglycemia, unspecified; Z98.61 Coronary angioplasty status; Z68.21 Body mass index [BMI] 21.0-21.9, adult

== ENCOUNTER 2018-05-29 11:28 | Inpatient (IN) | payer MEDICARE, OTHER ==
[2018-05-29 11:35] VITALS: BMI 21.4
[2018-05-29] MEDS ORDERED: Sodium Chloride 0.9% 1,000 ML IV STA ×2 (11:50→20:05)
--- NOTE | 2018-05-29 11:51 | ED PDOC ---
Arrival/HPI - General Chief Complaint: Abnormal Labs Historian: Family (son in law) - History of Present Illness Narrative History of Present Illness (Text): 05/29/18 11:49 77 year old male, whose past medical history includes bladder cancer on immunotherapy, cystectomy (3 weeks ago), small cell lung cancer, presents to the emergency department accompanied by son in law, complaining of generalized weakness, since this morning. As per family, patient was in rehab earlier today, was dehydrated, and felt dizzy, weak, and short of breath. Of note, his labs from this morning show a hemoglobin level of 6.7. Patient denies any changes in stool, fevers, chills, headache, chest pain, abdominal pain, nausea, vomiting, diarrhea, back pain, neck pain, or any other complaint. Time/Duration: Prior to Arrival Symptom Course: Unchanged Activities at Onset: Light Context: Other (rehab) Past Medical History - Provider Review Nursing Documentation Reviewed: Yes - Past History Past History: No Previous - Infectious Disease Hx of Infectious Diseases: None - Reproductive Currently Lactating: No - Cardiac Hx Cardiac Disorders: Yes Hx Hypertension: Yes - Pulmonary Hx Respiratory Disorders: Yes (PNEUMOTHORAX-BX DONE 09-27-17-LUNG MASS) - Neurological Hx Neurological Disorder: Yes Hx Dizziness: Yes (SYNCOPE 10-17-17) - HEENT Hx Macular Degeneration: Yes - Renal Hx Renal Disorder: No - Endocrine/Metabolic Hx Endocrine Disorders: No - Hematological/Oncological Hx Anemia: Yes Hx Cancer: Yes (prostate) Hx Metastasis: Yes (lung) - Integumentary Hx Dermatological Disorder: No - Musculoskeletal/Rheumatological Hx Falls: No - Gastrointestinal Hx Gastrointestinal Disorders: No - Genitourinary/Gynecological Hx Prostate Problems: Yes - Psychiatric Hx Psychophysiologic Disorder: No Hx Substance Use: No - Surgical History Other/Comment: Biopsy of lungs =09/27/2017. Biopsy of bladder=. Left sided nephrostomy= - Anesthesia Hx Anesthesia: Yes Hx Anesthesia Reactions: No Hx Malignant Hyperthermia: No - Suicidal Assessment Feels Threatened In Home Enviroment: No Family/Social History - Physician Review Nursing Documentation Reviewed: Yes Family/Social History: No Known Family HX Smoking Status: Former Smoker Hx Alcohol Use: Yes (occasional) Hx Substance Use: No Hx Substance Use Treatment: No Allergies/Home Meds Allergies/Adverse Reactions: Allergies No Known Allergies Allergy (Verified 04/27/18 20:35) Home Medications: Home Meds Medication Instructions Recorded Confirmed Levocetirizine Dihydrochloride 5 mg PO DAILY 04/12/18 05/29/18 [Xyzal] diltiaZEM [Cardizem] 60 mg PO TID 04/12/18 05/29/18 Review of Systems - Physician Review All systems were reviewed & negative as marked: Yes - Review of Systems Constitutional: absent: Fevers Cardiovascular: absent: Chest Pain Physical Exam - Physical Exam Narrative Physical Exam (Text): 05/29/18 11:49 Constitutional: No acute distress. thin, elderly man. weak appearing. Head: Normocephalic. Atraumatic. Eyes: PERRL. ENT: Moist mucous membranes. Neck: Supple. Cardiovascular: Regular rate. Chest: No tenderness. Respiratory: Clear to auscultation bilaterally. GI: Soft. Nontender. Nondistended. right sided urostomy bag noted. Back: No CVA tenderness. Musculoskeletal: No tenderness or swelling of extremities. Skin: No rash. Neurologic: Alert, no focal deficit. Vital Signs Reviewed: Yes Temperature: Afebrile Blood Pressure: Normal Pulse: Regular Respiratory Rate: Normal Appearance: Positive for: Other (weak appearing ) Pain Distress: None Mental Status: Positive for: Alert and Oriented X 3 Medical Decision Making ED Course and Treatment: 05/29/18 11:50 Impression: 77 year old male who presents to the emergency department complaining of generalized weakness. Differential Diagnosis included but are not limited to: anemia dehydration occult infection normal response to chemo therapy Plan: -- BBK -- EKG -- Labs -- IV fluids -- Urinalysis -- Urine culture -- Chest X-ray -- Reassess and disposition Prior Visits: Notes and results from previous visits were reviewed. Progress Notes: 05/29/18 11:55 EKG reviewed shows: NSR at [address] elevation and normal intervals. 05/29/18 12:36 Chest X-ray reviewed, shows: IMPRESSION: No active disease. Patient found to be anemic with symptoms. Dr. Be accepts patient onto his service. Blood transfusion ordered and consented. - Lab Interpretations I have reviewed the lab results: Yes - EKG Interpretation Interpreted by ED Physician: Yes Type: 12 lead EKG - Scribe Statement The provider has reviewed the documentation as recorded by the Audrey Smyth Provider Ramboibe Attestation: All medical record entries made by the Audrey were at my direction and personally dictated by me. I have reviewed the chart and agree that the record accurately reflects my personal performance of the history, physical exam, medical decision making, and the department course for this patient. I have also personally directed, reviewed, and agree with the discharge instructions and disposition. Disposition/Present on Arrival - Present on Arrival Any Indicators Present on Arrival: Yes History of DVT/PE: No History of Uncontrolled Diabetes: No Urinary Catheter: Yes History of Decub. Ulcer: No History Surgical Site Infection Following: None - Disposition Have Diagnosis and Disposition been Completed?: Yes Diagnosis: Symptomatic anemia Disposition: HOSPITALIZED Disposition Time: 13:35 Patient Plan: Admission Condition: GUARDED
--- NOTE | 2018-05-29 12:35 | RAD ---
Date of service: 05/29/2018 HISTORY: r/o PNA COMPARISON: 05/01/2018 FINDINGS: LUNGS: No active pulmonary disease. PLEURA: No significant pleural effusion identified, no pneumothorax apparent. CARDIOVASCULAR: No aortic atherosclerotic calcification present. Normal cardiac size. No pulmonary vascular congestion. OSSEOUS STRUCTURES: No significant abnormalities. VISUALIZED UPPER ABDOMEN: Normal. OTHER FINDINGS: None. IMPRESSION: No active disease.
[2018-05-29 12:48] LABS: BASO # 0.01 K/mm3 (0.0-2.0); BASO % 0.1 % (0.0-3.0); EOS # 0.1 (0.0-0.7); EOS % 1.4 % (1.5-5.0); GRAN # 6.36 (1.4-6.5); LYMPH # 0.5 (1.2-3.4); LYMPH % 6.4 % (22.0-35.0); MEAN CORPUSCULAR HEMOGLOBIN 31.1 pg (25.0-35.0); MEAN CORPUSCULAR HGB CONC 34.2 g/dl (31.0-37.0); MEAN PLATELET VOLUME 8.9 fl (7.0-11.0); MONO # 0.7 (0.1-0.6); MONO % 9.1 % (1.0-6.0); RBC 2.12 10^6/uL (3.5-6.1); RED CELL DISTRIBUTION WIDTH 15.7 % (11.5-14.5); WHITE BLOOD COUNT 7.7 10^3/uL (4.5-11.0)
[2018-05-29 12:54] LABS: HEMOGLOBIN 6.6 g/dL (14.0-18.0)
[2018-05-29 13:01] LABS: ALT/SGPT 28 U/L (7-56); AST/SGOT 17 U/L (17-59); BLOOD UREA NITROGEN 38 mg/dL (7-21); GFR NON-AFRICAN AMERICAN 58
--- NOTE | 2018-05-29 16:05 | CP.PCM.HP ---
History of Present Illness - History of Present Illness History of Present Illness: Richard Sun- Internal Medicine Resident- H&P on Behalf of Hematology/Oncology CC: Generalized weakness, dizziness HPI: Patient is a 77 year old male with a past medical history significant for metasynchronous NSCLC, lung adenocarcinoma, PVD, HTN, prostate cancer s/p radiation, pneumothorax s/p lung biopsy, DJD, DVTs, tobacco abuse, bladder cancer who was sent to the emergency department by Dr. Be for evaluation and treatment of generalized weakness, shortness of breath with exertion, palpitations, and dizziness which began 2 days ago with no specific provoking event. States the symptoms are gradual on onset and subside while at rest. Denies fevers, chills, headache, changes in his vision/hearing, SOB at rest, chest pain, cough, wheezing, abdominal pain, nausea, vomiting, diarrhea, constipation, and urinary symptoms. PMH: As stated above PSH: Prostate surgery, percutaneous nephrostomy, Family History: Non-Contributory Social History: Previous 30-40 pack year tobacco use, quit 20 years ago; Occasional ETOH use; Denies illicit drug use Allergies: NKDA Home Medications: As per AUG PMD: Dr. Riddle Urology: Dr. Elizabeth Franks Physical Examination: - Constitutional Appears: No Acute Distress - Head Exam Head Exam: ATRAUMATIC, NORMOCEPHALIC - Eye Exam Eye Exam: EOMI, Normal appearance - ENT Exam ENT Exam: Mucous Membranes Dry - Neck Exam Neck exam: Positive for: Full Rom - Respiratory Exam Respiratory Exam: Clear to Auscultation Bilateral, NORMAL BREATHING PATTERN. absent: Accessory Muscle Use, Rales, Rhonchi, Wheezes, Respiratory Distress - Cardiovascular Exam Cardiovascular Exam: REGULAR RHYTHM, RRR, +S1, +S2. absent: Bradycardia, Tachycardia - GI/Abdominal Exam GI & Abdominal Exam: urostomy bag- contains serosanginous fluid - Extremities Exam Extremities exam: Positive for: full ROM, normal capillary refill, normal inspection, pedal pulses present. Negative for: calf tenderness, joint swelling, pedal edema, tenderness - Back Exam Back exam: absent: CVA tenderness (L), CVA tenderness (R) - Neurological Exam Neurological exam: Awake, Alert, Oriented x3 - Psychiatric Exam Psychiatric exam: Normal Affect, Normal Mood - Skin Skin Exam: Dry, Warm Assessment and Plan: Patient is a 77 year old male with a past medical history significant for metasynchronous NSCLC, lung adenocarcinoma, PVD, HTN, prostate cancer s/p radiation, pneumothorax s/p lung biopsy, DJD, DVTs, tobacco abuse, bladder cancer who was sent to the emergency department by Dr. Be for evaluation and treatment of generalized weakness, shortness of breath with exertion, palpitations, and dizziness. Hgb was found to be 6.6 in the emergency department . Ordered 2 unit pRBCs. Anemia - normocytic, Hgb 6.6 at baseline, ~9 - 2 units pRBCs to be transfused as per ED - monitor closely via CBC - generalized weakness, shortness of breath with exertion, palpitations, and dizziness likely 2/2 to anemia Metasynchronous NSCLC, Lung adenocarcinoma, Prostate cancer s/p radiation - no acute intervention at this time Hx of SVTs - continue cardizem 60mg BID with holding parameters - cardiology consulted- appreciate recommendations Hx of DVT - hold home eliquis due to Hgb being low Prophylaxis - GI Prophylaxis: famotidine - DVT Prophylaxis: SCD's Please make note this is a complex patient with multiple comorbid medical issues. We will continue to monitor the patient patient aggressively. Time spend with the patient is greater than 45 minutes. Patient case discussed with, and plan approved by attending physician, Dr. Joya. Present on Admission - Present on Admission Any Indicators Present on Admission: Yes History of DVT/PE: Yes Past Patient History - Infectious Disease Hx of Infectious Diseases: None - Past Medical History & Family History Past Medical History?: Yes - Past Social History Smoking Status: Former Smoker - CARDIAC Hx Cardiac Disorders: Yes Hx Hypertension: Yes - PULMONARY Hx Respiratory Disorders: Yes (PNEUMOTHORAX-BX DONE 09-27-17-LUNG MASS) - NEUROLOGICAL Hx Neurological Disorder: Yes Hx Dizziness: Yes (SYNCOPE 10-17-17) - HEENT Hx Macular Degeneration: Yes - RENAL Hx Chronic Kidney Disease: No - ENDOCRINE/METABOLIC Hx Endocrine Disorders: No - HEMATOLOGICAL/ONCOLOGICAL Hx Anemia: Yes Hx Cancer: Yes (prostate) Hx Metastesis: Yes (lung) - INTEGUMENTARY Hx Dermatological Problems: No - MUSCULOSKELETAL/RHEUMATOLOGICAL Hx Falls: No - GASTROINTESTINAL Hx Gastrointestinal Disorders: No - GENITOURINARY/GYNECOLOGICAL Hx Prostate Problems: Yes - PSYCHIATRIC Hx Psychophysiologic Disorder: No Hx Substance Use: No - SURGICAL HISTORY Other/Comment: Biopsy of lungs =09/27/2017. Biopsy of bladder=. Left sided nephrostomy= - ANESTHESIA Hx Anesthesia: Yes Hx Anesthesia Reactions: No Hx Malignant Hyperthermia: No Meds Allergies/Adverse Reactions: Allergies Allergy/AdvReac Type Severity Reaction Status Date / Time No Known Allergies Allergy Verified 05/29/18 15:37 Results - Vital Signs Recent Vital Signs: Last Vital Signs Temp 98.2 F 05/29/18 15:05 Pulse 91 H 05/29/18 15:05 Resp 18 05/29/18 15:05 BP 121/60 05/29/18 15:05 Pulse Ox 99 05/29/18 15:05 - Labs Result Diagrams: 05/29/18 12:30 05/29/18 12:30 Labs: Laboratory Results - last 24 hr 05/29/18 05/29/18 05/29/18 12:30 12:30 12:30 WBC 7.7 RBC 2.12 L Hgb 6.6 L* D Hct 19.3 L* MCV 91.0 MCH 31.1 MCHC 34.2 RDW 15.7 H Plt Count 373 MPV 8.9 Gran % 83.0 H Lymph % (Auto) 6.4 L Bucks % (Auto) 9.1 H Eos % (Auto) 1.4 L Baso % (Auto) 0.1 Gran # 6.36 Lymph # (Auto) 0.5 L Bucks # (Auto) 0.7 H Eos # (Auto) 0.1 Baso # (Auto) 0.01 Sodium 133 Potassium 4.7 Chloride 104 Carbon Dioxide 25 Anion Gap 9 L BUN 38 H Creatinine 1.2 Est GFR ( Amer) > 60 Est GFR (Non-Af Amer) 58 Random Glucose 147 H Calcium 9.0 Total Bilirubin 0.4 AST 17 D ALT 28 Alkaline Phosphatase 89 Total Protein 6.1 Albumin 3.0 Globulin 3.1 Albumin/Globulin Ratio 1.0 L Blood Type AB POSITIVE Antibody Screen Negative Crossmatch See Detail BBK History Checked Patient has bt
[2018-05-29] MEDS ORDERED: Influenza Vaccine 60 mcg/0.5 mL SYR (4YR UP) IM ONE (16:20)
[2018-05-29] MEDS ORDERED: Pneumococcal 23-Valent Vaccine IM ONE (16:20)
--- NOTE | 2018-05-29 18:34 | CARD ---
APPROVED REPORT Date of service: 05/29/2018 EKG Measurement Heart [id number] <Conclusion> Normal sinus rhythm RBBB Abnormal Electrocardiogram
[2018-05-29 19:01] LABS: PH,URINE 6.5 (4.7-8.0); URINE BILIRUBIN NEGATIVE (NEGATIVE); URINE BLOOD LARGE (NEGATIVE); URINE GLUCOSE (UA) NEGATIVE (NEGATIVE); URINE LEUKOCYTE ESTERASE LARGE Leu/uL (NEGATIVE); URINE PROTEIN 100 mg/dL (<30 mg/dL); URINE UROBILINOGEN 0.2 E.U./dL (<1 E.U./dL)
[2018-05-29 19:09] LABS: URINE APPEARANCE CLOUDY (CLEAR); URINE COLOR YELLOW (YELLOW)
[2018-05-29 20:29] LABS: URINE BACTERIA MANY (NEG); URINE RBC TNTC /hpf (0-2); URINE WBC 15 - 20 /hpf (0-6)
--- NOTE | 2018-05-30 01:36 | CON ---
DATE: 05/29/2018 CONSULT SERVICE: Cardiology, physician Dr. Fraga. REASON FOR CONSULTATION: Followup cardiac evaluation, history of SVT, history of lung CA, history of prostate CA, admitted with generalized weakness, severe anemia, admitting hemoglobin 6.6. BRIEF CLINICAL HISTORY: This is a 77-year-old male, with past medical history significant for bladder cancer, on immunotherapy, history of recently cystectomy; history of small cell lung caner; history of SVT, who was seen in Dr. Be's office complaining of generalized weakness. Hemoglobin found to be 6.6, so the patient sent to the ER and admitted here. The patient denied any chest pain, denied any shortness of breath, denied any palpitation. PAST MEDICAL HISTORY: Past history significant for adenocarcinoma of the lung; CAD; prostate CA, status post radiation and chemotherapy; status post lung biopsy; unresectable bladder cancer; history of recent cystectomy three weeks ago; history of SVT in the past; history of lung biopsy complicated by the pneumothorax; history of abscess requiring nephrostomy in the past, who underwent resection of the bladder three weeks ago. Past history, also as mentioned significant for SVT in the past with heart rate in the 196, responding to adenosine in the past. Recent cardiac workup as follows: The patient had had a stress test dated 10/02/2017 that shows normal myocardial perfusion study, ejection fraction 70%. The patient had echocardiography on 10/02/2017 that revealed normal chamber size, ejection fraction 55 to 60%, moderate aortic regurgitation, moderate mitral regurgitation, mild tricuspid regurgitation, RV systolic pressure, RVSP, 47, mild to moderate pulmonary insufficiency, mild pulmonary hypertension, history of SVT in the past, the patient is well maintained on Cardizem 60 mg daily. CURRENT MEDICATION: The patient is taking at home Tylenol 325 mg daily, Eliquis 5 mg p.o. b.i.d., and Cardizem 60 mg three times a day. ALLERGIES: NO KNOWN DRUG ALLERGY. REVIEW OF SYSTEMS: As per HPI. History of IVC filter because of DVT dated 05/01/2018, IVC filter. History of DVT, extensive, on last admission. Of note, it is also important that with history of DVT, he was started on Eliquis 10 mg p.o. b.i.d. for one week, followed by 5 mg daily, that is why the patient is on Eliquis. PHYSICAL EXAMINATION: GENERAL: Height of the patient 5 feet 4 inches, weight of the patient 125 pounds, body mass index 21.5 kg/m2. VITAL SIGNS: Temperature, afebrile; heart rate 89; blood pressure 151/77. HEENT: PERRLA intact. NECK: Supple. No carotid bruit, thyromegaly. CHEST: Clear to auscultation. CARDIOPULMONARY: S1, S2 regular. ABDOMEN: Soft. EXTREMITIES: Clubbing, cyanosis negative. LABORATORY DATA: Blood workup as follows. WBC , hemoglobin 6.6, hematocrit 19.3, platelet count 373. Chemistry shows sodium 130, potassium 4.7, chloride 104, carbon dioxide 25, anion gap of 9, BUN 30, creatinine 1.2. ASSESSMENT: A 77-year-old male with a past medical history significant for adenocarcinoma of the lung, history of the biopsy complicated by pneumothorax in the past; history of supraventricular tachycardia; history of prostate carcinoma, status post radiation, status post immunotherapy, status post resection of the bladder three weeks ago, admitted with generalized weakness, found to be severely anemic. History of deep venous thrombosis on last admission, extensive, was sent home on Eliquis 5 mg p.o. b.i.d. after 10 mg b.i.d. for one week. History of hypertension, history of supraventricular tachycardia x3, now maintained on Cardizem. Admitted with generalized weakness. PLAN: Resume back on Cardizem. Transfuse 2 units of blood. Monitor H and H. If H and H remain stable, no further active bleeding, then consider starting Eliquis. We will follow with you. Thank you Dr. Be providing us the opportunity in taking care of the patient Bhavesh Lopez. We will follow with you. Dougie Fraga MD
[2018-05-30 06:59] LABS: BASO # 0.02 K/mm3 (0.0-2.0); BASO % 0.3 % (0.0-3.0); EOS # 0.3 (0.0-0.7); EOS % 3.7 % (1.5-5.0); GRAN # 6.15 (1.4-6.5); GRAN % 77.6 % (50.0-68.0); LYMPH # 0.7 (1.2-3.4); MEAN CELL VOLUME 88.1 fl (80.0-105.0); MEAN CORPUSCULAR HEMOGLOBIN 30.6 pg (25.0-35.0); MEAN CORPUSCULAR HGB CONC 34.8 g/dl (31.0-37.0); MEAN PLATELET VOLUME 8.7 fl (7.0-11.0); MONO # 0.7 (0.1-0.6); MONO % 9.4 % (1.0-6.0); RBC 3.1 10^6/uL (3.5-6.1); WHITE BLOOD COUNT 7.9 10^3/uL (4.5-11.0)
[2018-05-30 07:08] LABS: ALB/GLOB RATIO 0.9 (1.1-1.8); ALBUMIN 2.9 g/dL (3.0-4.8); ALT/SGPT 22 U/L (7-56); AST/SGOT 14 U/L (17-59); BLOOD UREA NITROGEN 34 mg/dL (7-21); GFR NON-AFRICAN AMERICAN > 60; HDL CHOLESTEROL 32 mg/dL (29-60)
[2018-05-30 07:15] LABS: LDL CHOLESTEROL 72 mg/dL (0-129)
[2018-05-30 07:17] LABS: HEMOGLOBIN 9.5 g/dL (14.0-18.0)
--- NOTE | 2018-05-30 10:13 | CP.PCM.PN ---
Subjective - Date & Time of Evaluation Date of Evaluation: 05/30/18 Time of Evaluation: 07:45 - Subjective Subjective: Awake, no distress Reason for consultation and follow up:Cardiac evaluation and follow up of history of SVT, history of lung cancer, admitted for generalized weakness, severe anemia hemoglobin upon admission 6.6 Seen and examined by me and Dr. Fraga Objective - Vital Signs/Intake and Output Vital Signs (last 24 hours): Temp Pulse Resp BP Pulse Ox 87.4 F L 68 15 128/75 98 05/30/18 06:14 05/30/18 06:14 05/30/18 06:14 05/30/18 06:00 05/30/18 06:00 Intake and Output: 05/30/18 05/30/18 06:59 18:59 Intake Total 685 Output Total 900 Balance -215 - Medications Medications: Current Medications Diltiazem HCl (Cardizem) 60 mg PO TID [facility] Last Admin: 05/29/18 17:30 Dose: 60 mg Famotidine (Pepcid) 20 mg IVP DAILY [facility] Last Admin: 05/29/18 17:30 Dose: 20 mg - Labs Labs: 05/30/18 06:30 05/30/18 06:30 - Constitutional Appears: Non-toxic, No Acute Distress - Head Exam Head Exam: NORMAL INSPECTION, NORMOCEPHALIC - Eye Exam Eye Exam: Normal appearance Pupil Exam: NORMAL ACCOMODATION - ENT Exam ENT Exam: Mucous Membranes Dry - Respiratory Exam Respiratory Exam: Clear to Ausculation Bilateral, NORMAL BREATHING PATTERN - Cardiovascular Exam Cardiovascular Exam: +S1, +S2 - GI/Abdominal Exam GI & Abdominal Exam: Soft, Normal Bowel Sounds - Extremities Exam Extremities Exam: Full ROM - Neurological Exam Neurological Exam: Alert, Awake - Psychiatric Exam Psychiatric exam: Normal Affect, Normal Mood - Skin Skin Exam: Normal Color, Warm Assessment and Plan - Assessment and Plan (Free Text) Assessment: A 77 year old male who was sent by Dr. Be to the ER due to generalized weakness, shortness of breath with exertion, palpitations, and dizziness. History significant for metasynchronous NSCLC, lung adenocarcinoma, post biopsy complicated by pneumothorax,history of SVT PVD, HTN, prostate cancer s/p radiation, pneumothorax s/p lung biopsy, degenerative joint disease, DVTs, tobacco abuse, bladder cancer, status post resection 3 weeks ago. History of DVT, on Eliquis. Admitted for generalized weakness and found to be severe anemia, hemoglobin 6.6. @ units of PRBC transfused. Eliquis stopped. Plan: Denies shortness of breath,no distress Post transfusion, repeat H/H 9.5/.3 Will restart Eliquis if H/H stable Heart rate stable Blood pressure stable On Cardizem 60 mg TID Continue current medications Continue current treatment Chart reviewed Will follow up Plan and treatment discussed with Dr. Fraga
[2018-05-30] MEDS ORDERED: Potassium Chloride 20 mEq ER Tab PO ONE (13:35)
[2018-05-30 17:22] VITALS: PULSE 81
--- NOTE | 2018-05-30 18:41 | PN ---
DATE: 05/30/2018 REASON FOR THE CONSULTATION AND FOLLOWUP: Cardiac evaluation, history of SVT, lung cancer, history of prostate CA. Admitted with generalized weakness, severe anemia, status post 2-pack RBC transfusion, admitting hemoglobin of 6.6. This note is in addition to dictated by nurse practitioner, Angeles Vazquez. Today, the patient feels a lot better, hemodynamically stable. Blood pressure 128/75, heart rate 68. Hemoglobin 9.5, hematocrit 27.3. Potassium 3.5. 1.16. RECOMMENDATION: We will continue Cardizem, give 40 of [place], discontinue IV fluid. History of DVT, extensive on last admission, was on Eliquis which is on hold. If H and H remain stable for the next 24 hours, not losing blood, consider restarting Eliquis, leave up to Hematology. We will follow with you. Thank you, Dr. Be, for providing us the opportunity in taking care of the patient, John Ospina. We will repeat the blood workup in the morning. Dougie Fraga MD
[2018-05-30 21:50] VITALS: RESP 18
[2018-05-31 07:14] LABS: BASO # 0.02 K/mm3 (0.0-2.0); BASO % 0.3 % (0.0-3.0); EOS # 0.3 (0.0-0.7); EOS % 4.4 % (1.5-5.0); GRAN # 5.16 (1.4-6.5); GRAN % 71.2 % (50.0-68.0); LYMPH # 0.9 (1.2-3.4); LYMPH % 12.1 % (22.0-35.0); MEAN CELL VOLUME 89.4 fl (80.0-105.0); MEAN CORPUSCULAR HEMOGLOBIN 30.3 pg (25.0-35.0); MEAN CORPUSCULAR HGB CONC 33.9 g/dl (31.0-37.0); MEAN PLATELET VOLUME 8.9 fl (7.0-11.0); MONO # 0.9 (0.1-0.6); RBC 3.3 10^6/uL (3.5-6.1); RED CELL DISTRIBUTION WIDTH 15.1 % (11.5-14.5); WHITE BLOOD COUNT 7.3 10^3/uL (4.5-11.0)
--- NOTE | 2018-05-31 07:44 | PN ---
DATE: 05/30/2018 This is hospital visit on the medical floor. For Dr. Be: SUBJECTIVE: The patient is 77-year-old male with past history significant for non-small cell CA lung adenocarcinoma, prostate cancer, status post radiation, bladder cancer, now admitted for severe anemia for which he was dramatically symptomatic. The patient is feeling extremely weak, brought from Dr. Be's office yesterday for admission and evaluation. His hemoglobin on admission was 6.6 with a transfusion of 2 units of packed red blood cells with a hemoglobin now improving to 9.5. The patient feels stronger and feels no acute distress at this visit. The patient is also seen by Dr. 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 PHYSICAL EXAMINATION: GENERAL: He appears cachectic, speaks mostly Ecu[place]. VITAL SIGNS: Temperature 98.3, pulse 81, respirations 18, blood pressure 124/71 and pulse ox 99%. HEENT: Unremarkable. NECK: Supple. HEART: Regular rate. LUNGS: Clear. ABDOMEN: Soft. EXTREMITIES: No edema. SKIN: Warm and dry. NEUROLOGIC: Awake and alert. LABORATORY DATA: The patient's labs were done. White blood cell count of 7.9, hemoglobin 9.5 increased from 6.6 yesterday, hematocrit 27.3 and platelet count of 303,000. A chem metabolic panel today showed a BUN of 34 with a creatinine of 1.1. AST of 14 and albumin of 2.9, otherwise normal chem metabolic panel with a TSH of 1.1. His urinalysis from yesterday showed large amount of blood in his urine, large amount of leukocyte esterase with a urine culture pending. ASSESSMENT: The assessment for this patient is that of symptomatic anemia, hematuria, prostate cancer, lung cancer, history of supraventricular tachycardia, peripheral vascular disease, history of deep venous thrombosis, non-small cell cancer of the lung history. PLAN: The plan for this patient is to continue his present medical regimen with further workup as per Cardiology as indicated with repeat of labs in the morning. I would discharge home when the patient is stable. Prognosis for this patient is guarded. This is a complex patient with a comprehensive medically necessary and appropriate visit carried out in excess of 25 minutes with the patient's questions answered to his satisfaction in his te-[place] language. Mike Schmitt MD
[2018-05-31 07:51] LABS: ALB/GLOB RATIO 0.9 (1.1-1.8); ALBUMIN 3.1 g/dL (3.0-4.8); ALT/SGPT 20 U/L (7-56); AST/SGOT 18 U/L (17-59); BLOOD UREA NITROGEN 34 mg/dL (7-21); CALCIUM 9.4 mg/dL (8.4-10.5); GFR NON-AFRICAN AMERICAN 58
--- NOTE | 2018-05-31 08:08 | CP.PCM.PN ---
Subjective - Date & Time of Evaluation Date of Evaluation: 05/31/18 Time of Evaluation: 06:55 - Subjective Subjective: Awake, no distress, wanted to go home Reason for consultation and follow up:Cardiac evaluation and follow up of history of SVT, history of lung cancer, admitted for generalized weakness, severe anemia hemoglobin upon admission 6.6 Seen and examined by me and Dr. Fraga Objective - Vital Signs/Intake and Output Vital Signs (last 24 hours): Temp Pulse Resp BP Pulse Ox 98.3 F 81 18 124/71 99 05/30/18 21:49 05/30/18 21:49 05/30/18 21:49 05/30/18 21:49 05/30/18 21:49 Intake and Output: 05/31/18 05/31/18 06:59 18:59 Intake Total 240 Balance 240 - Medications Medications: Current Medications Diltiazem HCl (Cardizem) 60 mg PO TID [facility] Last Admin: 05/30/18 17:19 Dose: 60 mg Famotidine (Pepcid) 20 mg PO DAILY [facility] - Labs Labs: 05/31/18 06:50 05/31/18 06:50 - Constitutional Appears: Non-toxic, No Acute Distress - Head Exam Head Exam: NORMAL INSPECTION, NORMOCEPHALIC - Eye Exam Eye Exam: Normal appearance Pupil Exam: NORMAL ACCOMODATION - ENT Exam ENT Exam: Mucous Membranes Moist, Normal Exam - Respiratory Exam Respiratory Exam: Decreased Breath Sounds, NORMAL BREATHING PATTERN - Cardiovascular Exam Cardiovascular Exam: +S1, +S2 - GI/Abdominal Exam GI & Abdominal Exam: Soft, Normal Bowel Sounds - Extremities Exam Extremities Exam: Full ROM, Normal Capillary Refill - Neurological Exam Neurological Exam: Alert, Awake, Oriented x3 - Psychiatric Exam Psychiatric exam: Normal Affect, Normal Mood - Skin Skin Exam: Normal Color, Warm Assessment and Plan - Assessment and Plan (Free Text) Assessment: A 77 year old male who was sent by Dr. Be to the ER due to generalized weakness, shortness of breath with exertion, palpitations, and dizziness. History significant for metasynchronous NSCLC, lung adenocarcinoma, post biopsy complicated by pneumothorax,history of SVT PVD, HTN, prostate cancer s/p radiation, pneumothorax s/p lung biopsy, degenerative joint disease, DVTs, tobacco abuse, bladder cancer, status post resection 3 weeks ago. History of DVT, on Eliquis. Admitted for generalized weakness and found to be severe anemia, hemoglobin 6.6. PRBC transfused. Eliquis stopped. Anemia stabilized. Plan: Denies shortness of breath,no distress H/H today 04/29.5, stable May restart Eliquis as per hematology Heart rate stable Blood pressure stable On Cardizem 60 mg TID Continue current medications Continue current treatment Clinically improved May discharge Chart reviewed Will follow up Plan and treatment discussed with Dr. Fraga
[2018-05-31 08:47] VITALS: BP 131/61; TEMP 97.4; O2SAT 100
--- NOTE | 2018-05-31 12:46 | CP.PCM.DIS ---
Provider - Provider Date of Admission: 05/29/18 13:35 Attending physician: Mike Schmitt MD Consults: 05/29/18 16:20 Cardiology Consult Routine Comment: Consulting Provider: Dougie Fraga Consulting Physician: Dougie Fraga Reason for Consult: hx of svt, recs for cardizem Inpatient [employer] Core Measures Referral Routine Comment: Physician Instructions: Reason For Exam: EVALUATION Nursing Referral for Wound Care Routine Comment: MID ABDOMINAL INCISION WITH R ILEAL CONDUIT Physician Instructions: Reason For Exam: EVALUATION Physician Consult Routine Comment: Consulting Provider: Shashank Riddle Consulting Physician: Shashank Riddle Reason for Consult: make aware patient is hospitalized Transition In Care/Readmission Reduction Routine Comment: Physician Instructions: Reason For Exam: EVALUATION 05/29/18 16:26 Social Work Referral Routine Comment: DISCHARGE PLANNING [place]. Physician Instructions: Reason For Exam: EVALUATION 05/29/18 16:27 Nursing Referral for Palliative Care Routine Comment: Physician Instructions: Reason For Exam: EVALUATION 05/30/18 22:30 Discharge Planning [Case Management Referral] Routine Comment: Physician Instructions: Reason For Exam: home needs Reason for Referral: Discharge Planning Time Spent in preparation of Discharge (in minutes): 45 Diagnosis - Discharge Diagnosis (1) Bladder cancer Status: Acute Priority: High (2) Adenocarcinoma, lung Status: Acute Priority: High (3) Hypertension Status: Acute Priority: Medium (4) Symptomatic anemia Status: Resolved Priority: High Hospital Course - Lab Results Lab Results: Most Recent Lab Values WBC 7.3 10^3/uL (4.5-11.0) 05/31/18 06:50 RBC 3.30 10^6/uL (3.5-6.1) L 05/31/18 06:50 Hgb 10.0 g/dL (14.0-18.0) L 05/31/18 06:50 Hct 29.5 % (42.0-52.0) L 05/31/18 06:50 MCV 89.4 fl (80.0-105.0) 05/31/18 06:50 MCH 30.3 pg (25.0-35.0) 05/31/18 06:50 MCHC 33.9 g/dl (31.0-37.0) 05/31/18 06:50 RDW 15.1 % (11.5-14.5) H 05/31/18 06:50 Plt Count 326 10^3/uL (120.0-450.0) 05/31/18 06:50 MPV 8.9 fl (7.0-11.0) 05/31/18 06:50 Gran % 71.2 % (50.0-68.0) H 05/31/18 06:50 Lymph % (Auto) 12.1 % (22.0-35.0) L 05/31/18 06:50 [place] % (Auto) 12.0 % (1.0-6.0) H 05/31/18 06:50 Eos % (Auto) 4.4 % (1.5-5.0) 05/31/18 06:50 Baso % (Auto) 0.3 % (0.0-3.0) 05/31/18 06:50 Gran # 5.16 (1.4-6.5) 05/31/18 06:50 Lymph # (Auto) 0.9 (1.2-3.4) L 05/31/18 06:50 [place] # (Auto) 0.9 (0.1-0.6) H 05/31/18 06:50 Eos # (Auto) 0.3 (0.0-0.7) 05/31/18 06:50 Baso # (Auto) 0.02 K/mm3 (0.0-2.0) 05/31/18 06:50 Sodium 137 mmol/L (132-148) 05/31/18 06:50 Potassium 4.4 mmol/L (3.6-5.0) 05/31/18 06:50 Chloride 106 mmol/L (98-107) 05/31/18 06:50 Carbon Dioxide 27 mmol/L (21-33) 05/31/18 06:50 Anion Gap 9 (10-20) L 05/31/18 06:50 BUN 34 mg/dL (7-21) H 05/31/18 06:50 Creatinine 1.2 mg/dl (0.8-1.5) 05/31/18 06:50 Est GFR ( Amer) > 60 05/31/18 06:50 Est GFR (Non-Af Amer) 58 05/31/18 06:50 Random Glucose 135 mg/dL (70-110) H 05/31/18 06:50 Hemoglobin A1c 5.4 % (4.2-6.5) 05/30/18 06:30 Calcium 9.4 mg/dL (8.4-10.5) 05/31/18 06:50 Phosphorus 4.1 mg/dL (2.5-4.5) 05/30/18 06:30 Magnesium 1.8 mg/dL (1.7-2.2) 05/30/18 06:30 Total Bilirubin 0.7 mg/dL (0.2-1.3) 05/31/18 06:50 AST 18 U/L (17-59) 05/31/18 06:50 ALT 20 U/L (7-56) 05/31/18 06:50 Alkaline Phosphatase 87 U/L (38-126) 05/31/18 06:50 Total Protein 6.4 g/dL (5.8-8.3) 05/31/18 06:50 Albumin 3.1 g/dL (3.0-4.8) 05/31/18 06:50 Globulin 3.3 gm/dL 05/31/18 06:50 Albumin/Globulin Ratio 0.9 (1.1-1.8) L 05/31/18 06:50 Triglycerides 88 mg/dL (35-160) 05/30/18 06:30 Cholesterol 119 mg/dL (130-200) L 05/30/18 06:30 LDL Cholesterol Direct 72 mg/dL (0-129) 05/30/18 06:30 HDL Cholesterol 32 mg/dL (29-60) 05/30/18 06:30 TSH 3rd Generation 1.16 mIU/mL (0.46-4.68) 05/30/18 06:30 Urine Color Yellow (YELLOW) 05/29/18 18:58 Urine Appearance Cloudy (CLEAR) 05/29/18 18:58 Urine pH 6.5 (4.7-8.0) 05/29/18 18:58 Ur Specific [place] 1.020 (1.005-1.035) 05/29/18 18:58 Urine Protein 100 mg/dL (<30 mg/dL) H 05/29/18 18:58 Urine Glucose (UA) Negative mg/dL (NEGATIVE) 11/28/18 18:58 Urine Ketones Negative mg/dL (NEGATIVE) 05/29/18 18:58 Urine Blood Large (NEGATIVE) H 05/29/18 18:58 Urine Nitrate Negative (NEGATIVE) 05/29/18 18:58 Urine Bilirubin Negative (NEGATIVE) 05/29/18 18:58 Urine Urobilinogen 0.2 E.U./dL (<1 E.U./dL) 05/29/18 18:58 Ur Leukocyte Esterase Large [place]/uL (NEGATIVE) H 05/29/18 18:58 Urine RBC Tntc /hpf (0-2) 05/29/18 18:58 Urine WBC 15 - 20 /hpf (0-6) 05/29/18 18:58 Ur Epithelial Cells 6 - 8 /hpf (0-5) 05/29/18 18:58 Urine Bacteria Many (NEG) 05/29/18 18:58 Blood Type AB POSITIVE 05/29/18 12:30 Antibody Screen Negative 05/29/18 12:30 Crossmatch See Detail 05/29/18 12:30 BBK History Checked Patient has bt 05/29/18 12:30 - Hospital Course Hospital Course: Patient is a 77 year old male with a past medical history significant for metasynchronous NSCLC, lung adenocarcinoma, PVD, HTN, prostate cancer s/p radiation, pneumothorax s/p lung biopsy, DJD, DVTs, tobacco abuse, bladder cancer who was sent to the emergency department by Dr. Be for evaluation and treatment of generalized weakness, shortness of breath with exertion, palpitations, and dizziness. Hgb was found to be 6.6 in the emergency department. With the use of physical examinations, lab work, and imaging the patient was diagnosed with and treated for symptomatic anemia, along with his chronic conditions. During their hospital stay the patient was seen by cardiology (Dr. Fraga) whose recommendations were reviewed, appreciated, and implemented in the patients care. Cardiology recommended to continue the patient on cardizem 60mg TID for his history of supraventricular tachycardia. During their hospital stay the patient underwent a chest xray which was reviewed, appreciated, and utilized in the management of the patients clinical course. The chest xray revealed no active disease. Patient was treated with 2 units of leukoreduced packed red blood cells and his hemoglobin responded appropriately with a discharge value of 10 g/dL. At this time the patient is medically stable for discharge. Patient understands and appreciates discharge plan. Patient instructed to follow up with primary care physicians and referrals within one week from discharge. Furthermore the patient is instructed to take medications as prescribed and to return to emergency room for evaluation of intractable headache, fever, chills, dizziness, chest pain, shortness of breath, abdominal pain, nausea, vomiting, diarrhea, constipation, and urinary symptoms. This is a brief summary of the patient hospital course. Please see patient's chart for full details. Discharge Exam - Additional Findings Additional findings: - Constitutional Appears: No Acute Distress - Head Exam Head Exam: ATRAUMATIC, NORMOCEPHALIC - Eye Exam Eye Exam: EOMI, Normal appearance - ENT Exam ENT Exam: Mucous Membranes Moist - Neck Exam Neck exam: Positive for: Full Rom - Respiratory Exam Respiratory Exam: Clear to Auscultation Bilateral, NORMAL BREATHING PATTERN. absent: Accessory Muscle Use, Rales, Rhonchi, Wheezes, Respiratory Distress - Cardiovascular Exam Cardiovascular Exam: REGULAR RHYTHM, RRR, +S1, +S2. absent: Bradycardia, Tachycardia - GI/Abdominal Exam GI & Abdominal Exam: urostomy bag- contains serosanginous fluid - Extremities Exam Extremities exam: Positive for: full ROM, normal capillary refill, normal inspection, pedal pulses present. Negative for: calf tenderness, joint swelling, pedal edema, tenderness - Back Exam Back exam: absent: CVA tenderness (L), CVA tenderness (R) - Neurological Exam Neurological exam: Awake, Alert, Oriented x3 - Psychiatric Exam Psychiatric exam: Normal Affect, Normal Mood - Skin Skin Exam: Dry, Warm Discharge Plan - Follow Up Plan Condition: GUARDED Disposition: HOME/ ROUTINE Instructions: Smoking: Not Just Harmful to Your Lungs and Heart, Preventing Falls in the Older Adult, Anemia of Chronic Disease (DC) Additional Instructions: Patient Instructions: 1. Please follow up with primary care physician within 5 days from discharge. 2. Please continue home medications as prescribed. You are not started on any new medications at this time. We will resume immunotherapy within 1-2 weeks from this discharge date. 3. You will be provided with visiting home nurses. 4. Please return to emergency department for evaluation of new or worsening symptoms including but not limited to fever, chills, chest pain, shortness of br eath, abdominal pain, nausea, vomiting, diarrhea, constipation, and urinary symptoms.
--- NOTE | 2018-05-31 21:57 | PN ---
DATE: 05/31/2018 SEX OF THE PATIENT: Male. AGE: 77. TYPE OF DICTATION: Progress note. REFERRING PHYSICIAN: . REASON FOR THE CONSULTATION AND FOLLOWUP: Cardiac evaluation, history of SVT, history of lung cancer, history of bladder cancer, admitted with severe anemia. This note is an addition to dictated by the nurse practitioner. The patient is stable on Cardizem drip. Two units of packed RBCs were given. Since, the patient is stable to hemoglobin 10, hematocrit 29.5. BUN 34, creatinine 1.2. RECOMMENDATIONS: Continue monitor H and H. History of DVT and PE. If remains, consider restarting Eliquis. Continue Cardizem 60 mg t.i.d. If H and H remain stable and okay, restart with Eliquis 5 mg p.o. b.i.d. We will follow with you. Thank you for providing us the opportunity in taking care of the patientJohn. Dougie Fraga MD
== END 2018-05-31 14:54 | disposition home health service (06) | DRG 812 ==
LOC: ED 11:28 → ERH 13:35 → 5RNO 14:59
PROVIDERS: ADMIT Family Medicine; ATTEND Family Medicine
PROC: 30233N1 Transfusion of Nonautologous Red Blood Cells into Peripheral Vein, Percutaneous Approach (ICD-10-PCS; principal; 2018-05-29)
DX: D64.9 Anemia, unspecified (principal); C34.90 Malignant neoplasm of unspecified part of unspecified bronchus or lung; I47.1 Supraventricular tachycardia; E86.0 Dehydration; C67.9 Malignant neoplasm of bladder, unspecified; I10 Essential (primary) hypertension; I73.9 Peripheral vascular disease, unspecified; H35.30 Unspecified macular degeneration; I08.0 Rheumatic disorders of both mitral and aortic valves; I27.20 Pulmonary hypertension, unspecified; I25.10 Atherosclerotic heart disease of native coronary artery without angina pectoris; R31.9 Hematuria, unspecified; M19.90 Unspecified osteoarthritis, unspecified site; Z85.46 Personal history of malignant neoplasm of prostate; Z79.01 Long term (current) use of anticoagulants; Z92.3 Personal history of irradiation; Z86.718 Personal history of other venous thrombosis and embolism; Z72.0 Tobacco use; Z79.02 Long term (current) use of antithrombotics/antiplatelets

== ENCOUNTER 2018-07-03 13:44 | Outpatient (CLI) | payer MEDICARE, BC, OTHER | END 2018-07-03 13:45 | disposition home or self-care (01) | LOC: OPLAB 13:44 ==

== ENCOUNTER 2018-07-12 05:58 | Outpatient (CLI) | payer MEDICARE, BC, OTHER | END 2018-07-12 05:59 | disposition home or self-care (01) | LOC: PET-BROA 05:58 | DX: C67.8 Malignant neoplasm of overlapping sites of bladder (principal) ==

== ENCOUNTER 2018-07-15 13:38 | Outpatient (CLI) | payer MEDICARE, BC, OTHER | END 2018-07-15 13:39 | disposition home or self-care (01) | LOC: LAB 13:38 ==

== ENCOUNTER 2018-08-02 01:14 | Observation (INO) | payer MEDICARE, BC, OTHER ==
[2018-08-02 01:15] VITALS: BMI 21.4
--- NOTE | 2018-08-02 01:37 | ED PDOC ---
Arrival/HPI - General Chief Complaint: Dizziness/Lightheaded Time Seen by Provider: 08/02/18 01:17 Historian: Patient, Family (Daughter translating) - History of Present Illness Narrative History of Present Illness (Text): 08/02/18 01:36 78 year old male, whose past medical history includes bladder cancer on immunotherapy, cystectomy, small cell lung cancer, presents to the emergency department accompanied by daughter, for a rapid heart rate. Patient states he does not feel well, and feels heart beating fast. Patient heart rate is 180 upon arrival. Patient denies any chest pain or shortness of breath. Patient also denies any fevers, chills, headache, dizziness, abdominal pain, nausea, vomiting, diarrhea, back pain, neck pain, or any other complaint.Family states they gave him Cardizem 60 mg. prior to arrival PMD: Dr. Klein Oncology: Dr. Fisher Urology: Dr. Attila Franks Symptom Onset: Gradual Symptom Course: Unchanged Activities at Onset: Light Context: Home Past Medical History - Provider Review Nursing Documentation Reviewed: Yes - Past History Past History: No Previous - Infectious Disease Hx of Infectious Diseases: None - Reproductive Currently Lactating: No - Cardiac Hx Cardiac Disorders: Yes Hx Hypertension: Yes - Pulmonary Hx Respiratory Disorders: Yes (PNEUMOTHORAX-BX DONE 09-27-17-LUNG MASS) - Neurological Hx Neurological Disorder: Yes Hx Dizziness: Yes (SYNCOPE 10-17-17) - HEENT Hx Macular Degeneration: Yes - Renal Hx Renal Disorder: No - Endocrine/Metabolic Hx Endocrine Disorders: No - Hematological/Oncological Hx Anemia: Yes Hx Cancer: Yes (prostate) Hx Metastasis: Yes (lung) - Integumentary Other/Comment: 05-29-18 POST CYSTECTOMY WITH RIGHT ILEAL CONDUIT. MID ABOMINAL INCISION WITH A URINARY BAG TO RIGHT. - Musculoskeletal/Rheumatological Hx Falls: No - Gastrointestinal Hx Gastrointestinal Disorders: No - Genitourinary/Gynecological Hx Urinary Tract Infection: Yes - Psychiatric Hx Psychophysiologic Disorder: No Hx Substance Use: No - Surgical History Other/Comment: Biopsy of lungs =09/27/2017. Biopsy of bladder=. Left sided nephrostomy= - Anesthesia Hx Anesthesia: Yes Hx Anesthesia Reactions: No Hx Malignant Hyperthermia: No - Suicidal Assessment Feels Threatened In Home Enviroment: No Family/Social History - Physician Review Nursing Documentation Reviewed: Yes Family/Social History: No Known Family HX Smoking Status: Former Smoker Hx Alcohol Use: No Hx Substance Use: No Hx Substance Use Treatment: No Allergies/Home Meds Allergies/Adverse Reactions: Allergies No Known Allergies Allergy (Verified 05/29/18 15:37) Home Medications: Home Meds Medication Instructions Recorded Confirmed Levocetirizine Dihydrochloride 5 mg PO DAILY 04/12/18 06/12/18 [Xyzal] RX: diltiaZEM [Cardizem] 60 mg PO TID 04/12/18 08/02/18 Benadryl 50 mg PO HS PRN 08/02/18 08/02/18 Review of Systems - Physician Review All systems were reviewed & negative as marked: Yes - Review of Systems Constitutional: absent: Fevers, Night Sweats Respiratory: absent: SOB Cardiovascular: Palpitations (SVT). absent: Chest Pain Gastrointestinal: absent: Abdominal Pain, Diarrhea, Nausea, Vomiting Musculoskeletal: absent: Back Pain, Neck Pain Neurological: absent: Headache, Dizziness Physical Exam Vital Signs Reviewed: Yes Vital Signs Pulse Resp BP Pulse Ox 08/02/18 01:22 181 H 18 112/60 97 Blood Pressure: Normal Pulse: Tachycardic Respiratory Rate: Normal Appearance: Positive for: Well-Appearing, Non-Toxic, Comfortable Pain Distress: None Mental Status: Positive for: Alert and Oriented X 3 - Systems Exam Head: Present: Atraumatic, Normocephalic Pupils: Present: PERRL Extroacular Muscles: Present: EOMI Conjunctiva: Present: Normal Mouth: Present: Moist Mucous Membranes Neck: Present: Normal Range of Motion Respiratory/Chest: Present: Clear to Auscultation, Good Air Exchange. No: Respiratory Distress, Accessory Muscle Use Cardiovascular: Present: Regular Rate and Rhythm, Normal S1, S2. No: Murmurs Abdomen: No: Tenderness, Distention, Peritoneal Signs Back: Present: Normal Inspection Upper Extremity: Present: Normal Inspection. No: Cyanosis, Edema Lower Extremity: Present: Normal Inspection. No: Edema Neurological: Present: GCS=15, CN II-XII Intact, Speech Normal Skin: Present: Warm, Dry, Normal Color. No: Rashes Psychiatric: Present: Alert, Oriented x 3, Normal Insight, Normal Concentration Medical Decision Making ED Course and Treatment: 08/02/18 01:55 Impression: 78 year old male presents in SVT Plan: -- EKG -- CMP, Cardiac iso -- CBC, platelets -- Chest X-ray -- Adenosine -- Reassess and disposition Prior Visits: Notes and results from previous visits were reviewed Progress Notes: EKGs reviewed by me, show: 08/02/18 01:50 SVT @ 183bpm RBBB 08/02/18 01:53 Normal sinus rhythm @ 94bpm Occasional PAC, Incomplete RBBB Non-specific STT wave changes 08/02/18 02:16 Chest X-ray reviewed by me, shows: No acute process 08/02/18 03:00 Case was d/w Dr.Tom Riddle.Accepts to his service. on consult. - Scribe Statement The provider has reviewed the documentation as recorded by the Scribe Fito Ji Provider Scribe Attestation: All medical record entries made by the Scribe were at my direction and personally dictated by me. I have reviewed the chart and agree that the record accurately reflects my personal performance of the history, physical exam, medical decision making, and the department course for this patient. I have also personally directed, reviewed, and agree with the discharge instructions and disposition. Disposition/Present on Arrival - Present on Arrival Any Indicators Present on Arrival: No History of DVT/PE: Yes History of Uncontrolled Diabetes: No Urinary Catheter: No History of Decub. Ulcer: No History Surgical Site Infection Following: None - Disposition Have Diagnosis and Disposition been Completed?: Yes Diagnosis: Supraventricular tachycardia Disposition: HOSPITALIZED Disposition Time: 03:17 Patient Plan: Observation Patient Problems: Current Active Problems Problem Status Onset Supraventricular tachycardia Acute Condition: STABLE
[2018-08-02 02:05] LABS: HEMOGLOBIN 10.7 g/dL (14.0-18.0); MEAN CORPUSCULAR HEMOGLOBIN 31.8 pg (25.0-35.0); MEAN CORPUSCULAR HGB CONC 33.9 g/dl (31.0-37.0); MEAN PLATELET VOLUME 10.3 fl (7.0-11.0); RBC 3.37 10^6/uL (3.5-6.1); RED CELL DISTRIBUTION WIDTH 13.5 % (11.5-14.5); WHITE BLOOD COUNT 8.2 10^3/uL (4.5-11.0)
[2018-08-02 02:10] LABS: INR 1.46; PARTIAL THROMBOPLASTIN TIME 31.8 Seconds (26.9-38.3); PROTHROMBIN TIME 16.2 SECONDS (9.4-12.5)
[2018-08-02 02:13] LABS: MEAN CELL VOLUME 93.8 fl (80.0-105.0)
[2018-08-02 02:25] LABS: TROPONIN I < 0.01 ng/mL
[2018-08-02 02:30] LABS: ALB/GLOB RATIO 1.2 (1.1-1.8); ALBUMIN 3.5 g/dL (3.0-4.8); ALT/SGPT 49 U/L (7-56); AST/SGOT 54 U/L (17-59); BLOOD UREA NITROGEN 49 mg/dL (7-21); CALCIUM 9.4 mg/dL (8.4-10.5); GFR NON-AFRICAN AMERICAN 53
[2018-08-02 06:49] VITALS: O2SAT 99
--- NOTE | 2018-08-02 09:17 | HP ---
DATE OF EXAM: 08/02/2018 HISTORY OF PRESENT ILLNESS: The patient is an 78-year-old male who presents to the emergency room complaining of not feeling well and a rapid heart rate. Apparently, this was rather sudden onset. The patient had experienced supraventricular tachycardia associated with syncope in the past. Therefore, he recognizes symptoms and asked to be brought to the emergency room. PAST MEDICAL HISTORY: He is known to have a past medical history positive for lung carcinoma, which was diagnosed in 08/2017, bladder carcinoma diagnosed in 10/2017. He has a history of hypertension, status post pneumothorax x2, post percutaneous biopsy of his lung mass. He was also hospitalized for syncope secondary to SVT in the past. He is status post cystectomy for his bladder carcinoma. SOCIAL HISTORY: He has a history of cigarette smoking, has not been smoking for years. He is a nonalcoholic drinker. ALLERGIES: HE HAS NO KNOWN MEDICAL ALLERGIES. MEDICATIONS: At the time of admission included diltiazem 60 mg three times a day, Xyzal 5 mg and Benadryl p.r.n. REVIEW OF SYSTEMS: Review of systems is otherwise unremarkable. PHYSICAL EXAMINATION: HEAD, EYES, EARS, NOSE AND THROAT: Unremarkable. NECK: Supple with no lymphadenopathy. No goiter. LUNGS: Clear to auscultation and percussion. HEART: Regular at a rate of 77 beats per minute. ABDOMEN: Soft and nontender. EXTREMITIES: Free of cyanosis, clubbing or edema. NEUROLOGIC: The patient is awake, alert and oriented with no focal neurological signs. LABORATORY STUDIES: Initial EKG showed SVT with a right bundle-branch block. The patient was treated with adenosine in the emergency room. White blood cell count is 8.2, hemoglobin and hematocrit are 10.7 and 31.6, platelet count is 176. Sodium is 137, potassium 4.7, blood urea nitrogen 49, creatinine 1.9, glucose is 185. PT/INR is 1.46. ASSESSMENT AND PLAN: The patient is to be admitted. Dr. Fraga and Dr. Eron moses liquid hydrogen plant operator are called to consult on the patient. The patient will be followed closely. Shashank Riddle MD [facility] # [id number]
--- NOTE | 2018-08-02 09:27 | RAD ---
Date of service: 08/02/2018 HISTORY: T the achycardia COMPARISON: Comparison made with chest radiograph 05/29/2018 comparison also made with prior CTA chest dated 04/30/2018. The the FINDINGS: LUNGS: There is hyperinflation with underlying centrilobular emphysematous changes which are seen to better advantage on prior CTA of the chest. Previously noted spiculated lesion in the right lung apex is less well seen on this study also compared to high-resolution CTA chest. PLEURA: . No significant pleural effusion identified, no pneumothorax apparent. CARDIOVASCULAR: No aortic atherosclerotic calcification present. Heart size within range of normal. No pulmonary vascular congestion. OSSEOUS STRUCTURES: No significant abnormalities. VISUALIZED UPPER ABDOMEN: Normal. OTHER FINDINGS: None. IMPRESSION: There is hyperinflation with underlying centrilobular emphysematous changes which are seen to better advantage on prior CTA of the chest. Previously noted spiculated lesion in the right lung apex is less well seen on this study also compared to high-resolution CTA chest.
--- NOTE | 2018-08-02 11:14 | CP.PCM.APN ---
Subjective - Date & Time of Evaluation Date of Evaluation: 08/02/18 Time of Evaluation: 11:11 - Subjective Subjective: pt seen and examined at bedside pt with no complaint, asking to go home sating he feels better Review of Systems - Review of Systems All systems: reviewed and no additional remarkable complaints except Objective - Vital Signs/Intake and Output Vital Signs (last 24 hours): Temp Pulse Resp BP Pulse Ox 97.8 F 82 20 124/67 99 08/02/18 06:00 08/02/18 10:02 08/02/18 06:00 08/02/18 10:02 08/02/18 06:00 Intake and Output: 08/02/18 08/02/18 06:59 18:59 Intake Total 240 Output Total 0 Balance 240 - Medications Medications: Current Medications Acetaminophen (Tylenol 325mg Tab) 650 mg PO Q4H PRN PRN Reason: Pain, Mild (1-3) Apixaban (Eliquis) 5 mg PO BID [facility]; Protocol Last Admin: 08/02/18 09:44 Dose: 5 mg Diltiazem HCl (Cardizem) 60 mg PO TID [facility] Last Admin: 08/02/18 09:44 Dose: 60 mg Propranolol HCl (Inderal) 10 mg PO TID [facility] Last Admin: 08/02/18 10:02 Dose: 10 mg - Labs Labs: 08/02/18 01:23 08/02/18 01:23 PT 16.2 SECONDS (9.4-12.5) H 08/02/18 01:23 INR 1.46 08/02/18 01:23 APTT 31.8 Seconds (26.9-38.3) 08/02/18 01:23 - Constitutional Appears: No Acute Distress - Head Exam Head Exam: NORMOCEPHALIC - Respiratory Exam Respiratory Exam: Clear to Ausculation Bilateral - Cardiovascular Exam Cardiovascular Exam: +S1, +S2 - Exam Exam: NORMAL INSPECTION - Extremities Exam Extremities Exam: Normal Capillary Refill - Neurological Exam Neurological Exam: Alert, Awake, Oriented x3 - Skin Skin Exam: Dry, Intact, Normal Color Assessment and Plan - Assessment and Plan (Free Text) Plan: Impressions Chest X-Ray 08/02/18 01:37 IMPRESSION: There is hyperinflation with underlying centrilobular emphysematous changes which are seen to better advantage on prior CTA of the chest. Previously noted spiculated lesion in the right lung apex is less well seen on this study also compared to high-resolution CTA chest. 78 yr old white male with pmh sig for lung ca and blader ca admitted with SVt s/p adenosine now admitted for cardiology evaluation svt s/p iV adeonise p.o adenosine p.o cardizem cardiology consultation pending ca of lung cxr noed will continue to follow BPCI/TIC - BPCIA/TIC Educated pt/family on BPCIA/CIR/Med to Bed Programs: N/A Flyers given, including [facility] Beneficiary letter: N/A Pt/family verbalized understanding & agreed to program: N/A
--- NOTE | 2018-08-02 11:24 | CARD ---
APPROVED REPORT Date of service: 08/02/2018 EKG Measurement Heart [id number] <Conclusion> Sinus rhythm with premature atrial complexes Incomplete right bundle branch block
--- NOTE | 2018-08-02 11:25 | CARD ---
APPROVED REPORT Date of service: 08/02/2018 EKG Measurement Heart [id number] <Conclusion> Atrial flutter with 2:1 AV conduction Right bundle branch block Abnormal ECG
[2018-08-02 12:10] VITALS: BP 115/49; RESP 19; TEMP 97.1
[2018-08-02 14:43] VITALS: PULSE 64
--- NOTE | 2018-08-02 20:22 | CON ---
DATE: 08/02/2018 REASON FOR CONSULTATION: SVT. BRIEF CLINICAL HISTORY: An 78-year-old male with past medical history significant for bladder cancer on immunotherapy, history of status post cystectomy, history of small lung cancer, history of SVT in the past, who came in to the ER with complain of dizziness and found to be in SVT . The patient got IV adenosine converted to normal sinus since the patient is normal sinus. He denies any chest pain, denies any shortness of breath, denies any palpitations. PAST MEDICAL HISTORY: Significant for right-sided pneumothorax after lung biopsy found to be adenocarcinoma, history of prostate CA, status post cystectomy on immunotherapy, history of adenocarcinoma of the bladder as well, history of prostate CA, history of later on the patient had nephrostomy, history of SVT, multiple admission with SVT. RECENT CARDIAC WORKUP: The patient had a stress test dated 10/02/2017 that shows normal myocardial perfusion study, ejection fraction 70%. The patient had echocardiography on 10/02/2017 that revealed normal chamber size, ejection fraction 55% to 60%, moderate aortic regurgitation, moderate mitral regurgitation, mild tricuspid regurgitation, RV systolic pressure of 47, [id number] pulmonary insufficiency, mild pulmonary hypertension, history of SVT as mentioned, on Cardizem 60 mg 3 times a day. CURRENT MEDICATION: The patient is taking at home Cardizem 60 mg 3 times a day, Eliquis 5 mg p.o. b.i.d., acetaminophen and levothyroxine. REVIEW OF SYSTEMS: As per HPI. PHYSICAL EXAMINATION: GENERAL: Height of the patient 5 feet 8 inches, weight of the patient 120 pounds, body mass index 18.2 kg/m2. VITAL SIGNS: Temperature afebrile; heart rate 82; blood pressure 124/64. HEENT: PERRLA. Extraocular muscles are intact. NECK: Supple. No carotid bruit or thyromegaly. CHEST: Clear to auscultation. HEART: S1, S2 regular. ABDOMEN: Soft. EXTREMITIES: Clubbing and cyanosis, negative. LABORATORY DATA: Blood workup as follows; WBC 8.8, hemoglobin 10, hematocrit 31.6, and platelet count 176. Chemistry shows sodium 137, potassium 4.7, chloride 108, carbon dioxide 20, anion gap 11, BUN 19, creatinine 1.3. EKG shows SVT, the patient got Cardizem and then converted to normal sinus, repeat EKG shows normal sinus right bundle branch, left anterior hemiblock. The telemetry shows normal sinus. IMPRESSION: An 78-year-old male with a past medical history significant for adenocarcinoma of the lung, history of bladder cancer, status post cystectomy, cystostomy, recent cardiac workup is negative, admitted with supraventricular tachycardia multiple admissions with supraventricular tachycardia. RECOMMENDATION: We will continue Cardizem 60 mg p.o. 3 times a day, continue Eliquis. We will put 10 mg of propranolol supraventricular tachycardia, stable possible discharge. We will follow with you. Thank you Dr. Schmitt for providing us the opportunity to take in care of the patient, Bhavesh Lopez. Dougie Fraga MD
== END 2018-08-02 15:43 | disposition home or self-care (01) ==
LOC: ED 01:14 → ERH 03:17 → 2RNO 04:08
PROVIDERS: ADMIT Internal Medicine; ATTEND Internal Medicine
DX: I47.1 Supraventricular tachycardia (principal); C34.90 Malignant neoplasm of unspecified part of unspecified bronchus or lung; I27.20 Pulmonary hypertension, unspecified; I10 Essential (primary) hypertension; I08.3 Combined rheumatic disorders of mitral, aortic and tricuspid valves; H35.30 Unspecified macular degeneration; Z85.46 Personal history of malignant neoplasm of prostate; Z85.51 Personal history of malignant neoplasm of bladder; Z87.891 Personal history of nicotine dependence
CPT/HCPCS: 71045; 80053; 82550; 83615; 84484; 85027; 85610; 85730; 93005; 96374; 99285; G0378; J0153

== ENCOUNTER 2018-08-05 14:02 | Outpatient (CLI) | payer MEDICARE, BC, OTHER | END 2018-08-05 14:03 | disposition home or self-care (01) | LOC: OPLAB 14:02 ==

== ENCOUNTER 2018-08-18 13:39 | Emergency (ER) | payer MEDICARE, OTHER ==
[2018-08-18] MEDS ORDERED: Sodium Chloride 0.9% 1,000 ML IV STA (14:10)
--- NOTE | 2018-08-18 14:11 | ED PDOC ---
Arrival/HPI - General Chief Complaint: Dizziness/Lightheaded Time Seen by Provider: 08/18/18 13:52 Historian: Patient - Critical Care Critical Care Minutes: 30 minutes - History of Present Illness Narrative History of Present Illness (Text): 08/18/18 14:10 78 year old male, whose past medical history includes metasynchronous NSCLC, lung adenocarcinoma, PVD, HTN, prostate cancer s/p radiation, pneumothorax s/p lung biopsy, DJD, DVTs, tobacco abuse, bladder cancer, recently dx with SVT, presents to the emergency department accompanied by daughter for palpitations, dizziness, and weakness today. As per daughter, patient's heart rate was high and reports his blood pressure was low. She reports he was seen and evaluated at [facility] 2 weeks ago for similar symptoms. Patient denies any fever, chills, chest pain, shortness of breath, nausea, vomiting, diarrhea, urinary symptoms, back pain, neck pain, headache, or any other complaints. PMD: Dr. Riddle Oncology: Dr. Fisher Urology: Dr. Attila Franks Time/Duration: Other (today) Symptom Onset: Gradual Symptom Course: Unchanged Activities at Onset: Light Context: Home Past Medical History - Provider Review Nursing Documentation Reviewed: Yes - Past History Past History: No Previous - Infectious Disease Hx of Infectious Diseases: None - Reproductive Currently Lactating: No - Cardiac Hx Cardiac Disorders: Yes Hx Hypertension: Yes - Pulmonary Hx Respiratory Disorders: Yes (PNEUMOTHORAX-BX DONE 09-27-17-LUNG MASS) - Neurological Hx Neurological Disorder: Yes Hx Dizziness: Yes (SYNCOPE 10-17-17) - HEENT Hx Macular Degeneration: Yes - Renal Hx Renal Disorder: No - Endocrine/Metabolic Hx Endocrine Disorders: No - Hematological/Oncological Hx Anemia: Yes Hx Cancer: Yes (prostate) Hx Metastasis: Yes (lung) - Integumentary Other/Comment: 05-29-18 POST CYSTECTOMY WITH RIGHT ILEAL CONDUIT. MID ABOMINAL INCISION WITH A URINARY BAG TO RIGHT. - Musculoskeletal/Rheumatological Hx Falls: No - Gastrointestinal Hx Gastrointestinal Disorders: No - Genitourinary/Gynecological Hx Urinary Tract Infection: Yes - Psychiatric Hx Psychophysiologic Disorder: No Hx Substance Use: No - Surgical History Other/Comment: Biopsy of lungs =09/27/2017. Biopsy of bladder=. Left sided nephrostomy= - Anesthesia Hx Anesthesia: Yes Hx Anesthesia Reactions: No Hx Malignant Hyperthermia: No - Suicidal Assessment Feels Threatened In Home Enviroment: No Family/Social History - Physician Review Nursing Documentation Reviewed: Yes Family/Social History: No Known Family HX Smoking Status: Former Smoker Hx Alcohol Use: No Hx Substance Use: No Hx Substance Use Treatment: No Allergies/Home Meds Allergies/Adverse Reactions: Allergies No Known Allergies Allergy (Verified 05/29/18 15:37) Home Medications: Home Meds Medication Instructions Recorded Confirmed Levocetirizine Dihydrochloride 5 mg PO DAILY 04/12/18 06/12/18 [Xyzal] diltiaZEM [Cardizem] 60 mg PO TID 04/12/18 08/02/18 Benadryl 50 mg PO HS PRN 08/02/18 08/02/18 Review of Systems - Physician Review All systems were reviewed & negative as marked: Yes - Review of Systems Constitutional: absent: Fevers, Other (chills) Respiratory: absent: SOB Cardiovascular: Palpitations. absent: Chest Pain Gastrointestinal: absent: Diarrhea, Nausea, Vomiting Genitourinary Male: absent: Dysuria, Frequency, Hematuria Musculoskeletal: absent: Back Pain, Neck Pain Neurological: Headache, Dizziness, Other (weakness) Physical Exam Vital Signs Reviewed: Yes Vital Signs Temp BP 08/18/18 13:53 98.4 F 70/54 L Temperature: Afebrile Blood Pressure: Hypotensive Pulse: Tachycardic Respiratory Rate: Normal Appearance: Positive for: Well-Appearing, Non-Toxic, Comfortable Pain Distress: None Mental Status: Positive for: Alert and Oriented X 3 - Systems Exam Head: Present: Atraumatic, Normocephalic Pupils: Present: PERRL Extroacular Muscles: Present: EOMI Conjunctiva: Present: Normal Mouth: Present: Moist Mucous Membranes Neck: Present: Normal Range of Motion Respiratory/Chest: Present: Clear to Auscultation, Good Air Exchange. No: Respiratory Distress, Accessory Muscle Use Cardiovascular: Present: Tachycardic. No: Murmurs Abdomen: No: Tenderness, Distention, Peritoneal Signs Back: Present: Normal Inspection Upper Extremity: Present: Normal Inspection. No: Cyanosis, Edema Lower Extremity: Present: Normal Inspection. No: Edema Neurological: Present: GCS=15, Speech Normal Skin: Present: Warm, Dry, Pale. No: Rashes Psychiatric: Present: Alert, Oriented x 3, Normal Insight, Normal Concentration Medical Decision Making ED Course and Treatment: 08/18/18 14:10 Impression: 78 year old male presents for palpitations,dizziness, and weakness that began today. PE shows patient hypotensive and tachycardic. Differential Diagnosis included but are not limited to: SVT Plan: -- EKG -- Labs -- Chest X-ray -- Adenosine 6mg, Aspirin, IV Fluids -- Urinalysis -- Reassess and disposition Prior Visits: Notes and results from previous visits were reviewed. Progress Notes: 08/18/18 13:56 EKG shows SVT at 108 BPM with RBBB. Interpreted by me. 08/18/18 14:08 After Adenosine 6mg: EKG shows NSR at 93 BPM with RBBB. Interpreted by me. With blood pressure of 120/90 08/18/18 15:[address] Ed. Riddle who is aware and agrees with the plan. Accepts patient into his service to telemetry obs. Patient's blood pressure is stable and controlled. 08/18/18 16:[address] Hernandez covering Dr. Fraga who agrees with the plan with no recommendations for further management. - Critical Care Critical Care Minutes: 30 minutes - Lab Interpretations I have reviewed the lab results: Yes - RAD Interpretation Radiology Orders: 08/18/18 14:06 CXR [CHEST PORTABLE] [RAD] Stat Senior Copywriter: Radiologist - EKG Interpretation Interpreted by ED Physician: Yes Type: 12 lead EKG - Medication Orders Current Medication Orders: Adenosine (Adenosine 6 Mg/2 Ml Inj) 6 mg IVP STAT STA Stop: 08/18/18 14:10 Aspirin (Aspirin) 325 mg PO STAT STA Stop: 08/18/18 14:10 - Scribe Statement The provider has reviewed the documentation as recorded by the Ramboibattila Kilpatrick Provider Scribe Attestation: All medical record entries made by the Scribe were at my direction and personally dictated by me. I have reviewed the chart and agree that the record accurately reflects my personal performance of the history, physical exam, medical decision making, and the department course for this patient. I have also personally directed, reviewed, and agree with the discharge instructions and disposition. Disposition/Present on Arrival - Present on Arrival Any Indicators Present on Arrival: Yes History of DVT/PE: Yes History of Uncontrolled Diabetes: No Urinary Catheter: No History of Decub. Ulcer: No History Surgical Site Infection Following: None - Disposition Have Diagnosis and Disposition been Completed?: Yes Diagnosis: Supraventricular tachycardia Disposition: HOSPITALIZED Disposition Time: 15:22 Patient Plan: Admission Condition: GUARDED Forms: Lyxia (Chinese)
[2018-08-18 14:18] LABS: BASO # 0.02 K/mm3 (0.0-2.0); BASO % 0.1 % (0.0-3.0); EOS # 0.3 (0.0-0.7); EOS % 2.4 % (1.5-5.0); HEMOGLOBIN 10.5 g/dL (14.0-18.0); LYMPH # 1.4 (1.2-3.4); LYMPH % 10.1 % (22.0-35.0); MEAN CELL VOLUME 91.6 fl (80.0-105.0); MEAN CORPUSCULAR HEMOGLOBIN 31.5 pg (25.0-35.0); MEAN CORPUSCULAR HGB CONC 34.4 g/dl (31.0-37.0); MONO % 7.2 % (1.0-6.0); RBC 3.33 10^6/uL (3.5-6.1); RED CELL DISTRIBUTION WIDTH 12.8 % (11.5-14.5); WHITE BLOOD COUNT 13.4 10^3/uL (4.5-11.0)
[2018-08-18 14:39] LABS: TROPONIN I < 0.01 ng/mL
[2018-08-18 14:40] LABS: ALB/GLOB RATIO 1.2 (1.1-1.8); ALBUMIN 3.8 g/dL (3.0-4.8); ALT/SGPT 18 U/L (7-56); AST/SGOT 19 U/L (17-59); BLOOD UREA NITROGEN 37 mg/dL (7-21); CALCIUM 10.4 mg/dL (8.4-10.5); GFR NON-AFRICAN AMERICAN 49
[2018-08-18 15:01] LABS: INR 1.29; PARTIAL THROMBOPLASTIN TIME 30.8 Seconds (26.9-38.3); PROTHROMBIN TIME 14.3 SECONDS (9.4-12.5)
[2018-08-18] MEDS: Sodium Chloride 0.9% 1,000 ML IV SCH (15:17)
[2018-08-18] MEDS ORDERED: Morphine 4 mg/ml ISec IVP STA (15:53)
--- NOTE | 2018-08-18 16:12 | CARD ---
APPROVED REPORT Date of service: 08/18/2018 EKG Measurement Heart [id number] ID [id number] <Conclusion> Sinus rhythm with premature supraventricular complexes Right bundle branch block Abnormal ECG
--- NOTE | 2018-08-18 16:13 | CARD ---
APPROVED REPORT Date of service: 08/18/2018 EKG Measurement Heart [id number] <Conclusion> Sinus rhythm with marked sinus arrhythmia with fusion complexes Right bundle branch block Abnormal ECG
--- NOTE | 2018-08-18 16:20 | RAD ---
Date of service: 08/18/2018 HISTORY: Dizzy COMPARISON: Comparison made with chest radiograph dated 08/02/18. FINDINGS: LUNGS: Bibasilar atelectasis. PLEURA: No significant pleural effusion identified, no pneumothorax apparent. CARDIOVASCULAR: Minor aortic atherosclerotic calcification present. Normal cardiac size. No pulmonary vascular congestion. OSSEOUS STRUCTURES: No significant abnormalities. VISUALIZED UPPER ABDOMEN: Normal. OTHER FINDINGS: None. IMPRESSION: Mild bibasilar atelectasis.
[2018-08-18 21:52] VITALS: BMI 21.9
[2018-08-19] MEDS: Sodium Chloride 0.9% 1,000 ML IV SCH (03:35)
[2018-08-19 08:34] VITALS: PULSE 73; RESP 20; TEMP 97.9; O2SAT 99
[2018-08-19 14:50] VITALS: BP 134/64
--- NOTE | 2018-08-19 23:26 | CON ---
DATE OF CONSULTATION: 08/19/2018 REASON FOR CONSULTATION: SVT, history of metastatic non-small cell lung cancer, adenocarcinoma, cardiac evaluation. BRIEF CLINICAL HISTORY: This is an 78-year-old male with past medical history significant for bladder cancer, on immunotherapy, history of recently cystectomy, history of small-cell lung cancer, history of SVT, who was brought by the daughter, found to have elevated heart rate. So, the patient was brought here, given IV possibly adenosine, converted to normal sinus. The patient is in normal sinus and waiting for the bed since morning. The patient broke with 6 mg of adenosine. Heart rate initially on admitting was 120, converted to normal sinus since then. No further episode of chest pain, shortness of breath or any palpitation. Note that the daughter is at the bedside. The patient felt palpitations and dizziness at home and heart rate was fast according to the daughter with 160. PAST MEDICAL HISTORY: Significant for adenocarcinoma of the lungs, CAD, prostate CA status post radiation chemotherapy, status post lung biopsy, unresectable bladder cancer, history of recent cystectomy two months ago, history of recurrent SVT, history of lung biopsy complicated by pneumothorax, history of abscess requiring nephrostomy and now the patient underwent bladder resection two months ago. Past history as mentioned is significant for history of SVT in the past. Heart rate was 190 and responded to adenosine. Recent cardiac workup as follows. The patient had a stress test dated 10/02/2017 that showed normal myocardial perfusion study with ejection fraction of 70%. The patient had echocardiography on 10/02/2017 that revealed normal chamber size with ejection fraction 55% to 60%, moderate aortic regurgitation, moderate mitral regurgitation, mild tricuspid regurgitation with an aortic systolic pressure of 47, [id number] pulmonary hypertension, mild pulmonary hypertension, history of SVT in the past as well as the patient is well maintained on Cardizem. The patient was started on metoprolol 25 mg daily, the patient is off beta-brenna, only on Cardizem. CURRENT MEDICATIONS: The patient is taking at home Cardizem 60 mg three times a day, Eliquis 5 mg p.o. b.i.d., and start atenolol 12.5 mg. REVIEW OF SYSTEMS: As per HPI. PHYSICAL EXAMINATION: GENERAL: Height of the patient is 5 feet 2 inches, weight of the patient is 120 pounds, body mass index 21.9 kg/m2. VITAL SIGNS: Temperature afebrile, heart rate 73, blood pressure 134/63. HEENT: PERRLA. Extraocular muscles are intact. NECK: Supple. No carotid bruit or thyromegaly. CHEST: Clear to auscultation. HEART: S1 and S2 regular. ABDOMEN: Soft. EXTREMITIES: Clubbing and cyanosis negative. LABORATORY DATA: Blood workup as follows, WBC 13, hemoglobin 10.5, hematocrit 30.5, platelet count 280,000. Chemistry shows sodium of 132, potassium of 4, chloride of 105, bicarb 23, anion gap 14, BUN 37, and creatinine 1.4. EKG shows normal sinus, right bundle branch block. No acute ST-T changes noted. Troponin 0.01. IMPRESSION: An 78-year-old male with past medical history significant for adenocarcinoma of the lung, unresectable, status post biopsy; complicated pneumothorax in the past; history of supraventricular tachycardia; history of prostate cancer, history of radiation, status post immunotherapy; history of bladder cancer, status post resection; history of abscess, status post drainage; history of deep vein thrombosis on last admission, on Eliquis 5 mg p.o. b.i.d. for deep vein thrombosis; history of hypertension; history of supraventricular tachycardia, recurrent; admitted with supraventricular tachycardia, broke with 6 mg of adenosine. RECOMMENDATIONS: Continue Cardizem 60 mg three times a day. We will start low dose of atenolol 12.5 and give the prescription of 12.5 when the patient is stable. We will monitor the heart rate with 12.5 mg of atenolol daily. We will get lipid profile, TSH, hemoglobin A1c, calcium, magnesium, phosphate tomorrow as well as CBC and EKG in the morning. No evidence of history of CAD. Recent stress test was normal. We will follow with you. Thank you Dr. Be/Dr. Riddle for providing us the opportunity in taking care of the patient. I spoke to the daughter at length. Dougie Fraga MD
== END 2018-08-19 18:40 | disposition home or self-care (01) ==
LOC: ED 13:39 → ERH 15:22 → UNDOADMOB 15:22 → ERH 08-19 17:48 → ED 08-19 18:40
DX: I47.1 Supraventricular tachycardia (principal); C34.90 Malignant neoplasm of unspecified part of unspecified bronchus or lung; I10 Essential (primary) hypertension; Z85.46 Personal history of malignant neoplasm of prostate; Z92.3 Personal history of irradiation; J95.811 Postprocedural pneumothorax; Z86.718 Personal history of other venous thrombosis and embolism; Z85.51 Personal history of malignant neoplasm of bladder; Z87.891 Personal history of nicotine dependence
CPT/HCPCS: 71045; 80053; 82550; 83615; 83735; 84484; 85025; 85610; 85730; 93005; 96361; 96374; 99291; J0153; J7030

== ENCOUNTER 2018-08-26 12:57 | Outpatient (CLI) | payer MEDICARE, OTHER | END 2018-08-26 12:58 | disposition home or self-care (01) | LOC: OPLAB 12:57 ==

== ENCOUNTER 2018-09-15 19:16 | Inpatient (IN) | payer MEDICARE, BC, OTHER ==
[2018-09-15 19:21] VITALS: BMI 19.7
[2018-09-15 19:50] LABS: BASO # 0.02 K/mm3 (0.0-2.0); BASO % 0.1 % (0.0-3.0); EOS # 0.8 (0.0-0.7); EOS % 4.9 % (1.5-5.0); HEMOGLOBIN 9.9 g/dL (14.0-18.0); LYMPH # 1.7 (1.2-3.4); LYMPH % 10.3 % (22.0-35.0); MEAN CELL VOLUME 91.5 fl (80.0-105.0); MEAN CORPUSCULAR HEMOGLOBIN 30.2 pg (25.0-35.0); MEAN PLATELET VOLUME 9.4 fl (7.0-11.0); MONO # 1.3 (0.1-0.6); MONO % 8.3 % (1.0-6.0); RBC 3.28 10^6/uL (3.5-6.1); RED CELL DISTRIBUTION WIDTH 12.9 % (11.5-14.5); WHITE BLOOD COUNT 16.1 10^3/uL (4.5-11.0)
[2018-09-15 20:03] LABS: INR 1.61; PARTIAL THROMBOPLASTIN TIME 30.4 Seconds (26.9-38.3); PROTHROMBIN TIME 17.9 SECONDS (9.4-12.5)
[2018-09-15 20:20] LABS: TROPONIN I < 0.01 ng/mL
[2018-09-15 20:42] LABS: ALB/GLOB RATIO 0.9 (1.1-1.8); ALBUMIN 3.4 g/dL (3.0-4.8); ALT/SGPT 6 U/L (7-56); AST/SGOT 18 U/L (17-59); BLOOD UREA NITROGEN 34 mg/dL (7-21); CALCIUM 9.9 mg/dL (8.4-10.5); GFR NON-AFRICAN AMERICAN 36
--- NOTE | 2018-09-15 21:33 | ED PDOC ---
Arrival/HPI - General Chief Complaint: Weakness/Neurological Deficit Time Seen by Provider: 09/15/18 19:22 Historian: Patient - History of Present Illness Narrative History of Present Illness (Text): 09/15/18 19:22 John Ospina is an 78 year old male, with a past medical history of metasynchronous NSCLC, lung adenocarcinoma, PVD, HTN, prostate cancer s/p radiation, pneumothorax s/p lung biopsy, DJD, DVTs, tobacco abuse, bladder cancer, recently dx with SVT, who presents to the emergency department complaining of generalized weakness, chest pain, and accelerated heart rate prior to arrival. Patient was noted to have a HR in the 180's. Patient is currently asymptomatic in the emergency department. Patient denies any fevers, chills, headache, dizziness, shortness of breath, dyspnea on exertion, cough, abdominal pain, nausea, vomiting, diarrhea, back pain, neck pain, or any other complaint. Time/Duration: Prior to Arrival Symptom Onset: Sudden Symptom Course: Unchanged Activities at Onset: Light Context: Home Past Medical History - Provider Review Nursing Documentation Reviewed: Yes - Past History Past History: No Previous - Infectious Disease Hx of Infectious Diseases: None - Reproductive Currently Lactating: No - Cardiac Hx Cardiac Disorders: Yes Hx Hypertension: Yes - Pulmonary Hx Respiratory Disorders: Yes (PNEUMOTHORAX-BX DONE 09-27-17-LUNG MASS) - Neurological Hx Neurological Disorder: Yes Hx Dizziness: Yes (SYNCOPE 10-17-17) - HEENT Hx Macular Degeneration: Yes - Renal Hx Renal Disorder: No - Endocrine/Metabolic Hx Endocrine Disorders: No - Hematological/Oncological Hx Anemia: Yes Hx Cancer: Yes (prostate) Hx Metastasis: Yes (lung) - Integumentary Other/Comment: 05-29-18 POST CYSTECTOMY WITH RIGHT ILEAL CONDUIT. MID ABOMINAL INCISION WITH A URINARY BAG TO RIGHT. - Musculoskeletal/Rheumatological Hx Falls: No - Gastrointestinal Hx Gastrointestinal Disorders: No - Genitourinary/Gynecological Hx Urinary Tract Infection: Yes - Psychiatric Hx Psychophysiologic Disorder: No Hx Substance Use: No - Surgical History Other/Comment: Biopsy of lungs =09/27/2017. Biopsy of bladder=. Left sided nephrostomy= - Anesthesia Hx Anesthesia: Yes Hx Anesthesia Reactions: No Hx Malignant Hyperthermia: No - Suicidal Assessment Feels Threatened In Home Enviroment: No Family/Social History - Physician Review Nursing Documentation Reviewed: Yes Family/Social History: No Known Family HX Smoking Status: Former Smoker Hx Alcohol Use: Yes (social) Hx Substance Use: No Hx Substance Use Treatment: No Allergies/Home Meds Allergies/Adverse Reactions: Allergies No Known Allergies Allergy (Verified 05/29/18 15:37) Home Medications: Home Meds Medication Instructions Recorded Confirmed diltiaZEM [Cardizem] 60 mg PO TID 04/12/18 09/15/18 Review of Systems - Physician Review All systems were reviewed & negative as marked: Yes - Review of Systems Constitutional: Other (generalized weakness). absent: Fevers, Night Sweats Respiratory: absent: SOB, Cough Cardiovascular: Chest Pain, Palpitations Gastrointestinal: absent: Abdominal Pain, Diarrhea, Nausea, Vomiting Musculoskeletal: absent: Back Pain, Neck Pain Neurological: absent: Headache, Dizziness Physical Exam Vital Signs Reviewed: Yes Vital Signs Temp Pulse Resp BP Pulse Ox 09/15/18 20:13 88 20 100/54 L 100 09/15/18 19:37 99 H 16 110/57 L 100 09/15/18 19:24 98.2 F 180 H 20 103/62 Temperature: Afebrile Blood Pressure: Normal Pulse: Tachycardic Respiratory Rate: Normal Appearance: Positive for: Well-Appearing, Non-Toxic, Comfortable Pain Distress: None Mental Status: Positive for: Alert and Oriented X 3 - Systems Exam Head: Present: Atraumatic, Normocephalic Pupils: Present: PERRL Extroacular Muscles: Present: EOMI Conjunctiva: Present: Normal Mouth: Present: Moist Mucous Membranes Neck: Present: Normal Range of Motion Respiratory/Chest: Present: Clear to Auscultation, Good Air Exchange. No: Respiratory Distress, Accessory Muscle Use Cardiovascular: Present: Normal S1, S2, Tachycardic. No: Murmurs Abdomen: No: Tenderness, Distention, Peritoneal Signs Back: Present: Normal Inspection Upper Extremity: Present: Normal Inspection. No: Cyanosis, Edema Lower Extremity: Present: Normal Inspection. No: Edema Skin: Present: Warm, Dry, Normal Color. No: Rashes Psychiatric: Present: Alert, Oriented x 3, Normal Insight, Normal Concentration Medical Decision Making ED Course and Treatment: 09/15/18 19:22 Impression: Patient is an 78 year old male who presents to the emergency department with generalized weakness, chest pain, and accelerated heart rate. Patient is currently asymptomatic in the emergency department. Differential Diagnosis included but are not limited to: Plan: -- EKG -- Labs -- Chest X-Ray -- Urinalysis -- Reassess and disposition Prior Visits: Notes and results from previous visits were reviewed. case d/ dr peace will admit to tele - Lab Interpretations Lab Results: PT 17.9 SECONDS (9.4-12.5) H 09/15/18 19:26 INR 1.61 09/15/18 19:26 APTT 30.4 Seconds (26.9-38.3) 09/15/18 19:26 Troponin I < 0.01 ng/mL 09/15/18 19:26 Total Bilirubin 0.4 mg/dL (0.2-1.3) 09/15/18 19:26 AST 18 U/L (17-59) 09/15/18 19:26 ALT 6 U/L (7-56) L 09/15/18 19:26 Alkaline Phosphatase 96 U/L (38-126) 09/15/18 19:26 Total Protein 7.1 g/dL (5.8-8.3) 09/15/18 19:26 Albumin 3.4 g/dL (3.0-4.8) 09/15/18 19:26 Globulin 3.6 gm/dL 09/15/18 19:26 Albumin/Globulin Ratio 0.9 (1.1-1.8) L 09/15/18 19:26 - RAD Interpretation Radiology Orders: 09/15/18 19:43 CHEST PORTABLE [RAD] Stat - EKG Interpretation EKG Interpretation (Text): 09/16/18 01:14 svt rate 183 nssts changes - Medication Orders Current Medication Orders: Acetaminophen (Tylenol 325mg Tab) 650 mg PO Q4H PRN PRN Reason: Pain, Mild (1-3) Discontinued Medications Adenosine (Adenosine 6 Mg/2 Ml Inj) 6 mg IVP STAT STA Stop: 09/15/18 19:23 Last Admin: 09/15/18 19:22 Dose: 6 mg IVP Administration Document 09/15/18 19:22 KV (Rec: 09/15/18 19:36 KV [id number]) Charges for Administration # of IVP Administrations 1 - Scribe Statement The provider has reviewed the documentation as recorded by the Scribpaul Mitchell All medical record entries made by the Ramboibpaul were at my direction and personally dictated by me. I have reviewed the chart and agree that the record accurately reflects my personal performance of the history, physical exam, medical decision making, and the department course for this patient. I have also personally directed, reviewed, and agree with the discharge instructions and disposition. Disposition/Present on Arrival - Present on Arrival Any Indicators Present on Arrival: No History of DVT/PE: No History of Uncontrolled Diabetes: No Urinary Catheter: No History of Decub. Ulcer: No History Surgical Site Infection Following: None - Disposition Have Diagnosis and Disposition been Completed?: Yes Diagnosis: Supraventricular tachycardia Disposition: HOSPITALIZED Disposition Time: 22:00 Patient Problems: Current Active Problems Problem Status Onset Supraventricular tachycardia Acute Condition: FAIR
[2018-09-15 22:32] LABS: PH,URINE >=9.0 (4.7-8.0); URINE BILIRUBIN NEGATIVE (NEGATIVE); URINE BLOOD NEGATIVE (NEGATIVE); URINE GLUCOSE (UA) NEGATIVE (NEGATIVE); URINE LEUKOCYTE ESTERASE LARGE Leu/uL (NEGATIVE); URINE PROTEIN 100 mg/dL (<30 mg/dL); URINE UROBILINOGEN 0.2 E.U./dL (<1 E.U./dL)
[2018-09-15 22:33] LABS: URINE APPEARANCE CLOUDY (CLEAR); URINE COLOR YELLOW (YELLOW)
[2018-09-15 22:47] LABS: URINE BACTERIA MANY /hpf; URINE EPITHELIAL CELLS 0 - 2 /hpf (0-5); URINE RBC 0 - 2 /hpf (0-2)
[2018-09-15] MEDS ORDERED: Cefepime 1gm in NS 100ml 1 GM/100 ML BAG IVPB STA (22:59)
--- NOTE | 2018-09-16 09:52 | RAD ---
Date of service: 09/15/2018 HISTORY: cp COMPARISON: 08/18/2018 FINDINGS: LUNGS: No active pulmonary disease. PLEURA: No significant pleural effusion identified, no pneumothorax apparent. CARDIOVASCULAR: No aortic atherosclerotic calcification present. Normal cardiac size. No pulmonary vascular congestion. OSSEOUS STRUCTURES: No significant abnormalities. VISUALIZED UPPER ABDOMEN: Normal. OTHER FINDINGS: None. IMPRESSION: No active disease.
--- NOTE | 2018-09-16 10:13 | CARD ---
APPROVED REPORT Date of service: 09/15/2018 EKG Measurement Heart [id number] <Conclusion> Normal sinus rhythm Incomplete right bundle branch block Borderline ECG
--- NOTE | 2018-09-16 10:15 | CARD ---
APPROVED REPORT Date of service: 09/15/2018 EKG Measurement Heart [id number] 120P [id number] <Conclusion> Supraventricular tachycardia Right bundle branch block Abnormal ECG
[2018-09-16] MEDS ORDERED: Influenza Vaccine 60 mcg/0.5 mL SYR (4YR UP) IM ONE (13:39)
[2018-09-16] MEDS ORDERED: Pneumococcal 23-Valent Vaccine IM ONE (13:39)
[2018-09-16 14:19] VITALS: O2SAT 100
--- NOTE | 2018-09-16 17:54 | CP.PCM.CON ---
History of Present Illness - History of Present Illness History of Present Illness: Ryan Olmos PGY2 - Consult Note for Dr. Be Consult Reason: Hx of Stage IV NSCLC HPI: Patient is an 78 year old male with past medical history of metastatic NSCL adenocarcinoma, PVF, HTN, prostate cacner s/p radiation, pneumothorax s/p lung biopsy, DJD, hx of DVTs on eliquis, tobacco abuse, bladder cancer who presented to [facility] ED on 09/15/17 for chest discomfort, palpitations, and weakness. Patient was evaluated in ED and found to have supraventricular tachycardia with heart rate of 180s. Patient was asymptomatic in ED and admitted to telemetry for observation. Caridology with Dr. Fraga was consulted and is to evaluate the patient. Review of Systems - Review of Systems All systems: reviewed and no additional remarkable complaints except (as mentioned in HPI) Past Patient History - Infectious Disease Hx of Infectious Diseases: None - Past Medical History & Family History Past Medical History?: Yes - Past Social History Smoking Status: Former Smoker - CARDIAC Hx Cardiac Disorders: Yes Hx Cardia Arrhythmia: Yes ("PALPITATIONS" AFIB) Hx Hypertension: Yes - PULMONARY Hx Respiratory Disorders: Yes (PNEUMOTHORAX-BX DONE 09-27-17-LUNG MASS) - NEUROLOGICAL Hx Neurological Disorder: Yes Hx Dizziness: Yes (SYNCOPE 10-17-17) - HEENT Hx HEENT Problems: Yes Hx Macular Degeneration: Yes - RENAL Hx Chronic Kidney Disease: No - ENDOCRINE/METABOLIC Hx Endocrine Disorders: No - HEMATOLOGICAL/ONCOLOGICAL Hx Blood Disorders: Yes Hx Anemia: Yes Hx Cancer: Yes (prostate WITH METS TO LUNGS WITH SX) Hx Metastesis: Yes (lung) - INTEGUMENTARY Hx Dermatological Problems: Yes Other/Comment: 05-29-18 POST CYSTECTOMY WITH RIGHT ILEAL CONDUIT. MID ABOMINAL INCISION WITH A URINARY BAG TO RIGHT. NEPHROSTOMY - MUSCULOSKELETAL/RHEUMATOLOGICAL Hx Falls: No - GASTROINTESTINAL Hx Gastrointestinal Disorders: No - GENITOURINARY/GYNECOLOGICAL Hx Genitourinary Disorders: Yes Hx Urinary Tract Infection: Yes - PSYCHIATRIC Hx Psychophysiologic Disorder: No Hx Substance Use: No - SURGICAL HISTORY Hx Surgeries: Yes (H/O ILEAL CONDUIT.) Other/Comment: Biopsy of lungs =09/27/2017. Biopsy of bladder=. Left sided nephrostomy= - ANESTHESIA Hx Anesthesia: Yes Hx Anesthesia Reactions: No Hx Malignant Hyperthermia: No Meds Home Medications: Home Medication List Medication Instructions Recorded Confirmed Type Metoprolol Succinate 25 mg PO DAILY #90 09/17/18 Rx diltiaZEM [Cardizem] 60 mg PO TID tab 09/17/18 Rx Allergies/Adverse Reactions: Allergies Allergy/AdvReac Type Severity Reaction Status Date / Time No Known Allergies Allergy Verified 09/16/18 13:01 - Medications Medications: Current Medications Acetaminophen (Tylenol 325mg Tab) 650 mg PO Q4H PRN PRN Reason: Pain, Mild (1-3) Apixaban (Eliquis) 5 mg PO BID [facility]; Protocol Last Admin: 09/16/18 12:13 Dose: 5 mg Diltiazem HCl (Cardizem) 60 mg PO TID [facility] Last Admin: 09/16/18 17:08 Dose: Not Given Physical Exam - Constitutional Appears: No Acute Distress - Head Exam Head Exam: ATRAUMATIC, NORMOCEPHALIC - Eye Exam Eye Exam: EOMI, PERRL - ENT Exam ENT Exam: Mucous Membranes Moist - Neck Exam Neck exam: Positive for: Full Rom Results - Vital Signs Recent Vital Signs: Last Vital Signs Temp 98.2 F 09/15/18 19:24 Pulse 70 09/16/18 17:08 Resp 18 09/16/18 16:02 BP 102/37 L 09/16/18 17:08 Pulse Ox 100 09/16/18 16:02 - Labs Result Diagrams: 09/17/18 06:00 09/17/18 06:00 Labs: Laboratory Results - last 24 hr 09/15/18 09/15/18 09/15/18 19:26 19:26 19:26 WBC 16.1 H D RBC 3.28 L Hgb 9.9 L Hct 30.0 L MCV 91.5 MCH 30.2 MCHC 33.0 RDW 12.9 Plt Count 435 MPV 9.4 Neut % (Auto) 76.4 H Lymph % (Auto) 10.3 L Ramsey % (Auto) 8.3 H Eos % (Auto) 4.9 Baso % (Auto) 0.1 Lymph # (Auto) 1.7 Ramsey # (Auto) 1.3 H Eos # (Auto) 0.8 H Baso # (Auto) 0.02 Absolute Neuts (auto) 12.26 H PT 17.9 H INR 1.61 APTT 30.4 Sodium 138 Potassium 4.5 Chloride 105 Carbon Dioxide 16 L Anion Gap 21 H BUN 34 H Creatinine 1.8 H Est GFR ( Amer) 44 Est GFR (Non-Af Amer) 36 Random Glucose 191 H Calcium 9.9 Magnesium 1.8 Total Bilirubin 0.4 AST 18 ALT 6 L Alkaline Phosphatase 96 Lactate Dehydrogenase 363 Total Creatine Kinase < 20 L Troponin I < 0.01 Total Protein 7.1 Albumin 3.4 Globulin 3.6 Albumin/Globulin Ratio 0.9 L Urine Color Urine Appearance Urine pH Ur Specific [place] Urine Protein Urine Glucose (UA) Urine Ketones Urine Blood Urine Nitrate Urine Bilirubin Urine Urobilinogen Ur Leukocyte Esterase Urine RBC Urine WBC Ur Epithelial Cells Urine Bacteria 09/15/18 22:10 WBC RBC Hgb Hct MCV MCH MCHC RDW Plt Count MPV Neut % (Auto) Lymph % (Auto) Ramsey % (Auto) Eos % (Auto) Baso % (Auto) Lymph # (Auto) Ramsey # (Auto) Eos # (Auto) Baso # (Auto) Absolute Neuts (auto) PT INR APTT Sodium Potassium Chloride Carbon Dioxide Anion Gap BUN Creatinine Est GFR ( Amer) Est GFR (Non-Af Amer) Random Glucose Calcium Magnesium Total Bilirubin AST ALT Alkaline Phosphatase Lactate Dehydrogenase Total Creatine Kinase Troponin I Total Protein Albumin Globulin Albumin/Globulin Ratio Urine Color Yellow Urine Appearance Cloudy Urine pH >=9.0 Ur Specific [place] <= 1.005 Urine Protein 100 H Urine Glucose (UA) Negative Urine Ketones Negative Urine Blood Negative Urine Nitrate Negative Urine Bilirubin Negative Urine Urobilinogen 0.2 Ur Leukocyte Esterase Large H Urine RBC 0 - 2 Urine WBC 5 - 10 H Ur Epithelial Cells 0 - 2 Urine Bacteria Many Assessment & Plan - Assessment and Plan (Free Text) Assessment: Patient is an 78 year old male with past medical history of metastatic NSCL adenocarcinoma, PVF, HTN, prostate cacner s/p radiation, pneumothorax s/p lung biopsy, DJD, hx of DVTs on eliquis, tobacco abuse, bladder cancer who presented to [facility] ED on 09/15/17 for chest discomfort, palpitations, and weakness. Plan: Stage IV NSCL adenocarcinoma Bladder cancer s/p resection Hx of prostate cancer s/p radiation Anemia PAULINA Hx of DVT on eliquis - Monitor CBC and daily labs - Transfuse patient with goal Hgb >7 - Continue Eliquis for anticoagulation - Further recs per Dr. Be
--- NOTE | 2018-09-16 22:31 | CARD ---
APPROVED REPORT Date of service: 09/16/2018 EKG Measurement Heart [id number] <Conclusion> Normal sinus rhythm Right bundle branch block Abnormal ECG
--- NOTE | 2018-09-16 23:31 | CON ---
DATE: 09/16/2018 CONSULT SERVICE: Cardiology. REASON FOR CONSULTATION: Recurrent history of SVT, history of lung CA with metastasis, status post radiation, status post pneumothorax, status post lung biopsy, history of blood cancer, status post bladder reconstruction surgery. BRIEF HISTORY: This is an 78-year-old male with past medical history significant for bladder cancer on immunotherapy, history of recently cystectomy, history of small cell lung cancer, history of SVT, who was brought by the family because of feeling very weak, lethargic, found with a heart rate of 180, reverted with adenosine. Now, the patient is in normal sinus in ER, bed 20. He denies any chest pain, shortness of breath, or any palpitation. PAST MEDICAL HISTORY: Significant for adenocarcinoma of the lungs, CAD, prostate CA, status post radiation chemotherapy, status post lung biopsy, unresectable bladder cancer, history of recent cystectomy two months ago, history of recurrent SVT, history of lung biopsy complicated by pneumothorax, history of abscess requiring nephrostomy and now the patient underwent bladder resection two months ago. PREVIOUS CARDIAC WORKUP: As follows; the patient had a stress test dated 10/02/2017 that shows a normal myocardial perfusion study with ejection fraction of 70%. The patient had echocardiogram on 10/02/2017 that revealed normal chamber size with ejection fraction between 55% to 60%, moderate aortic regurgitation, moderate mitral regurgitation, mild tricuspid regurgitation, RV systolic pressure 47. History of SVT in the past, maintained on the Cardizem as well as metoprolol 25 mg p.o. b.i.d. SOCIAL HISTORY: He denies any smoking. Denies any history of alcohol abuse. CURRENT MEDICATIONS: The patient is taking at home; Cardizem 60 mg daily, Eliquis 5 mg daily. REVIEW OF SYSTEMS: As per HPI. PHYSICAL EXAMINATION: As follows; VITAL SIGNS: Height of the patient is 5 feet 4 inches. Weight of the patient is 115 pounds. Body mass index 19.7 kg/m2. Temperature afebrile, heart rate 70, blood pressure 102/37. HEENT: PERRLA. Extraocular muscles are intact. NECK: Supple. No carotid bruit or thyromegaly. CHEST: Clear to auscultation. HEART: S1 and S2 regular. ABDOMEN: Soft. EXTREMITIES: Clubbing and cyanosis negative. LABORATORY DATA: WBC 16.1, hemoglobin 9.1, hematocrit 30, platelet count 435. Chemistry shows sodium 130, potassium 4.5, chloride 105, bicarb 16, anion gap 21, BUN 34, creatinine 1.8. IMPRESSION: An 78-year-old male with past medical history significant for lung carcinoma with metastasis, inoperable, status post biopsy, status post pneumothorax, history of bladder cancer, cystectomy, now on immunotherapy, history of recurrent supraventricular tachycardia, became very weak, lethargic, and found to be in supraventricular tachycardia, converted to normal sinus. The patient is on Cardizem. We will add low dose of beta brenna as blood pressure, heart rate is tolerated. The history of deep venous thrombosis prophylaxis on Eliquis. We will review the echo. If it is not done within 6 months, we will repeat the echo. We will follow with you. Thank you Dr. Riddle for providing us the opportunity in taking care of the patient John Ospina. Dougie Fraga MD
[2018-09-17 07:10] LABS: BASO # 0.01 K/mm3 (0.0-2.0); BASO % 0.1 % (0.0-3.0); EOS # 0.5 (0.0-0.7); EOS % 4.5 % (1.5-5.0); HEMOGLOBIN 8.5 g/dL (14.0-18.0); LYMPH # 0.6 (1.2-3.4); LYMPH % 5.3 % (22.0-35.0); MEAN CELL VOLUME 90.1 fl (80.0-105.0); MEAN CORPUSCULAR HEMOGLOBIN 30.1 pg (25.0-35.0); MEAN CORPUSCULAR HGB CONC 33.5 g/dl (31.0-37.0); MEAN PLATELET VOLUME 8.9 fl (7.0-11.0); MONO # 1.1 (0.1-0.6); MONO % 9.8 % (1.0-6.0); RBC 2.82 10^6/uL (3.5-6.1); RED CELL DISTRIBUTION WIDTH 12.7 % (11.5-14.5)
[2018-09-17 07:34] LABS: ALB/GLOB RATIO 0.9 (1.1-1.8); ALBUMIN 2.9 g/dL (3.0-4.8); CALCIUM 9.8 mg/dL (8.4-10.5)
--- NOTE | 2018-09-17 08:08 | CP.PCM.PN ---
Subjective - Date & Time of Evaluation Date of Evaluation: 09/17/18 Time of Evaluation: 06:20 - Subjective Subjective: Awake, alert, no distress Reason for consultation and follow up: Cardiac evaluation of SVT, history of SVT, history of lung cancer with metastasis Seen and examined by me and Dr. Fraga Objective - Vital Signs/Intake and Output Vital Signs (last 24 hours): Temp Pulse Resp BP Pulse Ox 97.9 F 80 18 113/55 L 100 09/17/18 06:00 09/17/18 06:00 09/17/18 06:00 09/17/18 06:00 09/16/18 16:02 Intake and Output: 09/17/18 09/17/18 06:59 18:59 Intake Total 600 Output Total 750 Balance -150 - Medications Medications: Current Medications Acetaminophen (Tylenol 325mg Tab) 650 mg PO Q4H PRN PRN Reason: Pain, Mild (1-3) Apixaban (Eliquis) 5 mg PO BID [facility]; Protocol Last Admin: 09/16/18 18:06 Dose: 5 mg Diltiazem HCl (Cardizem) 60 mg PO TID [facility] Last Admin: 09/16/18 17:08 Dose: Not Given Ceftriaxone Sodium (Rocephin 1 Gram Ivpb) 1 gm in 100 mls @ 100 mls/hr IVPB DAILY [facility]; Protocol Metoprolol Tartrate (Lopressor) 12.5 mg PO BID [facility] Last Admin: 09/16/18 18:06 Dose: 12.5 mg - Labs Labs: 09/17/18 06:00 09/17/18 06:00 PT 17.9 SECONDS (9.4-12.5) H 09/15/18 19:26 INR 1.61 09/15/18 19:26 APTT 30.4 Seconds (26.9-38.3) 09/15/18 19:26 - Constitutional Appears: Non-toxic, No Acute Distress - Head Exam Head Exam: NORMAL INSPECTION, NORMOCEPHALIC - Eye Exam Eye Exam: Normal appearance Pupil Exam: NORMAL ACCOMODATION - ENT Exam ENT Exam: Mucous Membranes Moist - Respiratory Exam Respiratory Exam: Decreased Breath Sounds, NORMAL BREATHING PATTERN - Cardiovascular Exam Cardiovascular Exam: REGULAR RHYTHM, +S1, +S2 Additional comments: Telemetry NSR 70's - GI/Abdominal Exam GI & Abdominal Exam: Soft, Normal Bowel Sounds - Extremities Exam Extremities Exam: Full ROM, Normal Capillary Refill - Neurological Exam Neurological Exam: Alert, Awake, Oriented x3 - Psychiatric Exam Psychiatric exam: Normal Affect, Normal Mood - Skin Skin Exam: Dry, Normal Color, Warm Assessment and Plan - Assessment and Plan (Free Text) Assessment: An 78 year old male who was brought to the ER due to patient feeling very weak. In ER , heart rate found to be 180/min and reverted with Adenosine. History of lung adenocarcinoma, peripheral vascular disease, hypertension,, prostate cancer post radiation,cystectomy, pneumothorax post lung biopsy, DJD, deep vein thrombosis, tobacco abuse, bladder cancer, history of SVT and maintained on Cardizem and Lopressor. Had stress test 10/02/17 and showed LVEF 70 % with normal myocardial perfusion.Echo on 10/02/17 showed LVEF b 55-60%, moderate AR/MR, mild TR RVSP 47 mmHg. Controlled heart rate. On Eliquis for history of DVT. Admitted to telemetry. Plan: Denies chest pain, feels okay Heart rate controlled Continue Lopressor and Cardizem Blood pressure stable On Eliquis 5 mg BID, Cardizem 60 mg TID Lopressor 12.5 mg BID Continue current medications Continue current treatment Will follow up Plan and treatment discussed with Dr. Fraga
[2018-09-17] MEDS ORDERED: cefTRIAXone 1 gm 1 GM/100 ML BAG IVPB SCH (10:00)
[2018-09-17 12:37] VITALS: RESP 19; TEMP 98
[2018-09-17 17:32] VITALS: BP 104/54
[2018-09-17 18:36] VITALS: PULSE 53
--- NOTE | 2018-09-17 21:06 | CARD ---
APPROVED REPORT Date of service: 09/17/2018 EKG Measurement Heart [id number] <Conclusion> Sinus rhythm with occasional premature ventricular complexes Right bundle branch block Abnormal ECG
--- NOTE | 2018-09-18 00:04 | DS ---
HISTORY OF PRESENT ILLNESS: This is an 78-year-old man with history of lung cancer, bladder cancer, hypertension, spontaneous pneumothorax post lung biopsy and recurrent syncope, who presented to the emergency room with palpitations and SVT. COURSE OF HOSPITAL STAY: He was seen and admitted by Dr. Shashank Riddle, followed by his repairer finished metal, Dr. Fraga and Eron. His medications were adjusted. Metoprolol was resumed as the patient may have inadvertently stopped taking it on his own. Diltiazem 30 mg t.i.d was continued. He was held in the hospital for 2 overnights, monitored on telemetry. There were no further burst of SVT. No further ectopy. He was hemodynamically stable and ready for discharge to home. FINAL DISCHARGE DIAGNOSES: 1. Supraventricular tachycardia. 2. Lung cancer. 3. Bladder cancer. 4. Nephrostomy tube in place. PLAN: He will follow up with Dr. Shashank Riddle in the office within 1 week. Demetrius Riddle MD
[2018-09-18] MEDS ORDERED: Metoprolol Succinate 25 mg XL Tab PO SCH (10:00)
== END 2018-09-17 19:03 | disposition home or self-care (01) | DRG 309 ==
LOC: ED 19:16 → ERH 21:29 → 2RSO 09-16 17:36
PROVIDERS: ADMIT Internal Medicine; ATTEND Internal Medicine
DX: I47.1 Supraventricular tachycardia (principal); C78.00 Secondary malignant neoplasm of unspecified lung; I25.10 Atherosclerotic heart disease of native coronary artery without angina pectoris; I10 Essential (primary) hypertension; I73.9 Peripheral vascular disease, unspecified; I08.3 Combined rheumatic disorders of mitral, aortic and tricuspid valves; R53.1 Weakness; H35.30 Unspecified macular degeneration; Z86.718 Personal history of other venous thrombosis and embolism; Z85.46 Personal history of malignant neoplasm of prostate; Z85.51 Personal history of malignant neoplasm of bladder; Z92.3 Personal history of irradiation; Z93.6 Other artificial openings of urinary tract status; Z92.21 Personal history of antineoplastic chemotherapy; Z87.440 Personal history of urinary (tract) infections; Z87.891 Personal history of nicotine dependence

== ENCOUNTER 2018-09-19 13:41 | Outpatient (CLI) | payer MEDICARE, BC, OTHER | END 2018-09-19 13:42 | disposition home or self-care (01) | LOC: OPLAB 13:41 | DX: D64.9 Anemia, unspecified (principal); E78.5 Hyperlipidemia, unspecified; E83.40 Disorders of magnesium metabolism, unspecified; M81.0 Age-related osteoporosis without current pathological fracture ==

== ENCOUNTER 2018-10-10 12:14 | Outpatient (CLI) | payer MEDICARE, BC, OTHER | END 2018-10-10 12:15 | disposition home or self-care (01) | LOC: OPLAB 12:14 | DX: D64.9 Anemia, unspecified (principal); E78.5 Hyperlipidemia, unspecified; M81.0 Age-related osteoporosis without current pathological fracture; E83.40 Disorders of magnesium metabolism, unspecified ==

== ENCOUNTER 2018-10-30 12:57 | Outpatient (CLI) | payer MEDICARE, BC | END 2018-10-30 12:58 | disposition home or self-care (01) | LOC: OPLAB 12:57 ==

== ENCOUNTER → 2018-11-05 | Outpatient (CLI) | payer MEDICARE, BC | LOC: OPLAB 12:15 ==

== ENCOUNTER 2018-11-07 12:59 | Outpatient (CLI) | payer MEDICARE, BC | END 2018-11-07 13:00 | disposition home or self-care (01) | LOC: OPLAB 12:59 ==

== ENCOUNTER 2018-11-20 12:29 | Outpatient (CLI) | payer MEDICARE | END 2018-11-20 12:30 | disposition home or self-care (01) | LOC: OPLAB 12:29 ==

== ENCOUNTER 2018-11-26 05:54 | Outpatient (CLI) | payer MEDICARE, BC | END 2018-11-26 05:55 | disposition home or self-care (01) | LOC: PET-BROA 05:54 ==